=== PATIENT | male | born 1965 | race Caucasian/White ===

== ENCOUNTER 2019-03-13 16:53 | Inpatient (IN) | payer BC ==
[2019-03-13] MEDS ORDERED: SODIUM CHLORIDE 0.9% 1,000 ML IV STA (17:25)
[2019-03-13] MEDS ORDERED: ONDANSETRON 4 MG/2 ML VIAL IVP STA (17:25)
[2019-03-13] MEDS ORDERED: HYDROmorphone 1 MG/ML 1 ML SYRINGE IVP STA (17:25)
--- NOTE | 2019-03-13 17:39 | ED ---
General Adult HPI - General Chief complaint: Abdominal Pain Stated complaint: Abd pain Time Seen by Provider: 03/13/19 17:05 Source: patient, RN notes reviewed, old records reviewed Mode of arrival: ambulatory Limitations: no limitations - History of Present Illness Initial comments: This is a 53-year-old male presents emergency Department complaining of epigastric and left upper quadrant abdominal pain for the last 3 days. Patient states she's vomited 3 or 4 times to get the pain gets so bad. 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 Patient denies any diarrhea. Patient denies any fever chills. Patient does any chest pain palpitations difficulty breathing or shortness of breath per patient states palpating that area causes significant abdominal pain. Patient states that pain radiates to his back. Patient denies any history of high blood pressure. Patient denies any headache patient denies numbness weakness patient denies lightheadedness or dizziness. Patient denies any leg swelling or calf tenderness - Related Data Home Medications Medication Instructions Recorded Confirmed Cholecalciferol [Vitamin D3] 5,000 unit PO DAILY@1200 11/13/14 11/16/14 Ibuprofen 600 mg PO DAILY PRN 11/13/14 11/16/14 Allergies Allergy/AdvReac Type Severity Reaction Status Date / Time No Known Allergies Allergy Verified 03/13/19 17:06 Review of Systems ROS Statement: Those systems with pertinent positive or pertinent negative responses have been documented in the HPI. ROS Other: All systems not noted in ROS Statement are negative. Past Medical History Past Medical History: No Reported History History of Any Multi-Drug Resistant Organisms: None Reported Past Surgical History: No Surgical Hx Reported Additional Past Surgical History / Comment(s): Rheumatic fever Past Psychological History: No Psychological Hx Reported Smoking Status: Current every day smoker Past Alcohol Use History: None Reported Past Drug Use History: None Reported General Exam - General Exam Comments Initial Comments: GENERAL: Patient is well-developed and well-nourished. Patient is nontoxic and well- hydrated and is in mild distress. ENT: Neck is soft and supple. No significant lymphadenopathy is noted. Oropharynx is clear. Moist mucous membranes. Neck has full range of motion without eliciting any pain. EYES: The sclera were anicteric and conjunctiva were pink and moist. Extraocular movements were intact and pupils were equal round and reactive to light. Eyelids were unremarkable. PULMONARY: Unlabored respirations. Good breath sounds bilaterally. No audible rales rhonchi or wheezing was noted. CARDIOVASCULAR: There is a regular rate and rhythm without any murmurs gallops or rubs. ABDOMEN: She has significant epigastric and left upper quadrant pain. Patient has rebound tenderness SKIN: Skin is clear with no lesions or rashes and otherwise unremarkable. NEUROLOGIC: Patient is alert and oriented x3. Cranial nerves II through XII are grossly intact. Motor and sensory are also intact. Normal speech, volume and content. Symmetrical smile. MUSCULOSKELETAL: Normal extremities with adequate strength and full range of motion. No lower extremity swelling or edema. No calf tenderness. LYMPHATICS: No significant lymphadenopathy is noted PSYCHIATRIC: Normal psychiatric evaluation. Limitations: no limitations Course Vital Signs 03/13/19 03/13/19 17:04 19:05 Temperature 98.1 F 97.9 F Pulse Rate 55 L 73 Respiratory 20 15 Rate Blood Pressure 154/81 110/73 O2 Sat by Pulse 99 96 Oximetry Medical Decision Making - Medical Decision Making CT of the abdomen pelvis shows no acute abnormality. Patient got 1 mg of Dilaudid for the pain but patient was still complaining of severe pain. Patient received another 0.5 mg Dilaudid did seem to help the patient quite a bit. Patient continued to have epigastric abdominal pain but not to agree that he did earlier. I felt uncomfortable sending the patient home so I talked with Dr. Henson he agreed to admit the patient admitted the patient and I consult the GI. - Lab Data Result diagrams: 03/13/19 17:32 03/13/19 17:32 Lab Results 03/13/19 03/13/19 03/13/19 Range/Units 17:32 17:32 17:32 WBC 12.9 H (3.8-10.6) k/uL RBC 4.76 (4.30-5.90) m/uL Hgb 16.2 (13.0-17.5) gm/dL Hct 44.9 (39.0-53.0) % MCV 94.2 (80.0-100.0) fL MCH 34.0 (25.0-35.0) pg MCHC 36.1 (31.0-37.0) g/dL RDW 11.7 (11.5-15.5) % Plt Count 177 (150-450) k/uL Neutrophils % 67 % Lymphocytes % 19 % Monocytes % 9 % Eosinophils % 1 % Basophils % 2 % Neutrophils # 8.6 H (1.3-7.7) k/uL Lymphocytes # 2.4 (1.0-4.8) k/uL Monocytes # 1.2 H (0-1.0) k/uL Eosinophils # 0.2 (0-0.7) k/uL Basophils # 0.2 (0-0.2) k/uL Sodium 138 (137-145) mmol/L Potassium 4.1 (3.5-5.1) mmol/L Chloride 104 (98-107) mmol/L Carbon Dioxide 22 (22-30) mmol/L Anion Gap 12 mmol/L BUN 24 H (9-20) mg/dL Creatinine 0.85 (0.66-1.25) mg/dL Est GFR (CKD-EPI)AfAm >90 (>60 ml/min/1.73 sqM) Est GFR (CKD-EPI)NonAf >90 (>60 ml/min/1.73 sqM) Glucose 99 (74-99) mg/dL Plasma Lactic Acid Tyler 1.4 (0.7-2.0) mmol/L Calcium 10.1 (8.4-10.2) mg/dL Total Bilirubin 1.2 (0.2-1.3) mg/dL AST 30 (17-59) U/L ALT 29 (21-72) U/L Alkaline Phosphatase 51 (38-126) U/L Total Protein 7.4 (6.3-8.2) g/dL Albumin 4.6 (3.5-5.0) g/dL Amylase <30 L (30-110) U/L Lipase 46 (23-300) U/L Urine Color Urine Appearance (Clear) Urine pH (5.0-8.0) Ur Specific Tilton (1.001-1.035) Urine Protein (Negative) Urine Glucose (UA) (Negative) Urine Blood (Negative) Urine Nitrite (Negative) Urine Bilirubin (Negative) Urine Urobilinogen (<2.0) mg/dL Ur Leukocyte Esterase (Negative) 03/13/19 Range/Units 18:56 WBC (3.8-10.6) k/uL RBC (4.30-5.90) m/uL Hgb (13.0-17.5) gm/dL Hct (39.0-53.0) % MCV (80.0-100.0) fL MCH (25.0-35.0) pg MCHC (31.0-37.0) g/dL RDW (11.5-15.5) % Plt Count (150-450) k/uL Neutrophils % % Lymphocytes % % Monocytes % % Eosinophils % % Basophils % % Neutrophils # (1.3-7.7) k/uL Lymphocytes # (1.0-4.8) k/uL Monocytes # (0-1.0) k/uL Eosinophils # (0-0.7) k/uL Basophils # (0-0.2) k/uL Sodium (137-145) mmol/L Potassium (3.5-5.1) mmol/L Chloride (98-107) mmol/L Carbon Dioxide (22-30) mmol/L Anion Gap mmol/L BUN (9-20) mg/dL Creatinine (0.66-1.25) mg/dL Est GFR (CKD-EPI)AfAm (>60 ml/min/1.73 sqM) Est GFR (CKD-EPI)NonAf (>60 ml/min/1.73 sqM) Glucose (74-99) mg/dL Plasma Lactic Acid Tyler (0.7-2.0) mmol/L Calcium (8.4-10.2) mg/dL Total Bilirubin (0.2-1.3) mg/dL AST (17-59) U/L ALT (21-72) U/L Alkaline Phosphatase (38-126) U/L Total Protein (6.3-8.2) g/dL Albumin (3.5-5.0) g/dL Amylase (30-110) U/L Lipase (23-300) U/L Urine Color Yellow Urine Appearance Clear (Clear) Urine pH 6.0 (5.0-8.0) Ur Specific [place] 1.027 (1.001-1.035) Urine Protein Negative (Negative) Urine Glucose (UA) Negative (Negative) Urine Blood Negative (Negative) Urine Nitrite Negative (Negative) Urine Bilirubin Negative (Negative) Urine Urobilinogen <2.0 (<2.0) mg/dL Ur Leukocyte Esterase Negative (Negative) Disposition Clinical Impression: Abdominal pain Disposition: ADMITTED IP TO THIS HOSP Referrals: None,Stated [Primary Care Provider] - 1-2 days Time of Disposition: 19:55
[2019-03-13 17:41] LABS: Basophils # (A) 0.2 k/uL (0-0.2); Basophils % (A) 2 %; Eosinophils # (A) 0.2 k/uL (0-0.7); Eosinophils % (A) 1 %; HCT 44.9 % (39.0-53.0); HGB 16.2 gm/dL (13.0-17.5); Lymphocytes # (A) 2.4 k/uL (1.0-4.8); Lymphocytes % (A) 19 %; MCHC 36.1 g/dL (31.0-37.0); MCV 94.2 fL (80.0-100.0); Mean Platelet Volume 7.3; Monocytes # (A) 1.2 k/uL (0-1.0); Monocytes % (A) 9 %; Neutrophils # (A) 8.6 k/uL (1.3-7.7); Neutrophils % (A) 67 %; Platelet Count 177 k/uL (150-450); RBC 4.76 m/uL (4.30-5.90); RDW 11.7 % (11.5-15.5); WBC 12.9 k/uL (3.8-10.6)
[2019-03-13 17:51] LABS: ALT 29 U/L (21-72); AST 30 U/L (17-59); African American GFR (CKD) >90 (>60 ml/min/1.73 sqM); Albumin 4.6 g/dL (3.5-5.0); Alkaline Phosphatase 51 U/L (38-126); Amylase <30 U/L (30-110); Anion Gap 12 mmol/L; Blood Urea Nitrogen 24 mg/dL (9-20); Calcium 10.1 mg/dL (8.4-10.2); Carbon Dioxide 22 mmol/L (22-30); Chloride 104 mmol/L (98-107); Glucose 99 mg/dL (74-99); Potassium 4.1 mmol/L (3.5-5.1); Sodium 138 mmol/L (137-145); Total Bilirubin 1.2 mg/dL (0.2-1.3); Total Protein 7.4 g/dL (6.3-8.2)
[2019-03-13] MEDS ORDERED: HYDROmorphone 0.5 MG/0.5 ML SYRINGE IVP STA (18:13)
--- NOTE | 2019-03-13 18:51 | CT ---
EXAMINATION TYPE: CT abdomen pelvis w con DATE OF EXAM: 03/13/2019 COMPARISON: November 05, 2014 HISTORY: Generalized abdominal pain. CT DLP: 638 mGycm Automated exposure control for dose reduction was used. TECHNIQUE: Helical acquisition of images was performed from the lung bases through the pelvis. CONTRAST: Performed without Oral Contrast and with IV Contrast, patient injected with 100 mL of Isovue 300. FINDINGS: Lung bases are clear. There is no pleural effusion. Heart size is normal. There is no pericardial eff usion. Liver spleen stomach pancreas gallbladder appear normal. Bile ducts are not dilated. There is no adrenal mass. Kidneys show satisfactory contrast opacification. There is no hydronephrosi s. Ureters are not dilated. There is no retroperitoneal adenopathy. There are few fluid-filled mildly distended small bowel loops in the mid abdomen. Bladder distends smoothly. There is no inguinal mary ia. There is no evidence of a pelvic mass. There is no free fluid in the pelvis. There are a few sigm oid diverticula. There is no sign of diverticulitis. The appendix appears normal. Lumbar vertebra have fairly normal spacing and alignment. Posterior elements are intact. Bony pelvis appears intact. IMPRESSION: THERE IS POSSIBLE MILD SMALL BOWEL ILEUS. NORMAL APPENDIX. THERE IS OVERALL NO ADVERSE CHANGE COMPARE D TO OLD EXAM..
[2019-03-13 19:04] LABS: Appearance,Urine Clear (Clear); Bilirubin,Urine Negative (Negative); Blood,Urine Negative (Negative); Color,Urine Yellow; Glucose,Urine (UA) Negative (Negative); Ketones,Urine 2+ (Negative); Leukocyte Esterase,Urine Negative (Negative); Nitrite,Urine Negative (Negative); Protein,Urine Negative (Negative); Specific Gravity,Urine 1.027 (1.001-1.035); Urobilinogen,Urine <2.0 mg/dL (<2.0)
[2019-03-13] MEDS ORDERED: PANTOPRAZOLE 40 MG/10 ML VIAL IVP STA (19:22)
[2019-03-13] MEDS ORDERED: SODIUM CHLORIDE 0.9% 1,000 ML IV ONE (20:09)
[2019-03-13 22:00] VITALS: BMI 23.2
[2019-03-13] MEDS ORDERED: HYDROmorphone 0.5 MG/0.5 ML SYRINGE IVP PRN (23:35)
--- NOTE | 2019-03-13 23:42 | P.HPIM ---
History of Present Illness H&P Date: 03/13/19 Chief Complaint: abdominal pain 53-year-old male with no significant past medical history Patient comes in to the hospital with 3 day history of epigastric abdominal pain radiating to the left upper quadrant. This has been going off and on over the past 3 days worsening in nature. Described as sharp pain and alternating with dull achy pain 10 out of 10 in severity goes down to 7 out of 10 in severity. Associated with feeling nauseous and vomiting every morning for the past 3 days nonbloody no coffee-ground vomiting patient reports thick greenish in color even after long hours of fasting overnight while sleeping. Usually after vomiting he'll feel some relief. Patient also reports history of GERD and history of similar episodes of abdominal pain 3 years ago no diagnosis was given at that time he improved on his own to think of getting less intense attacks of abdominal pain occasionally that resolves on its own. Patient denies any alcohol intake or using any painkillers but he does admit to smoking. Patient denies any weight loss or GI bleeding or melena.he denies any recent traveling trauma to the abdomen. When patient came to the hospital he was concerned about kidney stones which she had many many years ago. He denies any urinary symptoms. Denies any fevers or chills chest pain or trouble breathing. In the ED CT of the abdomen was unremarkable labs was unremarkable except for elevated white count patient admitted for GI evaluation and possible EGD as concerns were for stomach ulcer Review of Systems Pertinent positives as noted in HPI. All other systems were reviewed and are negative Past Medical History Past Medical History: No Reported History History of Any Multi-Drug Resistant Organisms: None Reported Past Surgical History: No Surgical Hx Reported Additional Past Surgical History / Comment(s): Rheumatic fever Past Psychological History: No Psychological Hx Reported Smoking Status: Current every day smoker Past Alcohol Use History: None Reported Additional Past Alcohol Use History / Comment(s): states he smokes 1/2 pack per day. Past Drug Use History: None Reported - Past Family History family Additional Family Medical History / Comment(s): Mother with kidney stones Medications and Allergies Home Medications Medication Instructions Recorded Confirmed Type Multivitamins, Thera [Multivitamin 1 tab PO DAILY 03/13/19 03/13/19 History (formulary)] Allergies Allergy/AdvReac Type Severity Reaction Status Date / Time No Known Allergies Allergy Verified 03/13/19 20:07 Physical Exam Vitals: Vital Signs Temp Pulse Resp BP Pulse Ox 03/13/19 20:52 66 12 112/70 95 03/13/19 19:05 97.9 F 73 15 110/73 96 03/13/19 17:04 98.1 F 55 L 20 154/81 99 Intake and Output 03/13/19 03/13/19 03/14/19 14:59 22:59 06:59 Intake Total 1000 Balance 1000 Intake: Amount of Fluid Infused ( 1000 ml) Other: Weight 65.317 kg Constitutional: No acute distress, conversant, pleasant Eyes: Anicteric sclerae, moist conjunctiva, no lid-lag Pupils equal round reactive to light ENMT: NC/AT Oropharynx clear, no erythema, exudates Neck: Supple, FROM, no masses, or JVD No carotid bruits No thyromegaly Lungs: Clear to auscultation Clear to percussion Normal respiratory effort, no accessory muscle use Cardiovascular: Heart regular in rate and rhythm, systolic murmurs,no gallops, or rubs No peripheral edema Abdominal: Soft, tenderness to palpation of the epigastric region with phone to regarding, no rebound or rigidity Abdomen moving with respiration Normoactive bowel sounds No hepatomegaly, No splenomegaly No palpable mass inguinal hernia was palpated reducible Skin: Normal temperature, tone, texture, turgor No induration No subcutaneous nodules No rash, lesions No ulcers Extremities: No digital cyanosis No clubbing Pedal pulses intact and symmetrical Radial pulses intact and symmetrical No calf tenderness Psychiatric: Alert and oriented to person, place and time Appropriate affect fair judgement Neuro Muscles Strength 5/5 in all 4 extremities Sensation to light touch grossly present throughout Cranial nerves II-XII grossly intact No focal sensory deficits Lymphatics: no palpable cervical or supraclavicular , or inguinal lymph nodes Results CBC & Chem 7: 03/13/19 17:32 03/13/19 17:32 Labs: Abnormal Lab Results - Last 24 Hours (Table) 03/13/19 03/13/19 03/13/19 Range/Units 17:32 17:32 18:56 WBC 12.9 H (3.8-10.6) k/uL Neutrophils # 8.6 H (1.3-7.7) k/uL Monocytes # 1.2 H (0-1.0) k/uL BUN 24 H (9-20) mg/dL Amylase <30 L (30-110) U/L Urine Ketones 2+ H (Negative) Thrombosis Risk Factor Assmnt - Choose All That Apply Any of the Below Risk Factors Present?: Yes Each Factor Represents 1 point: Age 41-60 years Other Risk Factors: No Other congenital or acquired thrombophilia - If yes, enter type in comment: No Thrombosis Risk Factor Assessment Total Risk Factor Score: 1 Thrombosis Risk Factor Assessment Level: Low Risk Assessment and Plan Assessment: 53-year-old malewith past medical history comes in with 3 day history of severe epigastric abdominal pain associated with bilious vomiting. CT of the abdomen in the ER showed no bowel obstruction or free air under the diaphragm. No kidney stones. Patient admitted under observation with anticipated length of stay less than 2 midnight for evaluation by GI and possible EGD Plan: epigastric abdominal pain concerning for peptic ulcer disease Nothing by mouth IV fluid hydration Pain control PPI twice a day GI consult CT of the abdomen showed no evidence of air under the diaphragm or bowel obstruction history of valvular heart disease with systolic murmur radiating to the left carotid Consider outpatient follow-up with cardiology currently asymptomatic DVT prophylaxis mechanical CODE STATUS full code Discussed with: Patient, ER, *RN Anticipated length of stay less than [address]: home A total of 60 minutes was spent on the care of this complex patient more than 50% of the time was spent in counseling and care coordination.
[2019-03-14 07:41] LABS: Basophils # (A) 0.1 k/uL (0-0.2); Basophils % (A) 1 %; Eosinophils # (A) 0.2 k/uL (0-0.7); Eosinophils % (A) 2 %; HGB 14.9 gm/dL (13.0-17.5); Lymphocytes # (A) 3.1 k/uL (1.0-4.8); Lymphocytes % (A) 28 %; MCH 32.6 pg (25.0-35.0); MCHC 33.8 g/dL (31.0-37.0); MCV 96.6 fL (80.0-100.0); Mean Platelet Volume 7.3; Monocytes % (A) 9 %; Neutrophils # (A) 6.3 k/uL (1.3-7.7); Neutrophils % (A) 57 %; Platelet Count 150 k/uL (150-450); RBC 4.55 m/uL (4.30-5.90); WBC 11.1 k/uL (3.8-10.6)
[2019-03-14 07:57] LABS: African American GFR (CKD) >90 (>60 ml/min/1.73 sqM); Anion Gap 7 mmol/L; Blood Urea Nitrogen 21 mg/dL (9-20); Calcium 8.8 mg/dL (8.4-10.2); Carbon Dioxide 24 mmol/L (22-30); Chloride 108 mmol/L (98-107); Glucose 78 mg/dL (74-99); Potassium 3.8 mmol/L (3.5-5.1); Sodium 139 mmol/L (137-145)
[2019-03-14] MEDS: PANTOPRAZOLE 40 MG/10 ML VIAL IVP SCH ×2 (10:03→20:43)
[2019-03-14 12:48] VITALS: RESP 16
--- NOTE | 2019-03-14 17:01 | XR ---
EXAMINATION TYPE: XR abdomen 1V DATE OF EXAM: 03/14/2019 Comparison: Correlation CT 03/13/2019 Clinical History: 53-year-old male follow-up ileus Findings: A few residual borderline distended small bowel loops remain in the left side of the abdomen. Scatter ed colonic air is present with mild stool in the right side of the abdomen. Supine imaging limited for assessment of free air. Impression: A few residual borderline distended small bowel loops in the left side of the abdomen measuring up to 2.8 cm. Consider stable versus slightly improving ileus.
--- NOTE | 2019-03-14 17:36 | P.PN ---
Subjective Progress Note Date: 03/14/19 Patient is doing fairly well today. He denies any nausea or vomiting. Abdominal pain has improved. Objective - Vital Signs Vital signs: Vital Signs Temp 97.4 F L 03/14/19 12:22 Pulse 51 L 03/14/19 12:22 Resp 16 03/14/19 12:22 BP 110/64 03/14/19 12:22 Pulse Ox 94 L 03/14/19 12:22 Intake & Output 03/13/19 03/14/19 03/14/19 18:59 06:59 18:59 Intake Total 1000 Balance 1000 Weight 65.317 kg 65.317 kg Intake: Amount of Fluid Infused ( 1000 ml) Oral 0 Other: Voiding Method Toilet # Voids 1 2 # Bowel Movements 0 - Exam 1. Ileus, with no obvious small bowel obstruction on CT. Repeat x-ray today showed some improvement. Currently patient on IV fluid hydration. He is nothing by mouth awaiting GI evaluation. May start clear liquid is if okay with GI. 2. Epigastric pain: On presentation with concern about possible gastric ulcers by admitting physician. Awaiting GI evaluation. Continue IV Protonix. - Labs CBC & Chem 7: 03/14/19 07:12 03/14/19 07:12 Labs: Abnormal Lab Results - Last 24 Hours (Table) 03/13/19 03/13/19 03/13/19 Range/Units 17:32 17:32 18:56 WBC 12.9 H (3.8-10.6) k/uL Neutrophils # 8.6 H (1.3-7.7) k/uL Monocytes # 1.2 H (0-1.0) k/uL Chloride (98-107) mmol/L BUN 24 H (9-20) mg/dL Amylase <30 L (30-110) U/L Urine Ketones 2+ H (Negative) 03/14/19 03/14/19 Range/Units 07:12 07:12 WBC 11.1 H (3.8-10.6) k/uL Neutrophils # (1.3-7.7) k/uL Monocytes # (0-1.0) k/uL Chloride 108 H (98-107) mmol/L BUN 21 H (9-20) mg/dL Amylase (30-110) U/L Urine Ketones (Negative)
[2019-03-14] MEDS ORDERED: DICYCLOMINE 20 MG TAB PO PRN (18:41)
--- NOTE | 2019-03-14 22:45 | P.CONS ---
History of Present Illness - Reason for Consult Consult date: 03/14/19 Abdominal pain Requesting physician: Katherine Henson - Chief Complaint Abdominal pain - History of Present Illness 53-year-old male with no prior medical history who presents to the hospital with complaints of abdominal pain. The patient reports 3 days of pain in the epi gastric region. Extremities sharp and burning in nature. He reports associated nausea and vomiting with the pain. The patient states that nausea and vomiting was worse after eating. The pain was above the bilirubin in the epigastric region without radiation. He thought initially that the pain has been secondary to back pain and kidney stones, for which the patient has a prior history but that the pain continued to intensify prompting him to come to the hospital. He denies any sick contacts, or unusual foods, travel or other triggers. He denies any change in bowel habits with last bowel movement yesterday, normal in color, and consistency with no blood per rectum or melena reported. He denies any history of frequent reflux, dysphagia or odynophagia. No prior peptic ulcer disease reported. The patient takes Motrin regularly. He did have a computed tomography scan on presentation which did show evidence of possible ileus. Review of Systems REVIEW OF SYSTEMS: CONSTITUTIONAL: Denies any fevers, chills, weight change or fatigue. CARDIOVASCULAR: Denies any chest pain, palpitations high or low blood pressures RESPIRATORY: Denies any shortness of breath, hemoptysis or cough. GENITOURINARY: No dysuria or hematuria. MUSCULOSKELETAL: No weakness reported. SKIN: Denies any new rashes or lesions, jaundice or pallor. PSYCHIATRIC: Denies any depression or anxiety. NEUROLOGY: Denies headache, denies any new focal deficits. EARS/NOSE/THROAT: No recent hearing change, congestion, nasal discharge or sore throat. EYES: No pain in eyes, discharge or change in vision. GASTROINTESTINAL: As per HPI. Past Medical History Past Medical History: No Reported History History of Any Multi-Drug Resistant Organisms: None Reported Past Surgical History: No Surgical Hx Reported Additional Past Surgical History / Comment(s): Rheumatic fever Past Psychological History: No Psychological Hx Reported Smoking Status: Current every day smoker Past Alcohol Use History: None Reported Additional Past Alcohol Use History / Comment(s): states he smokes 1/2 pack per day. Past Drug Use History: None Reported - Past Family History family Additional Family Medical History / Comment(s): Mother with kidney stones Medications and Allergies Home Medications Medication Instructions Recorded Confirmed Type Multivitamins, Thera [Multivitamin 1 tab PO DAILY 03/13/19 03/13/19 History (formulary)] Allergies Allergy/AdvReac Type Severity Reaction Status Date / Time No Known Allergies Allergy Verified 03/13/19 20:07 Physical Exam Vitals: Vital Signs Temp Pulse Pulse Resp BP BP Pulse Ox 03/14/19 20:20 98.1 F 57 L 16 118/70 96 03/14/19 12:22 97.4 F L 51 L 16 110/64 94 L 03/14/19 05:00 97.9 F 58 L 18 106/59 96 Intake and Output 03/14/19 03/14/19 03/14/19 06:59 14:59 22:59 Intake Total 0 408 Balance 0 408 Intake: Oral 0 408 Other: Voiding Method Toilet # Voids 1 2 1 Weight 65.317 kg On physical examination, patient appears comfortable in no apparent distress. HEAD: Normocephalic, atraumatic. EYES: No scleral icterus. No conjunctival injection. MOUTH: No lesions, tongue midline. NECK: Trachea midline, no gross abnormalities. CHEST: Clear to auscultation with no wheezing or rhonchi appreciated. HEART: Regular rate and rhythm. ABDOMEN: Soft, mildly tender to palpation. Bowel sounds are positive. No organomegaly. No guarding or rigidity. EXTREMITIES: No pedal edema. SKIN: No rashes, no jaundice. NEUROLOGIC: Alert and oriented x3. No focal deficits. Results CBC & Chem 7: 03/14/19 07:12 03/14/19 07:12 Labs: Abnormal Lab Results - Last 24 Hours (Table) 03/14/19 03/14/19 Range/Units 07:12 07:12 WBC 11.1 H (3.8-10.6) k/uL Chloride 108 H (98-107) mmol/L BUN 21 H (9-20) mg/dL CT scan - abdomen: report reviewed (Computed tomography scan of the abdomen with evidence of possible ileus) Assessment and Plan (1) Epigastric pain Narrative/Plan: 53-year-old male presents to the hospital for evaluation of abdominal pain. He reports 3 days of increasing abdominal pain described as sharp and burning in the epigastric region of his abdomen. He has had prior episodes of similar pain treated with [id number] antacids with improvement in his symptoms however chronic pain persisted and prompted him to come to the hospital for further evaluation. Computed tomography scan on presentation was suggestive of possible ileus. The patient denies any prior history of peptic ulcer disease, denies any excessive use of NSAID medications, and has no signs or symptoms of GI bleeding denying any hematochezia, melena or other signs or symptoms of bleed. Hemoglobin has been stable since admission. Unclear etiology, differential includes uncontrolled reflux, functional bowel disorder, peptic ulcer disease or other etiology. Current Visit: No Status: Acute Code(s): R10.13 - EPIGASTRIC PAIN SNOMED Code(s): 18830103 Plan: Supportive care Clear liquid diet initiated, subsequently advanced to full liquids If patient's symptoms remain controlled okay to advance to regular diet tomorrow Continue Protonix therapy Bentyl as needed for abdominal pain added Continue to monitor his and labs including CBC and CMP No plans for endoscopic evaluation at this time, if patient remains stable okay for discharge from gastroenterology standpoint Thank you for allowing us to participate in care of the patient we will continue to follow
[2019-03-15 05:28] VITALS: BP 129/68; PULSE 53; TEMP 98
[2019-03-15] MEDS: PANTOPRAZOLE 40 MG/10 ML VIAL IVP SCH (08:44)
--- NOTE | 2019-03-15 10:40 | P.DS ---
Providers Date of admission: 03/14/19 11:06 Expected date of discharge: 03/15/19 Attending physician: Katherine Henson MD Consults: 03/13/19 20:09 Consult Physician Urgent Consulting Provider: Janel Garcia Consult Reason/Comments: Epigastric abdominal pain Do you want consulting provider notified?: Yes Primary care physician: Stated None Hospital Course: This is a 53-year-old male with no significant past medical history who presented to the emergency room with worsening nausea, vomiting, and abdominal pain. Patient was evaluated in the emergency room and was admitted to the hospital for further management. Computed tomography scan of the abdomen and pelvis in the ER showed findings concerning for possible ileus. Patient was managed conservatively. He remained nothing by mouth since admission and was given IV fluid hydration, antiemetic, and pain control as needed. His overall condition significantly. He was seen and evaluated by GI. Gastric ulcer was thought to be less likely given his clinical presentation. His overall condition improved significantly. His diet was advanced gradually. On the day of discharge patient was able to tolerate regular food with no difficulty. He was passing gas. He will be discharged home in a stable condition. He will be given Protonix 40 mg daily. He was advised to return to the emergency room if his symptoms recur or if his condition worsens. For further details about this hospitalization please refer to the electronic chart. Plan - Discharge Summary Discharge Rx Participant: No New Discharge Prescriptions: New Dicyclomine [Bentyl] 20 mg PO QID PRN #30 tab PRN Reason: Dyspepsia Pantoprazole Sodium [Protonix] 40 mg PO DAILY #30 tablet. Continue Multivitamins, Thera [Multivitamin (formulary)] 1 tab PO DAILY Discharge Medication List Multivitamins, Thera [Multivitamin (formulary)] 1 tab PO DAILY 03/13/19 [History] Dicyclomine [Bentyl] 20 mg PO QID PRN #30 tab 03/15/19 [Rx] Pantoprazole Sodium [Protonix] 40 mg PO DAILY #30 tablet. 03/15/19 [Rx] Follow up Appointment(s)/Referral(s): None,Stated [Primary Care Provider] - 1-2 days Discharge Disposition: HOME SELF-CARE
== END 2019-03-15 11:04 | disposition home or self-care (01) | DRG 390 ==
LOC: EC 16:53 → 4MS4W 20:09 → OBSVTOIN 03-14 11:06
PROVIDERS: ADMIT Internal Medicine; ATTEND Internal Medicine
DX: K56.7 Ileus, unspecified (principal); I09.1 Rheumatic diseases of endocardium, valve unspecified; K21.9 Gastro-esophageal reflux disease without esophagitis; F17.210 Nicotine dependence, cigarettes, uncomplicated; Z79.899 Other long term (current) drug therapy; Z87.442 Personal history of urinary calculi
CPT/HCPCS: 36415; 74018; 74177; 80048; 80053; 81003; 82150; 83605; 83690; 85025; 96361; 96374; 96375; 99285

== ENCOUNTER 2020-01-05 20:41 | Emergency (ER) | payer BC ==
[2020-01-05 20:52] VITALS: TEMP 99.4
--- NOTE | 2020-01-05 21:07 | ED ---
Abdominal Pain HPI - General Chief Complaint: Abdominal Pain Stated Complaint: abd pain Time Seen by Provider: 01/05/20 21:02 Source: patient, family Mode of arrival: ambulatory Limitations: no limitations - History of Present Illness Initial Comments: Patient is a 54-year-old male presenting to the emergency department with a chief complaint of abdominal pain. Patient reports the pain is located in the left lower quadrant and started about 3 days ago. Patient reports the pain occasionally does radiate to his flank region. States this feels like somewhat like a kidney stone which he has had many years ago. Patient also reports she has been to the hospital previously for similar abdominal pain. Patient does report nausea with 5 episodes of nonbilious and nonbloody vomiting over the last 2 days. He denies any night sweats fevers or chills. Denies any hematuria, hematochezia or melena. Denies any back pain, chest pain or shortness of br eath. Denies penile discharge, testicular pain or swelling. - Related Data Home Medications Medication Instructions Recorded Confirmed Multivitamins, Thera [Multivitamin 1 tab PO DAILY 03/13/19 03/13/19 (formulary)] Previous Rx's Medication Instructions Recorded Dicyclomine [Bentyl] 20 mg PO QID PRN #30 tab 03/15/19 Pantoprazole Sodium [Protonix] 40 mg PO DAILY #30 tablet. 03/15/19 Ondansetron Odt [Zofran Odt] 4 mg PO Q8HR PRN #20 tab 01/05/20 Allergies Allergy/AdvReac Type Severity Reaction Status Date / Time No Known Allergies Allergy Verified 01/05/20 20:52 Review of Systems ROS Statement: Those systems with pertinent positive or pertinent negative responses have been documented in the HPI. ROS Other: All systems not noted in ROS Statement are negative. Past Medical History Past Medical History: No Reported History Additional Past Medical History / Comment(s): kidney stones History of Any Multi-Drug Resistant Organisms: None Reported Past Surgical History: No Surgical Hx Reported Additional Past Surgical History / Comment(s): Rheumatic fever Past Psychological History: No Psychological Hx Reported Smoking Status: Current every day smoker Past Alcohol Use History: None Reported Past Drug Use History: None Reported - Past Family History family Additional Family Medical History / Comment(s): Mother with kidney stones General Exam Limitations: no limitations General appearance: alert, in no apparent distress Head exam: Present: atraumatic, normocephalic, normal inspection Eye exam: Present: normal appearance, PERRL, EOMI Pupils: Present: normal accommodation ENT exam: Present: normal exam, normal oropharynx, mucous membranes moist Neck exam: Present: normal inspection, full ROM. Absent: tenderness Respiratory exam: Present: normal lung sounds bilaterally. Absent: respiratory distress, wheezes Cardiovascular Exam: Present: regular rate, normal rhythm, normal heart sounds GI/Abdominal exam: Present: soft, tenderness (Left lower quadrant tenderness), normal bowel sounds. Absent: distended, guarding, rebound, rigid Extremities exam: Present: normal inspection, full ROM, normal capillary refill. Absent: tenderness Back exam: Present: normal inspection, full ROM. Absent: tenderness, CVA tenderness (R), CVA tenderness (L) Neurological exam: Present: alert, oriented X3 Psychiatric exam: Present: normal affect, normal mood Skin exam: Present: warm, dry, intact, normal color Course Vital Signs 01/05/20 20:49 Temperature 99.4 F Pulse Rate 66 Respiratory 18 Rate Blood Pressure 118/81 O2 Sat by Pulse 98 Oximetry Medical Decision Making - Medical Decision Making Patient is 54-year-old male presenting to the emergency department with chief complaint of abdominal pain. Exam patient has left lower quadrant abdominal pain with no CVA tenderness. CBC CMP is unremarkable. UA shows no signs of hematuria but does reveal ketones suggestive of dehydration. Patient was given IV fluids, antiemetics and analgesia. A reevaluation patient reports improvement of symptoms. CT abdomen and pelvis reveals no signs of diverticulitis but does reveal possible colitis in the sigmoid colon. Patient was advised to follow with the primary care physician and GI specialist. He will be discharged with Zofran. Return parameters were thoroughly discussed the patient was standing ago. Case discussed with physician. - Lab Data Result diagrams: 01/05/20 21:34 01/05/20 21:34 Lab Results 01/05/20 01/05/20 01/05/20 Range/Units 21:34 21:34 21:34 WBC 10.5 (3.8-10.6) k/uL RBC 5.09 (4.30-5.90) m/uL Hgb 16.3 (13.0-17.5) gm/dL Hct 48.0 (39.0-53.0) % MCV 94.4 (80.0-100.0) fL MCH 32.1 (25.0-35.0) pg MCHC 34.0 (31.0-37.0) g/dL RDW 12.1 (11.5-15.5) % Plt Count 160 (150-450) k/uL Neutrophils % 71 % Lymphocytes % 17 % Monocytes % 8 % Eosinophils % 1 % Basophils % 1 % Neutrophils # 7.4 (1.3-7.7) k/uL Lymphocytes # 1.8 (1.0-4.8) k/uL Monocytes # 0.9 (0-1.0) k/uL Eosinophils # 0.1 (0-0.7) k/uL Basophils # 0.1 (0-0.2) k/uL Sodium 136 L (137-145) mmol/L Potassium 3.7 (3.5-5.1) mmol/L Chloride 104 (98-107) mmol/L Carbon Dioxide 23 (22-30) mmol/L Anion Gap 9 mmol/L BUN 21 H (9-20) mg/dL Creatinine 0.79 (0.66-1.25) mg/dL Est GFR (CKD-EPI)AfAm >90 (>60 ml/min/1.73 sqM) Est GFR (CKD-EPI)NonAf >90 (>60 ml/min/1.73 sqM) Glucose 102 H (74-99) mg/dL Calcium 10.1 (8.4-10.2) mg/dL Total Bilirubin 1.2 (0.2-1.3) mg/dL AST 29 (17-59) U/L ALT 21 (4-49) U/L Alkaline Phosphatase 55 (38-126) U/L Total Protein 7.2 (6.3-8.2) g/dL Albumin 4.5 (3.5-5.0) g/dL Lipase 37 (23-300) U/L Urine Color Yellow Urine Appearance Cloudy (Clear) Urine pH 5.5 (5.0-8.0) Ur Specific [place] 1.032 (1.001-1.035) Urine Protein 1+ H (Negative) Urine Glucose (UA) Negative (Negative) Urine Ketones 3+ H (Negative) Urine Blood Negative (Negative) Urine Nitrite Negative (Negative) Urine Bilirubin Negative (Negative) Urine Urobilinogen 3.0 (<2.0) mg/dL Ur Leukocyte Esterase Negative (Negative) Urine RBC 1 (0-5) /hpf Urine WBC 3 (0-5) /hpf Urine Mucus Many H (None) /hpf Disposition Clinical Impression: Abdominal pain, Colitis Disposition: HOME SELF-CARE Condition: Stable Instructions (If sedation given, give patient instructions): Abdominal Pain (ED), Colitis (ED) Additional Instructions: Follow-up with a GI specialist and primary care physician. Return to emergency department if symptoms worsen. Prescriptions: Ondansetron Odt [Zofran Odt] 4 mg PO Q8HR PRN #20 tab PRN Reason: Nausea Is patient prescribed a controlled substance at d/c from ED?: No Referrals: None,Stated [Primary Care Provider] - 1-2 days Time of Disposition: 23:21
[2020-01-05] MEDS ORDERED: SODIUM CHLORIDE 0.9% 1,000 ML IV STA (21:17)
[2020-01-05] MEDS ORDERED: KETOROLAC 15 MG/ML 1 ML VIAL IVP STA (21:17)
[2020-01-05] MEDS ORDERED: ONDANSETRON 4 MG/2 ML VIAL IVP STA (21:17)
[2020-01-05 21:50] LABS: Basophils # (A) 0.1 k/uL (0-0.2); Basophils % (A) 1 %; Eosinophils # (A) 0.1 k/uL (0-0.7); Eosinophils % (A) 1 %; HGB 16.3 gm/dL (13.0-17.5); Lymphocytes # (A) 1.8 k/uL (1.0-4.8); Lymphocytes % (A) 17 %; MCH 32.1 pg (25.0-35.0); MCV 94.4 fL (80.0-100.0); Mean Platelet Volume 7.9; Monocytes # (A) 0.9 k/uL (0-1.0); Monocytes % (A) 8 %; Neutrophils # (A) 7.4 k/uL (1.3-7.7); Neutrophils % (A) 71 %; Platelet Count 160 k/uL (150-450); RBC 5.09 m/uL (4.30-5.90); RDW 12.1 % (11.5-15.5); WBC 10.5 k/uL (3.8-10.6)
[2020-01-05 21:52] LABS: ALT 21 U/L (4-49); AST 29 U/L (17-59); African American GFR (CKD) >90 (>60 ml/min/1.73 sqM); Albumin 4.5 g/dL (3.5-5.0); Alkaline Phosphatase 55 U/L (38-126); Anion Gap 9 mmol/L; Blood Urea Nitrogen 21 mg/dL (9-20); Calcium 10.1 mg/dL (8.4-10.2); Carbon Dioxide 23 mmol/L (22-30); Chloride 104 mmol/L (98-107); Glucose 102 mg/dL (74-99); Non-African American GFR(CKD) >90 (>60 ml/min/1.73 sqM); Potassium 3.7 mmol/L (3.5-5.1); Sodium 136 mmol/L (137-145); Total Bilirubin 1.2 mg/dL (0.2-1.3); Total Protein 7.2 g/dL (6.3-8.2)
[2020-01-05 22:30] LABS: Appearance,Urine Cloudy (Clear); Bilirubin,Urine Negative (Negative); Blood,Urine Negative (Negative); Color,Urine Yellow; Glucose,Urine (UA) Negative (Negative); Ketones,Urine 3+ (Negative); Leukocyte Esterase,Urine Negative (Negative); Mucus,Urine Many /hpf; Nitrite,Urine Negative (Negative); PH, Urine 5.5 (5.0-8.0); Protein,Urine 1+ (Negative); RBC,Urine 1 /hpf (0-5); Specific Gravity,Urine 1.032 (1.001-1.035); WBC,Urine 3 /hpf (0-5)
--- NOTE | 2020-01-05 23:18 | CT ---
EXAMINATION TYPE: CT abdomen pelvis w con DATE OF EXAM: 01/05/2020 COMPARISON: 03/13/2019 HISTORY: Left upper quadrant abdominal/flank pain. CT DLP: 738 mGycm Automated exposure control for dose reduction was used. CONTRAST: Performed with IV Contrast, patient injected with 100ml mL of Isovue 300. Lung bases are clear. There is no pleural effusion. Heart size is normal. There is no pericardial eff usion. There is apparent surgery at the aortic valve. Liver spleen stomach pancreas appear normal. Bile ducts are not dilated. Gallbladder appears normal. There is no adrenal mass. Kidneys show satisfactory contrast opacification. There is no hydronephrosi s. Ureters are not dilated. Bladder distends smoothly. There is small left inguinal hernia containing fat. There is no free fluid in the pelvis. There is no sign of a pelvic mass. There is some mild fat stranding around the mid sigmoid colon. I do not see any significant diverticular disease. Prostate measures 4.5 cm. Appendix is inferior and appears normal. Appendix best seen on the coronal images. There is no mesenteric edema. There is no ascites or free air. There is no bowel obstruction. Lumbar vertebra have normal alignment. Disc spaces are fairly normal. Posterior elements are intact. Bony pelvis is intact. The hip joints appear normal. IMPRESSION: There is minimal fluid density around the mid sigmoid colon without sigmoid colon wall thickening or any significant diverticular disease. Clinical significance is not clear. This could relate to some m ild focal colitis. There is clearing of the changes of small bowel ileus compared to old exam. Append ix is normal.
[2020-01-05 23:55] VITALS: BP 154/94; PULSE 70; RESP 16
== END 2020-01-05 23:55 | disposition home or self-care (01) ==
LOC: EC 20:41
DX: K52.9 Noninfective gastroenteritis and colitis, unspecified (principal); F17.200 Nicotine dependence, unspecified, uncomplicated; Z87.442 Personal history of urinary calculi
CPT/HCPCS: 36415; 80053; 83690; 85025; 81001; 74177; 99284; 96374; 96375; 96361 ×2; J2405; J1885; Q9967

== ENCOUNTER 2020-02-17 08:57 | Day surgery (SDC) | payer BC ==
[2020-02-16 11:20] VITALS: BMI 25.0
[~2020-02-17 08:57] MED LIST: LACTATED RINGERS 1,000 ML IV SCH; LIDOCAINE 1% (10MG/ML) FOR IV START INTRADERMA PRN; MIDAZOLAM 2 MG/2 ML VIAL IV PRN
[2020-02-17 09:45] VITALS: TEMP 98
[2020-02-17] MEDS ORDERED: LIDOCAINE 1% INJ 10MG/ML (20 ML MDV) ONE (11:02)
[2020-02-17] MEDS ORDERED: PROPOFOL 10 MG/ML 20 ML VIAL IV ONE (11:02)
--- NOTE | 2020-02-17 11:44 | P.PCN ---
Date of Procedure: 02/17/20 Description of Procedure: Brief history: Patient is a pleasant 54-year-old male presenting for outpatient evaluation with EGD and colonoscopy for epigastric abdominal pain and left lower quadrant abdominal pain. Patient reports symptoms of abdominal pain in his epigastric region, left lower quadrant as well as associated nausea and vomiting. He does report some improvement in symptoms with dicyclomine. Procedure performed: Esophagogastroduodenoscopy with biopsy Colonoscopy with polypectomy Estimated blood loss: Minimal. Preoperative diagnosis: Epigastric pain and tenderness, left lower quadrant abdominal pain, nausea, unintentional weight loss Anesthesia: MAC Procedure: After informed consent was obtained from the patient was brought into the endoscopy unit and IV sedation was administered by anesthesia under continuous monitoring. Initially upper endoscopy was done. The Olympus GF 190 video endoscope was inserted into the mouth and esophagus intubated without any difficulty and was gradually advanced into the stomach and duodenum and carefully examined. The bulb and second part of the duodenum appeared normal, except for some mild scattered erythema suggestive of mild duodenitis with biopsies taken. Biopsies were also taken of the antrum and body with some mild scattered erythema suggestive of mild gastritis and biopsies of the antrum and body taken. The scope was then withdrawn into the stomach adequately insufflated with air and upon careful examination the antrum and body, cardia and fundus appeared normal. The scope was then withdrawn into the esophagus. The GE junction was located at 40 cm to the incisors, and biopsied. It appeared regular with no erythema erosions or ulcerations. Rest of the esophagus appeared normal. Patient tolerated the procedure well. At this time the patient continued to remain sedation. Initial digital rectal examination was normal. Olympus CF 190 video colonoscope was then inserted into the rectum and gradually advanced to the cecum without any difficulty. Careful examination was performed as the scope was gradually being withdrawn. The prep was excellent. The cecum, ascending colon, transverse colon, descending colon, sigmoid colon and rectum appeared normal. 3 diminutive polyps measuring 2-3 mm in size removed from the 2 from ascending colon, transverse colon and rectum. Retroflexion was performed in the rectum and no lesions were noted, mild internal hemorrhoids. Patient tolerated the procedure well. Impression: 1. Mild gastritis and mild duodenitis. Biopsies of the antrum and body, GE junction and duodenum. 2. 4 diminutive polyps removed with cold forcep polypectomy from the ascending colon x 2, transverse colon and rectum. Otherwise normal-appearing colon from rectum to cecum. Internal hemorrhoids. Recommendations: Findings of this examination were discussed with the patient as well ashis family. Okay to resume diet. Okay to resume medications. Await pathology from biopsies and polypectomy. Follow up in GI clinic as scheduled. Would recommend repeat colonoscopy in 5 years for colon polyps.
[2020-02-17 11:48] VITALS: RESP 20
[2020-02-17 12:13] VITALS: BP 120/76; PULSE 80
== END 2020-02-17 12:17 | disposition home or self-care (01) ==
LOC: ORWHC2ENDO 08:57
PROVIDERS: ATTEND Internal Medicine
DX: D12.2 Benign neoplasm of ascending colon (principal); D12.3 Benign neoplasm of transverse colon; K62.1 Rectal polyp; K64.8 Other hemorrhoids; K29.50 Unspecified chronic gastritis without bleeding; K21.00 Gastro-esophageal reflux disease with esophagitis, without bleeding; F17.210 Nicotine dependence, cigarettes, uncomplicated; Z87.442 Personal history of urinary calculi; Z79.899 Other long term (current) drug therapy
CPT/HCPCS: 88305; 88342; 45380; 43239; J2001; J2704

== ENCOUNTER 2023-06-21 10:25 | Emergency (ER) | payer BC ==
--- NOTE | 2023-06-21 11:12 | ED ---
General Adult HPI - General Chief complaint: Shortness of Breath Stated complaint: sent by dr boston Time Seen by Provider: 06/21/23 10:25 Source: patient, RN notes reviewed, old records reviewed Mode of arrival: ambulatory Limitations: no limitations - History of Present Illness Initial comments: This is a 58-year-old male who presents to the emergency department the past medical history significant for aortic stenosis. Dr. Boston sent the patient over to be evaluated for shortness of breath. Patient complains that his shortness of breath seems to be getting progressively worse over the last couple of weeks. Patient is already scheduled for cardiac catheterization. Patient is not having any chest discomfort or heaviness. Patient denies any fever chills or cough or patient has any back pain. Patient has any abdominal pain. Patient [place] any diaphoretic episodes. Patient has any nausea vomiting diarrhea. - Related Data Home Medications Medication Instructions Recorded Confirmed No Known Home Medications 06/21/23 06/21/23 Allergies Allergy/AdvReac Type Severity Reaction Status Date / Time No Known Allergies Allergy Verified 06/21/23 11:55 Review of Systems ROS Statement: Those systems with pertinent positive or pertinent negative responses have been documented in the HPI. ROS Other: All systems not noted in ROS Statement are negative. Past Medical History Past Medical History: No Reported History Additional Past Medical History / Comment(s): kidney stones History of Any Multi-Drug Resistant Organisms: None Reported Past Surgical History: No Surgical Hx Reported Additional Past Surgical History / Comment(s): Rheumatic fever Past Anesthesia/Blood Transfusion Reactions: No Reported Reaction Past Psychological History: No Psychological Hx Reported Smoking Status: Former smoker Past Alcohol Use History: None Reported Past Drug Use History: None Reported - Past Family History family Family Medical History: No Reported History Additional Family Medical History / Comment(s): Mother with kidney stones General Exam - General Exam Comments Initial Comments: GENERAL: Patient is well-developed and well-nourished. Patient is nontoxic and well- hydrated and is in mild distress. ENT: Neck is soft and supple. No significant lymphadenopathy is noted. Oropharynx is clear. Moist mucous membranes. Neck has full range of motion without eliciting any pain. EYES: The sclera were anicteric and conjunctiva were pink and moist. Extraocular movements were intact and pupils were equal round and reactive to light. Eyelids were unremarkable. PULMONARY: Unlabored respirations. Good breath sounds bilaterally. No audible rales rhonchi or wheezing was noted. CARDIOVASCULAR: There is a regular rate and rhythm without any murmurs gallops or rubs. ABDOMEN: Soft and nontender with normal bowel sounds. SKIN: Skin is clear with no lesions or rashes and otherwise unremarkable. NEUROLOGIC: Patient is alert and oriented x3. Cranial nerves II through XII are grossly intact. Motor and sensory are also intact. Normal speech, volume and content. Symmetrical smile. MUSCULOSKELETAL: Normal extremities with adequate strength and full range of motion. LYMPHATICS: No significant lymphadenopathy is noted PSYCHIATRIC: Normal psychiatric evaluation. Limitations: no limitations Course Vital Signs 06/21/23 10:28 Temperature 98 F Pulse Rate 69 Respiratory 18 Rate Blood Pressure 152/93 O2 Sat by Pulse 98 Oximetry Medical Decision Making - Medical Decision Making EKG is interpreted by myself read EKG shows a sinus rhythm at 66 bpm MN of 157 QRS 92 QT interval 3 5 QTc is 399. Patient EKG shows no ST segment elevation however there is some T wave inversions in V5 V6 1 and aVL. Was pt. sent in by a medical professional or institution (, PA, PLATING TANK OPERATOR APPRENTICE, urgent care, hospital, or assisted...) When possible be specific @ -Patient was sent in by Dr. Boston Did you speak to anyone other than the patient for history (EMS, parent, family, police, friend...)? What history was obtained from this source @ -I spoke with Dr. Boston about the patient Did you review nursing and triage notes (agree or disagree)? Why? @ -I reviewed and agree with nursing and triage notes Were old charts reviewed (outside hosp., previous admission, EMS record, old EKG, old radiological studies, urgent care reports/EKG's, assisted records)? Report findings @ -I reviewed prior charts and lab work and EKGs that were sent with the [facility]. Differential Diagnosis (chest pain, altered mental status, abdominal pain women, abdominal pain men, vaginal bleeding, weakness, fever, dyspnea, syncope, headache, dizziness, GI bleed, back pain, seizure, CVA, palpatations, mental health, musculoskeletal)? @ -Differential Dyspnea: Coronary syndrome, arrhythmia, tamponade, asthma, COPD, pulmonary embolism, pneumonia, pneumothorax, pulmonary effusion, anaphylaxis, diabetic ketoacidosis, flailed chest, pulmonary contusion, diaphragmatic rupture, anemia, neuromuscular, this is not meant to be an all-inclusive list. EKG interpreted by me (3pts min.). @ -See above X-rays interpreted by me (1pt min.). @ -Chest x-ray shows no acute abnormality CT interpreted by me (1pt min.). @ -None done U/S interpreted by me (1pt. min.). @ -None done What testing was considered but not performed or refused? (CT, X-rays, U/S, labs)? Why? @ -None What meds were considered but not given or refused? Why? @ -None Did you discuss the management of the patient with other professionals (professionals i.e. DrDilan, PA, PLATING TANK OPERATOR APPRENTICE, lab, RT, psych nurse, administrator social welfare, learning solutions specialist, teacher, asset protection officer, case packer and sealer)? Give summary @ -I got the results back I spoke with Dr. Boston he was in agreement that the patient could be sent home and followed up as previously scheduled. Was smoking cessation discussed for >3mins.? @ -No Was critical care preformed (if so, how long)? @ -No Were there social determinants of health that impacted care today? How? (Homelessness, low income, unemployed, alcoholism, drug addiction, transportation, low edu. Level, literacy, decrease access to med. care, [facility], rehab)? @ -No Was there de-escalation of care discussed even if they declined (Discuss DNR or withdrawal of care, Hospice)? DNR status @ -No What co-morbidities impacted this encounter? (DM, HTN, Smoking, COPD, CAD, Cancer, CVA, ARF, Chemo, Hep., AIDS, mental health diagnosis, sleep apnea, morbid obesity)? @ -None Was patient admitted / discharged? Hospital course, mention meds given and route, prescriptions, significant lab abnormalities, going to OR and other pertinent info. @ -Patient had no chest pain while in the emergency department. Patient still was a little short of breath but stated he felt comfortable going home and he will follow-up with his previous already scheduled appointments Undiagnosed new problem with uncertain prognosis? @ -No Drug Therapy requiring intensive monitoring for toxicity (Heparin, Nitro, Insulin, Cardizem)? @ -No Were any procedures done? @ -No Diagnosis/symptom? @ -Dyspnea Acute, or Chronic, or Acute on Chronic? @ -Acute Uncomplicated (without systemic symptoms) or Complicated (systemic symptoms)? @ -Complicated Side effects of treatment? @ -No Exacerbation, Progression, or Severe Exacerbation? @ -No Poses a threat to life or bodily function? How? (Chest pain, USA, NM, pneumonia, PE, COPD, DKA, ARF, appy, cholecystitis, CVA, Diverticulitis, Homicidal, Suicidal, threat to staff... and all critical care pts) @ -No - Lab Data Result diagrams: 06/21/23 10:39 06/21/23 10:39 Lab Results 06/21/23 06/21/23 06/21/23 Range/Units 10:39 10:39 10:39 WBC 9.0 (3.8-10.6) k/uL RBC 4.79 (4.30-5.90) m/uL Hgb 16.1 (13.0-17.5) gm/dL Hct 46.5 (39.0-53.0) % MCV 96.9 (80.0-100.0) fL MCH 33.6 (25.0-35.0) pg MCHC 34.7 (31.0-37.0) g/dL RDW 12.0 (11.5-15.5) % Plt Count 140 L (150-450) k/uL MPV 8.9 Neutrophils % 54 % Lymphocytes % 30 % Monocytes % 9 % Eosinophils % 4 % Basophils % 1 % Neutrophils # 4.8 (1.3-7.7) k/uL Lymphocytes # 2.7 (1.0-4.8) k/uL Monocytes # 0.8 (0-1.0) k/uL Eosinophils # 0.4 (0-0.7) k/uL Basophils # 0.1 (0-0.2) k/uL PT 11.0 (10.0-12.5) sec INR 1.0 (<1.2) APTT 25.7 (22.0-30.0) sec Sodium 142 (137-145) mmol/L Potassium 4.0 (3.5-5.1) mmol/L Chloride 112 H (98-107) mmol/L Carbon Dioxide 21 L (22-30) mmol/L Anion Gap 9 mmol/L BUN 15 (9-20) mg/dL Creatinine 0.93 (0.66-1.25) mg/dL Est GFR (CKD-EPI)AfAm >90 (>60 ml/min/1.73 sqM) Est GFR (CKD-EPI)NonAf 90 (>60 ml/min/1.73 sqM) Glucose 107 H (74-99) mg/dL Calcium 9.3 (8.4-10.2) mg/dL Total Bilirubin 0.8 (0.2-1.3) mg/dL AST 30 (17-59) U/L ALT 28 (4-49) U/L Alkaline Phosphatase 56 (38-126) U/L Troponin I (0.000-0.034) ng/mL NT-Pro-B Natriuret Pep 1480 pg/mL Total Protein 7.2 (6.3-8.2) g/dL Albumin 4.4 (3.5-5.0) g/dL 06/21/23 Range/Units 10:39 WBC (3.8-10.6) k/uL RBC (4.30-5.90) m/uL Hgb (13.0-17.5) gm/dL Hct (39.0-53.0) % MCV (80.0-100.0) fL MCH (25.0-35.0) pg MCHC (31.0-37.0) g/dL RDW (11.5-15.5) % Plt Count (150-450) k/uL MPV Neutrophils % % Lymphocytes % % Monocytes % % Eosinophils % % Basophils % % Neutrophils # (1.3-7.7) k/uL Lymphocytes # (1.0-4.8) k/uL Monocytes # (0-1.0) k/uL Eosinophils # (0-0.7) k/uL Basophils # (0-0.2) k/uL PT (10.0-12.5) sec INR (<1.2) APTT (22.0-30.0) sec Sodium (137-145) mmol/L Potassium (3.5-5.1) mmol/L Chloride (98-107) mmol/L Carbon Dioxide (22-30) mmol/L Anion Gap mmol/L BUN (9-20) mg/dL Creatinine (0.66-1.25) mg/dL Est GFR (CKD-EPI)AfAm (>60 ml/min/1.73 sqM) Est GFR (CKD-EPI)NonAf (>60 ml/min/1.73 sqM) Glucose (74-99) mg/dL Calcium (8.4-10.2) mg/dL Total Bilirubin (0.2-1.3) mg/dL AST (17-59) U/L ALT (4-49) U/L Alkaline Phosphatase (38-126) U/L Troponin I 0.020 (0.000-0.034) ng/mL NT-Pro-B Natriuret Pep pg/mL Total Protein (6.3-8.2) g/dL Albumin (3.5-5.0) g/dL Disposition Clinical Impression: Dyspnea, History of aortic stenosis Disposition: HOME SELF-CARE Instructions (If sedation given, give patient instructions): Dyspnea (ED) Is patient prescribed a controlled substance at d/c from ED?: No Referrals: Michael Grullon DO [Primary Care Provider] - 1-2 days Time of Disposition: 12:19
[2023-06-21 11:13] LABS: Basophils # (A) 0.1 k/uL (0-0.2); Basophils % (A) 1 %; Eosinophils # (A) 0.4 k/uL (0-0.7); Eosinophils % (A) 4 %; HCT 46.5 % (39.0-53.0); HGB 16.1 gm/dL (13.0-17.5); Lymphocytes # (A) 2.7 k/uL (1.0-4.8); Lymphocytes % (A) 30 %; MCH 33.6 pg (25.0-35.0); MCHC 34.7 g/dL (31.0-37.0); MCV 96.9 fL (80.0-100.0); Mean Platelet Volume 8.9; Monocytes # (A) 0.8 k/uL (0-1.0); Monocytes % (A) 9 %; Neutrophils # (A) 4.8 k/uL (1.3-7.7); Neutrophils % (A) 54 %; Platelet Count 140 k/uL (150-450); RBC 4.79 m/uL (4.30-5.90)
--- NOTE | 2023-06-21 11:21 | XR ---
EXAMINATION TYPE: XR chest 2V DATE OF EXAM: 06/21/2023 10:53 AM CLINICAL INDICATION:Male, 58 years old with history of difficulty breathing; [facility] COMPARISON: Chest radiographs from 10/08/2014 TECHNIQUE: XR chest 2V Frontal and lateral views of the chest. FINDINGS: Lungs/Pleura: There is flattening of the diaphragm with increased lucency of the lungs. No evidence o f pneumothorax, pleural effusion or focal consolidation. Pulmonary vascularity: Unremarkable. Heart/mediastinum: Cardiomediastinal silhouette is unremarkable. Musculoskeletal: No acute osseous pathology. Other findings: None IMPRESSION: 1. No acute cardiopulmonary disease process. 2. COPD changes.
[2023-06-21 11:28] LABS: Partial Thromboplastin Time 25.7 sec (22.0-30.0)
[2023-06-21 11:36] LABS: ALT 28 U/L (4-49); AST 30 U/L (17-59); African American GFR (CKD) >90 (>60 ml/min/1.73 sqM); Albumin 4.4 g/dL (3.5-5.0); Alkaline Phosphatase 56 U/L (38-126); Anion Gap 9 mmol/L; Blood Urea Nitrogen 15 mg/dL (9-20); Calcium 9.3 mg/dL (8.4-10.2); Carbon Dioxide 21 mmol/L (22-30); Chloride 112 mmol/L (98-107); Glucose 107 mg/dL (74-99); Non-African American GFR(CKD) 90 (>60 ml/min/1.73 sqM); Sodium 142 mmol/L (137-145); Total Bilirubin 0.8 mg/dL (0.2-1.3); Total Protein 7.2 g/dL (6.3-8.2)
[2023-06-21 11:44] LABS: NT-Pro-B-Type Natriuretic Pept 1480 pg/mL
[2023-06-21 12:57] VITALS: BP 133/85; PULSE 65; RESP 20; TEMP 97.9
== END 2023-06-21 12:32 | disposition home or self-care (01) ==
LOC: EC 10:25
DX: R06.00 Dyspnea, unspecified (principal); J44.9 Chronic obstructive pulmonary disease, unspecified; Z86.79 Personal history of other diseases of the circulatory system; Z87.891 Personal history of nicotine dependence
CPT/HCPCS: 36415; 71046; 80053; 83880; 84484; 85025; 85610; 85730; 93005; 99285

== ENCOUNTER 2023-07-16 07:50 | Day surgery (SDC) | payer BC ==
[~2023-07-16 07:50] MED LIST changes: +ALPRAZolam 0.25 MG TAB PO PRN; +ALPRAZolam 0.5 MG TAB PO PRN; +HEPARIN SODIUM,PORCINE (1 ML) 2,500 UNIT in SODIUM CHLORIDE 0.9% 250 ML IRRIGATION PRN; +HEPARIN SODIUM,PORCINE 10,000 UNIT in SODIUM CHLORIDE 0.9% 1,000 ML IRRIGATION PRN; -LACTATED RINGERS 1,000 ML IV SCH; -LIDOCAINE 1% (10MG/ML) FOR IV START INTRADERMA PRN; -MIDAZOLAM 2 MG/2 ML VIAL IV PRN; +NITROGLYCERIN SL TABS 0.4 MG TAB SUBLINGUAL PRN
[2023-07-16] MEDS: SODIUM CHLORIDE 0.9% 1,000 ML in EMPTY BAG 1 BAG IV SCH (08:17)
[2023-07-16 08:33] LABS: Mean Platelet Volume 8.8; Platelet Count 140 k/uL (150-450)
[2023-07-16 08:49] VITALS: RESP 16
[2023-07-16] MEDS: IV FLUID CONTINUATION 1,000 ML IV ONE (11:59)
[2023-07-16] MEDS: BENZOCAINE SPRAY 1 CAN TOPICAL ONE (12:10)
[2023-07-16] MEDS: fentaNYL (PF) 50 MCG/1 ML VIAL IVP ONE (12:12)
[2023-07-16] MEDS: MIDAZOLAM 2 MG/2 ML VIAL IVP ONE ×3 (12:12→12:15)
--- NOTE | 2023-07-16 12:24 | P.PCN ---
Date of Procedure: 07/16/23 Operative Findings: TRANSESOPHAGEAL ECHOCARDIOGRAM HAND TILE MAKER: ARIN PISANO MD, RPVI INDICATION: Aortic stenosis SEDATION: Conscious sedation COMPLICATION: None LEVEL OF SEDATION 16 minutes PROCEDURE DESCRIPTION: After obtaining an informed consent, the patient was brought to transesophageal echocardiogram room. Pulse oximetry and heart monitors were attached to the patient. The patient throat was sprayed using lidocaine. The patient was turned into left lateral position. After that a bite guard was placed. After an appropriate conscious sedation was initiated, the transesophageal echocardiogram was advanced through a bite guard into the mid esophagus. A 2-D echocardiogram images, color Doppler images, continuous wave images, pulse-wave images, of various cardiac structure were performed. After that the transesophageal echocardiogram probe was advanced into the stomach and fixed to obtain transgastric view was. The probe was brought into the mid esophagus. Inter-atrial septum was interrogated using 2D images, color Doppler images, and then contrast study. After that transesophageal echocardiogram was withdrawn out and upon withdrawing the descending thoracic aorta all the way up to the arch was evaluated. CONCLUSION: 1. Normal biventricular dimension and systolic function 2. Bicuspid aortic valve with fusion of the right and left coronary cusps and evidence of severe aortic stenosis with a mean gradient of 55 mmHg 3. [id number] mitral regurgitation 4. Hyperdynamic interatrial septum was no evidence of shunt 5. No pericardial effusion
[2023-07-16] MEDS: LIDOCAINE 1% INJ 10MG/ML (20 ML MDV) SQ ONE (12:34)
[2023-07-16] MEDS: VERAPAMIL SYRINGE (5 MG/10 ML) INTRAARTER ONE (12:35)
[2023-07-16] MEDS: HEPARIN SODIUM 1,000 UN/ML (10ML VL) IV ONE (12:39)
[2023-07-16] MEDS: HYDROmorphone 0.5 MG/0.5 ML SYRINGE IVP ONE (12:42)
[2023-07-16] MEDS: NALOXONE 0.4 MG/ML 1 ML VIAL IVP ONE (12:57)
[2023-07-16] MEDS ORDERED: RX INFO: IV CONTRAST WAS GIVEN 1 EACH MISC MISCELLANE PRN (13:05)
[2023-07-16] MEDS: IOPAMIDOL-370 100ML BTL INJ ONE (13:06)
--- NOTE | 2023-07-16 13:09 | P.PCN ---
Date of Procedure: 07/16/23 Operative Findings: CARDIAC CATHETERIZATION PERFORMING PHYSICIAN: Brock Boston MD, RPVI PROCEDURE PERFORMED: 1. Selective right and left coronary angiogram 2. Left heart catheterization 3. Ultrasound-guided access of the right radial artery INDICATION: Aortic stenosis COMPLICATION: None APPROACH: Right common femoral artery LEVEL OF SEDATION: Moderate with sedation in length of 12 minutes PROCEDURE DESCRIPTION: After obtaining an informed consent, the patient was brought to cardiac label designer. Local anesthesia was performed using lidocaine subcutaneously. Initially attempting accessing the right radial artery was successful but we could not advance any catheter because of severe vasospasm and for that reason the right radial approach was aborted. The right common femoral artery was cannulated using micropuncture technique under ultrasound guidance, the micropuncture wire passed easily then the micropuncture sheath was advanced over the wire then the micropuncture sheath was exchanged over 035 wire into a 6-Togolese sheath.Selective right and left coronary angiogram using a 6-Togolese JR4 and JL catheters. The aortic valve was not crossed The procedure was completed there was no complication. SELECTIVE CORONARY ANGIOGRAM: The right coronary artery: Medium caliber vessel nondominant vessel appears to be angiographically normal Left main: Is angiographically normal The left circumflex: Large caliber vessel and a dominant vessel and appears to be angiographically normal and distally bifurcates into PDA and PLV branches The left anterior descending artery: Large-caliber vessel and is angiographically normal and gives rises into multiple diagonal branches the old appeared to be normal CONCLUSION: 1. Normal coronary angiogram 2. Dominant left system POSTPROCEDURE MANAGEMENT: The patient to be evaluated for aVR
--- NOTE | 2023-07-16 15:14 | P.GSCN ---
History of Present Illness Consult date: 07/16/23 Reason for Consult: Aortic valve replacement Requesting physician: Brock Boston History of present illness: This is a 58-year-old gentleman who follows outpatient with Dr. Grullon for primary care and Dr. Boston for cardiology. He has no real significant history other than aortic stenosis with rheumatic fever as a child as well as recent cessation from tobacco dependence. He reports that over the last couple of months he has had progressive shortness of breath, in fact he states its gotten worse since he quit smoking a month ago. He also endorses periodic dizziness, denies any chest pain, does admit to occasional palpitations. Denies any lower extremity edema or any other symptomatology. Last echocardiogram completed in the cardiology office from April 2023 reported reduced left ventricular systolic function with EF 45%, grade 3 diastolic dysfunction, severe aortic stenosis with aortic valve area 0.57 cm, peak/mean gradient 70/39 mmHg, max velocity 4.18 m/s, moderate aortic regurgitation, moderate mitral and mild tricuspid regurgitation. The gentleman was recommended to undergo heart catheterization and transesophageal echocardiogram which were completed today by Dr. Boston. Heart catheterization revealed no significant coronary artery disease, aortic valve was not crossed. Transesophageal echocardiogram revealed normal biventricular systolic function, bicuspid aortic valve with fusion of the right and left coronary cusps, severe aortic valve stenosis with mean gradient 55 mmHg, along with mild to moderate mitral regurgitation. Due to these findings consultation was placed to Dr. Velazquez from cardiothoracic surgery for aortic valve replacement. Of note, the patient did have carotid dopplers completed in the cardiology office in June of this year reporting bilateral internal carotid artery stenosis 16-49%, and antegrade vertebral flow bilaterally. Review of Systems Review of systems was completed and was negative except as noted - Cardiovascular Reports as per HPI, Reports dyspnea on exertion, Reports lightheadedness, Re ports palpitations, Reports shortness of breath Past Medical History Past Medical History: COPD Additional Past Medical History / Comment(s): hx kidney stones, recently tired and SOB when laying down or activity. See Dr Boston H&P. pain left arm x1 seen by PCP w/ekg, with referral to Dr Boston. Rheumatic fever as a child. Severe aortic stenosis History of Any Multi-Drug Resistant Organisms: None Reported Past Surgical History: No Surgical Hx Reported Additional Past Surgical History / Comment(s): colonscopy Past Anesthesia/Blood Transfusion Reactions: No Reported Reaction Smoking Status: Former smoker Past Alcohol Use History: None Reported Past Drug Use History: None Reported - Past Family History Father Family Medical History: Hypertension family Family Medical History: No Reported History Additional Family Medical History / Comment(s): Mother with kidney stones Medications and Allergies Home Medications Medication Instructions Recorded Confirmed Type Ibuprofen [Motrin Ib] 400 mg PO DIRECTED PRN 07/13/23 07/13/23 History Allergies Allergy/AdvReac Type Severity Reaction Status Date / Time No Known Allergies Allergy Verified 07/13/23 11:12 Surgical - Exam Vital Signs Temp Pulse Resp BP Pulse Ox 98.5 F 70 16 136/90 97 07/16/23 08:09 07/16/23 08:09 07/16/23 08:09 07/16/23 08:09 07/16/23 08:09 CONSTITUTIONAL: Awake and alert, appears comfortable, cooperative, well-develope d, well-nourished, no pain, no acute distress EYES: Pupils equal, round, reactive to light, normal ocular movement ENT: Moist mucous membranes without oral lesions present NECK: No masses, no bruits, trachea midline RESPIRATORY: Lungs sounds clear to auscultation bilaterally. Respirations even , nonlabored. Currently on room air with oxygen saturation 96%. Strong cough. No chest wall deformities. No clubbing or cyanosis present CARDIOVASCULAR: S1 present, barely audible S2 present, loud systolic murmur present. Regular rate and rhythm, sinus rhythm on telemetry. Palpable peripheral pulses bilaterally. No edema present. No calf pain or tenderness noted GASTROINTESTINAL: Abdomen soft, nontender, nondistended without masses or organomegaly noted. There is no rebound or guarding present. Active bowel sounds present 4 quadrants. GENITOURINARY: Deferred INTEGUMENTARY: Skin is warm and dry with evidence of good perfusion. Right radial heart catheterization site without redness or drainage, T band present NEUROLOGIC: Cranial nerves II through XII intact, normal coordination, no obvious motor or sensory deficits, speech is normal MUSKULOSKELETAL: Able to move all extremities, strength equal bilaterally, normal posture PSYCHIATRIC: Alert and oriented to person place and time, appropriate affect, intact judgment and insight Results - Labs 07/16/23 08:28 Abnormal Lab Results - Last 24 Hours (Table) 07/16/23 Range/Units 08:28 Plt Count 140 L (150-450) k/uL - Imaging Additional studies: Heart catheterization and JAGDEEP results reviewed Assessment and Plan Assessment: Severe bicuspid aortic stenosis, aortic valve area 0.57 cm, peak/mean gradient 70/39 mmHg, max velocity 4.18 m/s Rheumatic fever as a child Moderate aortic regurgitation, moderate mitral and mild tricuspid regurgitatio Recent cessation from tobacco dependence Shortness of breath, secondary to above Plan: The patient was seen and examined while laying in bed in the Extended Stay unit with his daughter present. Chart/diagnostics were reviewed. The case will be discussed in detail with Dr. Velazquez. The usual perioperative course of open heart surgery for aortic valve replacement was discussed in detail with the patient and his daughter, risks and benefits were reviewed, all questions were answered. We did order a CAT scan of the chest to evaluate the ascending aorta as well as outstanding lab work and bedside spirometry. We did receive the carotid Dopplers report from the cardiology office. The need for dental clearance prior to any aortic valve surgery was discussed in detail with the patient, he was encouraged to get a dental appointment as quickly as possible. Once testing completed patient may be discharged to home to follow-up in the outpatient setting with Dr. Velazquez this July 19 at 11:30 AM. He was given our contact information. More recommendations to follow. Thank you Dr. Boston for this consult, we look forward to working with you in the care of your patient. I have personally seen and examined the patient, performed the documentation and the assessment and plan as written. Number of minutes spent on the visit: 30. CECILIA Solomon
[2023-07-16] MEDS: SODIUM CHLORIDE 0.9% 500 ML 500 ML IV ONE (16:30)
--- NOTE | 2023-07-16 16:56 | CT ---
EXAMINATION TYPE: CT chest wo con CT DLP: 332.1 mGycm, Automated exposure control for dose reduction was used. DATE OF EXAM: 07/16/2023 4:29 PM COMPARISON: 01/05/2020 CLINICAL INDICATION:Male, 58 years old with history of eval aorta for clampability; PH, pre-op aorti c stent TECHNIQUE: Multiple axial images were obtained through the chest. Sagittal and coronal reformats were created for review. Contrast used: mL of (None if empty) Oral contrast used: (None if empty) FINDINGS: LUNGS/ PLEURA: The lung parenchyma appears unremarkable. AIRWAY: Patent and unremarkable. HEART: Heart is mildly enlarged for size.Severe atherosclerosis of the aortic valve. MEDIASTINUM: No gross evidence of adenopathy. VASCULATURE: No aortic aneurysm. There is a common trunk of the left common carotid artery and brach ycephalic trunk. Ascending thoracic aorta measures 4.2 cm which is ectatic. Descending thoracic aorta measures 2.7 cm which is within normal limits. MUSCULOSKELETAL: Mild disc degeneration changes are present throughout the thoracolumbar spine. SOFT TISSUES/LYMPH NODES: Unremarkable. LOWER NECK: No significant findings. UPPER ABDOMEN: No significant findings. IMPRESSION: 1. Two-vessel aortic trunk with mild ectasia of ascending thoracic aorta. 2. Mild cardiomegaly. 3. Severe aortic valve calcifications
[2023-07-16] MEDS: ASPIRIN 325 MG TAB PO STA (17:08)
[2023-07-16] MEDS: SODIUM CHLORIDE 0.9% 1,000 ML IV SCH (17:08)
[2023-07-16 18:25] VITALS: TEMP 98
[2023-07-16 19:12] LABS: Hepatitis A Antibody IgM Nonreactive; Hepatitis B Core IgM Nonreactive; Hepatitis B Surface Antigen Nonreactive; Hepatitis C IgG Antibody Nonreactive
[2023-07-16 20:28] VITALS: BP 106/66; PULSE 87
[2023-07-17 03:42] LABS: Chol/HDL Ratio 3.24 Ratio; LDL Cholesterol,Calculated 68.6 mg/dL (0.0-131.0); VLDL Calculation 15.78 mg/dL (5.00-40.00)
== END 2023-07-16 23:25 | disposition home or self-care (01) ==
LOC: CATHCVL 07:50 → 6NMEDSUR 15:49 → CATHCVL 23:25
PROVIDERS: ATTEND Internal Medicine Interventional Cardiology
DX: I08.0 Rheumatic disorders of both mitral and aortic valves (principal); F17.210 Nicotine dependence, cigarettes, uncomplicated; Z79.899 Other long term (current) drug therapy
CPT/HCPCS: 94150; 93312; 93320; 93325; 93454; 76937; 80061; 80074; 84443; 85049; 87070; 83036; 71250; 99152; C1769 ×3; C1894 ×2; J2250; J2310; J2001; J1644; J1170; Q9967; J3010

== ENCOUNTER → 2023-08-03 | Outpatient (CLI) | payer BC ==
--- NOTE | 2023-08-03 11:34 | XR ---
EXAMINATION TYPE: XR chest 2V DATE OF EXAM: 08/03/2023 COMPARISON: 06/21/2023 TECHNIQUE: PA and lateral views submitted. HISTORY: Preop FINDINGS: The lungs are clear and there is no pneumothorax, pleural effusion, or focal pneumonia. Mild cardiom egaly but no overt failure. Osseous structures intact. Ectasia of the aorta. IMPRESSION: 1. No acute process.
--- NOTE | 2023-08-03 11:53 | US ---
EXAMINATION TYPE: US vein mapping BILAT DATE OF EXAM: 08/03/2023 10:59 AM COMPARISON: NONE CLINICAL INDICATION: Male, 58 years old with history of I35.0 AORTIC VELVE STENOSIS; open heart SIDE PERFORMED: Bilateral TECHNIQUE: Lower extremity saphenous vein is examined and measured utilizing real time linear array sonography. Patient History: Smoker: stopped in May Heart Disease: valvular disease Previous DVT: N Vascular Surgery: N Discoloration: N Hypertension: N Diabetes: N Paralysis: N Varicosities: N Edema: N DUPLEX FINDINGS: Greater Saphenous: Color flow seen Measurements in mm: Right Greater Saphenous: Groin: 5.3x4.4 mm High Thigh: 2.2x2..6 mm Mid Thigh: 1.6x2.4 mm Above Knee: 1.9x2.6 mm Knee: 2.0x2.9 mm Below Knee: 1.4x1.7 mm Mid Calf: 1.9x2.0 mm At Ankle: not visualized due to small caliber of varicosities Left Greater Saphenous: Groin: 3.7x3.5 mm High Thigh: 1.9x2.5 mm Mid Thigh: 3.2x3.8 mm Above Knee: 1.6x2.5 mm Knee: 1.6x1.9 mm Below Knee: 3.0x3.1 mm Mid Calf: 2.2x2.8 mm At Ankle: 2.4x3.1 mm Bilateral GSVs bifurcated several times throughout the leg, varicosities followed exam limited by varicosities and small vessel caliber IMPRESSION: 1. Bilateral GSV measurements listed above. 2. Performing surgeon to determine viability as conduit.
--- NOTE | 2023-08-03 12:34 | US ---
EXAMINATION TYPE: US carotid duplex BILAT DATE OF EXAM: 08/03/2023 COMPARISON: NONE CLINICAL INDICATION: Male, 58 years old with history of I35.0 AORTIC VELVE STENOSIS; open heart TECHNIQUE: Carotid duplex ultrasound examination. Indirect Doppler criteria was utilized. FINDINGS: EXAM MEASUREMENTS: RIGHT: Peak Systolic Velocity (PSV) cm/sec ----- Right CCA: 61.2 ----- Right ICA: 61.2 ----- Right ECA: 89.9 ICA/CCA ratio: 1.0 RIGHT: End Diastole cm/sec ----- Right CCA: 19.4 ----- Right ICA: 20.7 ----- Right ECA: 15.5 LEFT: Peak Systolic Velocity (PSV) cm/sec ----- Left CCA: 77.4 ----- Left ICA: 74.6 ----- Left ECA: 77.5 ICA/CCA ratio: 1.0 LEFT: End Diastole cm/sec ----- Left CCA: 25.7 ----- Left ICA: 26.3 ----- Left ECA: 19.3 VERTEBRALS (direction of flow): Right Vertebral: Antegrade Left Vertebral: Antegrade Rhythm: Normal PARTITION ASSEMBLER NOTES: Mild atherosclerotic plaque bilateral carotid bulbs, no elevated velocities, ratio s, or stenosis noted IMPRESSION: 1. Atheromatous plaquing and intimal thickening without significant flow-limiting stenosis Criteria for Assigning % of Stenosis / Diameter reduction (Estimation based on the indirect measurements of the internal carotid artery velocities (ICA PSV). 1. Normal (no stenosis)=ICA PSV < 125 cm/s: ratio < 2.0: ICA EDV<40 cm/s. 2. Less than 50% stenosis=ICA PSV < 125 cm/s: ratio < 2.0: ICA EDV<40 cm/s. 3. 50 to 69% stenosis=ICA PSV of 125 to 230 cm/s: ration 2.0 ? 4.0: ICA EDV 40-100 cm/s. 4. Greater than 70% stenosis to near occlusion= ICA PSV > 230 cm/s: ratio > 4.0: ICA EDV > 100 cm/s. 5. Near occlusion= ICA PSV velocities may be low or undetectable: variable ratio and ICA EDV. 6. Total occlusion=unable to detect flow.
[2023-08-03 12:38] LABS: Partial Thromboplastin Time 26.3 sec (22.0-30.0); Prothrombin Time 10.6 sec (10.0-12.5)
[2023-08-03 16:09] LABS: HCT 43.1 % (39.6-50.0); HGB 14.8 g/dL (13.0-17.0); MCH 33.2 pg (27.0-32.0); MCHC 34.3 g/dL (32.0-37.0); MCV 96.6 FL (80.0-97.0); Mean Platelet Volume 11.6 FL (9.5-12.2); NRBC Per 100 WBC 0 X 10*3/uL (0.00-0.01); Platelet Count 166 X 10*3/uL (140-440); RBC 4.46 X 10*6/uL (4.40-5.60); RDW 12.1 % (11.5-14.5); WBC 6.98 X 10*3/uL (4.50-10.00)
[2023-08-03 16:38] LABS: Magnesium 2.1 mg/dL (1.5-2.4)
[2023-08-03 16:48] LABS: ALT 50 U/L (10-49); AST 30 U/L (14-35); Albumin 4.4 g/dL (3.8-4.9); Albumin/Globulin Ratio 1.76 Ratio (1.60-3.17); Alkaline Phosphatase 51 U/L (41-126); BUN/Creat Ratio 15.36 Ratio (12.00-20.00); Blood Urea Nitrogen 16.9 mg/dL (9.0-27.0); Calcium 9.8 mg/dL (8.7-10.3); Carbon Dioxide 27.4 mmol/L (21.6-31.8); Chloride 107 mmol/L (96-109); Globulin 2.5 g/dL (1.6-3.3); Glucose 111 mg/dL (70-110); Potassium 4.4 mmol/L (3.5-5.5); Sodium 144 mmol/L (135-145); Total Bilirubin 0.5 mg/dL (0.3-1.2); Total Protein 6.9 g/dL (6.2-8.2)
[2023-08-03 18:16] LABS: Appearance,Urine Clear (Clear); Bilirubin,Urine Negative (Negative); Blood,Urine Negative (Negative); Color,Urine Yellow (Yellow); Ketones,Urine Negative (Negative); Nitrite,Urine Negative (Negative); Specific Gravity,Urine 1.007 (1.001-1.030); Urobilinogen,Urine 0.2 E.U./DL
== END | disposition home or self-care (01) ==
LOC: RADUSWWP 09:48
PROVIDERS: ATTEND Surgery
DX: I35.0 Nonrheumatic aortic (valve) stenosis (principal)
CPT/HCPCS: 71046; 80053; 81003; 83735; 85027; 85610; 85730; 86850; 86900; 86901; 86920; 87086; 93005; 93880; 93970

== ENCOUNTER 2023-08-08 05:33 | Inpatient (IN) | payer BC ==
[2023-08-08] MEDS: LACTATED RINGERS 1,000 ML IV ONE (05:54)
[2023-08-08 06:21] LABS: Glucose,Whole Blood 113 mg/dL (70-110)
--- NOTE | 2023-08-08 06:35 | P.PN ---
Progress Note - Text Progress Note Date: 08/08/23 5 meter walk test completed without difficulty: #1 3.15 sec #2 3.27 sec #3 3.0 sec STS risk score calculated and discussed with the patient
[2023-08-08] MEDS: ATORVASTATIN 10 MG TAB PO ONE (06:46)
[2023-08-08] MEDS: ASPIRIN 325 MG TAB PO ONE (06:46)
[2023-08-08] MEDS: METOPROLOL TARTRATE 12.5 MG TAB PO ONE (06:47)
[2023-08-08] MEDS ORDERED: CALCIUM CHLORIDE 100 MG/ML 10 ML SYRINGE ONE (07:45)
[2023-08-08] MEDS ORDERED: PHENYLEPHRINE 10 MG/ML VIAL ONE (07:45)
[2023-08-08] MEDS ORDERED: ALBUMIN HUMAN 5% (25gm) 500 ML VIAL IVPB ONE (07:45)
[2023-08-08] MEDS ORDERED: TRANEXAMIC 1,000 MG/100ML-NACL PREMIX BAG ONE (07:45)
[2023-08-08] MEDS ORDERED: PROPOFOL 10 MG/ML 20 ML VIAL IV ONE (07:45)
[2023-08-08] MEDS ORDERED: VECURONIUM 10 MG VIAL IV ONE (07:45)
[2023-08-08] MEDS ORDERED: HEPARIN SODIUM,PORCINE 10,000 UNIT/ML 1 ML VIAL ONE (07:45)
[2023-08-08] MEDS ORDERED: LIDOCAINE 2% SYG (PF) 100 MG/5 ML ONE (07:45)
[2023-08-08] MEDS ORDERED: fentaNYL (PF) 50 MCG/ML 50 ML VIAL ONE (07:45)
[2023-08-08] MEDS ORDERED: PROTAMINE SULFATE 10 MG/ML 25 ML VIAL IV ONE (07:45)
[2023-08-08] MEDS ORDERED: MIDAZOLAM HCL 10 MG/10 ML VIAL ONE (07:45)
[2023-08-08 08:27] LABS: ABG Base Excess -1.9 mmol/L; ABG Glucose Whole Blood 117 mg/dL (75-99); ABG HCO3 23 mmol/L (21-25); ABG Hematocrit 40 % (34.0-46.0); ABG Ionized Calcium 4.9 mg/dL (4.5-5.3); ABG Oxygen Saturation 99.3 % (94-97); ABG PCO2 41 mmHg (35-45); ABG PH 7.36 (7.35-7.45); ABG PO2 223 mmHg (83-108); ABG Potassium Whole Blood 4.4 mmol/L (3.4-4.5); ABG Sodium Whole Blood 144 mmol/L (135-146); Allen Test Performed? Yes
[2023-08-08 09:24] LABS: ABG Base Excess -2.8 mmol/L; ABG Glucose Whole Blood 119 mg/dL (75-99); ABG HCO3 22 mmol/L (21-25); ABG Hematocrit 36 % (34.0-46.0); ABG Ionized Calcium 4.5 mg/dL (4.5-5.3); ABG Lactic Acid Whole Blood 1.1 mmol/L (0.5-1.6); ABG Oxygen Saturation >99.4 % (94-97); ABG PCO2 37 mmHg (35-45); ABG PH 7.38 (7.35-7.45); ABG PO2 225 mmHg (83-108); ABG Potassium Whole Blood 4.5 mmol/L (3.4-4.5); ABG Sodium Whole Blood 144 mmol/L (135-146); Allen Test Performed? Yes
[2023-08-08] MEDS: SODIUM CHLORIDE 0.9% 500 ML 500 ML with HEPARIN SODIUM,PORCINE (1 ML) 5,000 UNIT IV ONE (09:47)
[2023-08-08] MEDS: ceFAZolin 1,000 MG in SODIUM CHLORIDE 0.9% 1,000 ML IRRIGATION ONE (09:48)
[2023-08-08 10:12] LABS: ABG Base Excess 0.7 mmol/L; ABG Glucose Whole Blood 164 mg/dL (75-99); ABG HCO3 25 mmol/L (21-25); ABG Hematocrit 25 % (34.0-46.0); ABG Ionized Calcium 3.9 mg/dL (4.5-5.3); ABG Lactic Acid Whole Blood 1.6 mmol/L (0.5-1.6); ABG Oxygen Saturation >99.4 % (94-97); ABG PCO2 39 mmHg (35-45); ABG PH 7.42 (7.35-7.45); ABG Sodium Whole Blood 142 mmol/L (135-146); Allen Test Performed? Yes
[2023-08-08 10:46] LABS: ABG Base Excess -0.8 mmol/L; ABG Glucose Whole Blood 147 mg/dL (75-99); ABG HCO3 23 mmol/L (21-25); ABG Hematocrit 25 % (34.0-46.0); ABG Lactic Acid Whole Blood 1.9 mmol/L (0.5-1.6); ABG Oxygen Saturation >99.4 % (94-97); ABG PCO2 36 mmHg (35-45); ABG PH 7.42 (7.35-7.45); ABG PO2 413 mmHg (83-108); ABG Potassium Whole Blood 5.4 mmol/L (3.4-4.5); ABG Sodium Whole Blood 143 mmol/L (135-146); Allen Test Performed? Yes
[2023-08-08 11:28] LABS: ABG Base Excess -3.4 mmol/L; ABG Glucose Whole Blood 118 mg/dL (75-99); ABG HCO3 22 mmol/L (21-25); ABG Ionized Calcium 4.2 mg/dL (4.5-5.3); ABG Oxygen Saturation >99.4 % (94-97); ABG PCO2 38 mmHg (35-45); ABG PH 7.36 (7.35-7.45); ABG Potassium Whole Blood 5.1 mmol/L (3.4-4.5); ABG Sodium Whole Blood 147 mmol/L (135-146); Allen Test Performed? Yes
[2023-08-08 12:19] LABS: ABG PO2 >420 mmHg (83-108)
[2023-08-08 12:21] LABS: ABG Hematocrit 24 % (34.0-46.0); ABG Lactic Acid Whole Blood 3.6 mmol/L (0.5-1.6); ABG PO2 >420 mmHg (83-108)
[2023-08-08 12:37] LABS: ABG Base Excess -1.6 mmol/L; ABG Glucose Whole Blood 184 mg/dL (75-99); ABG HCO3 23 mmol/L (21-25); ABG Hematocrit 30 % (34.0-46.0); ABG Ionized Calcium 4.6 mg/dL (4.5-5.3); ABG Oxygen Saturation 99.4 % (94-97); ABG PCO2 38 mmHg (35-45); ABG PH 7.39 (7.35-7.45); ABG PO2 330 mmHg (83-108); Allen Test Performed? Yes
[2023-08-08 12:50] LABS: ABG Sodium Whole Blood 145 mmol/L (135-146)
[2023-08-08 12:51] LABS: ABG Lactic Acid Whole Blood 2.7 mmol/L (0.5-1.6); ABG Potassium Whole Blood 4.2 mmol/L (3.4-4.5)
[2023-08-08] MEDS ORDERED: hydrALAZINE HCL 20 MG/ML 1 ML VIAL IVP PRN (13:12)
[2023-08-08] MEDS ORDERED: MORPHINE SULFATE 2 MG/ML SYRINGE IVP PRN (13:12)
[2023-08-08] MEDS ORDERED: Potassium Replacement Protocol 1 EACH MISC MISCELLANE PRN (13:12)
[2023-08-08] MEDS ORDERED: BENZOCAINE/MENTHOL LOZENG 1 EACH LOZENGE MUCOUS MEM PRN (13:12)
[2023-08-08] MEDS ORDERED: AMIODARONE 360 MG in DEXTROSE 5% IN WATER 200 ML IV PRN (13:12)
[2023-08-08] MEDS ORDERED: AMIODARONE 450 MG in DEXTROSE 5% IN WATER 250 ML IV PRN (13:12)
[2023-08-08] MEDS ORDERED: DEXTROSE 5% IN WATER 100 ML with AMIODARONE 150 MG IV PRN (13:12)
[2023-08-08] MEDS ORDERED: Magnesium Replacement Protocol 1 EACH MISC MISCELLANE PRN (13:12)
[2023-08-08] MEDS ORDERED: DEXTROSE 50% SYRINGE 50 ML IVP PRN ×2 (13:12)
[2023-08-08] MEDS: MILRINONE-D5W PMX 20 MG in DEXTROSE/WATER 1 100ML.BAG IV SCH (13:20)
--- NOTE | 2023-08-08 13:30 | P.OP ---
Date of Procedure: 08/08/23 Preoperative Diagnosis: Severely calcified bicuspid aortic valve Postoperative Diagnosis: Unicuspid severely calcified aortic valve with fusion of the right /left and the right/ none cusps Procedure(s) Performed: 1Aortic valve replacement using a 25 mm pericardial bioprosthesis INSPIRIS 2 Exclusion of the left atrial appendage using a 40 mm AtriClip 3 Transesophageal echocardiogram and epiaortic scanning Implants: 25 mm Inspiris pericardial bioprosthesis 40 mm AtriClip Anesthesia: GETA Surgeon: Juno Velazquez Electron Beam Welder #1: Florentin Gloria Electron Beam Welder #2: Franklin Hamilton Pathology: other (Aortic valve) Condition: stable Disposition: ICU Indications for Procedure: Severe symptomatic bicuspid aortic valve stenosis Operative Findings: Unicuspid severely calcified aortic valve Description of Procedure: Patient in supine position in the preoperative holding area, right internal jugular [place] catheter in the right radial arterial line were placed. Cardiac index was 1.6 and PA pressure was 40/20. Subsequently was brought to the operating room where general endotracheal anesthesia was induced uneventfully. Gupta catheter was inserted. The chest abdomen and both lower extremities were prepped and draped using ChloraPrep. Ioban was used to cover the skin. Patient received 2 g of cefazolin intravenously. Transesophageal echocardiogram confirmed the preoperative finding of severely calcified bicuspid aortic valve and severe left ventricular hypertrophy. There was mild mitral valve regurgitation. Midline sternotomy was performed and the bone was mildly osteoporotic and profusely bleeding. No bone wax was used but ostene. Both pleura remained intact. Ankeney retractor was used. Mediastinal fat was transected between 2 ties and epiaortic scanning revealed no protruding atheroma in the ascending aorta. Aorta was mildly dilated. Pericardium was opened in an inverted T fashion and pericardial cradle was created. Find included hypertrophied heart, moderately dilated aorta that was thin-walled. The preoperative chest CAT scan showed a 4 cm ascending aorta. After systemic heparinization after placement of prospective pledgeted pursestring aortic cannulation with a 21 Russian slow flow cannula, venous cannulation with via the right atrial appendage with a 3 stage 29 Russian cannula was performed. Antegrade as well as retrograde cardioplegia catheters were placed. Cardiopulmonary bypass was initiated and patient temperature was allowed to drift down to 34 C. Subsequently aorta was clamped and during aortic clamping Myocardial Protection was achieved and initial dose of 800 cc of antegrade cold blood cardioplegia with adequate arrest at 200 cc, followed by 500 cc of retrograde cold blood cardioplegia. All subsequent doses were given retrograde at 15 minutes interval. The last dose was 1 blood via the retrograde route at around 1 L as we were closing the aorta. A transverse aortotomy 1 cm above the sinotubular junction was performed over around one third of the aortic circumference. Exploration revealed the presence of a severely calcified unicuspid aortic valve with major fusion of the right/left cusps and minor fusion of the right/noncoronary cusps. Both coronary ostia were in normal position I proceeded at this point at excising the aortic valve by using a 15 blade and shaving basically the valve of the annulus all around. Spot decalcification of the annulus followed. Thorough irrigation was around 700 cc of cold saline followed. Subsequently I placed a total of 17 sutures of Tycron 2 oh pledgeted on the ventricular side in a horizontal mattress fashion. The aortic valve annulus was measured to a 25 mm Inspiris pericardial bioprosthesis which was selected and brought into the field. All the needles were passed in the cuff of the aortic valve symmetrically. The valve seated nicely in a supra annular position. All the needle cuts and the suture tied using the core knot device. For irrigation performed 1 more time. Rewarming started as we close the aortotomy using 4-0 Prolene pledgeted on each corner in 2 layers ,the first layer in a horizontal mattress and the second layer in an over and over technique. CoSeal was applied over the aortotomy as aortic vent was temporarily stopped. The CO2 that was flowing over the field. At this point also. De-airing maneuvers were were performed and the aorta was subsequently unclamped. We had given lidocaine and magnesium and it required several defibrillation up to 30 J with reestablishment of a slow sinus rhythm after administration of 300 mg of amiodarone. Initial JAGDEEP showed no paravalvular leak. After around 15 minutes of reperfusion we were able to wean off cardiac bypass. JAGDEEP showed sluggish left ventricular function and for that reason we have loaded the patient with Primacor and started a drip at 0.2 mics per kilogram per minute. There was requirement for low-dose Levophed. Eventually the heart improved and the cardiac index was up to 2.4 with a PA pressure of 35/18. The aortic valve was functioning well and de-airing was satisfactory. With that all pump suckers were stopped as we gave test dose followed by full dose protamine. 2 monopolar atrial pacing wires were affixed to the respective pursestring on the right atrium and 1 bipolar ventricular pacing wire was driven via the inferior aspect of the right ventricle. 219 Russian Dustin drain was left substernally. The pericardium was partially closed over the aorta and the right ventricle. After ensuring adequate hemostasis hemodynamic and after correct sponge instrument and needle count the sternum was closed using 5 [id number] [place] cable after interposing fibrillar between the sternal edges. Thorough irrigation with cefazolin followed. The rest of the closure proceeded in layers. Skin glue was applied. Patient did not receive any blood in product but received 900 cc of Cell Saver blood. He is transferred to the ICU atrial paced at 84 sinus bradycardia around 60 with a PA pressure of 30/17 with a cardiac index of 2 and a mean arterial pressure of 72 on low-dose Primacor and Levophed
[2023-08-08 13:33] LABS: Glucose,Whole Blood 133 mg/dL (70-110)
[2023-08-08 13:48] LABS: ABG Base Excess -1.5 mmol/L; ABG HCO3 24 mmol/L (21-25); ABG PCO2 44 mmHg (35-45); ABG PH 7.35 (7.35-7.45); ABG PO2 226 mmHg (83-108); ABG TCO2 26 mmol/L (19-24); Allen Test Performed? Yes
[2023-08-08] MEDS: INSULIN REGULAR 100 UNIT in SODIUM CHLORIDE 0.9% 100 ML IV SCH (13:50)
[2023-08-08] MEDS: NITROGLYCERIN-D5W PMX 50 MG in DEXTROSE/WATER 1 250ML.BAG IV SCH (14:17)
[2023-08-08 14:19] LABS: Ionized Calcium 4.6 mg/dL (4.5-5.3)
--- NOTE | 2023-08-08 14:20 | P.ANPRN ---
Procedure Note - Anesthesia - JAGDEEP Intraop Pre Bypass JAGDEEP Intraop - Anesthesia Indication: avr Date of Procedure: 08/08/23 Pre-operative Diagnosis: aortic stenosis Post-operative Diagnosis: Same s/p avr Surgeon: Juno Velazquez Left Ventricle: mod lvh ef 55-60 Ejection Fraction: Normal Regional Wall Motion Abnormalities: None Left Ventricle Hypertrophy: Yes (mod) Right Ventricle: wnl R. Ventricle Function: Normal Anatomy: Other (functionally unicuspid) Aortic Stenosis: Severe (peak 90 mmhg) Aortic Regurgitation: Trace Mitral Stenosis: None Mitral Regurgitation: Trace Tricuspid Stenosis: None Tricuspid Regurgitation: None Pulmonic Stenosis: None Pulmonic Regurgitation: None R. Atrial Dilation: No R. Atrial PFO: No L. Atrial Dilation: No Aortic Dissection: No Aortic Calcification: None Plural Effusion: None
--- NOTE | 2023-08-08 14:22 | P.ANPRN ---
Procedure Note - Anesthesia - JAGDEEP Intraop Post Bypass JAGDEEP Intraop Post Bypass Procedure Performed: Aortic Valve Replacement Ejection Fraction: Other (initially sluggish. Recovered quickly. Normal after 1/2 primacor bolus) Regional Wall Motion Abnormalities: None Right Ventricle: wnl R. Ventricle Function: Normal Aortic Valve: prosthetic valve in place. residual gradient peak 6, mean 4. Opens well. No perivalvular leak. No AI Mitral Valve: Unchanged Tricuspid: Unchanged Pulmonic: Unchanged Aortic Dissection: No
[2023-08-08 14:25] LABS: Glucose,Whole Blood 127 mg/dL (70-110)
[2023-08-08 14:29] LABS: Basophils # (A) 0.1 k/uL (0-0.2); Basophils % (A) 0 %; Eosinophils # (A) 0.1 k/uL (0-0.7); Eosinophils % (A) 1 %; HCT 27.9 % (39.0-53.0); Lymphocytes # (A) 1.5 k/uL (1.0-4.8); Lymphocytes % (A) 12 %; MCHC 34.9 g/dL (31.0-37.0); MCV 97.4 fL (80.0-100.0); Mean Platelet Volume 8.8; Monocytes # (A) 0.8 k/uL (0-1.0); Monocytes % (A) 6 %; Neutrophils # (A) 9.8 k/uL (1.3-7.7); Neutrophils % (A) 80 %; RBC 2.86 m/uL (4.30-5.90); RDW 12.9 % (11.5-15.5); WBC 12.2 k/uL (3.8-10.6)
[2023-08-08] MEDS: CLEVIDIPINE BUTYRATE 25 MG in EMPTY BAG 1 BAG IV SCH (14:30)
--- NOTE | 2023-08-08 14:30 | XR ---
EXAMINATION TYPE: XR chest 1V portable DATE OF EXAM: 08/08/2023 2:03 PM CLINICAL INDICATION:Male, 58 years old with history of Post Operative Cardiac Surgery; [facility] COMPARISON: Chest radiographs from 08/08/2023 TECHNIQUE: XR chest 1V portable Frontal view of the chest. FINDINGS: Lungs/Pleura: There is no evidence of pleural effusion, focal consolidation, or pneumothorax. Pulmonary vascularity: Pulmonary vascular congestion. Heart/mediastinum: Cardiomediastinal silhouette is unremarkable. Atherosclerotic calcifications are seen in the aorta. Left atrial appendage occlusion device is present. Musculoskeletal: No acute osseous pathology. Midline sternotomy wires are noted. Other findings: None Lines/Tubes: Endotracheal tube with distal tip 2.0 cm above the becca. Nasogastric tube with its distal tip and side-port projecting under the diaphragm. There is a [place]-Cassandra catheter with tip projecting over the spine. Drainage tubes with tips projecting over the mediastinum. IMPRESSION: Postsurgical changes of mild pulmonary edema. Support tubes in place.
[2023-08-08 14:35] LABS: HGB 9.7 gm/dL (13.0-17.5)
[2023-08-08 14:40] LABS: ABG Base Excess -0.7 mmol/L; ABG HCO3 26 mmol/L (21-25); ABG PCO2 51 mmHg (35-45); ABG PH 7.31 (7.35-7.45); ABG TCO2 27 mmol/L (19-24); Allen Test Performed? Yes
[2023-08-08 14:40] LABS: INR 1.4 (<1.2); Partial Thromboplastin Time 35.8 sec (22.0-30.0); Prothrombin Time 14.4 sec (10.0-12.5)
--- NOTE | 2023-08-08 14:45 | P.CNPUL ---
History of Present Illness Consult date: 08/08/23 Requesting physician: Juno Velazquez Reason for consult: other (Ventilator/critical care management) Chief complaint: Symptomatic bicuspid aortic valve stenosis History of present illness: This is a 58-year-old male patient with a history of former smoking, rheumatoid fever as a child and was found to have severe aortic stenosis. He presented today for an elective aortic valve replacement. He was found to have a unicuspid severely calcified aortic valve with fusion of the right left and the right 9 cusp as cusps. He did undergo aortic valve replacement with a 25 mm pericardial bioprosthetic Inspiris valve and exclusion of left atrial appendage utilizing the atriaclip. He is seen in the immediate postoperative period in the intensive care unit. He is on the mechanical ventilator on assist-control mode at a rate of 16, tidal volume 450, FiO2 100% and a PEEP of 5. Initial blood gases revealed a PaO2 of 226, pCO2's at 44 and a pH of 7.35. He is currently on a nitroglycerin drip at 5 mcg/min. Propofol at 20 mcg/kg/min. Primacor at 0.2 mcg/kg/min. Normal saline at 50 MLS per hour and an insulin drip at 1 unit/h. Chest x-ray reveals good placement of the endotracheal tube, nasogastric tube, [place]-Cassandra catheter and mediastinal chest tubes. Mild pulmonary edema. No pneumothorax. White count 12.2. Hemoglobin 9.7. He has been initiated on bronchodilators and cefazolin. Review of Systems ROS unobtainable: due to endotracheal tube Past Medical History Past Medical History: COPD Additional Past Medical History / Comment(s): Fatigue for the last year. Right arm pain recently, SOB when laying down or activity 2 months. Occasional lightheaded feeling. Rheumatic fever as a child. Severe aortic stenosis. Hx kidney stones. History of Any Multi-Drug Resistant Organisms: None Reported Past Surgical History: Heart Catheterization Additional Past Surgical History / Comment(s): Colonscopy X2. Past Anesthesia/Blood Transfusion Reactions: No Reported Reaction Past Psychological History: No Psychological Hx Reported Smoking Status: Former smoker Past Alcohol Use History: None Reported Additional Past Alcohol Use History / Comment(s): Smoked 1/2 pack per day for 30 yrs, quit May 2023. Past Drug Use History: None Reported - Past Family History Father Family Medical History: Hypertension family Family Medical History: No Reported History Additional Family Medical History / Comment(s): Mother with kidney stones. Medications and Allergies Home Medications Medication Instructions Recorded Confirmed Type No Known Home Medications 08/03/23 08/08/23 History Allergies Allergy/AdvReac Type Severity Reaction Status Date / Time No Known Allergies Allergy Verified 08/08/23 06:38 Physical Exam Vitals: Vital Signs Temp Pulse Resp BP BP Pulse Ox FiO2 08/08/23 13:52 60 08/08/23 13:33 100 08/08/23 13:20 100 08/08/23 06:05 97.8 F 69 16 122/80 133/75 97 Intake and Output 08/07/23 08/08/23 08/08/23 22:59 06:59 14:59 Intake Total 100 2 Output Total 1015 Balance 100 -1013 Intake: IV 100 2 Output: Urine 265 Estimated Blood Loss 750 Other: Weight 76.4 kg GENERAL EXAM: Intubated, sedated 58-year-old male patient, comfortable in no apparent distress. HEAD: Normocephalic. EYES: Sluggish reaction of pupils, equal size. NOSE: Clear with pink turbinates. THROAT: Oral endotracheal and gastric tube secured in place. No erythema or exudates. NECK: No masses, no JVD. Right IJ [place]-Cassandra catheter in place. CHEST: Sternal dressing dry and intact. Heart hugger in place. Mediastinal chest tubes in place to Pleur-evac LUNGS: Equal air entry with no crackles, wheeze, rhonchi or dullness. CVS: S1 and S2 normal with no audible murmur, regular rhythm. ABDOMEN: No hepatosplenomegaly, hypoactive bowel sounds, no guarding or rigidity. SPINE: No scoliosis or deformity SKIN: No rashes CENTRAL NERVOUS SYSTEM: No focal deficits, tone is normal in all 4 extremities. EXTREMITIES: SCDs to the lower extremities. There is no peripheral edema. No clubbing, no cyanosis. Peripheral pulses are intact. Results - Laboratory Findings ABG ABG pH 7.35 (7.35-7.45) 08/08/23 13:45 ABG pCO2 44 mmHg (35-45) 08/08/23 13:45 ABG pO2 226 mmHg (83-108) H 08/08/23 13:45 ABG O2 Saturation 99.0 % (94-97) H 08/08/23 13:45 Abnormal lab findings: Abnormal Labs 08/03/23 08/08/23 08/08/23 11:08 06:17 13:32 ABG pO2 ABG Total CO2 ABG O2 Saturation POC Glucose (mg/dL) 113 H 133 H Crossmatch See Detail 08/08/23 08/08/23 13:45 14:24 ABG pO2 226 H ABG Total CO2 26 H ABG O2 Saturation 99.0 H POC Glucose (mg/dL) 127 H Crossmatch - Diagnostic Findings Chest x-ray: image reviewed Assessment and Plan Assessment: Severe aortic stenosis status post aortic valve replacement using a 25 mm pericardial bioprosthesis Inspiris valve with exclusion of left atrial appendage with an Atriclip postoperative day #0 Former smoker History of childhood rheumatoid arthritis Plan: The patient was seen and evaluated Chest x-ray, ABGs, labs and medications reviewed Decrease FiO2 to 60% Plan for early extubation protocol as tolerated We will continue to follow and make further recommendations based on his clinical status I have personally seen and examined the patient, performed the documentation and the assessment and plan as written. Number of minutes spent on the visit: 20.
[2023-08-08 14:55] LABS: ABG PO2 32 mmHg (83-108)
[2023-08-08 15:06] LABS: Glucose,Whole Blood 164 mg/dL (70-110)
[2023-08-08 15:18] LABS: Platelet Count 64 k/uL (150-450); RBC Morphology Normal
[2023-08-08 15:23] LABS: ALT 26 U/L (4-49); AST 38 U/L (17-59); African American GFR (CKD) >90 (>60 ml/min/1.73 sqM); Albumin 3.3 g/dL (3.5-5.0); Alkaline Phosphatase 25 U/L (38-126); Anion Gap 7 mmol/L; Blood Urea Nitrogen 19 mg/dL (9-20); Calcium 7.9 mg/dL (8.4-10.2); Carbon Dioxide 22 mmol/L (22-30); Chloride 115 mmol/L (98-107); Glucose 125 mg/dL (74-99); Magnesium 2.8 mg/dL (1.6-2.3); Non-African American GFR(CKD) >90 (>60 ml/min/1.73 sqM); Sodium 144 mmol/L (137-145); Total Bilirubin 0.8 mg/dL (0.2-1.3); Total Protein 4.9 g/dL (6.3-8.2)
[2023-08-08] MEDS: IPRATROPIUM-ALBUTEROL 3 ML NEB INHALATION SCH ×2 (15:39→19:55)
[2023-08-08] MEDS: HEPARIN SODIUM,PORCINE 5,000 UNIT/ML 1 ML VIAL SQ SCH (16:00)
[2023-08-08] MEDS: DEXMEDETOMIDINE/0.9% NACL(PMX) 400 MCG in EMPTY BAG 1 BAG IV SCH (16:01)
[2023-08-08] MEDS ORDERED: MUPIROCIN 2% OINT 22 GM TUBE NASAL ONE (16:15)
[2023-08-08 16:16] LABS: Glucose,Whole Blood 165 mg/dL (70-110)
[2023-08-08] MEDS: ACETAMINOPHEN IV (For NPO) 1,000 MG in EMPTY BAG 1 BAG IVPB SCH (16:49)
--- NOTE | 2023-08-08 16:51 | XR ---
EXAMINATION TYPE: XR chest 1V portable DATE OF EXAM: 08/08/2023 2:03 PM CLINICAL INDICATION:Male, 58 years old with history of POST OPERATIVE CARDIAC SURGERY; COMPARISON: Chest radiographs from 08/08/2023 TECHNIQUE: XR chest 1V portable Frontal view of the chest. FINDINGS: Lungs/Pleura: There is no evidence of pleural effusion, focal consolidation, or pneumothorax. Pulmonary vascularity: Unremarkable. Heart/mediastinum: Cardiomediastinal silhouette is unremarkable. Post aortic valve repair changes. L eft atrial appendage occlusion device is present. Musculoskeletal: No acute osseous pathology. Midline sternotomy wires are noted. Other findings: None Lines/Tubes: Endotracheal tube with distal tip 2.0 cm above the becca. Nasogastric tube with its distal tip and side-port projecting under the diaphragm. There is a [place]-Cassandra catheter with tip projecting over the spine. Drainage tubes with tips projecting over the mediastinum. IMPRESSION: Post surgical changes with lines and tubes as described above. No evidence for immediate postop compe tition.
[2023-08-08 16:55] LABS: Basophils # (A) 0.1 k/uL (0-0.2); Basophils % (A) 0 %; Eosinophils % (A) 0 %; HCT 29.4 % (39.0-53.0); HGB 10.5 gm/dL (13.0-17.5); Lymphocytes # (A) 1.2 k/uL (1.0-4.8); Lymphocytes % (A) 7 %; MCH 34.8 pg (25.0-35.0); MCHC 35.7 g/dL (31.0-37.0); MCV 97.4 fL (80.0-100.0); Mean Platelet Volume 9.6; Monocytes # (A) 1.3 k/uL (0-1.0); Monocytes % (A) 7 %; Neutrophils # (A) 14.8 k/uL (1.3-7.7); Neutrophils % (A) 84 %; RBC 3.01 m/uL (4.30-5.90); RDW 13.1 % (11.5-15.5); WBC 17.5 k/uL (3.8-10.6)
[2023-08-08 17:03] LABS: Platelet Count 90 k/uL (150-450)
[2023-08-08 17:21] LABS: Glucose,Whole Blood 147 mg/dL (70-110)
[2023-08-08 18:12] LABS: Glucose,Whole Blood 123 mg/dL (70-110)
[2023-08-08 18:56] LABS: Glucose,Whole Blood 119 mg/dL (70-110)
[2023-08-08 19:06] LABS: Basophils % (A) 0 %; Eosinophils % (A) 0 %; HCT 27.8 % (39.0-53.0); HGB 9.4 gm/dL (13.0-17.5); Lymphocytes # (A) 0.5 k/uL (1.0-4.8); Lymphocytes % (A) 4 %; MCH 33.2 pg (25.0-35.0); MCHC 33.8 g/dL (31.0-37.0); MCV 98.3 fL (80.0-100.0); Mean Platelet Volume 10.8; Monocytes # (A) 0.8 k/uL (0-1.0); Monocytes % (A) 6 %; Neutrophils # (A) 11.3 k/uL (1.3-7.7); Neutrophils % (A) 89 %; RBC 2.83 m/uL (4.30-5.90); RDW 12.6 % (11.5-15.5); WBC 12.7 k/uL (3.8-10.6)
[2023-08-08 19:09] LABS: Platelet Count 76 k/uL (150-450)
[2023-08-08] MEDS: ONDANSETRON 4 MG/2 ML VIAL IVP PRN (19:36)
[2023-08-08 20:02] LABS: Glucose,Whole Blood 121 mg/dL (70-110)
[2023-08-08 20:56] LABS: Glucose,Whole Blood 112 mg/dL (70-110)
[2023-08-08 21:50] LABS: Glucose,Whole Blood 149 mg/dL (70-110)
[2023-08-08 22:56] LABS: Glucose,Whole Blood 163 mg/dL (70-110)
[2023-08-08 23:55] LABS: Glucose,Whole Blood 140 mg/dL (70-110)
[2023-08-09 00:56] LABS: Glucose,Whole Blood 130 mg/dL (70-110)
[2023-08-09 02:53] LABS: Glucose,Whole Blood 144 mg/dL (70-110)
[2023-08-09] MEDS: IPRATROPIUM-ALBUTEROL 3 ML NEB INHALATION PRN (03:22)
[2023-08-09 04:10] LABS: Glucose,Whole Blood 163 mg/dL (70-110)
[2023-08-09] MEDS: METOCLOPRAMIDE 5 MG/ML 2 ML VIAL IVP PRN (04:18)
[2023-08-09 04:26] LABS: Basophils % (A) 0 %; Eosinophils % (A) 0 %; HCT 27.7 % (39.0-53.0); HGB 9.3 gm/dL (13.0-17.5); Lymphocytes % (A) 7 %; MCH 33.1 pg (25.0-35.0); MCHC 33.5 g/dL (31.0-37.0); MCV 98.8 fL (80.0-100.0); Mean Platelet Volume 9.3; Monocytes # (A) 1.2 k/uL (0-1.0); Monocytes % (A) 8 %; Neutrophils # (A) 12.9 k/uL (1.3-7.7); Neutrophils % (A) 84 %; RBC 2.81 m/uL (4.30-5.90); RDW 12.8 % (11.5-15.5); WBC 15.3 k/uL (3.8-10.6)
[2023-08-09 04:37] LABS: Ionized Calcium 4.7 mg/dL (4.5-5.3)
[2023-08-09] MEDS: fentaNYL (PF) 50 MCG/ML 2 ML AMP IVP PRN (04:37)
[2023-08-09 04:47] LABS: ALT 31 U/L (4-49); AST 61 U/L (17-59); African American GFR (CKD) >90 (>60 ml/min/1.73 sqM); Albumin 3.6 g/dL (3.5-5.0); Alkaline Phosphatase 31 U/L (38-126); Anion Gap 8 mmol/L; Blood Urea Nitrogen 24 mg/dL (9-20); Calcium 8.1 mg/dL (8.4-10.2); Carbon Dioxide 22 mmol/L (22-30); Chloride 112 mmol/L (98-107); Glucose 154 mg/dL (74-99); Magnesium 2.2 mg/dL (1.6-2.3); Non-African American GFR(CKD) >90 (>60 ml/min/1.73 sqM); Potassium 4.1 mmol/L (3.5-5.1); Sodium 142 mmol/L (137-145); Total Bilirubin 0.7 mg/dL (0.2-1.3); Total Protein 5.4 g/dL (6.3-8.2)
[2023-08-09 05:08] LABS: Platelet Count 85 k/uL (150-450)
[2023-08-09 05:15] LABS: Glucose,Whole Blood 154 mg/dL (70-110)
[2023-08-09 06:17] LABS: Glucose,Whole Blood 125 mg/dL (70-110)
[2023-08-09] MEDS: ALBUMIN HUMAN 5% 250 ML in EMPTY BAG 1 BAG IVPB PRN (06:29)
--- NOTE | 2023-08-09 06:35 | XR ---
EXAM: XR Chest, 1 View CLINICAL HISTORY: ITS.REASON XR Reason: Post Operative Cardiac Surgery TECHNIQUE: Frontal view of the chest. COMPARISON: 08/08/23 FINDINGS: Lungs: Slight increased streaky density in the lung bases, which may reflect atelectasis or developing infiltrate. Pleural space: Blunting of the costophrenic angle bilaterally, likely developing small effusions. No pneumothorax. Heart: Prominent cardiomediastinal silhouette, again seen, likely accentuated by low lung volume. Mediastinum: Unremarkable. Normal mediastinal contour. Bones/joints: Status post median sternotomy. No acute fracture. Vasculature: Prominent central vasculature. Tubes, lines and devices: Right sided [place]-Cassandra catheter, tip near the proximal right pulmonary artery. Tubing projecting over the mediastinum, again noted. Overlying chest leads obscure portion of the chest. Upper abdomen: Moderate gaseous distention of the visualized stomach noted. IMPRESSION: 1. Suspect small developing pleural effusions. 2. Slight worsening bibasilar atelectasis or developing infiltrate. 3. Support apparatus, again noted. 4. Mild edema.
[2023-08-09 07:01] LABS: Glucose,Whole Blood 115 mg/dL (70-110)
[2023-08-09 08:07] LABS: Glucose,Whole Blood 194 mg/dL (70-110)
[2023-08-09] MEDS: KETOROLAC 15 MG/ML 1 ML VIAL IVP SCH (08:33)
[2023-08-09] MEDS: PANTOPRAZOLE 40 MG/10 ML VIAL IVP SCH (08:33)
[2023-08-09] MEDS: AMIODARONE 200 MG TAB PO SCH (08:33)
[2023-08-09] MEDS: ASPIRIN 325 MG TAB PO SCH (08:33)
[2023-08-09] MEDS: METOPROLOL TARTRATE 12.5 MG TAB PO SCH (08:33)
[2023-08-09] MEDS: ATORVASTATIN 40 MG TAB PO SCH (08:33)
[2023-08-09] MEDS: CLOPIDOGREL 75 MG TAB PO SCH (08:33)
[2023-08-09] MEDS ORDERED: MAGNESIUM HYDROXIDE 2,400 MG/30 ML CUP PO PRN (09:00)
[2023-08-09] MEDS ORDERED: bisacodyL 10 MG SUPP RECTAL PRN (09:00)
[2023-08-09 09:14] LABS: Glucose,Whole Blood 202 mg/dL (70-110)
--- NOTE | 2023-08-09 09:19 | P.PN ---
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 Past medical history significant for aortic valve stenosis with rheumatic fever as a child, COPD with a preoperative FEV1 61% of predicted value and recent cessation from tobacco dependence. POD #1 aortic valve replacement using a 25 mm pericardial bioprosthesis Inspiris, exclusion of the left atrial appendage using a 40 mm atrial clip, intraoperative transesophageal echocardiogram and epiaortic scanning. Postoperative acute blood loss anemia and thrombocytopenia, expected given cardiopulmonary bypass and hemodilution. The patient was seen and examined at his bedside in the intensive care unit today August 09, 2023. The patient was successfully extubated at 5:10 PM last evening, is currently sitting up to the bedside chair, is awake, alert, oriented x 3 and is in no acute apparent distress. Denies any complaints of shortness of breath at this time, although is complaining of pain to his chest tube insertion sites, currently rating his pain 5 out of 10 on the pain scale. Oxygen saturations are 97% on 5 L nasal cannula and he is achieving 1000 mL on his incentive spirometry with encouragement. Bedside telemetry showing normal sinus rhythm heart rate 97 bpm. Right IJ cordis and [place] catheter remains in place with current hemodynamic showing a PA pressure of 30/12, CVP 13 mmHg, cardiac output 6.7, and cardiac index 3.6. Mediastinal chest tubes remain in place to low continuous wall suction -20 cm H2O. Draining thin serosanguineous drainage, with 230 mL output in the last 8 hours and 500 mL output since surgery. Chest x-ray and laboratory results were reviewed. Objective - Vital Signs Vital signs: Vital Signs Temp 99.7 F H 08/09/23 08:00 Pulse 97 08/09/23 08:03 Resp 24 08/09/23 08:00 BP 133/75 08/08/23 06:05 Pulse Ox 93 L 08/09/23 08:03 FiO2 45 08/08/23 16:30 Intake & Output 08/08/23 08/09/23 08/09/23 18:59 06:59 18:59 Intake Total 320.477 5827.660 710.597 Output Total 1615 1310 75 Balance -902.314 392.660 635.597 Weight 77.7 kg Intake: IV 626 978 197 0.9 @ 50 290 600 100 ACETAMINOPHEN IV (For NPO 100 100 ) 1,000 mg In Empty Bag 1 bag @ 400 mls/hr IVPB Q6HR [facility] Rx#:[id number] CO/CI 130 120 30 ceFAZolin 2 gm In Sodium 50 50 50 Chloride 0.9% 50 ml @ 100 mls/hr IVPB Q8HR [facility] Rx# :[id number] pressure bags 54 108 17 Intake, IV Titration 86.686 124.660 13.597 Amount Clevidipine Butyrate 25 28.800 18.434 mg In Empty Bag 1 bag @ 1 MG/HR 2 mls/hr IV .Q24H [facility] Rx#:[id number] Dexmedetomidine/0.9% NaCl 11.810 (Pmx) 400 mcg In Empty Bag 1 bag @ Titrate IV . Q0M [facility] Rx#:[id number] Insulin Regular 100 unit 10.133 18.779 4.200 In Sodium Chloride 0.9% 100 ml @ Per Protocol IV .Q0M [facility] Rx#:[id number] Milrinone-D5w Pmx 20 mg 77.622 9.397 In Dextrose/Water 1 100ml .bag @ 0.2 MCG/KG/MIN 4. 584 mls/hr IV .[id number] [facility] Rx#:[id number] Nitroglycerin-D5w Pmx 50 9.05 9.825 mg In Dextrose/Water 1 250ml.bag @ 5 MCG/MIN 1.5 mls/hr IV .Q24H [facility] Rx#: [id number] propofoL 1,000 mg In 26.893 Empty Bag 1 bag @ Titrate IV .Q0M [facility] Rx#: [id number] Oral 600 500 Output: Chest Tube Drainage 240 290 20 Bilateral Mediastinal 240 290 20 Urine 625 530 55 Emesis 490 Estimated Blood Loss 750 Other: Voiding Method Indwelling Catheter Indwelling Catheter ABP, PAP, CO, CI - Last Documented Arterial Blood Pressure 117/64 Pulmonary Artery Pressure 30/13 Cardiac Output 6.7 Cardiac Index 3.6 - Exam CONSTITUTIONAL: Sitting up to the bedside chair in the intensive care unit, appears comfortable, cooperative, no apparent acute distress. HEENT: Neck is supple, no JVD, no lymphadenopathy. Right IJ Cordis and [place]- [place] catheter in place and functioning. RESPIRATORY: Lungs sounds essentially clear throughout, diminished to his bilateral bases. Respirations are symmetrical and nonlabored. Currently on 5 L nasal cannula with oxygen saturations 97%. Able to achieve 1000 mL on his incentive spirometry. Strong cough. CARDIOVASCULAR: Regular rhythm and rate. S1 and S2 present, negative for S3, gallop or murmur. Sternum is stable. Palpable peripheral pulses bilaterally. No calf pain or tenderness noted. Heart hugger in place with patient demonstrating appropriate use. Knee-high SERJIO hose and sequential compression devices in place to his bilateral lower extremities. GASTROINTESTINAL: Abdomen soft, nontender, nondistended. Hypoactive bowel sounds present 4 quadrants. Tolerating clear liquid diet. Denies passing flatus. No guarding or rigidity. GENITOURINARY: Gupta present draining clear, yellow urine. Urine output 395 mL in the last 8 hours. INTEGUMENTARY: Skin is warm and dry with no evidence of clubbing or cyanosis. Midline sternal incision clean dry and well approximated, covered with dry intact dressing. NEUROLOGIC: Cranial nerves II through XII intact. No focal deficits. MUSKULOSKELETAL: Able to move all extremities, strength equal bilaterally, generalized weakness. PSYCHIATRIC: Alert and oriented to person place and time, appropriate affect, intact judgment and insight. INVASIVE LINES AND TUBES: Mediastinal chest tube present and connected to low continuous wall suction, no air leaks present. Mediastinal tube with 230 mL of thin serosanguineous drainage overnight, 500 mL output in the last 24 hours. Atrial and ventricular epicardial pacemaker wires present, connected to genera tor, VVI backup rate 50 bpm. Right internal jugular [place]/Cordis, left radial arterial line present. Last CO 6.7, CI 3.6, PA 30/12 and CVP 13 mmHg. - Allied health notes Allied health notes reviewed: nursing - Labs CBC & Chem 7: 08/09/23 04:04 08/09/23 04:04 Labs: Abnormal Lab Results - Last 24 Hours (Table) 08/03/23 08/08/23 08/08/23 Range/Units 11:08 08:27 09:23 WBC (3.8-10.6) k/uL RBC (4.30-5.90) m/uL Hgb (13.0-17.5) gm/dL Hct (39.0-53.0) % Plt Count (150-450) k/uL Neutrophils # (1.3-7.7) k/uL Lymphocytes # (1.0-4.8) k/uL Monocytes # (0-1.0) k/uL PT (10.0-12.5) sec INR (<1.2) APTT (22.0-30.0) sec ABG pH (7.35-7.45) ABG pCO2 (35-45) mmHg ABG pO2 223 H 225 H (83-108) mmHg ABG HCO3 (21-25) mmol/L ABG Total CO2 (19-24) mmol/L ABG O2 Saturation 99.3 H >99.4 H (94-97) % ABG Hematocrit (34.0-46.0) % ABG Sodium (135-146) mmol/L ABG Potassium (3.4-4.5) mmol/L ABG Ionized Calcium (4.5-5.3) mg/dL ABG Glucose 117 H 119 H (75-99) mg/dL ABG Lactic Acid (0.5-1.6) mmol/L Hemoglobin 11.7 L (13.0-17.5) gm/dL Chloride (98-107) mmol/L BUN (9-20) mg/dL Glucose (74-99) mg/dL POC Glucose (mg/dL) (70-110) mg/dL Calcium (8.4-10.2) mg/dL Magnesium (1.6-2.3) mg/dL AST (17-59) U/L Alkaline Phosphatase (38-126) U/L Total Protein (6.3-8.2) g/dL Albumin (3.5-5.0) g/dL Arterial Blood Potassium (3.4-4.5) mmol/L Arterial Blood Glucose 117 H 119 H (75-99) mg/dL Crossmatch See Detail 08/08/23 08/08/23 08/08/23 Range/Units 10:11 10:46 11:28 WBC (3.8-10.6) k/uL RBC (4.30-5.90) m/uL Hgb (13.0-17.5) gm/dL Hct (39.0-53.0) % Plt Count (150-450) k/uL Neutrophils # (1.3-7.7) k/uL Lymphocytes # (1.0-4.8) k/uL Monocytes # (0-1.0) k/uL PT (10.0-12.5) sec INR (<1.2) APTT (22.0-30.0) sec ABG pH (7.35-7.45) ABG pCO2 (35-45) mmHg ABG pO2 >420 H 413 H >420 H (83-108) mmHg ABG HCO3 (21-25) mmol/L ABG Total CO2 (19-24) mmol/L ABG O2 Saturation >99.4 H >99.4 H >99.4 H (94-97) % ABG Hematocrit 25 L 25 L 24 L (34.0-46.0) % ABG Sodium 147 H (135-146) mmol/L ABG Potassium 6.0 H 5.4 H 5.1 H (3.4-4.5) mmol/L ABG Ionized Calcium 3.9 L 4.0 L 4.2 L (4.5-5.3) mg/dL ABG Glucose 164 H 147 H 118 H (75-99) mg/dL ABG Lactic Acid 1.9 H 3.6 H* (0.5-1.6) mmol/L Hemoglobin 8.1 L 8.3 L 7.8 L (13.0-17.5) gm/dL Chloride (98-107) mmol/L BUN (9-20) mg/dL Glucose (74-99) mg/dL POC Glucose (mg/dL) (70-110) mg/dL Calcium (8.4-10.2) mg/dL Magnesium (1.6-2.3) mg/dL AST (17-59) U/L Alkaline Phosphatase (38-126) U/L Total Protein (6.3-8.2) g/dL Albumin (3.5-5.0) g/dL Arterial Blood Potassium 6.0 H 5.4 H 5.1 H (3.4-4.5) mmol/L Arterial Blood Glucose 164 H 147 H 118 H (75-99) mg/dL Crossmatch 08/08/23 08/08/23 08/08/23 Range/Units 12:35 13:32 13:45 WBC (3.8-10.6) k/uL RBC (4.30-5.90) m/uL Hgb (13.0-17.5) gm/dL Hct (39.0-53.0) % Plt Count (150-450) k/uL Neutrophils # (1.3-7.7) k/uL Lymphocytes # (1.0-4.8) k/uL Monocytes # (0-1.0) k/uL PT (10.0-12.5) sec INR (<1.2) APTT (22.0-30.0) sec ABG pH (7.35-7.45) ABG pCO2 (35-45) mmHg ABG pO2 330 H 226 H (83-108) mmHg ABG HCO3 (21-25) mmol/L ABG Total CO2 26 H (19-24) mmol/L ABG O2 Saturation 99.4 H 99.0 H (94-97) % ABG Hematocrit 30 L (34.0-46.0) % ABG Sodium (135-146) mmol/L ABG Potassium (3.4-4.5) mmol/L ABG Ionized Calcium (4.5-5.3) mg/dL ABG Glucose 184 H (75-99) mg/dL ABG Lactic Acid 2.7 H* (0.5-1.6) mmol/L Hemoglobin 9.9 L (13.0-17.5) gm/dL Chloride (98-107) mmol/L BUN (9-20) mg/dL Glucose (74-99) mg/dL POC Glucose (mg/dL) 133 H (70-110) mg/dL Calcium (8.4-10.2) mg/dL Magnesium (1.6-2.3) mg/dL AST (17-59) U/L Alkaline Phosphatase (38-126) U/L Total Protein (6.3-8.2) g/dL Albumin (3.5-5.0) g/dL Arterial Blood Potassium (3.4-4.5) mmol/L Arterial Blood Glucose 184 H (75-99) mg/dL Crossmatch 08/08/23 08/08/23 08/08/23 Range/Units 14:00 14:00 14:00 WBC 12.2 H (3.8-10.6) k/uL RBC 2.86 L (4.30-5.90) m/uL Hgb 9.7 L D (13.0-17.5) gm/dL Hct 27.9 L (39.0-53.0) % Plt Count 64 L D (150-450) k/uL Neutrophils # 9.8 H (1.3-7.7) k/uL Lymphocytes # (1.0-4.8) k/uL Monocytes # (0-1.0) k/uL PT 14.4 H (10.0-12.5) sec INR 1.4 H (<1.2) APTT 35.8 H (22.0-30.0) sec ABG pH (7.35-7.45) ABG pCO2 (35-45) mmHg ABG pO2 (83-108) mmHg ABG HCO3 (21-25) mmol/L ABG Total CO2 (19-24) mmol/L ABG O2 Saturation (94-97) % ABG Hematocrit (34.0-46.0) % ABG Sodium (135-146) mmol/L ABG Potassium (3.4-4.5) mmol/L ABG Ionized Calcium (4.5-5.3) mg/dL ABG Glucose (75-99) mg/dL ABG Lactic Acid (0.5-1.6) mmol/L Hemoglobin (13.0-17.5) gm/dL Chloride 115 H (98-107) mmol/L BUN (9-20) mg/dL Glucose 125 H (74-99) mg/dL POC Glucose (mg/dL) (70-110) mg/dL Calcium 7.9 L (8.4-10.2) mg/dL Magnesium 2.8 H (1.6-2.3) mg/dL AST (17-59) U/L Alkaline Phosphatase 25 L (38-126) U/L Total Protein 4.9 L (6.3-8.2) g/dL Albumin 3.3 L (3.5-5.0) g/dL Arterial Blood Potassium (3.4-4.5) mmol/L Arterial Blood Glucose (75-99) mg/dL Crossmatch 08/08/23 08/08/23 08/08/23 Range/Units 14:24 14:38 15:04 WBC (3.8-10.6) k/uL RBC (4.30-5.90) m/uL Hgb (13.0-17.5) gm/dL Hct (39.0-53.0) % Plt Count (150-450) k/uL Neutrophils # (1.3-7.7) k/uL Lymphocytes # (1.0-4.8) k/uL Monocytes # (0-1.0) k/uL PT (10.0-12.5) sec INR (<1.2) APTT (22.0-30.0) sec ABG pH 7.31 L (7.35-7.45) ABG pCO2 51 H (35-45) mmHg ABG pO2 32 L* (83-108) mmHg ABG HCO3 26 H (21-25) mmol/L ABG Total CO2 27 H (19-24) mmol/L ABG O2 Saturation 53.0 L (94-97) % ABG Hematocrit (34.0-46.0) % ABG Sodium (135-146) mmol/L ABG Potassium (3.4-4.5) mmol/L ABG Ionized Calcium (4.5-5.3) mg/dL ABG Glucose (75-99) mg/dL ABG Lactic Acid (0.5-1.6) mmol/L Hemoglobin (13.0-17.5) gm/dL Chloride (98-107) mmol/L BUN (9-20) mg/dL Glucose (74-99) mg/dL POC Glucose (mg/dL) 127 H 164 H (70-110) mg/dL Calcium (8.4-10.2) mg/dL Magnesium (1.6-2.3) mg/dL AST (17-59) U/L Alkaline Phosphatase (38-126) U/L Total Protein (6.3-8.2) g/dL Albumin (3.5-5.0) g/dL Arterial Blood Potassium (3.4-4.5) mmol/L Arterial Blood Glucose (75-99) mg/dL Crossmatch 08/08/23 08/08/23 08/08/23 Range/Units 16:10 16:14 17:20 WBC 17.5 H (3.8-10.6) k/uL RBC 3.01 L (4.30-5.90) m/uL Hgb 10.5 L (13.0-17.5) gm/dL Hct 29.4 L (39.0-53.0) % Plt Count 90 L (150-450) k/uL Neutrophils # 14.8 H (1.3-7.7) k/uL Lymphocytes # (1.0-4.8) k/uL Monocytes # 1.3 H (0-1.0) k/uL PT (10.0-12.5) sec INR (<1.2) APTT (22.0-30.0) sec ABG pH (7.35-7.45) ABG pCO2 (35-45) mmHg ABG pO2 (83-108) mmHg ABG HCO3 (21-25) mmol/L ABG Total CO2 (19-24) mmol/L ABG O2 Saturation (94-97) % ABG Hematocrit (34.0-46.0) % ABG Sodium (135-146) mmol/L ABG Potassium (3.4-4.5) mmol/L ABG Ionized Calcium (4.5-5.3) mg/dL ABG Glucose (75-99) mg/dL ABG Lactic Acid (0.5-1.6) mmol/L Hemoglobin (13.0-17.5) gm/dL Chloride (98-107) mmol/L BUN (9-20) mg/dL Glucose (74-99) mg/dL POC Glucose (mg/dL) 165 H 147 H (70-110) mg/dL Calcium (8.4-10.2) mg/dL Magnesium (1.6-2.3) mg/dL AST (17-59) U/L Alkaline Phosphatase (38-126) U/L Total Protein (6.3-8.2) g/dL Albumin (3.5-5.0) g/dL Arterial Blood Potassium (3.4-4.5) mmol/L Arterial Blood Glucose (75-99) mg/dL Crossmatch 08/08/23 08/08/23 08/08/23 Range/Units 18:11 18:50 18:55 WBC 12.7 H (3.8-10.6) k/uL RBC 2.83 L (4.30-5.90) m/uL Hgb 9.4 L (13.0-17.5) gm/dL Hct 27.8 L (39.0-53.0) % Plt Count 76 L (150-450) k/uL Neutrophils # 11.3 H (1.3-7.7) k/uL Lymphocytes # 0.5 L (1.0-4.8) k/uL Monocytes # (0-1.0) k/uL PT (10.0-12.5) sec INR (<1.2) APTT (22.0-30.0) sec ABG pH (7.35-7.45) ABG pCO2 (35-45) mmHg ABG pO2 (83-108) mmHg ABG HCO3 (21-25) mmol/L ABG Total CO2 (19-24) mmol/L ABG O2 Saturation (94-97) % ABG Hematocrit (34.0-46.0) % ABG Sodium (135-146) mmol/L ABG Potassium (3.4-4.5) mmol/L ABG Ionized Calcium (4.5-5.3) mg/dL ABG Glucose (75-99) mg/dL ABG Lactic Acid (0.5-1.6) mmol/L Hemoglobin (13.0-17.5) gm/dL Chloride (98-107) mmol/L BUN (9-20) mg/dL Glucose (74-99) mg/dL POC Glucose (mg/dL) 123 H 119 H (70-110) mg/dL Calcium (8.4-10.2) mg/dL Magnesium (1.6-2.3) mg/dL AST (17-59) U/L Alkaline Phosphatase (38-126) U/L Total Protein (6.3-8.2) g/dL Albumin (3.5-5.0) g/dL Arterial Blood Potassium (3.4-4.5) mmol/L Arterial Blood Glucose (75-99) mg/dL Crossmatch 08/08/23 08/08/23 08/08/23 Range/Units 20:01 20:55 21:50 WBC (3.8-10.6) k/uL RBC (4.30-5.90) m/uL Hgb (13.0-17.5) gm/dL Hct (39.0-53.0) % Plt Count (150-450) k/uL Neutrophils # (1.3-7.7) k/uL Lymphocytes # (1.0-4.8) k/uL Monocytes # (0-1.0) k/uL PT (10.0-12.5) sec INR (<1.2) APTT (22.0-30.0) sec ABG pH (7.35-7.45) ABG pCO2 (35-45) mmHg ABG pO2 (83-108) mmHg ABG HCO3 (21-25) mmol/L ABG Total CO2 (19-24) mmol/L ABG O2 Saturation (94-97) % ABG Hematocrit (34.0-46.0) % ABG Sodium (135-146) mmol/L ABG Potassium (3.4-4.5) mmol/L ABG Ionized Calcium (4.5-5.3) mg/dL ABG Glucose (75-99) mg/dL ABG Lactic Acid (0.5-1.6) mmol/L Hemoglobin (13.0-17.5) gm/dL Chloride (98-107) mmol/L BUN (9-20) mg/dL Glucose (74-99) mg/dL POC Glucose (mg/dL) 121 H 112 H 149 H (70-110) mg/dL Calcium (8.4-10.2) mg/dL Magnesium (1.6-2.3) mg/dL AST (17-59) U/L Alkaline Phosphatase (38-126) U/L Total Protein (6.3-8.2) g/dL Albumin (3.5-5.0) g/dL Arterial Blood Potassium (3.4-4.5) mmol/L Arterial Blood Glucose (75-99) mg/dL Crossmatch 08/08/23 08/08/23 08/09/23 Range/Units 22:54 23:53 00:54 WBC (3.8-10.6) k/uL RBC (4.30-5.90) m/uL Hgb (13.0-17.5) gm/dL Hct (39.0-53.0) % Plt Count (150-450) k/uL Neutrophils # (1.3-7.7) k/uL Lymphocytes # (1.0-4.8) k/uL Monocytes # (0-1.0) k/uL PT (10.0-12.5) sec INR (<1.2) APTT (22.0-30.0) sec ABG pH (7.35-7.45) ABG pCO2 (35-45) mmHg ABG pO2 (83-108) mmHg ABG HCO3 (21-25) mmol/L ABG Total CO2 (19-24) mmol/L ABG O2 Saturation (94-97) % ABG Hematocrit (34.0-46.0) % ABG Sodium (135-146) mmol/L ABG Potassium (3.4-4.5) mmol/L ABG Ionized Calcium (4.5-5.3) mg/dL ABG Glucose (75-99) mg/dL ABG Lactic Acid (0.5-1.6) mmol/L Hemoglobin (13.0-17.5) gm/dL Chloride (98-107) mmol/L BUN (9-20) mg/dL Glucose (74-99) mg/dL POC Glucose (mg/dL) 163 H 140 H 130 H (70-110) mg/dL Calcium (8.4-10.2) mg/dL Magnesium (1.6-2.3) mg/dL AST (17-59) U/L Alkaline Phosphatase (38-126) U/L Total Protein (6.3-8.2) g/dL Albumin (3.5-5.0) g/dL Arterial Blood Potassium (3.4-4.5) mmol/L Arterial Blood Glucose (75-99) mg/dL Crossmatch 08/09/23 08/09/23 08/09/23 Range/Units 02:52 04:04 04:04 WBC 15.3 H (3.8-10.6) k/uL RBC 2.81 L (4.30-5.90) m/uL Hgb 9.3 L (13.0-17.5) gm/dL Hct 27.7 L (39.0-53.0) % Plt Count 85 L (150-450) k/uL Neutrophils # 12.9 H (1.3-7.7) k/uL Lymphocytes # (1.0-4.8) k/uL Monocytes # 1.2 H (0-1.0) k/uL PT (10.0-12.5) sec INR (<1.2) APTT (22.0-30.0) sec ABG pH (7.35-7.45) ABG pCO2 (35-45) mmHg ABG pO2 (83-108) mmHg ABG HCO3 (21-25) mmol/L ABG Total CO2 (19-24) mmol/L ABG O2 Saturation (94-97) % ABG Hematocrit (34.0-46.0) % ABG Sodium (135-146) mmol/L ABG Potassium (3.4-4.5) mmol/L ABG Ionized Calcium (4.5-5.3) mg/dL ABG Glucose (75-99) mg/dL ABG Lactic Acid (0.5-1.6) mmol/L Hemoglobin (13.0-17.5) gm/dL Chloride 112 H (98-107) mmol/L BUN 24 H (9-20) mg/dL Glucose 154 H (74-99) mg/dL POC Glucose (mg/dL) 144 H (70-110) mg/dL Calcium 8.1 L (8.4-10.2) mg/dL Magnesium (1.6-2.3) mg/dL AST 61 H (17-59) U/L Alkaline Phosphatase 31 L (38-126) U/L Total Protein 5.4 L (6.3-8.2) g/dL Albumin (3.5-5.0) g/dL Arterial Blood Potassium (3.4-4.5) mmol/L Arterial Blood Glucose (75-99) mg/dL Crossmatch 08/09/23 08/09/23 08/09/23 Range/Units 04:07 05:12 06:15 WBC (3.8-10.6) k/uL RBC (4.30-5.90) m/uL Hgb (13.0-17.5) gm/dL Hct (39.0-53.0) % Plt Count (150-450) k/uL Neutrophils # (1.3-7.7) k/uL Lymphocytes # (1.0-4.8) k/uL Monocytes # (0-1.0) k/uL PT (10.0-12.5) sec INR (<1.2) APTT (22.0-30.0) sec ABG pH (7.35-7.45) ABG pCO2 (35-45) mmHg ABG pO2 (83-108) mmHg ABG HCO3 (21-25) mmol/L ABG Total CO2 (19-24) mmol/L ABG O2 Saturation (94-97) % ABG Hematocrit (34.0-46.0) % ABG Sodium (135-146) mmol/L ABG Potassium (3.4-4.5) mmol/L ABG Ionized Calcium (4.5-5.3) mg/dL ABG Glucose (75-99) mg/dL ABG Lactic Acid (0.5-1.6) mmol/L Hemoglobin (13.0-17.5) gm/dL Chloride (98-107) mmol/L BUN (9-20) mg/dL Glucose (74-99) mg/dL POC Glucose (mg/dL) 163 H 154 H 125 H (70-110) mg/dL Calcium (8.4-10.2) mg/dL Magnesium (1.6-2.3) mg/dL AST (17-59) U/L Alkaline Phosphatase (38-126) U/L Total Protein (6.3-8.2) g/dL Albumin (3.5-5.0) g/dL Arterial Blood Potassium (3.4-4.5) mmol/L Arterial Blood Glucose (75-99) mg/dL Crossmatch 08/09/23 08/09/23 Range/Units 07:00 08:05 WBC (3.8-10.6) k/uL RBC (4.30-5.90) m/uL Hgb (13.0-17.5) gm/dL Hct (39.0-53.0) % Plt Count (150-450) k/uL Neutrophils # (1.3-7.7) k/uL Lymphocytes # (1.0-4.8) k/uL Monocytes # (0-1.0) k/uL PT (10.0-12.5) sec INR (<1.2) APTT (22.0-30.0) sec ABG pH (7.35-7.45) ABG pCO2 (35-45) mmHg ABG pO2 (83-108) mmHg ABG HCO3 (21-25) mmol/L ABG Total CO2 (19-24) mmol/L ABG O2 Saturation (94-97) % ABG Hematocrit (34.0-46.0) % ABG Sodium (135-146) mmol/L ABG Potassium (3.4-4.5) mmol/L ABG Ionized Calcium (4.5-5.3) mg/dL ABG Glucose (75-99) mg/dL ABG Lactic Acid (0.5-1.6) mmol/L Hemoglobin (13.0-17.5) gm/dL Chloride (98-107) mmol/L BUN (9-20) mg/dL Glucose (74-99) mg/dL POC Glucose (mg/dL) 115 H 194 H (70-110) mg/dL Calcium (8.4-10.2) mg/dL Magnesium (1.6-2.3) mg/dL AST (17-59) U/L Alkaline Phosphatase (38-126) U/L Total Protein (6.3-8.2) g/dL Albumin (3.5-5.0) g/dL Arterial Blood Potassium (3.4-4.5) mmol/L Arterial Blood Glucose (75-99) mg/dL Crossmatch - Imaging and Cardiology Chest x-ray: report reviewed, image reviewed Assessment and Plan Assessment: 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 Will increase beta-suraj therapy as tolerated. Discontinue IV nitroglycerin drip. Will start Cozaar 25 mg p.o. daily for afterload reduction with hold parameters. Start amiodarone 400 mg p.o. twice daily for atrial fibrillation prophylaxis. Patient has been in normal sinus rhythm with no atrial fibrillation reported. Wean O2 as tolerated. Encourage incentive spirometry use 10 times every hour while awake. Bronchodilators per pulmonology. Start Symbicort 160-4.5 mcg i nhalation twice daily. Increase activity, ambulate as tolerated. PT/OT/cardiac rehab consulted. Will monitor daily labs and chest x-rays. Electrolyte replacement per protocol. Insulin management per internal medicine. Please continue IV insulin for 48 hours postsurgery, then may transition to subcutaneous per protocol. Preoperative hemoglobin A1c 5.8%. Pain control with current medication regimen. Will add Toradol 15 mg IV every 6 hours for additional pain control. GI/DVT prophylaxis. Discontinue [place]. Connect Cordis to continuous CVP monitoring. Decrease Primacor to 0.1 mcg/kg/min. Continue chest tubes for another 24 hours, monitor output. Continue Gupta catheter for another 24 hours for strict accurate intake and output. Daily weights. More recommendations to follow based on patient's clinical course. Time with Patient: Greater than 30
[2023-08-09 10:11] LABS: Glucose,Whole Blood 141 mg/dL (70-110)
--- NOTE | 2023-08-09 10:17 | P.PN ---
Subjective Progress Note Date: 08/09/23 This is a 58-year-old male patient with a history of former smoking, rheumatoid fever as a child and was found to have severe aortic stenosis. He presented today for an elective aortic valve replacement. He was found to have a unicuspid severely calcified aortic valve with fusion of the right left and the right 9 cusp as cusps. He did undergo aortic valve replacement with a 25 mm pericardial bioprosthetic Inspiris valve and exclusion of left atrial appendage utilizing the atriaclip. He is seen in the immediate postoperative period in the intensive care unit. He is on the mechanical ventilator on assist-control mode at a rate of 16, tidal volume 450, FiO2 100% and a PEEP of 5. Initial blood gases revealed a PaO2 of 226, pCO2's at 44 and a pH of 7.35. He is currently on a nitroglycerin drip at 5 mcg/min. Propofol at 20 mcg/kg/min. Primacor at 0.2 mcg/kg/min. Normal saline at 50 MLS per hour and an insulin drip at 1 unit/h. Chest x-ray reveals good placement of the endotracheal tube, nasogastric tube, [place] catheter and mediastinal chest tubes. Mild pulmonary edema. No pneumothorax. White count 12.2. Hemoglobin 9.7. He has been initiated on bronchodilators and cefazolin. The patient is seen today August 09, 2023 in follow-up in the intensive care unit. He is currently sitting up in a chair at the bedside. Awake and alert in no acute distress. He is maintaining good O2 saturations in the 90s on 5 L/min per nasal cannula. He did have issues last night with nausea and vomiting and required 15 L high flow nasal cannula. This was felt to be possibly related to the Cleviprex which has since been discontinued. He did receive albumin this morning. He remains on insulin at 4 units/h. Milrinone is at 0.1 mcg/kg/min. Nitroglycerin at 10 mcg/min. Cardiac output 6.7. Cardiac index 3.6. PA pressures 35/15. CVP of 10. He has a right internal jugular [place] catheter in place. Left radial arterial line in place. Chest tubes remain in place. Chest x-ray reveals small pleural effusions. Some basilar atelectasis. No evidence of pneumothorax. White count 15.3. Hemoglobin 9.3. Platelets 85,000. Sodium 142. Potassium 4.1. Bicarb 22. BUN 24. Creatinine 0.90. Glucose 154. He remains on bronchodilators. He is working well with the anchor.travel irometer. Heparin for DVT prophylaxis. Objective - Vital Signs Vital signs: Vital Signs Temp 99.7 F H 08/09/23 08:00 Pulse 96 08/09/23 09:00 Resp 13 08/09/23 09:00 BP 133/75 08/08/23 06:05 Pulse Ox 93 L 08/09/23 09:00 FiO2 45 08/08/23 16:30 Intake & Output 08/08/23 08/09/23 08/09/23 18:59 06:59 18:59 Intake Total 259.795 6493.660 774.176 Output Total 1615 1310 120 Balance -902.314 392.660 654.176 Weight 77.7 kg Intake: IV 626 978 256 0.9 @ 50 290 600 150 ACETAMINOPHEN IV (For NPO 100 100 ) 1,000 mg In Empty Bag 1 bag @ 400 mls/hr IVPB Q6HR [facility] Rx#:[id number] CO/CI 130 120 30 ceFAZolin 2 gm In Sodium 50 50 50 Chloride 0.9% 50 ml @ 100 mls/hr IVPB Q8HR [facility] Rx# :[id number] pressure bags 54 108 26 Intake, IV Titration 86.686 124.660 18.176 Amount Clevidipine Butyrate 25 28.800 18.434 mg In Empty Bag 1 bag @ 1 MG/HR 2 mls/hr IV .Q24H [facility] Rx#:[id number] Dexmedetomidine/0.9% NaCl 11.810 (Pmx) 400 mcg In Empty Bag 1 bag @ Titrate IV . Q0M [facility] Rx#:[id number] Insulin Regular 100 unit 10.133 18.779 8.779 In Sodium Chloride 0.9% 100 ml @ Per Protocol IV .Q0M [facility] Rx#:[id number] Milrinone-D5w Pmx 20 mg 77.622 9.397 In Dextrose/Water 1 100ml .bag @ 0.2 MCG/KG/MIN 4. 584 mls/hr IV .[id number] [facility] Rx#:[id number] Nitroglycerin-D5w Pmx 50 9.05 9.825 mg In Dextrose/Water 1 250ml.bag @ 5 MCG/MIN 1.5 mls/hr IV .Q24H [facility] Rx#: [id number] propofoL 1,000 mg In 26.893 Empty Bag 1 bag @ Titrate IV .Q0M [facility] Rx#: [id number] Oral 600 500 Output: Chest Tube Drainage 240 290 40 Bilateral Mediastinal 240 290 40 Urine 625 530 80 Emesis 490 Estimated Blood Loss 750 Other: Voiding Method Indwelling Catheter Indwelling Catheter ABP, PAP, CO, CI - Last Documented Arterial Blood Pressure 125/58 Pulmonary Artery Pressure 32/15 Cardiac Output 6.4 Cardiac Index 3.4 - Exam GENERAL EXAM: Alert, pleasant 58-year-old male, on 5 L nasal cannula, fairly comfortable in no apparent distress. HEAD: Normocephalic. EYES: Normal reaction of pupils, equal size. NOSE: Clear with pink turbinates. THROAT: No erythema or exudates. NECK: No masses, no JVD. Right IJ [place]Cassandra catheter in place CHEST: Sternal dressing dry and intact. Heart hugger in place. Mediastinal chest tubes in place. LUNGS: Equal air entry with faint crackles in the posterior bases. CVS: S1 and S2 normal with no audible murmur, regular rhythm. ABDOMEN: No hepatosplenomegaly, normal bowel sounds, no guarding or rigidity. SPINE: No scoliosis or deformity SKIN: No rashes CENTRAL NERVOUS SYSTEM: No focal deficits, tone is normal in all 4 extremities. EXTREMITIES: Radial arterial line in place. SCDs in place. There is no peripheral edema. No clubbing, no cyanosis. Peripheral pulses are intact. - Labs CBC & Chem 7: 08/09/23 04:04 08/09/23 04:04 Labs: Abnormal Lab Results - Last 24 Hours (Table) 08/03/23 08/08/23 08/08/23 Range/Units 11:08 08:27 09:23 WBC (3.8-10.6) k/uL RBC (4.30-5.90) m/uL Hgb (13.0-17.5) gm/dL Hct (39.0-53.0) % Plt Count (150-450) k/uL Neutrophils # (1.3-7.7) k/uL Lymphocytes # (1.0-4.8) k/uL Monocytes # (0-1.0) k/uL PT (10.0-12.5) sec INR (<1.2) APTT (22.0-30.0) sec ABG pH (7.35-7.45) ABG pCO2 (35-45) mmHg ABG pO2 223 H 225 H (83-108) mmHg ABG HCO3 (21-25) mmol/L ABG Total CO2 (19-24) mmol/L ABG O2 Saturation 99.3 H >99.4 H (94-97) % ABG Hematocrit (34.0-46.0) % ABG Sodium (135-146) mmol/L ABG Potassium (3.4-4.5) mmol/L ABG Ionized Calcium (4.5-5.3) mg/dL ABG Glucose 117 H 119 H (75-99) mg/dL ABG Lactic Acid (0.5-1.6) mmol/L Hemoglobin 11.7 L (13.0-17.5) gm/dL Chloride (98-107) mmol/L BUN (9-20) mg/dL Glucose (74-99) mg/dL POC Glucose (mg/dL) (70-110) mg/dL Calcium (8.4-10.2) mg/dL Magnesium (1.6-2.3) mg/dL AST (17-59) U/L Alkaline Phosphatase (38-126) U/L Total Protein (6.3-8.2) g/dL Albumin (3.5-5.0) g/dL Arterial Blood Potassium (3.4-4.5) mmol/L Arterial Blood Glucose 117 H 119 H (75-99) mg/dL Crossmatch See Detail 08/08/23 08/08/23 08/08/23 Range/Units 10:11 10:46 11:28 WBC (3.8-10.6) k/uL RBC (4.30-5.90) m/uL Hgb (13.0-17.5) gm/dL Hct (39.0-53.0) % Plt Count (150-450) k/uL Neutrophils # (1.3-7.7) k/uL Lymphocytes # (1.0-4.8) k/uL Monocytes # (0-1.0) k/uL PT (10.0-12.5) sec INR (<1.2) APTT (22.0-30.0) sec ABG pH (7.35-7.45) ABG pCO2 (35-45) mmHg ABG pO2 >420 H 413 H >420 H (83-108) mmHg ABG HCO3 (21-25) mmol/L ABG Total CO2 (19-24) mmol/L ABG O2 Saturation >99.4 H >99.4 H >99.4 H (94-97) % ABG Hematocrit 25 L 25 L 24 L (34.0-46.0) % ABG Sodium 147 H (135-146) mmol/L ABG Potassium 6.0 H 5.4 H 5.1 H (3.4-4.5) mmol/L ABG Ionized Calcium 3.9 L 4.0 L 4.2 L (4.5-5.3) mg/dL ABG Glucose 164 H 147 H 118 H (75-99) mg/dL ABG Lactic Acid 1.9 H 3.6 H* (0.5-1.6) mmol/L Hemoglobin 8.1 L 8.3 L 7.8 L (13.0-17.5) gm/dL Chloride (98-107) mmol/L BUN (9-20) mg/dL Glucose (74-99) mg/dL POC Glucose (mg/dL) (70-110) mg/dL Calcium (8.4-10.2) mg/dL Magnesium (1.6-2.3) mg/dL AST (17-59) U/L Alkaline Phosphatase (38-126) U/L Total Protein (6.3-8.2) g/dL Albumin (3.5-5.0) g/dL Arterial Blood Potassium 6.0 H 5.4 H 5.1 H (3.4-4.5) mmol/L Arterial Blood Glucose 164 H 147 H 118 H (75-99) mg/dL Crossmatch 08/08/23 08/08/23 08/08/23 Range/Units 12:35 13:32 13:45 WBC (3.8-10.6) k/uL RBC (4.30-5.90) m/uL Hgb (13.0-17.5) gm/dL Hct (39.0-53.0) % Plt Count (150-450) k/uL Neutrophils # (1.3-7.7) k/uL Lymphocytes # (1.0-4.8) k/uL Monocytes # (0-1.0) k/uL PT (10.0-12.5) sec INR (<1.2) APTT (22.0-30.0) sec ABG pH (7.35-7.45) ABG pCO2 (35-45) mmHg ABG pO2 330 H 226 H (83-108) mmHg ABG HCO3 (21-25) mmol/L ABG Total CO2 26 H (19-24) mmol/L ABG O2 Saturation 99.4 H 99.0 H (94-97) % ABG Hematocrit 30 L (34.0-46.0) % ABG Sodium (135-146) mmol/L ABG Potassium (3.4-4.5) mmol/L ABG Ionized Calcium (4.5-5.3) mg/dL ABG Glucose 184 H (75-99) mg/dL ABG Lactic Acid 2.7 H* (0.5-1.6) mmol/L Hemoglobin 9.9 L (13.0-17.5) gm/dL Chloride (98-107) mmol/L BUN (9-20) mg/dL Glucose (74-99) mg/dL POC Glucose (mg/dL) 133 H (70-110) mg/dL Calcium (8.4-10.2) mg/dL Magnesium (1.6-2.3) mg/dL AST (17-59) U/L Alkaline Phosphatase (38-126) U/L Total Protein (6.3-8.2) g/dL Albumin (3.5-5.0) g/dL Arterial Blood Potassium (3.4-4.5) mmol/L Arterial Blood Glucose 184 H (75-99) mg/dL Crossmatch 08/08/23 08/08/23 08/08/23 Range/Units 14:00 14:00 14:00 WBC 12.2 H (3.8-10.6) k/uL RBC 2.86 L (4.30-5.90) m/uL Hgb 9.7 L D (13.0-17.5) gm/dL Hct 27.9 L (39.0-53.0) % Plt Count 64 L D (150-450) k/uL Neutrophils # 9.8 H (1.3-7.7) k/uL Lymphocytes # (1.0-4.8) k/uL Monocytes # (0-1.0) k/uL PT 14.4 H (10.0-12.5) sec INR 1.4 H (<1.2) APTT 35.8 H (22.0-30.0) sec ABG pH (7.35-7.45) ABG pCO2 (35-45) mmHg ABG pO2 (83-108) mmHg ABG HCO3 (21-25) mmol/L ABG Total CO2 (19-24) mmol/L ABG O2 Saturation (94-97) % ABG Hematocrit (34.0-46.0) % ABG Sodium (135-146) mmol/L ABG Potassium (3.4-4.5) mmol/L ABG Ionized Calcium (4.5-5.3) mg/dL ABG Glucose (75-99) mg/dL ABG Lactic Acid (0.5-1.6) mmol/L Hemoglobin (13.0-17.5) gm/dL Chloride 115 H (98-107) mmol/L BUN (9-20) mg/dL Glucose 125 H (74-99) mg/dL POC Glucose (mg/dL) (70-110) mg/dL Calcium 7.9 L (8.4-10.2) mg/dL Magnesium 2.8 H (1.6-2.3) mg/dL AST (17-59) U/L Alkaline Phosphatase 25 L (38-126) U/L Total Protein 4.9 L (6.3-8.2) g/dL Albumin 3.3 L (3.5-5.0) g/dL Arterial Blood Potassium (3.4-4.5) mmol/L Arterial Blood Glucose (75-99) mg/dL Crossmatch 08/08/23 08/08/23 08/08/23 Range/Units 14:24 14:38 15:04 WBC (3.8-10.6) k/uL RBC (4.30-5.90) m/uL Hgb (13.0-17.5) gm/dL Hct (39.0-53.0) % Plt Count (150-450) k/uL Neutrophils # (1.3-7.7) k/uL Lymphocytes # (1.0-4.8) k/uL Monocytes # (0-1.0) k/uL PT (10.0-12.5) sec INR (<1.2) APTT (22.0-30.0) sec ABG pH 7.31 L (7.35-7.45) ABG pCO2 51 H (35-45) mmHg ABG pO2 32 L* (83-108) mmHg ABG HCO3 26 H (21-25) mmol/L ABG Total CO2 27 H (19-24) mmol/L ABG O2 Saturation 53.0 L (94-97) % ABG Hematocrit (34.0-46.0) % ABG Sodium (135-146) mmol/L ABG Potassium (3.4-4.5) mmol/L ABG Ionized Calcium (4.5-5.3) mg/dL ABG Glucose (75-99) mg/dL ABG Lactic Acid (0.5-1.6) mmol/L Hemoglobin (13.0-17.5) gm/dL Chloride (98-107) mmol/L BUN (9-20) mg/dL Glucose (74-99) mg/dL POC Glucose (mg/dL) 127 H 164 H (70-110) mg/dL Calcium (8.4-10.2) mg/dL Magnesium (1.6-2.3) mg/dL AST (17-59) U/L Alkaline Phosphatase (38-126) U/L Total Protein (6.3-8.2) g/dL Albumin (3.5-5.0) g/dL Arterial Blood Potassium (3.4-4.5) mmol/L Arterial Blood Glucose (75-99) mg/dL Crossmatch 08/08/23 08/08/23 08/08/23 Range/Units 16:10 16:14 17:20 WBC 17.5 H (3.8-10.6) k/uL RBC 3.01 L (4.30-5.90) m/uL Hgb 10.5 L (13.0-17.5) gm/dL Hct 29.4 L (39.0-53.0) % Plt Count 90 L (150-450) k/uL Neutrophils # 14.8 H (1.3-7.7) k/uL Lymphocytes # (1.0-4.8) k/uL Monocytes # 1.3 H (0-1.0) k/uL PT (10.0-12.5) sec INR (<1.2) APTT (22.0-30.0) sec ABG pH (7.35-7.45) ABG pCO2 (35-45) mmHg ABG pO2 (83-108) mmHg ABG HCO3 (21-25) mmol/L ABG Total CO2 (19-24) mmol/L ABG O2 Saturation (94-97) % ABG Hematocrit (34.0-46.0) % ABG Sodium (135-146) mmol/L ABG Potassium (3.4-4.5) mmol/L ABG Ionized Calcium (4.5-5.3) mg/dL ABG Glucose (75-99) mg/dL ABG Lactic Acid (0.5-1.6) mmol/L Hemoglobin (13.0-17.5) gm/dL Chloride (98-107) mmol/L BUN (9-20) mg/dL Glucose (74-99) mg/dL POC Glucose (mg/dL) 165 H 147 H (70-110) mg/dL Calcium (8.4-10.2) mg/dL Magnesium (1.6-2.3) mg/dL AST (17-59) U/L Alkaline Phosphatase (38-126) U/L Total Protein (6.3-8.2) g/dL Albumin (3.5-5.0) g/dL Arterial Blood Potassium (3.4-4.5) mmol/L Arterial Blood Glucose (75-99) mg/dL Crossmatch 08/08/23 08/08/23 08/08/23 Range/Units 18:11 18:50 18:55 WBC 12.7 H (3.8-10.6) k/uL RBC 2.83 L (4.30-5.90) m/uL Hgb 9.4 L (13.0-17.5) gm/dL Hct 27.8 L (39.0-53.0) % Plt Count 76 L (150-450) k/uL Neutrophils # 11.3 H (1.3-7.7) k/uL Lymphocytes # 0.5 L (1.0-4.8) k/uL Monocytes # (0-1.0) k/uL PT (10.0-12.5) sec INR (<1.2) APTT (22.0-30.0) sec ABG pH (7.35-7.45) ABG pCO2 (35-45) mmHg ABG pO2 (83-108) mmHg ABG HCO3 (21-25) mmol/L ABG Total CO2 (19-24) mmol/L ABG O2 Saturation (94-97) % ABG Hematocrit (34.0-46.0) % ABG Sodium (135-146) mmol/L ABG Potassium (3.4-4.5) mmol/L ABG Ionized Calcium (4.5-5.3) mg/dL ABG Glucose (75-99) mg/dL ABG Lactic Acid (0.5-1.6) mmol/L Hemoglobin (13.0-17.5) gm/dL Chloride (98-107) mmol/L BUN (9-20) mg/dL Glucose (74-99) mg/dL POC Glucose (mg/dL) 123 H 119 H (70-110) mg/dL Calcium (8.4-10.2) mg/dL Magnesium (1.6-2.3) mg/dL AST (17-59) U/L Alkaline Phosphatase (38-126) U/L Total Protein (6.3-8.2) g/dL Albumin (3.5-5.0) g/dL Arterial Blood Potassium (3.4-4.5) mmol/L Arterial Blood Glucose (75-99) mg/dL Crossmatch 08/08/23 08/08/23 08/08/23 Range/Units 20:01 20:55 21:50 WBC (3.8-10.6) k/uL RBC (4.30-5.90) m/uL Hgb (13.0-17.5) gm/dL Hct (39.0-53.0) % Plt Count (150-450) k/uL Neutrophils # (1.3-7.7) k/uL Lymphocytes # (1.0-4.8) k/uL Monocytes # (0-1.0) k/uL PT (10.0-12.5) sec INR (<1.2) APTT (22.0-30.0) sec ABG pH (7.35-7.45) ABG pCO2 (35-45) mmHg ABG pO2 (83-108) mmHg ABG HCO3 (21-25) mmol/L ABG Total CO2 (19-24) mmol/L ABG O2 Saturation (94-97) % ABG Hematocrit (34.0-46.0) % ABG Sodium (135-146) mmol/L ABG Potassium (3.4-4.5) mmol/L ABG Ionized Calcium (4.5-5.3) mg/dL ABG Glucose (75-99) mg/dL ABG Lactic Acid (0.5-1.6) mmol/L Hemoglobin (13.0-17.5) gm/dL Chloride (98-107) mmol/L BUN (9-20) mg/dL Glucose (74-99) mg/dL POC Glucose (mg/dL) 121 H 112 H 149 H (70-110) mg/dL Calcium (8.4-10.2) mg/dL Magnesium (1.6-2.3) mg/dL AST (17-59) U/L Alkaline Phosphatase (38-126) U/L Total Protein (6.3-8.2) g/dL Albumin (3.5-5.0) g/dL Arterial Blood Potassium (3.4-4.5) mmol/L Arterial Blood Glucose (75-99) mg/dL Crossmatch 08/08/23 08/08/23 08/09/23 Range/Units 22:54 23:53 00:54 WBC (3.8-10.6) k/uL RBC (4.30-5.90) m/uL Hgb (13.0-17.5) gm/dL Hct (39.0-53.0) % Plt Count (150-450) k/uL Neutrophils # (1.3-7.7) k/uL Lymphocytes # (1.0-4.8) k/uL Monocytes # (0-1.0) k/uL PT (10.0-12.5) sec INR (<1.2) APTT (22.0-30.0) sec ABG pH (7.35-7.45) ABG pCO2 (35-45) mmHg ABG pO2 (83-108) mmHg ABG HCO3 (21-25) mmol/L ABG Total CO2 (19-24) mmol/L ABG O2 Saturation (94-97) % ABG Hematocrit (34.0-46.0) % ABG Sodium (135-146) mmol/L ABG Potassium (3.4-4.5) mmol/L ABG Ionized Calcium (4.5-5.3) mg/dL ABG Glucose (75-99) mg/dL ABG Lactic Acid (0.5-1.6) mmol/L Hemoglobin (13.0-17.5) gm/dL Chloride (98-107) mmol/L BUN (9-20) mg/dL Glucose (74-99) mg/dL POC Glucose (mg/dL) 163 H 140 H 130 H (70-110) mg/dL Calcium (8.4-10.2) mg/dL Magnesium (1.6-2.3) mg/dL AST (17-59) U/L Alkaline Phosphatase (38-126) U/L Total Protein (6.3-8.2) g/dL Albumin (3.5-5.0) g/dL Arterial Blood Potassium (3.4-4.5) mmol/L Arterial Blood Glucose (75-99) mg/dL Crossmatch 08/09/23 08/09/23 08/09/23 Range/Units 02:52 04:04 04:04 WBC 15.3 H (3.8-10.6) k/uL RBC 2.81 L (4.30-5.90) m/uL Hgb 9.3 L (13.0-17.5) gm/dL Hct 27.7 L (39.0-53.0) % Plt Count 85 L (150-450) k/uL Neutrophils # 12.9 H (1.3-7.7) k/uL Lymphocytes # (1.0-4.8) k/uL Monocytes # 1.2 H (0-1.0) k/uL PT (10.0-12.5) sec INR (<1.2) APTT (22.0-30.0) sec ABG pH (7.35-7.45) ABG pCO2 (35-45) mmHg ABG pO2 (83-108) mmHg ABG HCO3 (21-25) mmol/L ABG Total CO2 (19-24) mmol/L ABG O2 Saturation (94-97) % ABG Hematocrit (34.0-46.0) % ABG Sodium (135-146) mmol/L ABG Potassium (3.4-4.5) mmol/L ABG Ionized Calcium (4.5-5.3) mg/dL ABG Glucose (75-99) mg/dL ABG Lactic Acid (0.5-1.6) mmol/L Hemoglobin (13.0-17.5) gm/dL Chloride 112 H (98-107) mmol/L BUN 24 H (9-20) mg/dL Glucose 154 H (74-99) mg/dL POC Glucose (mg/dL) 144 H (70-110) mg/dL Calcium 8.1 L (8.4-10.2) mg/dL Magnesium (1.6-2.3) mg/dL AST 61 H (17-59) U/L Alkaline Phosphatase 31 L (38-126) U/L Total Protein 5.4 L (6.3-8.2) g/dL Albumin (3.5-5.0) g/dL Arterial Blood Potassium (3.4-4.5) mmol/L Arterial Blood Glucose (75-99) mg/dL Crossmatch 08/09/23 08/09/23 08/09/23 Range/Units 04:07 05:12 06:15 WBC (3.8-10.6) k/uL RBC (4.30-5.90) m/uL Hgb (13.0-17.5) gm/dL Hct (39.0-53.0) % Plt Count (150-450) k/uL Neutrophils # (1.3-7.7) k/uL Lymphocytes # (1.0-4.8) k/uL Monocytes # (0-1.0) k/uL PT (10.0-12.5) sec INR (<1.2) APTT (22.0-30.0) sec ABG pH (7.35-7.45) ABG pCO2 (35-45) mmHg ABG pO2 (83-108) mmHg ABG HCO3 (21-25) mmol/L ABG Total CO2 (19-24) mmol/L ABG O2 Saturation (94-97) % ABG Hematocrit (34.0-46.0) % ABG Sodium (135-146) mmol/L ABG Potassium (3.4-4.5) mmol/L ABG Ionized Calcium (4.5-5.3) mg/dL ABG Glucose (75-99) mg/dL ABG Lactic Acid (0.5-1.6) mmol/L Hemoglobin (13.0-17.5) gm/dL Chloride (98-107) mmol/L BUN (9-20) mg/dL Glucose (74-99) mg/dL POC Glucose (mg/dL) 163 H 154 H 125 H (70-110) mg/dL Calcium (8.4-10.2) mg/dL Magnesium (1.6-2.3) mg/dL AST (17-59) U/L Alkaline Phosphatase (38-126) U/L Total Protein (6.3-8.2) g/dL Albumin (3.5-5.0) g/dL Arterial Blood Potassium (3.4-4.5) mmol/L Arterial Blood Glucose (75-99) mg/dL Crossmatch 08/09/23 08/09/23 08/09/23 Range/Units 07:00 08:05 09:13 WBC (3.8-10.6) k/uL RBC (4.30-5.90) m/uL Hgb (13.0-17.5) gm/dL Hct (39.0-53.0) % Plt Count (150-450) k/uL Neutrophils # (1.3-7.7) k/uL Lymphocytes # (1.0-4.8) k/uL Monocytes # (0-1.0) k/uL PT (10.0-12.5) sec INR (<1.2) APTT (22.0-30.0) sec ABG pH (7.35-7.45) ABG pCO2 (35-45) mmHg ABG pO2 (83-108) mmHg ABG HCO3 (21-25) mmol/L ABG Total CO2 (19-24) mmol/L ABG O2 Saturation (94-97) % ABG Hematocrit (34.0-46.0) % ABG Sodium (135-146) mmol/L ABG Potassium (3.4-4.5) mmol/L ABG Ionized Calcium (4.5-5.3) mg/dL ABG Glucose (75-99) mg/dL ABG Lactic Acid (0.5-1.6) mmol/L Hemoglobin (13.0-17.5) gm/dL Chloride (98-107) mmol/L BUN (9-20) mg/dL Glucose (74-99) mg/dL POC Glucose (mg/dL) 115 H 194 H 202 H (70-110) mg/dL Calcium (8.4-10.2) mg/dL Magnesium (1.6-2.3) mg/dL AST (17-59) U/L Alkaline Phosphatase (38-126) U/L Total Protein (6.3-8.2) g/dL Albumin (3.5-5.0) g/dL Arterial Blood Potassium (3.4-4.5) mmol/L Arterial Blood Glucose (75-99) mg/dL Crossmatch Assessment and Plan Assessment: Severe aortic stenosis status post aortic valve replacement using a 25 mm pericardial bioprosthesis Inspiris valve with exclusion of left atrial appendage with an Atriclip postoperative day #1 Acute hypoxic respiratory failure secondary to nausea and vomiting episodes, suspect secondary to Cleviprex, discontinued. Basilar atelectasis, small ef fusions Former smoker History of childhood rheumatoid arthritis Plan: The patient was seen and evaluated Chest x-ray, labs and medications reviewed Currently on 5 L high flow nasal cannula Titrate down the FiO2 as tolerated Encourage increased use of the incentive spirometer Increase his activity as tolerated We will continue to follow I have personally seen and examined the patient, performed the documentation and the assessment and plan as written. Number of minutes spent on the visit: 10.
[2023-08-09 10:56] LABS: Glucose,Whole Blood 139 mg/dL (70-110)
[2023-08-09 11:18] LABS: Glucose,Whole Blood 101 mg/dL (70-110)
[2023-08-09] MEDS: SYMBICORT 160-4.5 MCG INHALER INHALATION SCH (11:53)
[2023-08-09 12:35] LABS: Glucose,Whole Blood 135 mg/dL (70-110)
[2023-08-09] MEDS: LOSARTAN 25 MG TAB PO SCH (12:37)
[2023-08-09 14:13] LABS: Glucose,Whole Blood 156 mg/dL (70-110)
--- NOTE | 2023-08-09 14:18 | CONS ---
CONSULTATION CHIEF COMPLAINT: Aortic stenosis. HISTORY OF PRESENT ILLNESS: This is a 58-year-old gentleman with history of aortic stenosis, was brought in electively for aortic valve replacement. The patient underwent aortic valve replacement with 25-mm pericardial bioprosthetic valve and also had left atrial appendage occlusion with an AtriClip. The valve was heavily calcified with fusion of the right and left coronary cusps. This was actually a unicuspid valve. This morning the patient is doing well. He has been extubated, remains in sinus rhythm and hemodynamically stable. Has some discomfort at the incision site. PAST MEDICAL HISTORY: Significant for aortic stenosis. MEDICATIONS: Medications at home include none. ALLERGIES: As charted. FAMILY HISTORY: Negative for premature coronary artery disease. SOCIAL HISTORY: Negative for smoking, EtOH abuse, or drug abuse. REVIEW OF SYSTEMS: A review of systems has been performed, pertinences are as documented. PHYSICAL EXAMINATION: GENERAL: Comfortable at rest. VITAL SIGNS: Stable. NECK: There is no jugular venous distention. CHEST: Reveals good air entry bilaterally. HEART: Reveals first and second heart sounds. No gallop, no murmur. ABDOMEN: Soft. EXTREMITIES: Did not reveal any edema. Peripheral pulses are palpable. ASSESSMENT: 1. Unicuspid aortic valve, status post aortic valve replacement with a bioprosthetic valve. 2. Status post left atrial appendage occlusion. PLAN: The patient is doing well. Advised him on incentive spirometry. Continue current supportive measures. JEFFERSON / GEETAN: [id number] /
[2023-08-09 14:22] VITALS: BMI 27.6
[2023-08-09 15:33] LABS: Glucose,Whole Blood 167 mg/dL (70-110)
--- NOTE | 2023-08-09 16:01 | P.CONS ---
History of Present Illness - Reason for Consult Consult date: 08/09/23 Medical management Requesting physician: Juno Velazquez - Chief Complaint Severe aortic stenosis - History of Present Illness This is a 58-year-old gentleman status post aortic valve replacement , postop day #1, secondary to severe aortic stenosis, acute hypoxic respiratory failure, former nicotine dependence and multiple other medical issues. Significant clinical improvement. During the night patient developed nausea and vomiting, required 15 L high flow nasal cannula -suspected related to Cleviprex-which has been discontinued. Nitroglycerin, Primacor drips weaned off, currently on insulin drip. Blood sugars controlled. Chest x-ray reporting suspect small developing pleural effusions, slight worsening bibasilar atelectasis or developing infiltrate.Maintaining O2 sats in the 90s on 5 L nasal cannula. Incentive spirometer up to 700 .ambulated in the hallway, tolerating exertion well. Tmax 99.7, WBC 15.3, hemoglobin 9.3, platelets 85, sodium 142, potassium 4.1 BUN 24, creatinine 0.9, magnesium 2.2. Cardiac output 6.7. Cardiac index 3.6. PA pressures 35/15. CVP 10. No flatus. Review of Systems ROS Statement: Those systems with pertinent positive or pertinent negative responses have been documented in the HPI. ROS Other: All systems not noted in ROS Statement are negative. Past Medical History Past Medical History: COPD Additional Past Medical History / Comment(s): Fatigue for the last year. Right arm pain recently, SOB when laying down or activity 2 months. Occasional lightheaded feeling. Rheumatic fever as a child. Severe aortic stenosis. Hx kidney stones. History of Any Multi-Drug Resistant Organisms: None Reported Past Surgical History: Heart Catheterization Additional Past Surgical History / Comment(s): Colonscopy X2. Past Anesthesia/Blood Transfusion Reactions: No Reported Reaction Past Psychological History: No Psychological Hx Reported Smoking Status: Former smoker Past Alcohol Use History: None Reported Additional Past Alcohol Use History / Comment(s): Smoked 1/2 pack per day for 30 yrs, quit May 2023. Past Drug Use History: None Reported - Past Family History Father Family Medical History: Hypertension family Family Medical History: No Reported History Additional Family Medical History / Comment(s): Mother with kidney stones. Medications and Allergies Home Medications Medication Instructions Recorded Confirmed Type No Known Home Medications 08/03/23 08/08/23 History Allergies Allergy/AdvReac Type Severity Reaction Status Date / Time No Known Allergies Allergy Verified 08/08/23 06:38 Physical Exam Vitals: Vital Signs Temp Pulse Resp Pulse Ox FiO2 08/09/23 15:36 76 08/09/23 14:30 76 17 99 08/09/23 14:00 82 13 95 08/09/23 13:30 86 14 96 08/09/23 13:00 87 13 97 08/09/23 12:30 88 22 98 08/09/23 12:13 87 08/09/23 12:00 98.5 F 82 20 100 08/09/23 11:54 82 08/09/23 11:30 95 18 97 08/09/23 11:00 89 21 97 08/09/23 10:30 84 12 95 08/09/23 10:00 85 11 L 95 08/09/23 09:30 93 14 93 L 08/09/23 09:00 96 13 93 L 08/09/23 08:39 101 H 08/09/23 08:30 99 17 92 L 08/09/23 08:03 97 93 L 08/09/23 08:00 99.7 F H 97 24 93 L 08/09/23 07:30 99 24 92 L 08/09/23 07:00 95 21 97 08/09/23 06:30 91 14 95 08/09/23 06:00 98 20 94 L 08/09/23 05:30 102 H 18 92 L 08/09/23 05:00 99 13 95 08/09/23 04:30 98 21 91 L 08/09/23 04:00 96 17 92 L 08/09/23 03:34 103 H 08/09/23 03:30 96 17 90 L 08/09/23 03:22 98 08/09/23 03:00 92 15 86 L 08/09/23 02:30 88 15 89 L 08/09/23 02:02 86 17 93 L 08/09/23 01:30 87 14 91 L 08/09/23 01:00 87 14 92 L 08/09/23 00:30 88 11 L 92 L 08/09/23 00:03 85 15 91 L 08/09/23 00:00 86 16 93 L 08/08/23 23:45 90 19 92 L 08/08/23 23:30 93 20 93 L 08/08/23 23:15 88 17 92 L 08/08/23 23:00 92 15 93 L 08/08/23 22:45 87 17 91 L 08/08/23 22:30 90 17 93 L 08/08/23 22:15 89 22 94 L 08/08/23 22:00 85 18 95 08/08/23 21:45 89 20 98 08/08/23 21:30 86 18 96 08/08/23 21:15 84 14 96 08/08/23 21:00 86 19 94 L 08/08/23 20:45 86 16 95 08/08/23 20:30 84 16 96 08/08/23 20:15 83 14 96 08/08/23 20:05 85 08/08/23 20:00 79 15 98 08/08/23 19:55 75 08/08/23 19:45 81 20 92 L 08/08/23 19:30 87 20 96 08/08/23 19:15 76 20 96 08/08/23 19:00 75 14 95 08/08/23 18:45 73 9 L 96 08/08/23 18:30 73 18 96 08/08/23 18:15 71 17 96 08/08/23 18:00 73 14 95 08/08/23 17:45 72 12 95 08/08/23 17:30 75 14 93 L 08/08/23 17:15 77 13 92 L 08/08/23 17:10 94 L 08/08/23 17:00 72 14 94 L 08/08/23 16:45 78 19 93 L 08/08/23 16:30 80 28 H 93 L 45 08/08/23 16:28 45 08/08/23 16:15 86 16 92 L 08/08/23 16:00 99.7 F H 81 16 92 L 45 08/08/23 15:55 81 Intake and Output 08/09/23 08/09/23 08/09/23 06:59 14:59 22:59 Intake Total 308.380 1872.370 Output Total 625 380 Balance 654.964 1681.370 Intake: IV 662 436 0.9 @ 50 400 300 ACETAMINOPHEN IV (For NPO 100 ) 1,000 mg In Empty Bag 1 bag @ 400 mls/hr IVPB Q6HR [facility] Rx#:[id number] CO/CI 40 30 ceFAZolin 2 gm In Sodium 50 50 Chloride 0.9% 50 ml @ 100 mls/hr IVPB Q8HR [facility] Rx# :[id number] pressure bags 72 56 Intake, IV Titration 119.508 143.370 Amount Clevidipine Butyrate 25 18.434 mg In Empty Bag 1 bag @ 1 MG/HR 2 mls/hr IV .Q24H [facility] Rx#:[id number] Insulin Regular 100 unit 13.627 23.812 In Sodium Chloride 0.9% 100 ml @ Per Protocol IV .Q0M [facility] Rx#:[id number] Milrinone-D5w Pmx 20 mg 77.622 19.558 In Dextrose/Water 1 100ml .bag @ 0.1 MCG/KG/MIN 2. 292 mls/hr IV .Q24H [facility] Rx#:[id number] Nitroglycerin-D5w Pmx 50 9.825 mg In Dextrose/Water 1 250ml.bag @ 5 MCG/MIN 1.5 mls/hr IV .Q24H [facility] Rx#: [id number] ceFAZolin 2 gm In Sodium 100 Chloride 0.9% 50 ml @ Per Protocol IVPB ONCE ONE Rx#:[id number] Oral 1230 Output: Chest Tube Drainage 230 150 Bilateral Mediastinal 230 150 Urine 395 230 Other: Voiding Method Indwelling Catheter Indwelling Catheter Weight 77.7 kg 77.7 kg ABP, PAP, CO, CI - Last 8 Hours Arterial Blood Pressure 129/62 Arterial Blood Pressure 115/56 Arterial Blood Pressure 108/50 Arterial Blood Pressure 112/55 Arterial Blood Pressure 113/52 Arterial Blood Pressure 104/55 Arterial Blood Pressure 98/56 Arterial Blood Pressure 94/49 Arterial Blood Pressure 108/57 Arterial Blood Pressure 107/52 Arterial Blood Pressure 110/52 Arterial Blood Pressure 125/58 Arterial Blood Pressure 133/59 Arterial Blood Pressure 117/64 Pulmonary Artery Pressure 32/15 Pulmonary Artery Pressure 31/12 Pulmonary Artery Pressure 30/13 Cardiac Output 6.4 Cardiac Index 3.4 PHYSICAL EXAM: VITAL SIGNS: [As above] GENERAL: Alert and oriented x 3, sitting up in chair, no acute distress HEENT: Normocephalic ,conjunctivae normal. eyes normal. NECK: Supple, no JVD. CARDIOVASCULAR: S1, S2 regular. No murmur RESPIRATION: Unlabored, equal air entry, fine bibasilar crackles. ABDOMEN: Soft, nontender . No guarding. no masses palpable. LEGS: No edema. no swelling NERVOUS SYSTEM: Cranial N 2-12 grossly normal.No focal deficits. Strength and sensation grossly intact.. Skin: Warm and dry, no rash Results CBC & Chem 7: 08/09/23 04:04 08/09/23 04:04 Labs: Abnormal Lab Results - Last 24 Hours (Table) 08/03/23 08/08/23 08/08/23 Range/Units 11:08 08:27 09:23 WBC (3.8-10.6) k/uL RBC (4.30-5.90) m/uL Hgb (13.0-17.5) gm/dL Hct (39.0-53.0) % Plt Count (150-450) k/uL Neutrophils # (1.3-7.7) k/uL Lymphocytes # (1.0-4.8) k/uL Monocytes # (0-1.0) k/uL ABG pO2 223 H 225 H (83-108) mmHg ABG O2 Saturation 99.3 H >99.4 H (94-97) % ABG Hematocrit (34.0-46.0) % ABG Sodium (135-146) mmol/L ABG Potassium (3.4-4.5) mmol/L ABG Ionized Calcium (4.5-5.3) mg/dL ABG Glucose 117 H 119 H (75-99) mg/dL ABG Lactic Acid (0.5-1.6) mmol/L Hemoglobin 11.7 L (13.0-17.5) gm/dL Chloride (98-107) mmol/L BUN (9-20) mg/dL Glucose (74-99) mg/dL POC Glucose (mg/dL) (70-110) mg/dL Calcium (8.4-10.2) mg/dL AST (17-59) U/L Alkaline Phosphatase (38-126) U/L Total Protein (6.3-8.2) g/dL Arterial Blood Potassium (3.4-4.5) mmol/L Arterial Blood Glucose 117 H 119 H (75-99) mg/dL Crossmatch See Detail 08/08/23 08/08/23 08/08/23 Range/Units 10:11 10:46 11:28 WBC (3.8-10.6) k/uL RBC (4.30-5.90) m/uL Hgb (13.0-17.5) gm/dL Hct (39.0-53.0) % Plt Count (150-450) k/uL Neutrophils # (1.3-7.7) k/uL Lymphocytes # (1.0-4.8) k/uL Monocytes # (0-1.0) k/uL ABG pO2 >420 H 413 H >420 H (83-108) mmHg ABG O2 Saturation >99.4 H >99.4 H >99.4 H (94-97) % ABG Hematocrit 25 L 25 L 24 L (34.0-46.0) % ABG Sodium 147 H (135-146) mmol/L ABG Potassium 6.0 H 5.4 H 5.1 H (3.4-4.5) mmol/L ABG Ionized Calcium 3.9 L 4.0 L 4.2 L (4.5-5.3) mg/dL ABG Glucose 164 H 147 H 118 H (75-99) mg/dL ABG Lactic Acid 1.9 H 3.6 H* (0.5-1.6) mmol/L Hemoglobin 8.1 L 8.3 L 7.8 L (13.0-17.5) gm/dL Chloride (98-107) mmol/L BUN (9-20) mg/dL Glucose (74-99) mg/dL POC Glucose (mg/dL) (70-110) mg/dL Calcium (8.4-10.2) mg/dL AST (17-59) U/L Alkaline Phosphatase (38-126) U/L Total Protein (6.3-8.2) g/dL Arterial Blood Potassium 6.0 H 5.4 H 5.1 H (3.4-4.5) mmol/L Arterial Blood Glucose 164 H 147 H 118 H (75-99) mg/dL Crossmatch 08/08/23 08/08/23 08/08/23 Range/Units 12:35 16:10 16:14 WBC 17.5 H (3.8-10.6) k/uL RBC 3.01 L (4.30-5.90) m/uL Hgb 10.5 L (13.0-17.5) gm/dL Hct 29.4 L (39.0-53.0) % Plt Count 90 L (150-450) k/uL Neutrophils # 14.8 H (1.3-7.7) k/uL Lymphocytes # (1.0-4.8) k/uL Monocytes # 1.3 H (0-1.0) k/uL ABG pO2 330 H (83-108) mmHg ABG O2 Saturation 99.4 H (94-97) % ABG Hematocrit 30 L (34.0-46.0) % ABG Sodium (135-146) mmol/L ABG Potassium (3.4-4.5) mmol/L ABG Ionized Calcium (4.5-5.3) mg/dL ABG Glucose 184 H (75-99) mg/dL ABG Lactic Acid 2.7 H* (0.5-1.6) mmol/L Hemoglobin 9.9 L (13.0-17.5) gm/dL Chloride (98-107) mmol/L BUN (9-20) mg/dL Glucose (74-99) mg/dL POC Glucose (mg/dL) 165 H (70-110) mg/dL Calcium (8.4-10.2) mg/dL AST (17-59) U/L Alkaline Phosphatase (38-126) U/L Total Protein (6.3-8.2) g/dL Arterial Blood Potassium (3.4-4.5) mmol/L Arterial Blood Glucose 184 H (75-99) mg/dL Crossmatch 08/08/23 08/08/23 08/08/23 Range/Units 17:20 18:11 18:50 WBC 12.7 H (3.8-10.6) k/uL RBC 2.83 L (4.30-5.90) m/uL Hgb 9.4 L (13.0-17.5) gm/dL Hct 27.8 L (39.0-53.0) % Plt Count 76 L (150-450) k/uL Neutrophils # 11.3 H (1.3-7.7) k/uL Lymphocytes # 0.5 L (1.0-4.8) k/uL Monocytes # (0-1.0) k/uL ABG pO2 (83-108) mmHg ABG O2 Saturation (94-97) % ABG Hematocrit (34.0-46.0) % ABG Sodium (135-146) mmol/L ABG Potassium (3.4-4.5) mmol/L ABG Ionized Calcium (4.5-5.3) mg/dL ABG Glucose (75-99) mg/dL ABG Lactic Acid (0.5-1.6) mmol/L Hemoglobin (13.0-17.5) gm/dL Chloride (98-107) mmol/L BUN (9-20) mg/dL Glucose (74-99) mg/dL POC Glucose (mg/dL) 147 H 123 H (70-110) mg/dL Calcium (8.4-10.2) mg/dL AST (17-59) U/L Alkaline Phosphatase (38-126) U/L Total Protein (6.3-8.2) g/dL Arterial Blood Potassium (3.4-4.5) mmol/L Arterial Blood Glucose (75-99) mg/dL Crossmatch 08/08/23 08/08/23 08/08/23 Range/Units 18:55 20:01 20:55 WBC (3.8-10.6) k/uL RBC (4.30-5.90) m/uL Hgb (13.0-17.5) gm/dL Hct (39.0-53.0) % Plt Count (150-450) k/uL Neutrophils # (1.3-7.7) k/uL Lymphocytes # (1.0-4.8) k/uL Monocytes # (0-1.0) k/uL ABG pO2 (83-108) mmHg ABG O2 Saturation (94-97) % ABG Hematocrit (34.0-46.0) % ABG Sodium (135-146) mmol/L ABG Potassium (3.4-4.5) mmol/L ABG Ionized Calcium (4.5-5.3) mg/dL ABG Glucose (75-99) mg/dL ABG Lactic Acid (0.5-1.6) mmol/L Hemoglobin (13.0-17.5) gm/dL Chloride (98-107) mmol/L BUN (9-20) mg/dL Glucose (74-99) mg/dL POC Glucose (mg/dL) 119 H 121 H 112 H (70-110) mg/dL Calcium (8.4-10.2) mg/dL AST (17-59) U/L Alkaline Phosphatase (38-126) U/L Total Protein (6.3-8.2) g/dL Arterial Blood Potassium (3.4-4.5) mmol/L Arterial Blood Glucose (75-99) mg/dL Crossmatch 08/08/23 08/08/23 08/08/23 Range/Units 21:50 22:54 23:53 WBC (3.8-10.6) k/uL RBC (4.30-5.90) m/uL Hgb (13.0-17.5) gm/dL Hct (39.0-53.0) % Plt Count (150-450) k/uL Neutrophils # (1.3-7.7) k/uL Lymphocytes # (1.0-4.8) k/uL Monocytes # (0-1.0) k/uL ABG pO2 (83-108) mmHg ABG O2 Saturation (94-97) % ABG Hematocrit (34.0-46.0) % ABG Sodium (135-146) mmol/L ABG Potassium (3.4-4.5) mmol/L ABG Ionized Calcium (4.5-5.3) mg/dL ABG Glucose (75-99) mg/dL ABG Lactic Acid (0.5-1.6) mmol/L Hemoglobin (13.0-17.5) gm/dL Chloride (98-107) mmol/L BUN (9-20) mg/dL Glucose (74-99) mg/dL POC Glucose (mg/dL) 149 H 163 H 140 H (70-110) mg/dL Calcium (8.4-10.2) mg/dL AST (17-59) U/L Alkaline Phosphatase (38-126) U/L Total Protein (6.3-8.2) g/dL Arterial Blood Potassium (3.4-4.5) mmol/L Arterial Blood Glucose (75-99) mg/dL Crossmatch 08/09/23 08/09/23 08/09/23 Range/Units 00:54 01:56 02:52 WBC (3.8-10.6) k/uL RBC (4.30-5.90) m/uL Hgb (13.0-17.5) gm/dL Hct (39.0-53.0) % Plt Count (150-450) k/uL Neutrophils # (1.3-7.7) k/uL Lymphocytes # (1.0-4.8) k/uL Monocytes # (0-1.0) k/uL ABG pO2 (83-108) mmHg ABG O2 Saturation (94-97) % ABG Hematocrit (34.0-46.0) % ABG Sodium (135-146) mmol/L ABG Potassium (3.4-4.5) mmol/L ABG Ionized Calcium (4.5-5.3) mg/dL ABG Glucose (75-99) mg/dL ABG Lactic Acid (0.5-1.6) mmol/L Hemoglobin (13.0-17.5) gm/dL Chloride (98-107) mmol/L BUN (9-20) mg/dL Glucose (74-99) mg/dL POC Glucose (mg/dL) 130 H 139 H 144 H (70-110) mg/dL Calcium (8.4-10.2) mg/dL AST (17-59) U/L Alkaline Phosphatase (38-126) U/L Total Protein (6.3-8.2) g/dL Arterial Blood Potassium (3.4-4.5) mmol/L Arterial Blood Glucose (75-99) mg/dL Crossmatch 08/09/23 08/09/23 08/09/23 Range/Units 04:04 04:04 04:07 WBC 15.3 H (3.8-10.6) k/uL RBC 2.81 L (4.30-5.90) m/uL Hgb 9.3 L (13.0-17.5) gm/dL Hct 27.7 L (39.0-53.0) % Plt Count 85 L (150-450) k/uL Neutrophils # 12.9 H (1.3-7.7) k/uL Lymphocytes # (1.0-4.8) k/uL Monocytes # 1.2 H (0-1.0) k/uL ABG pO2 (83-108) mmHg ABG O2 Saturation (94-97) % ABG Hematocrit (34.0-46.0) % ABG Sodium (135-146) mmol/L ABG Potassium (3.4-4.5) mmol/L ABG Ionized Calcium (4.5-5.3) mg/dL ABG Glucose (75-99) mg/dL ABG Lactic Acid (0.5-1.6) mmol/L Hemoglobin (13.0-17.5) gm/dL Chloride 112 H (98-107) mmol/L BUN 24 H (9-20) mg/dL Glucose 154 H (74-99) mg/dL POC Glucose (mg/dL) 163 H (70-110) mg/dL Calcium 8.1 L (8.4-10.2) mg/dL AST 61 H (17-59) U/L Alkaline Phosphatase 31 L (38-126) U/L Total Protein 5.4 L (6.3-8.2) g/dL Arterial Blood Potassium (3.4-4.5) mmol/L Arterial Blood Glucose (75-99) mg/dL Crossmatch 08/09/23 08/09/23 08/09/23 Range/Units 05:12 06:15 07:00 WBC (3.8-10.6) k/uL RBC (4.30-5.90) m/uL Hgb (13.0-17.5) gm/dL Hct (39.0-53.0) % Plt Count (150-450) k/uL Neutrophils # (1.3-7.7) k/uL Lymphocytes # (1.0-4.8) k/uL Monocytes # (0-1.0) k/uL ABG pO2 (83-108) mmHg ABG O2 Saturation (94-97) % ABG Hematocrit (34.0-46.0) % ABG Sodium (135-146) mmol/L ABG Potassium (3.4-4.5) mmol/L ABG Ionized Calcium (4.5-5.3) mg/dL ABG Glucose (75-99) mg/dL ABG Lactic Acid (0.5-1.6) mmol/L Hemoglobin (13.0-17.5) gm/dL Chloride (98-107) mmol/L BUN (9-20) mg/dL Glucose (74-99) mg/dL POC Glucose (mg/dL) 154 H 125 H 115 H (70-110) mg/dL Calcium (8.4-10.2) mg/dL AST (17-59) U/L Alkaline Phosphatase (38-126) U/L Total Protein (6.3-8.2) g/dL Arterial Blood Potassium (3.4-4.5) mmol/L Arterial Blood Glucose (75-99) mg/dL Crossmatch 08/09/23 08/09/23 08/09/23 Range/Units 08:05 09:13 10:10 WBC (3.8-10.6) k/uL RBC (4.30-5.90) m/uL Hgb (13.0-17.5) gm/dL Hct (39.0-53.0) % Plt Count (150-450) k/uL Neutrophils # (1.3-7.7) k/uL Lymphocytes # (1.0-4.8) k/uL Monocytes # (0-1.0) k/uL ABG pO2 (83-108) mmHg ABG O2 Saturation (94-97) % ABG Hematocrit (34.0-46.0) % ABG Sodium (135-146) mmol/L ABG Potassium (3.4-4.5) mmol/L ABG Ionized Calcium (4.5-5.3) mg/dL ABG Glucose (75-99) mg/dL ABG Lactic Acid (0.5-1.6) mmol/L Hemoglobin (13.0-17.5) gm/dL Chloride (98-107) mmol/L BUN (9-20) mg/dL Glucose (74-99) mg/dL POC Glucose (mg/dL) 194 H 202 H 141 H (70-110) mg/dL Calcium (8.4-10.2) mg/dL AST (17-59) U/L Alkaline Phosphatase (38-126) U/L Total Protein (6.3-8.2) g/dL Arterial Blood Potassium (3.4-4.5) mmol/L Arterial Blood Glucose (75-99) mg/dL Crossmatch 08/09/23 08/09/23 08/09/23 Range/Units 12:34 14:11 15:31 WBC (3.8-10.6) k/uL RBC (4.30-5.90) m/uL Hgb (13.0-17.5) gm/dL Hct (39.0-53.0) % Plt Count (150-450) k/uL Neutrophils # (1.3-7.7) k/uL Lymphocytes # (1.0-4.8) k/uL Monocytes # (0-1.0) k/uL ABG pO2 (83-108) mmHg ABG O2 Saturation (94-97) % ABG Hematocrit (34.0-46.0) % ABG Sodium (135-146) mmol/L ABG Potassium (3.4-4.5) mmol/L ABG Ionized Calcium (4.5-5.3) mg/dL ABG Glucose (75-99) mg/dL ABG Lactic Acid (0.5-1.6) mmol/L Hemoglobin (13.0-17.5) gm/dL Chloride (98-107) mmol/L BUN (9-20) mg/dL Glucose (74-99) mg/dL POC Glucose (mg/dL) 135 H 156 H 167 H (70-110) mg/dL Calcium (8.4-10.2) mg/dL AST (17-59) U/L Alkaline Phosphatase (38-126) U/L Total Protein (6.3-8.2) g/dL Arterial Blood Potassium (3.4-4.5) mmol/L Arterial Blood Glucose (75-99) mg/dL Crossmatch Assessment and Plan Assessment: Severe aortic stenosis status post aortic valve replacement using a 25 mm pericardial bioprosthesis Inspiris valve with exclusion of left atrial appendage with an Atriclip postoperative day #1 Acute hypoxic respiratory failure secondary to nausea and vomiting, suspect related to Cleviprex-discontinued; chest x-ray reported atelectasis, small effusions. COPD Former nicotine dependence, recently quit Childhood rheumatoid arthritis Plan: Continue on current medication regimen ,monitoring and symptomatic treatment. Aggressive pulmonary toileting with incentive spirometer reinforced. Increase activity as tolerated. ICU management as per cardiothoracic surgery and rn enterostomal. The impression and plan of care has been dictated as directed. : I performed a history and examination of this patient, discussed the same with the dictator. I agree with the dictator's note ,documented as a scribe. Any additional findings or plans will be noted.
[2023-08-09 17:18] LABS: Glucose,Whole Blood 137 mg/dL (70-110)
[2023-08-09 19:02] LABS: Glucose,Whole Blood 99 mg/dL (70-110)
[2023-08-09 20:00] LABS: Glucose,Whole Blood 118 mg/dL (70-110)
[2023-08-09] MEDS: SENNOSIDES-DOCUSATE SODIUM 1 EACH TAB PO SCH (20:08)
[2023-08-09 21:10] LABS: Glucose,Whole Blood 111 mg/dL (70-110)
[2023-08-09 21:59] LABS: Glucose,Whole Blood 127 mg/dL (70-110)
[2023-08-09 23:51] LABS: Glucose,Whole Blood 111 mg/dL (70-110)
[2023-08-10 01:56] LABS: Glucose,Whole Blood 125 mg/dL (70-110)
[2023-08-10 04:09] LABS: Glucose,Whole Blood 112 mg/dL (70-110)
[2023-08-10 04:30] LABS: Basophils % (A) 0 %; Eosinophils # (A) 0.1 k/uL (0-0.7); Eosinophils % (A) 0 %; HGB 8.6 gm/dL (13.0-17.5); Lymphocytes # (A) 1.5 k/uL (1.0-4.8); Lymphocytes % (A) 11 %; MCHC 34.3 g/dL (31.0-37.0); MCV 99.1 fL (80.0-100.0); Mean Platelet Volume 9.8; Monocytes # (A) 1.2 k/uL (0-1.0); Monocytes % (A) 8 %; Neutrophils # (A) 11.1 k/uL (1.3-7.7); Neutrophils % (A) 79 %; RBC 2.52 m/uL (4.30-5.90); RDW 13.2 % (11.5-15.5); WBC 14.1 k/uL (3.8-10.6)
[2023-08-10 04:31] LABS: Platelet Count 64 k/uL (150-450)
[2023-08-10 04:32] LABS: Ionized Calcium 4.9 mg/dL (4.5-5.3)
[2023-08-10 04:41] LABS: ALT 27 U/L (4-49); AST 46 U/L (17-59); African American GFR (CKD) >90 (>60 ml/min/1.73 sqM); Albumin 3.3 g/dL (3.5-5.0); Alkaline Phosphatase 27 U/L (38-126); Anion Gap 6 mmol/L; Blood Urea Nitrogen 31 mg/dL (9-20); Calcium 8.6 mg/dL (8.4-10.2); Carbon Dioxide 24 mmol/L (22-30); Chloride 109 mmol/L (98-107); Glucose 109 mg/dL (74-99); Non-African American GFR(CKD) >90 (>60 ml/min/1.73 sqM); Potassium 4.3 mmol/L (3.5-5.1); Sodium 139 mmol/L (137-145); Total Bilirubin 0.6 mg/dL (0.2-1.3); Total Protein 5.4 g/dL (6.3-8.2)
[2023-08-10 06:07] LABS: Glucose,Whole Blood 154 mg/dL (70-110)
[2023-08-10] MEDS: PANTOPRAZOLE 40 MG TABLET PO SCH (06:12)
[2023-08-10] MEDS: ASPIRIN 81 MG PO SCH (07:59)
[2023-08-10] MEDS: METOPROLOL TARTRATE 25 MG TAB PO SCH (07:59)
[2023-08-10] MEDS: FONDAPARINUX 2.5 MG/0.5 ML SYRINGE SQ SCH (08:00)
[2023-08-10] MEDS: CLOPIDOGREL 75 MG TAB PO SCH (08:00)
--- NOTE | 2023-08-10 08:22 | XR ---
EXAMINATION TYPE: XR chest 1V portable DATE OF EXAM: 08/10/2023 5:03 AM CLINICAL INDICATION:Male, 58 years old with history of Post Operative Cardiac Surgery; [facility] COMPARISON: Chest radiographs from 08/09/2023. TECHNIQUE: XR chest 1V portable Frontal view of the chest. FINDINGS: Lungs/Pleura: No evidence of focal consolidation or pneumothorax. Blunting of the costophrenic angles is present. Pulmonary vascularity: Unremarkable. Heart/mediastinum: Cardiomediastinal silhouette is unremarkable. Post aortic valve repair changes. L eft atrial appendage occlusion device is present. Musculoskeletal: No acute osseous pathology. Midline sternotomy wires are noted. Other findings: None Lines/Tubes: There is a [place] catheter sheath remains in place. Drainage tubes with tips projecting over the mediastinum. IMPRESSION: Post surgical changes. There remains small bilateral pleural effusions.
--- NOTE | 2023-08-10 08:32 | P.PN ---
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 Delgado sitting up in recliner in the intensive care unit in no acute distress. Currently in sinus rhythm, hemodynamically stable. Does complain of expected post surgical pain with deep inspiration and coughing, denies shortness of breath. He has been up to ambulate in the hallway and is tolerating well. Chest x-ray, labs reviewed. Atelectasis present which is somewhat expected postoperative. Right internal jugular Cordis, left radial arterial line, mediastinal chest tubes all present. No other new concerns. Objective - Vital Signs Vital signs: Vital Signs Temp 98.0 F 08/10/23 04:00 Pulse 93 08/10/23 07:53 Resp 20 08/10/23 07:00 BP 133/75 08/08/23 06:05 Pulse Ox 95 08/10/23 07:42 FiO2 45 08/08/23 16:30 Intake & Output 08/09/23 08/10/23 08/10/23 18:59 06:59 18:59 Intake Total 2065.952 991.409 36 Output Total 570 455 25 Balance 1495.952 536.409 11 Weight 77.7 kg 78.9 kg Intake: IV 580 432 36 0.9 @ 50 420 360 30 CO/CI 30 ceFAZolin 2 gm In Sodium 50 Chloride 0.9% 50 ml @ 100 mls/hr IVPB Q8HR [facility] Rx# :[id number] pressure bags 80 72 6 Intake, IV Titration 155.952 19.409 Amount Insulin Regular 100 unit 36.394 19.409 In Sodium Chloride 0.9% 100 ml @ Per Protocol IV .Q0M [facility] Rx#:[id number] Milrinone-D5w Pmx 20 mg 19.558 In Dextrose/Water 1 100ml .bag @ 0.1 MCG/KG/MIN 2. 292 mls/hr IV .Q24H [facility] Rx#:[id number] ceFAZolin 2 gm In Sodium 100 Chloride 0.9% 50 ml @ Per Protocol IVPB ONCE ONE Rx#:[id number] Oral 1330 540 Output: Chest Tube Drainage 210 80 Bilateral Mediastinal 210 80 Urine 360 375 25 Other: Voiding Method Indwelling Catheter Indwelling Catheter ABP, PAP, CO, CI - Last Documented Arterial Blood Pressure 123/61 Pulmonary Artery Pressure 32/15 Cardiac Output 6.4 Cardiac Index 3.4 - Exam CONSTITUTIONAL: Appears comfortable, cooperative, no acute distress RESPIRATORY: Lungs sounds diminished bilaterally. Respirations even, nonlabored. Currently on 2 L nasal cannula with oxygen saturation 94%. Able to achieve 1250 mL on incentive spirometry. Strong cough. CARDIOVASCULAR: S1, S2 present. Regular rate and rhythm, sinus rhythm to sinus tach on telemetry. Sternum stable. Palpable peripheral pulses bilaterally. No edema present. No calf pain or tenderness noted. Heart hugger in place with patient demonstrating appropriate use. Antiembolism stockings, SCDs present. GASTROINTESTINAL: Abdomen soft, nontender, nondistended. Active bowel sounds present 4 quadrants. Tolerating diet. Positive flatus GENITOURINARY: Gupta present draining clear, yellow urine. Output overnight 25-45 mL per hour, 735 mL in the last 24 hours INTEGUMENTARY: Skin is warm and dry with evidence of good perfusion. Anterior chest incision well approximated and covered with dry intact dressing NEUROLOGIC: Cranial nerves II through XII intact MUSKULOSKELETAL: Able to move all extremities, strength equal bilaterally, gait normal PSYCHIATRIC: Alert and oriented to person place and time, appropriate affect, intact judgment and insight INVASIVE LINES AND TUBES: Mediastinal chest tubes present and connected to wall suction, no air leaks present, 60 mL serosanguineous drainage overnight, 150 mL in the last 24 hours. A/V epicardial pacemaker wires present, grounded. Right internal jugular cordis, left radial arterial line present. Last CVP 12. - Allied health notes Allied health notes reviewed: nursing - Labs CBC & Chem 7: 08/10/23 04:05 08/10/23 04:05 Labs: Abnormal Lab Results - Last 24 Hours (Table) 08/09/23 08/09/23 08/09/23 Range/Units 01:56 09:13 10:10 WBC (3.8-10.6) k/uL RBC (4.30-5.90) m/uL Hgb (13.0-17.5) gm/dL Hct (39.0-53.0) % Plt Count (150-450) k/uL Neutrophils # (1.3-7.7) k/uL Monocytes # (0-1.0) k/uL Chloride (98-107) mmol/L BUN (9-20) mg/dL Glucose (74-99) mg/dL POC Glucose (mg/dL) 139 H 202 H 141 H (70-110) mg/dL Alkaline Phosphatase (38-126) U/L Total Protein (6.3-8.2) g/dL Albumin (3.5-5.0) g/dL 08/09/23 08/09/23 08/09/23 Range/Units 12:34 14:11 15:31 WBC (3.8-10.6) k/uL RBC (4.30-5.90) m/uL Hgb (13.0-17.5) gm/dL Hct (39.0-53.0) % Plt Count (150-450) k/uL Neutrophils # (1.3-7.7) k/uL Monocytes # (0-1.0) k/uL Chloride (98-107) mmol/L BUN (9-20) mg/dL Glucose (74-99) mg/dL POC Glucose (mg/dL) 135 H 156 H 167 H (70-110) mg/dL Alkaline Phosphatase (38-126) U/L Total Protein (6.3-8.2) g/dL Albumin (3.5-5.0) g/dL 08/09/23 08/09/23 08/09/23 Range/Units 17:17 19:58 21:08 WBC (3.8-10.6) k/uL RBC (4.30-5.90) m/uL Hgb (13.0-17.5) gm/dL Hct (39.0-53.0) % Plt Count (150-450) k/uL Neutrophils # (1.3-7.7) k/uL Monocytes # (0-1.0) k/uL Chloride (98-107) mmol/L BUN (9-20) mg/dL Glucose (74-99) mg/dL POC Glucose (mg/dL) 137 H 118 H 111 H (70-110) mg/dL Alkaline Phosphatase (38-126) U/L Total Protein (6.3-8.2) g/dL Albumin (3.5-5.0) g/dL 08/09/23 08/09/23 08/10/23 Range/Units 21:58 23:48 01:54 WBC (3.8-10.6) k/uL RBC (4.30-5.90) m/uL Hgb (13.0-17.5) gm/dL Hct (39.0-53.0) % Plt Count (150-450) k/uL Neutrophils # (1.3-7.7) k/uL Monocytes # (0-1.0) k/uL Chloride (98-107) mmol/L BUN (9-20) mg/dL Glucose (74-99) mg/dL POC Glucose (mg/dL) 127 H 111 H 125 H (70-110) mg/dL Alkaline Phosphatase (38-126) U/L Total Protein (6.3-8.2) g/dL Albumin (3.5-5.0) g/dL 08/10/23 08/10/23 08/10/23 Range/Units 04:05 04:05 04:07 WBC 14.1 H (3.8-10.6) k/uL RBC 2.52 L (4.30-5.90) m/uL Hgb 8.6 L (13.0-17.5) gm/dL Hct 25.0 L (39.0-53.0) % Plt Count 64 L (150-450) k/uL Neutrophils # 11.1 H (1.3-7.7) k/uL Monocytes # 1.2 H (0-1.0) k/uL Chloride 109 H (98-107) mmol/L BUN 31 H (9-20) mg/dL Glucose 109 H (74-99) mg/dL POC Glucose (mg/dL) 112 H (70-110) mg/dL Alkaline Phosphatase 27 L (38-126) U/L Total Protein 5.4 L (6.3-8.2) g/dL Albumin 3.3 L (3.5-5.0) g/dL 08/10/23 Range/Units 06:06 WBC (3.8-10.6) k/uL RBC (4.30-5.90) m/uL Hgb (13.0-17.5) gm/dL Hct (39.0-53.0) % Plt Count (150-450) k/uL Neutrophils # (1.3-7.7) k/uL Monocytes # (0-1.0) k/uL Chloride (98-107) mmol/L BUN (9-20) mg/dL Glucose (74-99) mg/dL POC Glucose (mg/dL) 154 H (70-110) mg/dL Alkaline Phosphatase (38-126) U/L Total Protein (6.3-8.2) g/dL Albumin (3.5-5.0) g/dL - Imaging and Cardiology Chest x-ray: report reviewed, image reviewed Assessment and Plan Assessment: 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 Will increase beta-suraj therapy as tolerated, increased to 25 mg twice daily today Will start low-dose Cozaar for afterload reduction with hold parameters. Continue oral amiodarone for atrial fibrillation prophylaxis. Patient has been in normal sinus rhythm with no atrial fibrillation reported. Wean O2 as tolerated. Encourage incentive spirometry use 10 times every hour while awake. Bronchodilators per pulmonology Increase activity, ambulate as tolerated. PT/OT/cardiac rehab consulted. Will monitor daily labs and chest x-rays. Electrolyte replacement per protocol. Insulin management per internal medicine. Preoperative hemoglobin A1c 5.8%. Pain control with current medication regimen. Toradol discontinued due to thrombocytopenia GI/DVT prophylaxis. Discontinue Cordis, arterial line Will discontinue chest tubes Discontinue Gupta, may bladder scan and straight cath for greater than 300 mL residual Continue to monitor and record strict accurate intake and output Daily weights Ground epicardial pacemaker wires Will place transfer orders for 3 S. cardiac stepdown unit, may transfer when bed available More recommendations to follow based on patient's clinical course.
--- NOTE | 2023-08-10 10:11 | P.PN ---
Subjective Progress Note Date: 08/10/23 This is a 58-year-old male patient with a history of former smoking, rheumatoid fever as a child and was found to have severe aortic stenosis. He presented today for an elective aortic valve replacement. He was found to have a unicuspid severely calcified aortic valve with fusion of the right left and the right 9 cusp as cusps. He did undergo aortic valve replacement with a 25 mm pericardial bioprosthetic Inspiris valve and exclusion of left atrial appendage utilizing the atriaclip. He is seen in the immediate postoperative period in the intensive care unit. He is on the mechanical ventilator on assist-control mode at a rate of 16, tidal volume 450, FiO2 100% and a PEEP of 5. Initial blood gases revealed a PaO2 of 226, pCO2's at 44 and a pH of 7.35. He is currently on a nitroglycerin drip at 5 mcg/min. Propofol at 20 mcg/kg/min. Primacor at 0.2 mcg/kg/min. Normal saline at 50 MLS per hour and an insulin drip at 1 unit/h. Chest x-ray reveals good placement of the endotracheal tube, nasogastric tube, [place] catheter and mediastinal chest tubes. Mild pulmonary edema. No pneumothorax. White count 12.2. Hemoglobin 9.7. He has been initiated on bronchodilators and cefazolin. The patient is seen today August 09, 2023 in follow-up in the intensive care unit. He is currently sitting up in a chair at the bedside. Awake and alert in no acute distress. He is maintaining good O2 saturations in the 90s on 5 L/min per nasal cannula. He did have issues last night with nausea and vomiting and required 15 L high flow nasal cannula. This was felt to be possibly related to the Cleviprex which has since been discontinued. He did receive albumin this morning. He remains on insulin at 4 units/h. Milrinone is at 0.1 mcg/kg/min. Nitroglycerin at 10 mcg/min. Cardiac output 6.7. Cardiac index 3.6. PA pressures 35/15. CVP of 10. He has a right internal jugular [place] catheter in place. Left radial arterial line in place. Chest tubes remain in place. Chest x-ray reveals small pleural effusions. Some basilar atelectasis. No evidence of pneumothorax. White count 15.3. Hemoglobin 9.3. Platelets 85,000. Sodium 142. Potassium 4.1. Bicarb 22. BUN 24. Creatinine 0.90. Glucose 154. He remains on bronchodilators. He is working well with the [facility] irometer. Heparin for DVT prophylaxis. The patient is seen today August 10, 2023 in follow-up in the intensive care unit. He is currently sitting up in a chair at the bedside. Awake and alert in no acute distress. Postoperative day #2 of his aortic valve replacement. He is maintaining good O2 saturation in the 90s on 2 L/min per nasal cannula. He has normal saline at 30 MLS per hour. He is continued on bronchodilators, Arixtra for DVT prophylaxis. X-ray reveals small bilateral effusions. No pneumothorax. White count 14.1. Hemoglobin 8.6. Platelets 64,000. Sodium 139. Potassium 4.3. Bicarb 24. BUN 31. Creatinine 0.87. Glucose 109. Objective - Vital Signs Vital signs: Vital Signs Temp 98.1 F 08/10/23 08:00 Pulse 86 08/10/23 09:00 Resp 17 08/10/23 09:00 BP 133/75 08/08/23 06:05 Pulse Ox 95 08/10/23 09:00 FiO2 45 08/08/23 16:30 Intake & Output 08/09/23 08/10/23 08/10/23 18:59 06:59 18:59 Intake Total 2065.952 991.409 108 Output Total 570 455 80 Balance 1495.952 536.409 28 Weight 77.7 kg 78.9 kg Intake: IV 580 432 108 0.9 @ 50 420 360 90 CO/CI 30 ceFAZolin 2 gm In Sodium 50 Chloride 0.9% 50 ml @ 100 mls/hr IVPB Q8HR [facility] Rx# :[id number] pressure bags 80 72 18 Intake, IV Titration 155.952 19.409 Amount Insulin Regular 100 unit 36.394 19.409 In Sodium Chloride 0.9% 100 ml @ Per Protocol IV .Q0M [facility] Rx#:[id number] Milrinone-D5w Pmx 20 mg 19.558 In Dextrose/Water 1 100ml .bag @ 0.1 MCG/KG/MIN 2. 292 mls/hr IV .Q24H [facility] Rx#:[id number] ceFAZolin 2 gm In Sodium 100 Chloride 0.9% 50 ml @ Per Protocol IVPB ONCE ONE Rx#:[id number] Oral 1330 540 Output: Chest Tube Drainage 210 80 0 Bilateral Mediastinal 210 80 0 Urine 360 375 80 Other: Voiding Method Indwelling Catheter Indwelling Catheter Indwelling Catheter ABP, PAP, CO, CI - Last Documented Arterial Blood Pressure 116/59 Pulmonary Artery Pressure 32/15 Cardiac Output 6.4 Cardiac Index 3.4 - Exam GENERAL EXAM: Alert, 58-year-old male, sitting up in a chair, on 2 L nasal cannula, comfortable in no apparent distress. HEAD: Normocephalic. EYES: Normal reaction of pupils, equal size. NOSE: Clear with pink turbinates. THROAT: No erythema or exudates. NECK: No masses, no JVD. CHEST: Sternal dressing dry and intact. Heart hugger in place. LUNGS: Equal air entry with faint crackles in the posterior bases. CVS: S1 and S2 normal with no audible murmur, regular rhythm. ABDOMEN: No hepatosplenomegaly, normal bowel sounds, no guarding or rigidity. SPINE: No scoliosis or deformity SKIN: No rashes CENTRAL NERVOUS SYSTEM: No focal deficits, tone is normal in all 4 extremities. EXTREMITIES: SCDs in place. There is no peripheral edema. No clubbing, no cyanosis. Peripheral pulses are intact. - Labs CBC & Chem 7: 08/10/23 04:05 08/10/23 04:05 Labs: Abnormal Lab Results - Last 24 Hours (Table) 08/09/23 08/09/23 08/09/23 Range/Units 01:56 10:10 12:34 WBC (3.8-10.6) k/uL RBC (4.30-5.90) m/uL Hgb (13.0-17.5) gm/dL Hct (39.0-53.0) % Plt Count (150-450) k/uL Neutrophils # (1.3-7.7) k/uL Monocytes # (0-1.0) k/uL Chloride (98-107) mmol/L BUN (9-20) mg/dL Glucose (74-99) mg/dL POC Glucose (mg/dL) 139 H 141 H 135 H (70-110) mg/dL Alkaline Phosphatase (38-126) U/L Total Protein (6.3-8.2) g/dL Albumin (3.5-5.0) g/dL 08/09/23 08/09/23 08/09/23 Range/Units 14:11 15:31 17:17 WBC (3.8-10.6) k/uL RBC (4.30-5.90) m/uL Hgb (13.0-17.5) gm/dL Hct (39.0-53.0) % Plt Count (150-450) k/uL Neutrophils # (1.3-7.7) k/uL Monocytes # (0-1.0) k/uL Chloride (98-107) mmol/L BUN (9-20) mg/dL Glucose (74-99) mg/dL POC Glucose (mg/dL) 156 H 167 H 137 H (70-110) mg/dL Alkaline Phosphatase (38-126) U/L Total Protein (6.3-8.2) g/dL Albumin (3.5-5.0) g/dL 08/09/23 08/09/23 08/09/23 Range/Units 19:58 21:08 21:58 WBC (3.8-10.6) k/uL RBC (4.30-5.90) m/uL Hgb (13.0-17.5) gm/dL Hct (39.0-53.0) % Plt Count (150-450) k/uL Neutrophils # (1.3-7.7) k/uL Monocytes # (0-1.0) k/uL Chloride (98-107) mmol/L BUN (9-20) mg/dL Glucose (74-99) mg/dL POC Glucose (mg/dL) 118 H 111 H 127 H (70-110) mg/dL Alkaline Phosphatase (38-126) U/L Total Protein (6.3-8.2) g/dL Albumin (3.5-5.0) g/dL 08/09/23 08/10/23 08/10/23 Range/Units 23:48 01:54 04:05 WBC 14.1 H (3.8-10.6) k/uL RBC 2.52 L (4.30-5.90) m/uL Hgb 8.6 L (13.0-17.5) gm/dL Hct 25.0 L (39.0-53.0) % Plt Count 64 L (150-450) k/uL Neutrophils # 11.1 H (1.3-7.7) k/uL Monocytes # 1.2 H (0-1.0) k/uL Chloride (98-107) mmol/L BUN (9-20) mg/dL Glucose (74-99) mg/dL POC Glucose (mg/dL) 111 H 125 H (70-110) mg/dL Alkaline Phosphatase (38-126) U/L Total Protein (6.3-8.2) g/dL Albumin (3.5-5.0) g/dL 08/10/23 08/10/23 08/10/23 Range/Units 04:05 04:07 06:06 WBC (3.8-10.6) k/uL RBC (4.30-5.90) m/uL Hgb (13.0-17.5) gm/dL Hct (39.0-53.0) % Plt Count (150-450) k/uL Neutrophils # (1.3-7.7) k/uL Monocytes # (0-1.0) k/uL Chloride 109 H (98-107) mmol/L BUN 31 H (9-20) mg/dL Glucose 109 H (74-99) mg/dL POC Glucose (mg/dL) 112 H 154 H (70-110) mg/dL Alkaline Phosphatase 27 L (38-126) U/L Total Protein 5.4 L (6.3-8.2) g/dL Albumin 3.3 L (3.5-5.0) g/dL Assessment and Plan Assessment: Severe aortic stenosis status post aortic valve replacement using a 25 mm pericardial bioprosthesis Inspiris valve with exclusion of left atrial appendage with an Atriclip postoperative day #2 Acute hypoxic respiratory failure secondary to nausea and vomiting episodes, suspect secondary to Cleviprex, discontinued. Basilar atelectasis, small effusions Former smoker History of childhood rheumatoid arthritis Plan: The patient was seen and evaluated Chest x-ray, labs and medications reviewed Titrate down the FiO2 Continue the incentive spirometer Increase his activity Plan is to transfer to the cardiac stepdown unit today We will continue to follow I have personally seen and examined the patient, performed the documentation and the assessment and plan as written. Number of minutes spent on the visit: 10.
[2023-08-10 11:32] LABS: Glucose,Whole Blood 151 mg/dL (70-110)
--- NOTE | 2023-08-10 11:52 | P.PN ---
Subjective Progress Note Date: 08/10/23 History of Present Illness 08/09/23 This is a 58-year-old gentleman status post aortic valve replacement , postop day #1, secondary to severe aortic stenosis, acute hypoxic respiratory failure, former nicotine dependence and multiple other medical issues. Significant clinical improvement. During the night patient developed nausea and vomiting, required 15 L high flow nasal cannula -suspected related to Cleviprex-which has been discontinued. Nitroglycerin, Primacor drips weaned off, currently on insulin drip. Blood sugars controlled. Chest x-ray reporting suspect small dev eloping pleural effusions, slight worsening bibasilar atelectasis or developing infiltrate.Maintaining O2 sats in the 90s on 5 L nasal cannula. Incentive spirometer up to 700 .ambulated in the hallway, tolerating exertion well. Tmax 99.7, WBC 15.3, hemoglobin 9.3, platelets 85, sodium 142, potassium 4.1 BUN 24, creatinine 0.9, magnesium 2.2. Cardiac output 6.7. Cardiac index 3.6. PA pressures 35/15. CVP 10. No flatus. 08/10/2023 chest x-ray reports small bilateral effusions , O2 sats in the 90s on 2 L nasal cannula. Incentive spirometer up to 1000. afebrile, WBC 14.1. Hemoglobin 8.6, platelets 64 electrolytes stable. Bicarb 24, BUN 31, creatinine 0.87. blood sugars stable. Pain controlled. Objective - Vital Signs Vital signs: Vital Signs Temp 98.1 F 08/10/23 08:00 Pulse 82 08/10/23 11:18 Resp 17 08/10/23 09:00 BP 133/75 08/08/23 06:05 Pulse Ox 95 08/10/23 09:00 FiO2 45 08/08/23 16:30 Intake & Output 08/09/23 08/10/23 08/10/23 18:59 06:59 18:59 Intake Total 2065.952 991.409 108 Output Total 570 455 80 Balance 1495.952 536.409 28 Weight 77.7 kg 78.9 kg Intake: IV 580 432 108 0.9 @ 50 420 360 90 CO/CI 30 ceFAZolin 2 gm In Sodium 50 Chloride 0.9% 50 ml @ 100 mls/hr IVPB Q8HR [facility] Rx# :[id number] pressure bags 80 72 18 Intake, IV Titration 155.952 19.409 Amount Insulin Regular 100 unit 36.394 19.409 In Sodium Chloride 0.9% 100 ml @ Per Protocol IV .Q0M [facility] Rx#:[id number] Milrinone-D5w Pmx 20 mg 19.558 In Dextrose/Water 1 100ml .bag @ 0.1 MCG/KG/MIN 2. 292 mls/hr IV .Q24H [facility] Rx#:[id number] ceFAZolin 2 gm In Sodium 100 Chloride 0.9% 50 ml @ Per Protocol IVPB ONCE ONE Rx#:[id number] Oral 1330 540 Output: Chest Tube Drainage 210 80 0 Bilateral Mediastinal 210 80 0 Urine 360 375 80 Other: Voiding Method Indwelling Catheter Indwelling Catheter Indwelling Catheter ABP, PAP, CO, CI - Last Documented Arterial Blood Pressure 116/59 Pulmonary Artery Pressure 32/15 Cardiac Output 6.4 Cardiac Index 3.4 - Exam PHYSICAL EXAM: VITAL SIGNS: [As above] GENERAL: Alert and oriented x 3, sitting up in chair, no acute distress HEENT: Normocephalic ,conjunctivae normal. eyes normal. Oral mucosa dry. NECK: Supple, no JVD. CARDIOVASCULAR: S1, S2 regular. No murmur RESPIRATION: Unlabored, equal air entry, fine bibasilar crackles. ABDOMEN: Soft, nontender . No guarding. no masses palpable. LEGS: No edema. no swelling NERVOUS SYSTEM: Cranial N 2-12 grossly normal.No focal deficits. Skin: Warm and dry, no rash - Labs CBC & Chem 7: 08/10/23 04:05 08/10/23 04:05 Labs: Abnormal Lab Results - Last 24 Hours (Table) 08/09/23 08/09/23 08/09/23 Range/Units 12:34 14:11 15:31 WBC (3.8-10.6) k/uL RBC (4.30-5.90) m/uL Hgb (13.0-17.5) gm/dL Hct (39.0-53.0) % Plt Count (150-450) k/uL Neutrophils # (1.3-7.7) k/uL Monocytes # (0-1.0) k/uL Chloride (98-107) mmol/L BUN (9-20) mg/dL Glucose (74-99) mg/dL POC Glucose (mg/dL) 135 H 156 H 167 H (70-110) mg/dL Alkaline Phosphatase (38-126) U/L Total Protein (6.3-8.2) g/dL Albumin (3.5-5.0) g/dL 08/09/23 08/09/23 08/09/23 Range/Units 17:17 19:58 21:08 WBC (3.8-10.6) k/uL RBC (4.30-5.90) m/uL Hgb (13.0-17.5) gm/dL Hct (39.0-53.0) % Plt Count (150-450) k/uL Neutrophils # (1.3-7.7) k/uL Monocytes # (0-1.0) k/uL Chloride (98-107) mmol/L BUN (9-20) mg/dL Glucose (74-99) mg/dL POC Glucose (mg/dL) 137 H 118 H 111 H (70-110) mg/dL Alkaline Phosphatase (38-126) U/L Total Protein (6.3-8.2) g/dL Albumin (3.5-5.0) g/dL 08/09/23 08/09/23 08/10/23 Range/Units 21:58 23:48 01:54 WBC (3.8-10.6) k/uL RBC (4.30-5.90) m/uL Hgb (13.0-17.5) gm/dL Hct (39.0-53.0) % Plt Count (150-450) k/uL Neutrophils # (1.3-7.7) k/uL Monocytes # (0-1.0) k/uL Chloride (98-107) mmol/L BUN (9-20) mg/dL Glucose (74-99) mg/dL POC Glucose (mg/dL) 127 H 111 H 125 H (70-110) mg/dL Alkaline Phosphatase (38-126) U/L Total Protein (6.3-8.2) g/dL Albumin (3.5-5.0) g/dL 08/10/23 08/10/23 08/10/23 Range/Units 04:05 04:05 04:07 WBC 14.1 H (3.8-10.6) k/uL RBC 2.52 L (4.30-5.90) m/uL Hgb 8.6 L (13.0-17.5) gm/dL Hct 25.0 L (39.0-53.0) % Plt Count 64 L (150-450) k/uL Neutrophils # 11.1 H (1.3-7.7) k/uL Monocytes # 1.2 H (0-1.0) k/uL Chloride 109 H (98-107) mmol/L BUN 31 H (9-20) mg/dL Glucose 109 H (74-99) mg/dL POC Glucose (mg/dL) 112 H (70-110) mg/dL Alkaline Phosphatase 27 L (38-126) U/L Total Protein 5.4 L (6.3-8.2) g/dL Albumin 3.3 L (3.5-5.0) g/dL 08/10/23 08/10/23 Range/Units 06:06 11:30 WBC (3.8-10.6) k/uL RBC (4.30-5.90) m/uL Hgb (13.0-17.5) gm/dL Hct (39.0-53.0) % Plt Count (150-450) k/uL Neutrophils # (1.3-7.7) k/uL Monocytes # (0-1.0) k/uL Chloride (98-107) mmol/L BUN (9-20) mg/dL Glucose (74-99) mg/dL POC Glucose (mg/dL) 154 H 151 H (70-110) mg/dL Alkaline Phosphatase (38-126) U/L Total Protein (6.3-8.2) g/dL Albumin (3.5-5.0) g/dL Assessment and Plan Assessment: Severe aortic stenosis status post aortic valve replacement using a 25 mm pericardial bioprosthesis Inspiris valve with exclusion of left atrial appendage with an Atriclip postoperative day #1 Acute hypoxic respiratory failure secondary to nausea and vomiting, suspect related to Cleviprex-discontinued; atelectasis, small bilateral effusions. Postoperative acute blood loss anemia and thrombocytopenia, expected outcome COPD Former nicotine dependence, recently quit Childhood rheumatoid arthritis Plan: Continue on current medication regimen ,monitoring and symptomatic treatment. Patient is scheduled to have chest tubes removed, delined, pacemaker wires grounded/capped and transferred to 3 S. cardiac stepdown unit as per cardiothoracic surgery. Maintain aggressive pulmonary toileting with incentive spirometer reinforced. Increase activity as tolerated. The impression and plan of care has been dictated as directed. : I performed a history and examination of this patient, discussed the same with the dictator. I agree with the dictator's note ,documented as a scribe. Any additional findings or plans will be noted.
[2023-08-10] MEDS: LOSARTAN 25 MG TAB PO SCH (11:59)
[2023-08-10] MEDS: INSULIN ASPART (NovoLOG) 100 UNIT/ML VIAL SQ SCH (12:00)
[2023-08-10] MEDS: ACETAMINOPHEN TAB 500 MG TAB PO PRN (13:16)
[2023-08-10] MEDS: guaiFENesin-DM 600/30MG 1 EACH TAB.ER.12H PO SCH (14:57)
[2023-08-10] MEDS: CALCIUM CHLORIDE 100 MG/ML 10 ML SYRINGE IV ONE (14:58)
[2023-08-10] MEDS: ALBUMIN HUMAN 25% 50 ML IV ONE (14:58)
[2023-08-10] MEDS: ceFAZolin 1,000 MG in SODIUM CHLORIDE 0.9% IRRIGATIO 1,000 ML IRRIGATION ONE (14:58)
[2023-08-10] MEDS: ALBUMIN HUMAN 5% 500 ML IVPB ONE (14:58)
[2023-08-10] MEDS: ELECTROLYTE-A SOLUTION 1,000 ML with POTASSIUM CHLORIDE 40 MEQ, MAGNESIUM SULFATE 16 ME... IV ONE (14:59)
[2023-08-10] MEDS: NITROGLYCERIN-D5W PMX 50 MG in DEXTROSE/WATER 1 250ML.BAG IV ONE (14:59)
[2023-08-10] MEDS: CLEVIDIPINE BUTYRATE 25 MG in EMPTY BAG 1 BAG IV ONE (14:59)
[2023-08-10] MEDS: CHLORHEXIDINE GLUCONATE 15 ML CUP MUCOUS MEM ONE (14:59)
[2023-08-10] MEDS: ELECTROLYTE-A SOLUTION 1,000 ML with POTASSIUM CHLORIDE 100 MEQ, MAGNESIUM SULFATE 16 M... IV ONE (14:59)
[2023-08-10] MEDS: MANNITOL 25% 12.5 GM/50 ML VIAL IV ONE (15:00)
[2023-08-10] MEDS: MAGNESIUM SULFATE 16.24 MEQ in EMPTY SYRINGE 1 SYR IV ONE (15:00)
[2023-08-10] MEDS: NITROGLYCERIN SL TABS 0.4 MG TAB SUBLINGUAL ONE (15:00)
[2023-08-10] MEDS: NITROGLYCERIN-D5W PMX 25 MG/250 ML BTL IV ONE (15:00)
[2023-08-10] MEDS: INSULIN REGULAR 100 UNIT in SODIUM CHLORIDE 0.9% 100 ML IV ONE (15:00)
[2023-08-10] MEDS: PAPAVERINE 360 MG in SODIUM CHLORIDE 0.9% 90 ML IV ONE (15:01)
[2023-08-10] MEDS: propofoL 1,000 MG/100 ML VIAL IV ONE (15:01)
[2023-08-10] MEDS: PHENYLEPHRINE 40 MG in SODIUM CHLORIDE 0.9% 250 ML IV ONE (15:01)
[2023-08-10] MEDS: HEPARIN SODIUM,PORCINE (1 ML) 5,000 UNIT in SODIUM CHLORIDE 0.9% 500 ML 500 ML IV ONE (15:01)
[2023-08-10] MEDS: HEPARIN SODIUM 1,000 UN/ML (10ML VL) IV ONE (15:01)
[2023-08-10] MEDS: NOREPINEPHRINE 4 MG in SODIUM CHLORIDE 0.9% 250 ML IV ONE (15:01)
[2023-08-10] MEDS: PHENYLEPHRINE 10 MG/ML VIAL IV ONE (15:01)
[2023-08-10] MEDS: SODIUM BICARB 8.4% 50 ML SYR (1 MEQ/ML) IV ONE (15:02)
[2023-08-10] MEDS: SODIUM CHLORIDE 0.9% 1,000 ML IV ONE (15:02)
[2023-08-10] MEDS: PROTAMINE SULFATE 10 MG/ML 25 ML VIAL IV ONE (15:02)
[2023-08-10] MEDS: PROTAMINE SULFATE 250 MG in EMPTY BAG 1 BAG IV ONE (15:02)
[2023-08-10] MEDS: TRANEXAMIC ACID 2,000 MG in SODIUM CHLORIDE 0.9% 80 ML IV ONE (15:02)
[2023-08-10 16:39] LABS: Glucose,Whole Blood 186 mg/dL (70-110)
[2023-08-10 20:38] LABS: Glucose,Whole Blood 142 mg/dL (70-110)
--- NOTE | 2023-08-10 21:05 | PN ---
PROGRESS NOTE SUBJECTIVE: Parrish is a 58-year-old gentleman with history of aortic stenosis, who underwent elective aortic valve replacement. Today is postop day #2, doing well and is free of symptoms. OBJECTIVE: VITAL SIGNS: Heart rate is 80 beats per minute, blood pressure is 116/59, respiratory rate is 18. GENERAL: Comfortable at rest. CHEST: Reveals good air entry bilaterally. HEART: Reveals first and second heart sounds. No gallop. Has a systolic murmur at the left lower sternal border. ABDOMEN: Soft. EXTREMITIES: Did not reveal any edema. Peripheral pulses are palpable. MEDICATIONS: He is currently on, 1. Losartan 12.5 mg daily. 2. Lopressor 25 mg b.i.d. 3. Aspirin. 4. Lipitor. LABORATORY DATA: The patient's platelet count is low at 64. Labs show hemoglobin of 8.6, potassium is 4.3, creatinine is 0.87. ASSESSMENT: Unicuspid aortic valve, status post aortic valve replacement. PLAN: Continue with current medications. Incentive spirometry. Increase activity. MMODL / IJN: [id number] /
[2023-08-11 06:10] LABS: Glucose,Whole Blood 159 mg/dL (70-110)
--- NOTE | 2023-08-11 08:03 | XR ---
EXAMINATION TYPE: XR chest 2V DATE OF EXAM: 08/11/2023 COMPARISON: 08/10/2023 HISTORY: Shortness of breath TECHNIQUE: Frontal and lateral views of the chest are obtained. FINDINGS: Postoperative changes of cardiac surgery with sternotomy wires and mediastinal clips in place as well as left atrial clip. All indwelling tubes and catheters have been. Improving basilar atelectasis and small effusions. No evidence for infiltrate. Heart size is stable. Mediastinal structures are stable and grossly unremarkable. No evidence for hilar prominence. Degenerative changes dorsal spine. IMPRESSION: 1. Improving basilar atelectasis and small effusions.
[2023-08-11 09:25] LABS: Basophils % (A) 0 %; Eosinophils % (A) 0 %; HCT 27.2 % (39.0-53.0); Lymphocytes # (A) 1.4 k/uL (1.0-4.8); Lymphocytes % (A) 10 %; MCH 33.3 pg (25.0-35.0); MCHC 33.2 g/dL (31.0-37.0); MCV 100.2 fL (80.0-100.0); Mean Platelet Volume 10.1; Monocytes # (A) 1.1 k/uL (0-1.0); Monocytes % (A) 8 %; Neutrophils # (A) 10.3 k/uL (1.3-7.7); Neutrophils % (A) 79 %; RBC 2.71 m/uL (4.30-5.90); RDW 13.4 % (11.5-15.5)
[2023-08-11 09:32] LABS: Platelet Count 90 k/uL (150-450)
--- NOTE | 2023-08-11 09:57 | P.PN ---
Subjective Progress Note Date: 08/11/23 Principal diagnosis: Severely calcified unicuspid aortic valve with fusion of the right/left and the right/noncusps. Past medical history significant for aortic valve stenosis with rheumatic fever as a child, COPD with a preoperative FEV1 61% of predicted value and recent cessation from tobacco dependence. POD #2 aortic valve replacement using a 25 mm pericardial bioprosthesis Inspiris, exclusion of the left atrial appendage using a 40 mm atrial clip, intraoperative transesophageal echocardiogram and epiaortic scanning. Postoperative acute blood loss anemia and thrombocytopenia, expected given cardiopulmonary bypass and hemodilution. The patient was seen and examined in follow-up today August 11, 2023 at his bedside on the third floor cardiac stepdown unit. He is currently sitting up to the bedside chair, is awake, alert, oriented x 3 and is in no acute apparent di stress. He denies any complaints of pain or shortness of breath at this time, although is complaining of some nausea which he has complained of since surgery. Denies any emesis. He remains hemodynamically stable and is currently on no inotropic or pressor support. Remote telemetry is showing normal sinus rhythm heart rate 83 bpm. Oxygen saturations are 96% on 2 L nasal cannula and he is achieving 1000 mL on his incentive spirometry with encouragement. He reports he continues to ambulate in the hallway with standby assistance from nursing and therapy staff and tolerating well. Atrial and ventricular epicardial pacemaker wires remain in place and are grounded. Chest x-ray and laboratory results were reviewed. Objective - Vital Signs Vital signs: Vital Signs Temp 98.4 F 08/11/23 07:55 Pulse 90 08/11/23 09:34 Resp 18 08/11/23 07:55 BP 111/72 08/11/23 07:55 Pulse Ox 97 08/11/23 09:19 FiO2 45 08/08/23 16:30 Intake & Output 08/10/23 08/11/23 08/11/23 18:59 06:59 18:59 Intake Total 118 20 10 Output Total 80 300 Balance 38 -280 10 Weight 78.7 kg Intake: IV 118 20 10 0.9 @ 50 90 Invasive Line 1 10 20 10 pressure bags 18 Output: Chest Tube Drainage 0 Bilateral Mediastinal 0 Urine 80 300 Other: Voiding Method Urinal Toilet Urinal # Voids 1 1 ABP, PAP, CO, CI - Last Documented Arterial Blood Pressure 116/59 Pulmonary Artery Pressure 32/15 Cardiac Output 6.4 Cardiac Index 3.4 - Exam CONSTITUTIONAL: Sitting up to the bedside chair on the third floor cardiac stepdown unit, appears comfortable, cooperative, no apparent acute distress. HEENT: Neck is supple, no JVD, no lymphadenopathy. RESPIRATORY: Lungs sounds essentially clear throughout, diminished to his bilateral bases. Respirations are symmetrical and nonlabored. Currently on 2 L nasal cannula with oxygen saturations 96%. Able to achieve 1000 mL on his incentive spirometry. Strong cough. CARDIOVASCULAR: Regular rhythm and rate. S1 and S2 present, negative for S3, gallop or murmur. Remote telemetry showing normal sinus rhythm heart rate 83 bpm. Sternum is stable. Palpable peripheral pulses bilaterally. No calf pain or tenderness noted. Heart hugger in place with patient demonstrating appropriate use. Knee-high SERJIO hose and sequential compression devices in place to his bilateral lower extremities. GASTROINTESTINAL: Abdomen soft, nontender, nondistended. Active bowel sounds present 4 quadrants. Tolerating diet. Passing flatus. No guarding or rigidity. Nauseous. GENITOURINARY: Continues to void. 300 mL of urine output in the last 8 hours. INTEGUMENTARY: Skin is warm and dry with no evidence of clubbing or cyanosis. Midline sternal incision clean dry and well approximated, covered with dry intact dressing. NEUROLOGIC: Cranial nerves II through XII intact. No focal deficits. MUSKULOSKELETAL: Able to move all extremities, strength equal bilaterally. PSYCHIATRIC: Alert and oriented to person place and time, appropriate affect, intact judgment and insight. INVASIVE LINES AND TUBES: Atrial and ventricular epicardial pacemaker wires present, grounded. - Allied health notes Allied health notes reviewed: nursing - Labs CBC & Chem 7: 08/11/23 08:07 08/10/23 04:05 Labs: Abnormal Lab Results - Last 24 Hours (Table) 08/10/23 08/10/23 08/10/23 Range/Units 11:30 16:38 20:36 WBC (3.8-10.6) k/uL RBC (4.30-5.90) m/uL Hgb (13.0-17.5) gm/dL Hct (39.0-53.0) % MCV (80.0-100.0) fL Plt Count (150-450) k/uL Neutrophils # (1.3-7.7) k/uL Monocytes # (0-1.0) k/uL POC Glucose (mg/dL) 151 H 186 H 142 H (70-110) mg/dL 08/11/23 08/11/23 Range/Units 06:08 08:07 WBC 13.0 H (3.8-10.6) k/uL RBC 2.71 L (4.30-5.90) m/uL Hgb 9.0 L (13.0-17.5) gm/dL Hct 27.2 L (39.0-53.0) % MCV 100.2 H (80.0-100.0) fL Plt Count 90 L (150-450) k/uL Neutrophils # 10.3 H (1.3-7.7) k/uL Monocytes # 1.1 H (0-1.0) k/uL POC Glucose (mg/dL) 159 H (70-110) mg/dL - Imaging and Cardiology Chest x-ray: report reviewed, image reviewed Assessment and Plan Assessment: Severely calcified unicuspid aortic valve with fusion of the right/left and right/noncusps, status post aortic valve replacement using a 25 mm pericardial bioprosthesis Inspiris COPD with a preoperative FEV1 61% of predicted value Rheumatic fever as a child Recent cessation from tobacco dependence Postoperative acute blood loss anemia and thrombocytopenia expected given c ardiopulmonary bypass and hemodilution Plan: Continue to maximize medical therapy with aspirin, statin, Plavix, and beta- suraj. Will increase beta-suraj therapy as tolerated. Continue Cozaar 12.5 mg p.o. daily for afterload reduction with hold parameters. Discontinue amiodarone due to complaints of nausea. Wean O2 as tolerated. Encourage incentive spirometry use 10 times every hour while awake. Bronchodilators per pulmonology. Increase activity, ambulate as tolerated. PT/OT/cardiac rehab following. Will monitor daily labs and chest x-rays. Electrolyte replacement per protocol. Insulin management per internal medicine. Preoperative hemoglobin A1c 5.8%. Pain control with current medication regimen. Continue to hold Toradol, platelets trending up to 90 today. GI/DVT prophylaxis. Continue to record strict accurate intake and output. May bladder scan and straight cath for greater than 300 mL residual Daily weights. Shower daily. Keep epicardial pacemaker wires in place. Discharge planning is in place. More recommendations to follow based on patient's clinical course. Time with Patient: Greater than 30
[2023-08-11 10:00] LABS: ALT 32 U/L (4-49); AST 43 U/L (17-59); African American GFR (CKD) >90 (>60 ml/min/1.73 sqM); Albumin 3.6 g/dL (3.5-5.0); Alkaline Phosphatase 37 U/L (38-126); Anion Gap 7 mmol/L; Blood Urea Nitrogen 33 mg/dL (9-20); Calcium 8.8 mg/dL (8.4-10.2); Carbon Dioxide 22 mmol/L (22-30); Chloride 107 mmol/L (98-107); Glucose 133 mg/dL (74-99); Non-African American GFR(CKD) >90 (>60 ml/min/1.73 sqM); Potassium 4.3 mmol/L (3.5-5.1); Sodium 136 mmol/L (137-145); Total Bilirubin 0.8 mg/dL (0.2-1.3); Total Protein 5.8 g/dL (6.3-8.2)
[2023-08-11] MEDS: FUROSEMIDE 10 MG/ML 2 ML VIAL IV STA (10:42)
[2023-08-11 11:46] LABS: Glucose,Whole Blood 168 mg/dL (70-110)
--- NOTE | 2023-08-11 11:56 | P.PN ---
Subjective HISTORY OF PRESENT ILLNESS: Patient is status post bioprosthetic aortic valve replacement. Postop day #3. Patient examined this morning. He is sitting up in the chair. Patient denies chest pain or pressure. He denies shortness of breath. Patient has been up ambulating without difficulty. Telemetry reveals sinus mechanism. Vital signs are stable. PHYSICAL EXAM: VITAL SIGNS: Reviewed. GENERAL: Well-developed in no acute distress. NECK: Supple. No JVD or thyromegaly LUNGS: Respirations even and unlabored. Lungs essentially clear to auscultation bilaterally. HEART: Regular rate and rhythm. S1 and S2 heard. Heart hugger noted. EXTREMITIES: Normal range of motion. No clubbing or cyanosis. Peripheral pulses intact. No lower extremity edema ASSESSMENT: Unicuspid aortic valve, status post bioprosthetic aortic valve replacement COPD Former nicotine dependence with recent cessation Rheumatic fever as a child PLAN: Continue postoperative management per CT surgery Continue current cardiac medications Continue telemetry monitoring Increase activity as tolerated Encourage use of incentive spirometer Further recommendations pending patient course Nurse practitioner note has been reviewed by physician. Signing provider agrees with the documented findings, assessment, and plan of care documented by WET END TESTER as a scribe. Objective - Vital Signs Vital signs: Vital Signs Temp 98.4 F 08/11/23 07:55 Pulse 83 08/11/23 11:50 Resp 20 08/11/23 11:50 BP 108/71 08/11/23 11:50 Pulse Ox 95 08/11/23 11:50 FiO2 45 08/08/23 16:30 Intake & Output 08/10/23 08/11/23 08/11/23 18:59 06:59 18:59 Intake Total 118 20 368 Output Total 80 300 Balance 38 -280 368 Weight 78.7 kg Intake: IV 118 20 10 0.9 @ 50 90 Invasive Line 1 10 20 10 pressure bags 18 Oral 358 Output: Chest Tube Drainage 0 Bilateral Mediastinal 0 Urine 80 300 Other: Voiding Method Urinal Toilet Toilet Urinal Urinal # Voids 1 1 ABP, PAP, CO, CI - Last Documented Arterial Blood Pressure 116/59 Pulmonary Artery Pressure 32/15 Cardiac Output 6.4 Cardiac Index 3.4 - Labs CBC & Chem 7: 08/11/23 08:07 08/11/23 08:07 Labs: Abnormal Lab Results - Last 24 Hours (Table) 08/10/23 08/10/23 08/11/23 Range/Units 16:38 20:36 06:08 WBC (3.8-10.6) k/uL RBC (4.30-5.90) m/uL Hgb (13.0-17.5) gm/dL Hct (39.0-53.0) % MCV (80.0-100.0) fL Plt Count (150-450) k/uL Neutrophils # (1.3-7.7) k/uL Monocytes # (0-1.0) k/uL Sodium (137-145) mmol/L BUN (9-20) mg/dL Glucose (74-99) mg/dL POC Glucose (mg/dL) 186 H 142 H 159 H (70-110) mg/dL Alkaline Phosphatase (38-126) U/L Total Protein (6.3-8.2) g/dL 08/11/23 08/11/23 08/11/23 Range/Units 08:07 08:07 11:44 WBC 13.0 H (3.8-10.6) k/uL RBC 2.71 L (4.30-5.90) m/uL Hgb 9.0 L (13.0-17.5) gm/dL Hct 27.2 L (39.0-53.0) % MCV 100.2 H (80.0-100.0) fL Plt Count 90 L (150-450) k/uL Neutrophils # 10.3 H (1.3-7.7) k/uL Monocytes # 1.1 H (0-1.0) k/uL Sodium 136 L (137-145) mmol/L BUN 33 H (9-20) mg/dL Glucose 133 H (74-99) mg/dL POC Glucose (mg/dL) 168 H (70-110) mg/dL Alkaline Phosphatase 37 L (38-126) U/L Total Protein 5.8 L (6.3-8.2) g/dL
--- NOTE | 2023-08-11 12:06 | P.PN ---
Subjective Progress Note Date: 08/11/23 Principal diagnosis: Aortic stenosis. This is a 58-year-old male patient with a history of former smoking, rheumatoid fever as a child and was found to have severe aortic stenosis. He presented today for an elective aortic valve replacement. He was found to have a unicuspid severely calcified aortic valve with fusion of the right left and the right 9 cusp as cusps. He did undergo aortic valve replacement with a 25 mm pericardial bioprosthetic Inspiris valve and exclusion of left atrial appendage utilizing the atriaclip. He is seen in the immediate postoperative period in the intensive care unit. He is on the mechanical ventilator on assist-control mode at a rate of 16, tidal volume 450, FiO2 100% and a PEEP of 5. Initial blood gases revealed a PaO2 of 226, pCO2's at 44 and a pH of 7.35. He is currently on a nitroglycerin drip at 5 mcg/min. Propofol at 20 mcg/kg/min. Primacor at 0.2 mcg/kg/min. Normal saline at 50 MLS per hour and an insulin drip at 1 unit/h. Chest x-ray reveals good placement of the endotracheal tube, nasogastric tube, Hector-Cassandra catheter and mediastinal chest tubes. Mild pulmonary edema. No pneumothorax. White count 12.2. Hemoglobin 9.7. He has been initiated on bronchodilators and cefazolin. The patient is seen today August 09, 2023 in follow-up in the intensive care unit. He is currently sitting up in a chair at the bedside. Awake and alert in no acute distress. He is maintaining good O2 saturations in the 90s on 5 L/min per nasal cannula. He did have issues last night with nausea and vomiting and required 15 L high flow nasal cannula. This was felt to be possibly related to the Cleviprex which has since been discontinued. He did receive albumin this morning. He remains on insulin at 4 units/h. Milrinone is at 0.1 mcg/kg/min. Nitroglycerin at 10 mcg/min. Cardiac output 6.7. Cardiac index 3.6. PA pressu res 35/15. CVP of 10. He has a right internal jugular Hector-Cassandra catheter in place. Left radial arterial line in place. Chest tubes remain in place. Chest x-ray reveals small pleural effusions. Some basilar atelectasis. No evidence of pneumothorax. White count 15.3. Hemoglobin 9.3. Platelets 85,000. Sodium 142. Potassium 4.1. Bicarb 22. BUN 24. Creatinine 0.90. Glucose 154. He remains on bronchodilators. He is working well with the incentive spirometer. Heparin for DVT prophylaxis. The patient is seen today August 10, 2023 in follow-up in the intensive care unit. He is currently sitting up in a chair at the bedside. Awake and alert in no acute distress. Postoperative day #2 of his aortic valve replacement. He is maintaining good O2 saturation in the 90s on 2 L/min per nasal cannula. He has normal saline at 30 MLS per hour. He is continued on bronchodilators, Arixtra for DVT prophylaxis. X-ray reveals small bilateral effusions. No pneumothorax. White count 14.1. Hemoglobin 8.6. Platelets 64,000. Sodium 139. Potassium 4.3. Bicarb 24. BUN 31. Creatinine 0.87. Glucose 109. Progress note dated August 11, 2023. The patient is seen today in room 370. He is on room air. He is not receiving any IV fluids. The patient is postoperative day #3, status post aortic valve replacement. The patient has no specific complaints today. He is doing better. Labs include a white count 13, hemoglobin 9, hematocrit 27.2, and a platelet count of 90,000. Sodium 136, potassium 4.3, chlorides 107, CO2 22, BUN 33, and creatinine 0.82. Glucose is 133. Albumin is 3.6. Chest x-ray shows an improving pattern of basilar atelectasis and small effusions. Objective - Vital Signs Vital signs: Vital Signs Temp 98.4 F 08/11/23 07:55 Pulse 83 08/11/23 11:50 Resp 20 08/11/23 11:50 BP 108/71 08/11/23 11:50 Pulse Ox 95 08/11/23 11:50 FiO2 45 08/08/23 16:30 Intake & Output 08/10/23 08/11/23 08/11/23 18:59 06:59 18:59 Intake Total 118 20 368 Output Total 80 300 Balance 38 -280 368 Weight 78.7 kg Intake: IV 118 20 10 0.9 @ 50 90 Invasive Line 1 10 20 10 pressure bags 18 Oral 358 Output: Chest Tube Drainage 0 Bilateral Mediastinal 0 Urine 80 300 Other: Voiding Method Urinal Toilet Toilet Urinal Urinal # Voids 1 1 ABP, PAP, CO, CI - Last Documented Arterial Blood Pressure 116/59 Pulmonary Artery Pressure 32/15 Cardiac Output 6.4 Cardiac Index 3.4 - Exam No acute distress, oriented 3. Currently on room air. HEENT examination is grossly unremarkable. Mucous membranes are moist. No oral lesions. Neck supple. Full range of motion. No adenopathy thyromegaly or neck vein distention. Cardiovascular examination reveals regular rhythm rate. S1-S2 normal. No S3 or S4. No discernible murmur noted. Heart rate 83 bpm. Lungs reveal mostly clear breath sounds. Minimal scattered rhonchi. No wheezes or crackles. Room air saturation is 95 to 96%. Abdomen soft bowel sounds are heard. No masses or tenderness. Extremities are intact. No cyanosis clubbing or edema. Skin is without rash or lesion. Neurologic examination is brief but nonfocal. - Labs CBC & Chem 7: 08/11/23 08:07 08/11/23 08:07 Labs: Abnormal Lab Results - Last 24 Hours (Table) 08/10/23 08/10/23 08/11/23 Range/Units 16:38 20:36 06:08 WBC (3.8-10.6) k/uL RBC (4.30-5.90) m/uL Hgb (13.0-17.5) gm/dL Hct (39.0-53.0) % MCV (80.0-100.0) fL Plt Count (150-450) k/uL Neutrophils # (1.3-7.7) k/uL Monocytes # (0-1.0) k/uL Sodium (137-145) mmol/L BUN (9-20) mg/dL Glucose (74-99) mg/dL POC Glucose (mg/dL) 186 H 142 H 159 H (70-110) mg/dL Alkaline Phosphatase (38-126) U/L Total Protein (6.3-8.2) g/dL 08/11/23 08/11/23 08/11/23 Range/Units 08:07 08:07 11:44 WBC 13.0 H (3.8-10.6) k/uL RBC 2.71 L (4.30-5.90) m/uL Hgb 9.0 L (13.0-17.5) gm/dL Hct 27.2 L (39.0-53.0) % MCV 100.2 H (80.0-100.0) fL Plt Count 90 L (150-450) k/uL Neutrophils # 10.3 H (1.3-7.7) k/uL Monocytes # 1.1 H (0-1.0) k/uL Sodium 136 L (137-145) mmol/L BUN 33 H (9-20) mg/dL Glucose 133 H (74-99) mg/dL POC Glucose (mg/dL) 168 H (70-110) mg/dL Alkaline Phosphatase 37 L (38-126) U/L Total Protein 5.8 L (6.3-8.2) g/dL Assessment and Plan Assessment: Severe aortic stenosis status post aortic valve replacement using a 25 mm pericardial bioprosthesis Inspiris valve with exclusion of left atrial appendage with an Atriclip postoperative day #3. Acute hypoxic respiratory failure secondary to nausea and vomiting episodes, suspect secondary to Cleviprex, discontinued. Basilar atelectasis, small effusi ons. Former smoker. History of childhood rheumatoid arthritis. Plan: Plan dated August 11, 2023. The patient appears to be doing much better. He is on room air. He is not receiving any IV fluids. His chest x-ray shows some basilar atelectasis with small effusions. We recommend deep breathing, coughing, clearing of secretions. We also recommend ongoing use of the incentive spirometer, every hour. Labs, x-rays, and all medications are reviewed. The patient's prognosis is thought to be generally good. We will continue to follow. Time with Patient: Less than 30
[2023-08-11] MEDS: INSULIN ASPART (NovoLOG) 100 UNIT/ML VIAL SQ SCH (13:10)
--- NOTE | 2023-08-11 14:35 | P.PN ---
Subjective Progress Note Date: 08/11/23 This is a 58-year-old gentleman status post aortic valve replacement , postop day #1, secondary to severe aortic stenosis, acute hypoxic respiratory failure, former nicotine dependence and multiple other medical issues. Significant clinical improvement. During the night patient developed nausea and vomiting, required 15 L high flow nasal cannula -suspected related to Cleviprex-which has been discontinued. Nitroglycerin, Primacor drips weaned off, currently on insulin drip. Blood sugars controlled. Chest x-ray reporting suspect small developing pleural effusions, slight worsening bibasilar atelectasis or developing infiltrate.Maintaining O2 sats in the 90s on 5 L nasal cannula. Incentive spirometer up to 700 .ambulated in the hallway, tolerating exertion well. Tmax 99.7, WBC 15.3, hemoglobin 9.3, platelets 85, sodium 142, potassium 4.1 BUN 24, creatinine 0.9, magnesium 2.2. Cardiac output 6.7. Cardiac index 3.6. PA pressures 35/15. CVP 10. No flatus. 08/10/2023 chest x-ray reports small bilateral effusions , O2 sats in the 90s on 2 L nasal cannula. Incentive spirometer up to 1000. afebrile, WBC 14.1. Hemoglobin 8.6, platelets 64 electrolytes stable. Bicarb 24, BUN 31, creatinine 0.87. blood sugars stable. Pain controlled. 08/11/2023 Picked up care from Dr. Grullon today. Patient has been moved out of the ICU and chest tubes have been moved. Pacer wires remain in place. He is reporting significant incisional discomfort and also reports feeling dizzy/lightheaded when up ambulating. Postoperative day #2 aortic valve replacement. Maintained on Plavix.Chest x-ray reveals improving basilar atelectasis and small effusions. Patient did receive a dose of IV Lasix today. Will be getting up into the shower today he does need encouragement to ambulate and to use his incentive spirometer. Renal function remains within normal limits. White blood cell count improving. Review of Systems Constitutional: Denied any fatigue denied any fever. Cardio vascular: denied any chest pain, palpitations Gastrointestinal: denied any nausea, vomiting, diarrhea Pulmonary: Denied any shortness of breath cough Neurologic denied any new focal deficits All inpatient medications were reviewed and appropriate changes in these medications as dictated in the interval history and assessment and plan. PHYSICAL EXAMINATION: GENERAL: The patient is alert and oriented x3, not in any acute distress. Well developed, well nourished. HEENT: Pupils are round and equally reacting to light. EOMI. No scleral icterus. No conjunctival pallor. Normocephalic, atraumatic. No pharyngeal erythema. No thyromegaly. CARDIOVASCULAR: S1 and S2 present. No murmurs, rubs, or gallops. PULMONARY: Chest is clear to auscultation, no wheezing or crackles. Chest tube site incisions are approximated. ABDOMEN: Soft, nontender, nondistended, normoactive bowel sounds. No palpable organomegaly. MUSCULOSKELETAL: No joint swelling or deformity. EXTREMITIES: No cyanosis, clubbing, or pedal edema. NEUROLOGICAL: Gross neurological examination did not reveal any focal deficits. SKIN: No rashes. Assessment and plan Severe aortic stenosis status post aortic valve replacement postoperative day #2 Acute hypoxic respiratory failure resolved and patient is currently on 2 L of nasal cannula. ;patient had episode of nausea/vomiting likely from the cleviprex which has been discontinued. Bilateral pleural effusions received a dose of IV lasix today. Postoperative acute blood loss anemia and thrombocytopenia, expected outcome hemoglobin stable at 10 and platelet count is improving up to 90 COPD Former nicotine dependence, recently quit Childhood rheumatoid arthritis. DVT prophylaxis patient is on arixtra GI prophylaxis Full Code Patient remains on the cardiac unit. He needs encouragement to ambulate and use the incentive spirometer. Scheduled meal time insulin has been added and will monitor blood glucose closely may require small dose of levemir for improved glycemic control. The impression and plan of care has been dictated by Julianna Montgomery, Nurse Practitioner as directed. Dr. Eriberto MD I have performed a history and physical examination and medical decision making of this patient, discussed the same with the dictator, and agree with the dictators assessment and plan as written, documented as a scribe. Based on total visit time, I have performed more than 50% of this visit. Objective - Vital Signs Vital signs: Vital Signs Temp 98.4 F 08/11/23 07:55 Pulse 86 08/11/23 12:49 Resp 20 08/11/23 11:50 BP 108/71 08/11/23 11:50 Pulse Ox 95 08/11/23 11:50 FiO2 45 08/08/23 16:30 Intake & Output 08/10/23 08/11/23 08/11/23 18:59 06:59 18:59 Intake Total 118 20 378 Output Total 80 300 Balance 38 -280 378 Weight 78.7 kg Intake: IV 118 20 20 0.9 @ 50 90 Invasive Line 1 10 20 20 pressure bags 18 Oral 358 Output: Chest Tube Drainage 0 Bilateral Mediastinal 0 Urine 80 300 Other: Voiding Method Urinal Toilet Toilet Urinal Urinal # Voids 1 1 ABP, PAP, CO, CI - Last Documented Arterial Blood Pressure 116/59 Pulmonary Artery Pressure 32/15 Cardiac Output 6.4 Cardiac Index 3.4 - Labs CBC & Chem 7: 08/11/23 08:07 08/11/23 08:07 Labs: Abnormal Lab Results - Last 24 Hours (Table) 08/10/23 08/10/23 08/11/23 Range/Units 16:38 20:36 06:08 WBC (3.8-10.6) k/uL RBC (4.30-5.90) m/uL Hgb (13.0-17.5) gm/dL Hct (39.0-53.0) % MCV (80.0-100.0) fL Plt Count (150-450) k/uL Neutrophils # (1.3-7.7) k/uL Monocytes # (0-1.0) k/uL Sodium (137-145) mmol/L BUN (9-20) mg/dL Glucose (74-99) mg/dL POC Glucose (mg/dL) 186 H 142 H 159 H (70-110) mg/dL Alkaline Phosphatase (38-126) U/L Total Protein (6.3-8.2) g/dL 08/11/23 08/11/23 08/11/23 Range/Units 08:07 08:07 11:44 WBC 13.0 H (3.8-10.6) k/uL RBC 2.71 L (4.30-5.90) m/uL Hgb 9.0 L (13.0-17.5) gm/dL Hct 27.2 L (39.0-53.0) % MCV 100.2 H (80.0-100.0) fL Plt Count 90 L (150-450) k/uL Neutrophils # 10.3 H (1.3-7.7) k/uL Monocytes # 1.1 H (0-1.0) k/uL Sodium 136 L (137-145) mmol/L BUN 33 H (9-20) mg/dL Glucose 133 H (74-99) mg/dL POC Glucose (mg/dL) 168 H (70-110) mg/dL Alkaline Phosphatase 37 L (38-126) U/L Total Protein 5.8 L (6.3-8.2) g/dL Assessment and Plan Time with Patient: Less than 30
[2023-08-11 16:41] LABS: Glucose,Whole Blood 131 mg/dL (70-110)
[2023-08-11 20:33] LABS: Glucose,Whole Blood 125 mg/dL (70-110)
[2023-08-12 05:03] LABS: HGB 8.9 gm/dL (13.0-17.5); MCH 33.4 pg (25.0-35.0); MCHC 33.2 g/dL (31.0-37.0); MCV 100.7 fL (80.0-100.0); Mean Platelet Volume 9.1; RBC 2.68 m/uL (4.30-5.90); RDW 13.1 % (11.5-15.5); WBC 13.2 k/uL (3.8-10.6)
[2023-08-12 05:16] LABS: Platelet Count 142 k/uL (150-450)
[2023-08-12 05:20] LABS: African American GFR (CKD) >90 (>60 ml/min/1.73 sqM); Anion Gap 10 mmol/L; Blood Urea Nitrogen 31 mg/dL (9-20); Calcium 8.8 mg/dL (8.4-10.2); Carbon Dioxide 24 mmol/L (22-30); Chloride 105 mmol/L (98-107); Glucose 124 mg/dL (74-99); Non-African American GFR(CKD) >90 (>60 ml/min/1.73 sqM); Potassium 3.8 mmol/L (3.5-5.1); Sodium 139 mmol/L (137-145)
[2023-08-12 06:12] LABS: Glucose,Whole Blood 116 mg/dL (70-110)
[2023-08-12] MEDS: FUROSEMIDE 10 MG/ML 2 ML VIAL IV STA (07:52)
[2023-08-12] MEDS: POTASSIUM CHLORIDE ER 20 MEQ TAB.ER PO SCH ×2 (07:53→16:48)
--- NOTE | 2023-08-12 07:57 | XR ---
EXAMINATION TYPE: XR chest 1V portable DATE OF EXAM: 08/12/2023 HISTORY: Shortness of breath. COMPARISON: 08/11/2023 TECHNIQUE: Single view of the chest is submitted. FINDINGS: Demonstrated are scattered senescent parenchymal change. Basilar linear parenchymal atelectasis and small effusions. Improving aeration at the lung bases. Sta tus post TAPVR. The heart is stable. Hilar and mediastinal structures are within normal limits. Degenerative changes are seen of the dorsal spine. IMPRESSION: 1. Basilar linear parenchymal atelectasis and small effusions. Improving aeration at the lung bases. Status post TAPVR.
--- NOTE | 2023-08-12 09:33 | P.PN ---
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 Past medical history significant for aortic valve stenosis with rheumatic fever as a child, COPD with a preoperative FEV1 61% of predicted value and recent cessation from tobacco dependence. POD #3 aortic valve replacement using a 25 mm pericardial bioprosthesis Inspiris, exclusion of the left atrial appendage using a 40 mm atrial clip, intraoperative transesophageal echocardiogram and epiaortic scanning. Postoperative acute blood loss anemia and thrombocytopenia, expected given cardiopulmonary bypass and hemodilution. Patient was seen and examined in follow-up today August 12, 2023 at his bedside on the third floor cardiac stepdown unit. He is currently sitting up to the bedside chair, is awake, alert, oriented x 3 and is in no acute apparent distre ss. Denies any complaints of pain or shortness of breath at this time, he also reports that his nausea is much improved in the last 24 hours. Denies any nausea at this time. Remote telemetry is showing normal sinus rhythm heart rate 70 bpm. Oxygen saturations are 95% on room air and he is achieving 1000 mL on his incentive spirometry with encouragement. He reports he has been up ambulating in the cardiac stepdown unit hallway with standby assistance from nursing and therapy staff and tolerating well. He had his first postoperative shower yesterday and tolerated well. Atrial and ventricular epicardial pacemaker wires are in place and are grounded. Chest x-ray and laboratory results reviewed. Objective - Vital Signs Vital signs: Vital Signs Temp 98.7 F 08/12/23 07:49 Pulse 82 08/12/23 08:14 Resp 16 08/12/23 07:49 BP 126/79 08/12/23 07:49 Pulse Ox 95 08/12/23 07:59 FiO2 45 08/08/23 16:30 Intake & Output 08/11/23 08/12/23 08/12/23 18:59 06:59 18:59 Intake Total 378 10 10 Balance 378 10 10 Weight 77.4 kg Intake: IV 20 10 10 Invasive Line 1 20 10 10 Oral 358 Other: Voiding Method Toilet Toilet Urinal Urinal # Voids 2 ABP, PAP, CO, CI - Last Documented Arterial Blood Pressure 116/59 Pulmonary Artery Pressure 32/15 Cardiac Output 6.4 Cardiac Index 3.4 - Exam CONSTITUTIONAL: Sitting up to the bedside chair on the third floor cardiac stepdown unit, appears comfortable, cooperative, no apparent acute distress. HEENT: Neck is supple, no JVD, no lymphadenopathy. RESPIRATORY: Lungs sounds essentially clear throughout, diminished to his bilateral bases. Respirations are symmetrical and nonlabored. Currently on room air with oxygen saturations 95%. Able to achieve 1000 mL on his incentive spirometry. Strong cough. CARDIOVASCULAR: Regular rhythm and rate. S1 and S2 present, negative for S3, gallop or murmur. Remote telemetry showing normal sinus rhythm heart rate 70 bpm. Sternum is stable. Palpable peripheral pulses bilaterally. No calf pain or tenderness noted. Heart hugger in place with patient demonstrating appropriate use. Knee-high SERJIO hose and sequential compression devices in place to his bilateral lower extremities. GASTROINTESTINAL: Abdomen soft, nontender, nondistended. Active bowel sounds present 4 quadrants. Tolerating diet. Passing flatus. No guarding or rigidity. Nauseous. GENITOURINARY: Continues to void. INTEGUMENTARY: Skin is warm and dry with no evidence of clubbing or cyanosis. Midline sternal incision clean dry and well approximated, covered with dry intact dressing. NEUROLOGIC: Cranial nerves II through XII intact. No focal deficits. MUSKULOSKELETAL: Able to move all extremities, strength equal bilaterally. PSYCHIATRIC: Alert and oriented to person place and time, appropriate affect, intact judgment and insight. INVASIVE LINES AND TUBES: Atrial and ventricular epicardial pacemaker wires present, grounded. - Allied health notes Allied health notes reviewed: nursing - Labs CBC & Chem 7: 08/12/23 04:01 08/12/23 04:01 Labs: Abnormal Lab Results - Last 24 Hours (Table) 08/11/23 08/11/23 08/11/23 Range/Units 08:07 08:07 11:44 WBC 13.0 H (3.8-10.6) k/uL RBC 2.71 L (4.30-5.90) m/uL Hgb 9.0 L (13.0-17.5) gm/dL Hct 27.2 L (39.0-53.0) % MCV 100.2 H (80.0-100.0) fL Plt Count 90 L (150-450) k/uL Neutrophils # 10.3 H (1.3-7.7) k/uL Monocytes # 1.1 H (0-1.0) k/uL Sodium 136 L (137-145) mmol/L BUN 33 H (9-20) mg/dL Glucose 133 H (74-99) mg/dL POC Glucose (mg/dL) 168 H (70-110) mg/dL Alkaline Phosphatase 37 L (38-126) U/L Total Protein 5.8 L (6.3-8.2) g/dL 08/11/23 08/11/23 08/12/23 Range/Units 16:39 20:31 04:01 WBC 13.2 H (3.8-10.6) k/uL RBC 2.68 L (4.30-5.90) m/uL Hgb 8.9 L (13.0-17.5) gm/dL Hct 27.0 L (39.0-53.0) % MCV 100.7 H (80.0-100.0) fL Plt Count 142 L D (150-450) k/uL Neutrophils # (1.3-7.7) k/uL Monocytes # (0-1.0) k/uL Sodium (137-145) mmol/L BUN (9-20) mg/dL Glucose (74-99) mg/dL POC Glucose (mg/dL) 131 H 125 H (70-110) mg/dL Alkaline Phosphatase (38-126) U/L Total Protein (6.3-8.2) g/dL 08/12/23 08/12/23 Range/Units 04:01 06:11 WBC (3.8-10.6) k/uL RBC (4.30-5.90) m/uL Hgb (13.0-17.5) gm/dL Hct (39.0-53.0) % MCV (80.0-100.0) fL Plt Count (150-450) k/uL Neutrophils # (1.3-7.7) k/uL Monocytes # (0-1.0) k/uL Sodium (137-145) mmol/L BUN 31 H (9-20) mg/dL Glucose 124 H (74-99) mg/dL POC Glucose (mg/dL) 116 H (70-110) mg/dL Alkaline Phosphatase (38-126) U/L Total Protein (6.3-8.2) g/dL - Imaging and Cardiology Chest x-ray: report reviewed, image reviewed Assessment and Plan Assessment: Severely calcified unicuspid aortic valve with fusion of the right/left and righ t/noncusps, status post aortic valve replacement using a 25 mm pericardial bioprosthesis Inspiris COPD with a preoperative FEV1 61% of predicted value Rheumatic fever as a child Recent cessation from tobacco dependence Postoperative acute blood loss anemia and thrombocytopenia expected given cardiopulmonary bypass and hemodilution Plan: Continue to maximize medical therapy with aspirin, statin, Plavix, and beta- suraj. Will increase beta-suraj therapy as tolerated. Continue Cozaar 12.5 mg p.o. daily for afterload reduction with hold parameters. Encourage incentive spirometry use 10 times every hour while awake. Bronchodilators per pulmonology. Increase activity, ambulate as tolerated. PT/OT/cardiac rehab following. Will monitor daily labs and chest x-rays. Electrolyte replacement per protocol. Insulin management per internal medicine. Preoperative hemoglobin A1c 5.8%. Pain control with current medication regimen. GI/DVT prophylaxis. Continue to record strict accurate intake and output. May bladder scan and straight cath for greater than 300 mL residual Daily weights. Shower daily. Keep epicardial pacemaker wires in place. We will remove his epicardial pacemaker wires tomorrow August 13, 2023. Discharge planning is in place, anticipate discharge home within the next 24 hours with home health care. More recommendations to follow based on patient's clinical course. Time with Patient: Greater than 30
--- NOTE | 2023-08-12 10:03 | P.PN ---
Subjective HISTORY OF PRESENT ILLNESS: Patient is status post bioprosthetic aortic valve replacement. Postop day #3. Patient examined this morning. He is sitting up in the chair. Patient denies chest pain or pressure. He denies shortness of breath. Patient has been up ambulating without difficulty. Telemetry reveals sinus mechanism. Vital signs are stable. 08/12/2023 Patient examined this morning at bedside. Patient denies chest pain or pressure . He denies shortness of breath. Vital signs are stable. Telemetry reveals sinus mechanism. PHYSICAL EXAM: VITAL SIGNS: Reviewed. GENERAL: Well-developed in no acute distress. NECK: Supple. No JVD or thyromegaly LUNGS: Respirations even and unlabored. Lungs essentially clear to auscultation bilaterally. HEART: Regular rate and rhythm. S1 and S2 heard. Heart hugger noted. EXTREMITIES: Normal range of motion. No clubbing or cyanosis. Peripheral pulses intact. No lower extremity edema ASSESSMENT: Unicuspid aortic valve, status post bioprosthetic aortic valve replacement COPD Former nicotine dependence with recent cessation Rheumatic fever as a child PLAN: Continue postoperative management per CT surgery Continue current cardiac medications Continue telemetry monitoring Increase activity as tolerated Encourage use of incentive spirometer Further recommendations pending patient course Nurse practitioner note has been reviewed by physician. Signing provider agrees with the documented findings, assessment, and plan of care documented by REACTOR KETTLE OPERATOR as a scribe. Objective - Vital Signs Vital signs: Vital Signs Temp 98.7 F 08/12/23 07:49 Pulse 82 08/12/23 08:14 Resp 16 08/12/23 07:49 BP 126/79 08/12/23 07:49 Pulse Ox 95 08/12/23 07:59 FiO2 45 08/08/23 16:30 Intake & Output 08/11/23 08/12/23 08/12/23 18:59 06:59 18:59 Intake Total 378 10 10 Balance 378 10 10 Weight 77.4 kg Intake: IV 20 10 10 Invasive Line 1 20 10 10 Oral 358 Other: Voiding Method Toilet Toilet Urinal Urinal # Voids 2 ABP, PAP, CO, CI - Last Documented Arterial Blood Pressure 116/59 Pulmonary Artery Pressure 32/15 Cardiac Output 6.4 Cardiac Index 3.4 - Labs CBC & Chem 7: 08/12/23 04:01 08/12/23 04:01 Labs: Abnormal Lab Results - Last 24 Hours (Table) 08/11/23 08/11/23 08/11/23 Range/Units 11:44 16:39 20:31 WBC (3.8-10.6) k/uL RBC (4.30-5.90) m/uL Hgb (13.0-17.5) gm/dL Hct (39.0-53.0) % MCV (80.0-100.0) fL Plt Count (150-450) k/uL BUN (9-20) mg/dL Glucose (74-99) mg/dL POC Glucose (mg/dL) 168 H 131 H 125 H (70-110) mg/dL 08/12/23 08/12/23 08/12/23 Range/Units 04:01 04:01 06:11 WBC 13.2 H (3.8-10.6) k/uL RBC 2.68 L (4.30-5.90) m/uL Hgb 8.9 L (13.0-17.5) gm/dL Hct 27.0 L (39.0-53.0) % MCV 100.7 H (80.0-100.0) fL Plt Count 142 L D (150-450) k/uL BUN 31 H (9-20) mg/dL Glucose 124 H (74-99) mg/dL POC Glucose (mg/dL) 116 H (70-110) mg/dL
[2023-08-12 11:29] LABS: Glucose,Whole Blood 145 mg/dL (70-110)
--- NOTE | 2023-08-12 11:45 | P.PN ---
Subjective Progress Note Date: 08/12/23 Principal diagnosis: Aortic stenosis. This is a 58-year-old male patient with a history of former smoking, rheumatoid fever as a child and was found to have severe aortic stenosis. He presented today for an elective aortic valve replacement. He was found to have a unicuspid severely calcified aortic valve with fusion of the right left and the right 9 cusp as cusps. He did undergo aortic valve replacement with a 25 mm pericardial bioprosthetic Inspiris valve and exclusion of left atrial appendage utilizing the atriaclip. He is seen in the immediate postoperative period in the intensive care unit. He is on the mechanical ventilator on assist-control mode at a rate of 16, tidal volume 450, FiO2 100% and a PEEP of 5. Initial blood gases revealed a PaO2 of 226, pCO2's at 44 and a pH of 7.35. He is currently on a nitroglycerin drip at 5 mcg/min. Propofol at 20 mcg/kg/min. Primacor at 0.2 mcg/kg/min. Normal saline at 50 MLS per hour and an insulin drip at 1 unit/h. Chest x-ray reveals good placement of the endotracheal tube, nasogastric tube, Hamlet-Cassandra catheter and mediastinal chest tubes. Mild pulmonary edema. No pneumothorax. White count 12.2. Hemoglobin 9.7. He has been initiated on bronchodilators and cefazolin. The patient is seen today August 09, 2023 in follow-up in the intensive care unit. He is currently sitting up in a chair at the bedside. Awake and alert in no acute distress. He is maintaining good O2 saturations in the 90s on 5 L/min per nasal cannula. He did have issues last night with nausea and vomiting and required 15 L high flow nasal cannula. This was felt to be possibly related to the Cleviprex which has since been discontinued. He did receive albumin this morning. He remains on insulin at 4 units/h. Milrinone is at 0.1 mcg/kg/min. Nitroglycerin at 10 mcg/min. Cardiac output 6.7. Cardiac index 3.6. PA pressu res 35/15. CVP of 10. He has a right internal jugular Hamlet-Cassandra catheter in place. Left radial arterial line in place. Chest tubes remain in place. Chest x-ray reveals small pleural effusions. Some basilar atelectasis. No evidence of pneumothorax. White count 15.3. Hemoglobin 9.3. Platelets 85,000. Sodium 142. Potassium 4.1. Bicarb 22. BUN 24. Creatinine 0.90. Glucose 154. He remains on bronchodilators. He is working well with the incentive spirometer. Heparin for DVT prophylaxis. The patient is seen today August 10, 2023 in follow-up in the intensive care unit. He is currently sitting up in a chair at the bedside. Awake and alert in no acute distress. Postoperative day #2 of his aortic valve replacement. He is maintaining good O2 saturation in the 90s on 2 L/min per nasal cannula. He has normal saline at 30 MLS per hour. He is continued on bronchodilators, Arixtra for DVT prophylaxis. X-ray reveals small bilateral effusions. No pneumothorax. White count 14.1. Hemoglobin 8.6. Platelets 64,000. Sodium 139. Potassium 4.3. Bicarb 24. BUN 31. Creatinine 0.87. Glucose 109. Progress note dated August 11, 2023. The patient is seen today in room 370. He is on room air. He is not receiving any IV fluids. The patient is postoperative day #3, status post aortic valve replacement. The patient has no specific complaints today. He is doing better. Labs include a white count 13, hemoglobin 9, hematocrit 27.2, and a platelet count of 90,000. Sodium 136, potassium 4.3, chlorides 107, CO2 22, BUN 33, and creatinine 0.82. Glucose is 133. Albumin is 3.6. Chest x-ray shows an improving pattern of basilar atelectasis and small effusions. Progress note dated August 12, 2023. The patient is seen today in room 370. Currently, he is on room air. He is not receiving any IV fluids. The patient is status post aortic valve replacement, postoperative day #4. Current labs include a white count 13.2, hemoglobin 8.9, hematocrit 27, platelet count 142,000. Sodium 139, potassium 3.8, chlorides 105, CO2 24, BUN 31, creatinine 0.82. Glucose is 145. Calcium is 8.8. X-ray shows some basilar atelectasis. There are small pleural effusions. Objective - Vital Signs Vital signs: Vital Signs Temp 98.7 F 08/12/23 07:49 Pulse 80 08/12/23 11:30 Resp 16 08/12/23 07:49 BP 126/79 08/12/23 07:49 Pulse Ox 95 08/12/23 07:59 FiO2 45 08/08/23 16:30 Intake & Output 08/11/23 08/12/23 08/12/23 18:59 06:59 18:59 Intake Total 378 10 10 Balance 378 10 10 Weight 77.4 kg Intake: IV 20 10 10 Invasive Line 1 20 10 10 Oral 358 Other: Voiding Method Toilet Toilet Toilet Urinal Urinal Urinal # Voids 2 ABP, PAP, CO, CI - Last Documented Arterial Blood Pressure 116/59 Pulmonary Artery Pressure 32/15 Cardiac Output 6.4 Cardiac Index 3.4 - Exam No acute distress, oriented 3. Currently on room air. HEENT examination is grossly unremarkable. Mucous membranes are moist. No oral lesions. Neck supple. Full range of motion. No adenopathy thyromegaly or neck vein distention. Cardiovascular examination reveals regular rhythm rate. S1-S2 normal. No S3 or S4. No discernible murmur noted. Heart rate 80 bpm. Lungs reveal mostly clear breath sounds. Minimal scattered rhonchi. No wheezes or crackles. Room air saturation is 95 percent. Abdomen soft bowel sounds are heard. No masses or tenderness. Extremities are intact. No cyanosis clubbing or edema. Skin is without rash or lesion. Neurologic examination is brief but nonfocal. - Labs CBC & Chem 7: 08/12/23 04:01 08/12/23 04:01 Labs: Abnormal Lab Results - Last 24 Hours (Table) 08/11/23 08/11/23 08/11/23 Range/Units 11:44 16:39 20:31 WBC (3.8-10.6) k/uL RBC (4.30-5.90) m/uL Hgb (13.0-17.5) gm/dL Hct (39.0-53.0) % MCV (80.0-100.0) fL Plt Count (150-450) k/uL BUN (9-20) mg/dL Glucose (74-99) mg/dL POC Glucose (mg/dL) 168 H 131 H 125 H (70-110) mg/dL 08/12/23 08/12/23 08/12/23 Range/Units 04:01 04:01 06:11 WBC 13.2 H (3.8-10.6) k/uL RBC 2.68 L (4.30-5.90) m/uL Hgb 8.9 L (13.0-17.5) gm/dL Hct 27.0 L (39.0-53.0) % MCV 100.7 H (80.0-100.0) fL Plt Count 142 L D (150-450) k/uL BUN 31 H (9-20) mg/dL Glucose 124 H (74-99) mg/dL POC Glucose (mg/dL) 116 H (70-110) mg/dL 08/12/23 Range/Units 11:27 WBC (3.8-10.6) k/uL RBC (4.30-5.90) m/uL Hgb (13.0-17.5) gm/dL Hct (39.0-53.0) % MCV (80.0-100.0) fL Plt Count (150-450) k/uL BUN (9-20) mg/dL Glucose (74-99) mg/dL POC Glucose (mg/dL) 145 H (70-110) mg/dL Assessment and Plan Assessment: Severe aortic stenosis status post aortic valve replacement using a 25 mm pericardial bioprosthesis Inspiris valve with exclusion of left atrial appendage with an Atriclip postoperative day #4. Acute hypoxic respiratory failure secondary to nausea and vomiting episodes, suspect secondary to Cleviprex, discontinued. Basilar atelectasis, small effusions. Former smoker. History of childhood rheumatoid arthritis. Plan: Plan dated August 11, 2023. The patient appears to be doing much better. He is on room air. He is not receiving any IV fluids. His chest x-ray shows some basilar atelectasis with small effusions. We recommend deep breathing, coughing, clearing of secretions. We also recommend ongoing use of the incentive spirometer, every hour. Labs, x-rays, and all medications are reviewed. The patient's prognosis is thought to be generally good. We will continue to follow. Plan dated August 12, 2023. Patient appears to be doing relatively well. Labs, x-rays, and medications have all been reviewed. The patient is on room air. He is not receiving any IV fluids. He has no specific complaints today. We do recommend continued deep breathing, coughing, clearing of secretions, and hourly use of the incentive spirometer. We will continue to follow make recommendations. Prognosis is thought to be generally good. Time with Patient: Less than 30
--- NOTE | 2023-08-12 14:16 | P.PN ---
Subjective Progress Note Date: 08/12/23 This is a 58-year-old gentleman status post aortic valve replacement , postop day #1, secondary to severe aortic stenosis, acute hypoxic respiratory failure, former nicotine dependence and multiple other medical issues. Significant clinical improvement. During the night patient developed nausea and vomiting, required 15 L high flow nasal cannula -suspected related to Cleviprex-which has been discontinued. Nitroglycerin, Primacor drips weaned off, currently on insulin drip. Blood sugars controlled. Chest x-ray reporting suspect small developing pleural effusions, slight worsening bibasilar atelectasis or developing infiltrate.Maintaining O2 sats in the 90s on 5 L nasal cannula. Incentive spirometer up to 700 .ambulated in the hallway, tolerating exertion well. Tmax 99.7, WBC 15.3, hemoglobin 9.3, platelets 85, sodium 142, potassium 4.1 BUN 24, creatinine 0.9, magnesium 2.2. Cardiac output 6.7. Cardiac index 3.6. PA pressures 35/15. CVP 10. No flatus. 08/10/2023 chest x-ray reports small bilateral effusions , O2 sats in the 90s on 2 L nasal cannula. Incentive spirometer up to 1000. afebrile, WBC 14.1. Hemoglobin 8.6, platelets 64 electrolytes stable. Bicarb 24, BUN 31, creatinine 0.87. blood sugars stable. Pain controlled. 08/11/2023 Picked up care from Dr. Grullon today. Patient has been moved out of the ICU and chest tubes have been moved. Pacer wires remain in place. He is reporting significant incisional discomfort and also reports feeling dizzy/lightheaded when up ambulating. Postoperative day #2 aortic valve replacement. Maintained on Plavix.Chest x-ray reveals improving basilar atelectasis and small effusions. Patient did receive a dose of IV Lasix today. Will be getting up into the shower today he does need encouragement to ambulate and to use his incentive spirometer. Renal function remains within normal limits. White blood cell count improving. 08/12/2023 Patient is evaluated today on the stepdown unit. He is postoperative day #3 aortic valve replacement. Patient did receive his first a shower yesterday and was able to ambulate around the whole unit today he did report feeling dizzy and lightheaded afterwards and has been resting in the chair since. He is encouraged to walk 3 times a day minimum and continue with the incentive spirome ter 10 times an hour while awake. Patient did receive a dose of IV Lasix yesterday. He currently has a BUN of 31, creatinine of 0.82. His platelet counts are improved up to 142 today, white count of 13.2, hemoglobin 8.9. Blood glucose improving in the 120s to 110s. Review of Systems Constitutional: Denied any fatigue denied any fever. Cardio vascular: denied any chest pain, palpitations Gastrointestinal: denied any nausea, vomiting, diarrhea Pulmonary: Denied any shortness of breath cough Neurologic denied any new focal deficits All inpatient medications were reviewed and appropriate changes in these medications as dictated in the interval history and assessment and plan. PHYSICAL EXAMINATION: GENERAL: The patient is alert and oriented x3, not in any acute distress. Well developed, well nourished. HEENT: Pupils are round and equally reacting to light. EOMI. No scleral icterus. No conjunctival pallor. Normocephalic, atraumatic. No pharyngeal erythema. No thyromegaly. CARDIOVASCULAR: S1 and S2 present. No murmurs, rubs, or gallops. PULMONARY: Chest is clear to auscultation, no wheezing or crackles. Chest tube site incisions are approximated. ABDOMEN: Soft, nontender, nondistended, normoactive bowel sounds. No palpable organomegaly. MUSCULOSKELETAL: No joint swelling or deformity. EXTREMITIES: No cyanosis, clubbing, or pedal edema. NEUROLOGICAL: Gross neurological examination did not reveal any focal deficits. SKIN: No rashes. Assessment and plan Severe aortic stenosis status post aortic valve replacement postoperative day #3 Acute hypoxic respiratory failure resolved and patient is currently on 2 L of nasal cannula. ;patient had episode of nausea/vomiting likely from the cleviprex which has been discontinued. He has been weaned to room air. Bilateral pleural effusions received a dose of IV lasix today. Postoperative acute blood loss anemia and thrombocytopenia, expected outcome hemoglobin stable at platelet count is improved at 142 COPD Former nicotine dependence, recently quit Childhood rheumatoid arthritis. DVT prophylaxis patient is on arixtra GI prophylaxis Full Code Patient remains on the cardiac unit. He needs encouragement to ambulate and use the incentive spirometer. Scheduled meal time insulin has been added and will monitor blood glucose closely may require small dose of levemir for improved glycemic control. Repeat labs in the morning. The impression and plan of care has been dictated by Julianna Montgomery, Nurse Pr actitioner as directed. Dr. Eriberto MD I have performed a history and physical examination and medical decision making of this patient, discussed the same with the dictator, and agree with the dicta tors assessment and plan as written, documented as a scribe. Based on total visit time, I have performed more than 50% of this visit. Objective - Vital Signs Vital signs: Vital Signs Temp 98.3 F 08/12/23 12:14 Pulse 81 08/12/23 12:14 Resp 16 08/12/23 12:14 BP 125/77 08/12/23 12:14 Pulse Ox 93 L 08/12/23 12:14 FiO2 45 08/08/23 16:30 Intake & Output 08/11/23 08/12/23 08/12/23 18:59 06:59 18:59 Intake Total 378 10 10 Output Total 300 Balance 378 10 -290 Weight 77.4 kg Intake: IV 20 10 10 Invasive Line 1 20 10 10 Oral 358 Output: Urine 300 Other: Voiding Method Toilet Toilet Toilet Urinal Urinal Urinal # Voids 2 ABP, PAP, CO, CI - Last Documented Arterial Blood Pressure 116/59 Pulmonary Artery Pressure 32/15 Cardiac Output 6.4 Cardiac Index 3.4 - Labs CBC & Chem 7: 08/12/23 04:01 08/12/23 04:01 Labs: Abnormal Lab Results - Last 24 Hours (Table) 08/11/23 08/11/23 08/12/23 Range/Units 16:39 20:31 04:01 WBC 13.2 H (3.8-10.6) k/uL RBC 2.68 L (4.30-5.90) m/uL Hgb 8.9 L (13.0-17.5) gm/dL Hct 27.0 L (39.0-53.0) % MCV 100.7 H (80.0-100.0) fL Plt Count 142 L D (150-450) k/uL BUN (9-20) mg/dL Glucose (74-99) mg/dL POC Glucose (mg/dL) 131 H 125 H (70-110) mg/dL 08/12/23 08/12/23 08/12/23 Range/Units 04:01 06:11 11:27 WBC (3.8-10.6) k/uL RBC (4.30-5.90) m/uL Hgb (13.0-17.5) gm/dL Hct (39.0-53.0) % MCV (80.0-100.0) fL Plt Count (150-450) k/uL BUN 31 H (9-20) mg/dL Glucose 124 H (74-99) mg/dL POC Glucose (mg/dL) 116 H 145 H (70-110) mg/dL Assessment and Plan Time with Patient: Less than 30
[2023-08-12 16:29] LABS: Glucose,Whole Blood 131 mg/dL (70-110)
[2023-08-12] MEDS: INSULIN ASPART (NovoLOG) 100 UNIT/ML VIAL SQ SCH (16:48)
[2023-08-12 20:01] LABS: Glucose,Whole Blood 87 mg/dL (70-110)
[2023-08-13 04:12] VITALS: RESP 16; TEMP 98
[2023-08-13 04:48] LABS: HCT 26.8 % (39.0-53.0); HGB 8.9 gm/dL (13.0-17.5); MCH 33.2 pg (25.0-35.0); MCV 100.6 fL (80.0-100.0); Macrocytosis Slight; Mean Platelet Volume 8.4; Platelet Count 176 k/uL (150-450); RBC 2.67 m/uL (4.30-5.90); RDW 13.4 % (11.5-15.5); WBC 10.6 k/uL (3.8-10.6)
[2023-08-13 05:10] LABS: African American GFR (CKD) >90 (>60 ml/min/1.73 sqM); Anion Gap 9 mmol/L; Blood Urea Nitrogen 34 mg/dL (9-20); Calcium 8.5 mg/dL (8.4-10.2); Carbon Dioxide 21 mmol/L (22-30); Chloride 109 mmol/L (98-107); Glucose 92 mg/dL (74-99); Magnesium 2.3 mg/dL (1.6-2.3); Non-African American GFR(CKD) >90 (>60 ml/min/1.73 sqM); Potassium 3.7 mmol/L (3.5-5.1); Sodium 139 mmol/L (137-145)
[2023-08-13 05:49] LABS: Glucose,Whole Blood 100 mg/dL (70-110)
--- NOTE | 2023-08-13 08:05 | XR ---
EXAMINATION TYPE: XR chest 2V DATE OF EXAM: 08/13/2023 COMPARISON: 08/12/2023 TECHNIQUE: PA and lateral views submitted. HISTORY: Postop CABG FINDINGS: The heart is enlarged. Postmedian sternotomy changes. Atrial appendage. A prosthetic aortic valve dhiraj ateral consolidations. Bilateral upper lobe subsegmental changes. Atherosclerotic change of aorta. No pneumothorax. Osseous structures are stable. IMPRESSION: 1. CHF. Bilateral infiltrate and small pleural effusion.
[2023-08-13] MEDS: METOPROLOL TARTRATE 50 MG TAB PO SCH (08:30)
[2023-08-13] MEDS: POTASSIUM CHLORIDE ER 20 MEQ TAB.ER PO SCH (08:30)
--- NOTE | 2023-08-13 10:14 | P.PN ---
Subjective Progress Note Date: 08/13/23 Principal diagnosis: Severely calcified unicuspid aortic valve with fusion of the right/left and the right/noncusps. Past medical history significant for aortic valve stenosis with rheumatic fever as a child, COPD with a preoperative FEV1 61% of predicted value and recent cessation from tobacco dependence. POD #4 aortic valve replacement using a 25 mm pericardial bioprosthesis Inspiris, exclusion of the left atrial appendage using a 40 mm atrial clip, intraoperative transesophageal echocardiogram and epiaortic scanning. Postoperative acute blood loss anemia and thrombocytopenia, expected given cardiopulmonary bypass and hemodilution. The patient was seen and examined in follow-up today August 13, 2023 at his bedside on the third floor cardiac stepdown unit. He is currently sitting up to the bedside chair, is awake, alert, oriented x 3 and is in no acute apparent di stress. He denies any complaints of pain, shortness care breath or nausea at this time. Oxygen saturations are 95% on room air and he is achieving 1500 mL on his incentive spirometry with encouragement. Remote telemetry is showing normal sinus rhythm heart rate 83 bpm. He has been up ambulating on the third floor cardiac stepdown unit with standby assistance from nursing and therapy staff and tolerating well. Discharge planning is in place. Ventricular and atrial epicardial pacemaker wires remain in place and are grounded. Chest x-ray and laboratory results reviewed. Objective - Vital Signs Vital signs: Vital Signs Temp 98.0 F 08/13/23 04:04 Pulse 88 08/13/23 09:17 Resp 16 08/13/23 08:00 BP 136/80 08/13/23 08:00 Pulse Ox 95 08/13/23 08:00 FiO2 45 08/08/23 16:30 Intake & Output 08/12/23 08/13/23 08/13/23 18:59 06:59 18:59 Intake Total 10 20 Output Total 300 300 Balance -290 -280 Weight 75.3 kg Intake: IV 10 20 Invasive Line 1 10 10 Invasive Line 5 10 Output: Urine 300 300 Other: Voiding Method Toilet Toilet Urinal Urinal # Voids 1 ABP, PAP, CO, CI - Last Documented Arterial Blood Pressure 116/59 Pulmonary Artery Pressure 32/15 Cardiac Output 6.4 Cardiac Index 3.4 - Exam CONSTITUTIONAL: Sitting up to the bedside chair on the third floor cardiac stepdown unit, appears comfortable, cooperative, no apparent acute distress. HEENT: Neck is supple, no JVD, no lymphadenopathy. RESPIRATORY: Lungs sounds essentially clear throughout, diminished to his bilateral bases. Respirations are symmetrical and nonlabored. Currently on room air with oxygen saturations 95%. Able to achieve 1500 mL on his incentive spirometry. Strong cough. CARDIOVASCULAR: Regular rhythm and rate. S1 and S2 present, negative for S3, gallop or murmur. Remote telemetry showing normal sinus rhythm heart rate 83 bpm. Sternum is stable. Palpable peripheral pulses bilaterally. No calf pain or tenderness noted. Heart hugger in place with patient demonstrating appropriate use. Knee-high SERJIO hose and sequential compression devices in place to his bilateral lower extremities. GASTROINTESTINAL: Abdomen soft, nontender, nondistended. Active bowel sounds present 4 quadrants. Tolerating diet. Passing flatus. No guarding or rigidity. Bowel movement yesterday 08/12/2023. GENITOURINARY: Continues to void. Urine output 300 mL in the last 8 hours. INTEGUMENTARY: Skin is warm and dry with no evidence of clubbing or cyanosis. Midline sternal incision clean dry and well approximated, covered with dry intact dressing. NEUROLOGIC: Cranial nerves II through XII intact. No focal deficits. MUSKULOSKELETAL: Able to move all extremities, strength equal bilaterally. PSYCHIATRIC: Alert and oriented to person place and time, appropriate affect, intact judgment and insight. INVASIVE LINES AND TUBES: Atrial and ventricular epicardial pacemaker wires present, grounded. - Allied health notes Allied health notes reviewed: nursing - Labs CBC & Chem 7: 08/13/23 04:21 08/13/23 04:21 Labs: Abnormal Lab Results - Last 24 Hours (Table) 08/12/23 08/12/23 08/13/23 Range/Units 11:27 16:27 04:21 RBC 2.67 L (4.30-5.90) m/uL Hgb 8.9 L (13.0-17.5) gm/dL Hct 26.8 L (39.0-53.0) % MCV 100.6 H (80.0-100.0) fL Chloride (98-107) mmol/L Carbon Dioxide (22-30) mmol/L BUN (9-20) mg/dL POC Glucose (mg/dL) 145 H 131 H (70-110) mg/dL 08/13/23 Range/Units 04:21 RBC (4.30-5.90) m/uL Hgb (13.0-17.5) gm/dL Hct (39.0-53.0) % MCV (80.0-100.0) fL Chloride 109 H (98-107) mmol/L Carbon Dioxide 21 L (22-30) mmol/L BUN 34 H (9-20) mg/dL POC Glucose (mg/dL) (70-110) mg/dL - Imaging and Cardiology Chest x-ray: report reviewed, image reviewed Assessment and Plan Assessment: 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 Will increase metoprolol to tartrate to 50 mg p.o. twice daily. Continue Cozaar 12.5 mg p.o. daily for afterload reduction with hold parameters. Encourage incentive spirometry use 10 times every hour while awake. Bronchodilators per pulmonology. Increase activity, ambulate as tolerated. PT/OT/cardiac rehab following. Will monitor daily labs and chest x-rays. Electrolyte replacement per protocol. Insulin management per internal medicine. Preoperative hemoglobin A1c 5.8%. Pain control with current medication regimen. GI/DVT prophylaxis. Continue to record strict accurate intake and output. May bladder scan and straight cath for greater than 300 mL residual Daily weights. Shower daily. Atrial and ventricular epicardial pacemaker wires were removed without incident. Bedrest for 1 hour post pacemaker wire removal. Discharge planning is in place, anticipate discharge home within the next 24 hours with home health care. More recommendations to follow based on patient's clinical course. Time with Patient: Greater than 30
[2023-08-13 11:42] LABS: Glucose,Whole Blood 111 mg/dL (70-110)
--- NOTE | 2023-08-13 12:07 | P.DS ---
Providers Date of admission: 08/08/23 05:33 Expected date of discharge: 08/13/23 Attending physician: Juno Velazquez Consults: 08/08/23 13:12 Consult Physician Routine Consulting Provider: Parrish French Consult Reason/Comments: Inspector Final Assembly Conveyor Line Consult: post cardiac surgery Do you want consulting provider notified?: Yes Consult Physician Routine Consulting Provider: Michael Grullon Consult Reason/Comments: med mgmt Do you want consulting provider notified?: Yes Consult Physician Routine Consulting Provider: Leonardo Garcia Consult Reason/Comments: Medical Library Assistant Consult: post cardiac surgery Do you want consulting provider notified?: Yes Primary care physician: [facility] Course: FINAL DIAGNOSIS: Severely calcified unicuspid aortic valve with fusion of the right/left and right/noncusps, status post aortic valve replacement using a 25 mm pericardial bioprosthesis Inspiris COPD with a preoperative FEV1 61% of predicted value Rheumatic fever as a child Recent cessation from tobacco dependence Postoperative acute blood loss anemia and thrombocytopenia expected given cardiopulmonary bypass and hemodilution Bilateral internal carotid artery stenosis 16 to 49% on carotid duplex study PRINCIPAL PROCEDURE: 1. Place 2. Exclusion of the left atrial appendage using a 40 mm atrial clip 3. Intraoperative transesophageal echocardiogram 4. Epiaortic scanning HISTORY OF PRESENT ILLNESS: This is a 58-year-old gentleman who follows on an outpatient basis with Dr. Grullon for his primary care and with Dr. Boston for his cardiology care. Recently, the patient has had complaints of progressive shortness of breath, episodes of dizziness and occasional palpitations. Due to the patient's symptoms he underwent a transthoracic 2D echocardiogram in April 2023 which showed reduced left ventricular systolic function with an ejection fraction of 45%, grade 3 diastolic dysfunction, severe aortic valve stenosis with an aortic valve area of 0.57 cm, a peak/mean gradient 70/30 mmHg, a max velocity of 4.18 m/s, moderate aortic valve regurgitation, moderate mitral valve and moderate tricuspid valve regurgitation. Subsequently, due to the patient's findings on his transthoracic 2D echocardiogram the patient underwent a cardiac catheterization and transesophageal echocardiogram which were completed by Dr. Boston. The patient's cardiac catheterization revealed no significant coronary artery disease, and his transesophageal echocardiogram revealed normal biventricular systolic function, a bicuspid aortic valve with fusion of the right and left coronary cusps, severe aortic valve stenosis with a mean gradient of 55 mmHg, along with mild to moderate mitral valve regurgitation. Due to the patient's above-mentioned symptoms and findings on his echocardiograms a consult was placed to Dr. Juno Velazquez from cardiothoracic surgery for further evaluation and treatment recommendations including surgical aortic valve replacement. The patient met with Dr. Velazquez, treatment options were discussed including surgical aortic valve replacement, risks and benefits were discussed including his STS risk or, and knowing and understanding the risks the patient wished to proceed with the surgical option. HOSPITAL COURSE: The patient was brought to the hospital on 08/08/23, taken to the preoperative area, prepared in the usual fashion, and subsequently taken to the operating room where Dr. Velazquez performed an Aortic valve replacement using a 25 mm pericardial bioprosthesis Inspcornel. Upon completion of surgery the patient was transferred to the cardiovascular intensive care unit where he was recovered and monitored hemodynamically. He was extubated, all lines, tubes, and drips were discontinued when appropriate, and he was transferred to 3 S. cardiac stepdown unit for further monitoring and rehabilitation. His oxygen was titrated down, he continued to work with physical and occupational therapy, he was tolerating oral diet, his pain was controlled, and he was ready to be discharged to home with [facility] home health care on postoperative day #5. He received written and verbal instruction regarding his medications, activity restrictions, importance of risk modification including continued smoking cessation, signs and symptoms requiring physician notification, and his follow- up appointments. Plan - Discharge Summary Discharge Rx Participant: Yes New Discharge Prescriptions: New Clopidogrel [Plavix] 75 mg PO DAILY #30 tab Acetaminophen Tab [Tylenol] 1,000 mg PO Q6HR PRN tab PRN Reason: Fever and/ or Mild Pain Aspirin 81 mg PO DAILY #30 tab Losartan [Cozaar] 12.5 mg PO DAILY@1200 #30 tab Atorvastatin [Lipitor] 40 mg PO DAILY #30 tab Metoprolol Tartrate [Lopressor] 50 mg PO BID #60 tab Pantoprazole [Protonix] 40 mg PO AC-BRKFST #30 tab Discharge Medication List Acetaminophen Tab [Tylenol] 1,000 mg PO Q6HR PRN tab 08/13/23 [Rx] Aspirin 81 mg PO DAILY #30 tab 08/13/23 [Rx] Atorvastatin [Lipitor] 40 mg PO DAILY #30 tab 08/13/23 [Rx] Clopidogrel [Plavix] 75 mg PO DAILY #30 tab 08/13/23 [Rx] Losartan [Cozaar] 12.5 mg PO DAILY@1200 #30 tab 08/13/23 [Rx] Metoprolol Tartrate [Lopressor] 50 mg PO BID #60 tab 08/13/23 [Rx] Pantoprazole [Protonix] 40 mg PO AC-BRKFST #30 tab 08/13/23 [Rx] Follow up Appointment(s)/Referral(s): [facility],Cardiac [NON-STAFF] - 4 Weeks Brock Boston MD [STAFF PHYSICIAN] - 08/21/23 3:00 pm Juno Velazquez MD [STAFF PHYSICIAN] - 08/31/23 10:00 am Michael Grullon DO [Primary Care Provider] - 08/17/23 3:00 pm Florentin Gloria NPC [Nurse Practitioner] - 08/22/23 11:00 am Parrish French DO [Doctor of Osteopathic Medicine] - 09/05/23 2:00 pm [facility], [NON-STAFF] - 1 Week Ambulatory/Diagnostic Orders: Complete Blood Count w/diff [LAB.AMB] Time Frame: 08/16/23, Facility: [facility], Location: Laboratory [facility] Comprehensive Metabolic Panel [LAB.AMB] Time Frame: 08/16/23, Facility: [facility], Location: [facility] Activity/Diet/Wound Care/Special Instructions: DISCHARGE INSTRUCTIONS: 1. No driving for 4 weeks, or until physician gives their ok. 2. The patient should sleep in their own bed, no medical bed needed. 3. Stairs are not an issue. If the bedroom is upstairs, it is advised that the patient go up at night and down in the morning for the first week. Go slowly, using handrail and take 1 step at a time. 4. SERJIO hose are to be worn for 30 days post surgery or until physician discontinues. 5. Heart hugger is to be worn 100% of the time until physician discontinues.(except when showering) 6. No lifting, pushing, or pulling more than 10 pounds for 12 weeks. The physician will advise of any restriction changes. 7. The patient is expected to continue the prescribed walking program. 8. Continue pain control per as needed orders. 9. Continue with incentive spirometry and splinting/heart hugger until otherwise directed by the physician. 10. Must shower daily using liquid antibacterial soap 11. Routine sternal incision care. No powders, lotions, ointments on incisions. No dressings are necessary on incisions unless they are draining. Dermabond tape is to remain on sternal incision until surgeon follow-up. 12. Please call surgeon/FIELD REPRESENTATIVE/HEALTH EDUCATION for temp greater than 101 F or purulent drainage from incisions. 13. You should weigh yourself daily, record and bring log with you to follow up appointments. 14. All prescriptions given by surgeon for 30 days. Refills need to be filled through plastics fabrication supervisor/primary care physician. 15. A Red armband has been placed on the patient. It should be worn for 30 days post discharge from surgery and will be removed by the cardiac surgeons. If an ER visit is necessary, please make sure the number on the Red armband is called before going to ER. 16. You have been referred to and are expected to begin Cardiac Rehab in approximately 4-6 weeks. 17. Quitting smoking is the most important step you can take to improve your health. For additional information and assistance to quit smoking, please call the [place] tobacco quit line (9-359-DLTU-NOW/ ) or online: [email or web address]-to-qu it-tobacco HOME HEALTH SERVICES TO PROVIDE: RN SKILLED HOME CARE SERVICES FOR POST-OP SURGICAL PATIENTS WITH THE FOLLOWING: Coronary Artery Bypass Surgery (CABG), Mitral Valve Replacement/Repair ( MVR), Aortic Valve Replacement/Repair (AVR) RN TO CONTINUE EDUCATION FROM ``ROAD TO A HEALTH HEART PATIENT EDUCATION MANUAL (GIVEN TO PATIENT IN THE HOSPITAL) MEDICATION RECONCILIATION WITH EDUCATION NEEDED ON [facility] VISIT EMPHASIZE IMPORTANCE OF WEARING BREAST SUPPORT/HEART HUGGER ENCOURAGE USE OF INCENTIVE SPIROMETER 10 X EVERY HOUR WHILE AWAKE ENCOURAGE UTILIZATION OF LOWER EXTREMITY COMPRESSION STOCKINGS/SERJIO HOSE and ELEVATE LEGS ABOVE LEVEL OF HEART WHILE AT REST. ENCOURAGE AMBULATION 3-5x/day INCREASING TOLERATES, WHILE AVOIDING EXTREMES IN TEMPERATURE FREQUENCY: RN TO OPEN THE PATIENT WITHIN 24 HOURS OF DISCHARGE FROM THE HOSPITAL WITH TELEHEALTH INSTALLED AT [facility], RN TO VISIT 2-3 X A WEEK FOR 4 WEEKS ESTABLISHED BY PATIENT NEEDS. LABORATORY: CBC, CMP TO BE DRAWN ON THE THIRD DAY HOME, (RAN STAT) FAX RESULTS TO [phone]. TELEHEALTH PARAMETERS: WEIGHT: NOTIFY MD OF WEIGHT GAIN OF 2 LBS IN 24 HOURS OR 5 LBS IN ONE WEEK HR: NOTIFY MD OF HR <55 BPM OR HR>100 BPM BP: NOTIFY MD IF BP <90/55 OR BP>140/100 O2 SAT: NOTIFY MD IF PO2<93% ON ROOM AIR SEND TELEHEALTH REPORT TO MACHINE FEED OPERATOR AND CARDIOVASCULAR SURGEON THE FIRST WEEK OF CARE AND THEN BI-WEEKLY. PLEASE ADDITIONALLY COMMUNICATE ANY ABNORMALS AND NEW FINDINGS TO THE SURGEONS OFFICE. Discharge Disposition: HOME WITH HOME HEALTH SERVICES
[2023-08-13 12:20] VITALS: BP 122/75; PULSE 81
--- NOTE | 2023-08-13 14:41 | P.PN ---
Subjective Progress Note Date: 08/13/23 HISTORY OF PRESENT ILLNESS: Patient is status post bioprosthetic aortic valve replacement. Postop day #3. Patient examined this morning. He is sitting up in the chair. Patient denies chest pain or pressure. He denies shortness of breath. Patient has been up ambulating without difficulty. Telemetry reveals sinus mechanism. Vital signs are stable. 08/12/2023 Patient examined this morning at bedside. Patient denies chest pain or pressure. He denies shortness of breath. Vital signs are stable. Telemetry reveals sinus mechanism. 08/12 patient had pacemaker wires removed this morning. Plan is for discharge home later today. Blood pressure 122/75, heart rate 81, pulse ox 96% on room air. R epeat blood work reveals sodium 139, potassium 3.7, BUN 34 creatinine 0.82. Repeat chest x-ray reveals CHF. Bilateral infiltrate and small pleural effusion. PHYSICAL EXAM: VITAL SIGNS: Reviewed. GENERAL: Well-developed in no acute distress. NECK: Supple. No JVD or thyromegaly LUNGS: Respirations even and unlabored. Lungs essentially clear to auscultation bilaterally. HEART: Regular rate and rhythm. S1 and S2 heard. Heart hugger noted. EXTREMITIES: Normal range of motion. No clubbing or cyanosis. Peripheral pulses intact. No lower extremity edema ASSESSMENT: Unicuspid aortic valve, status post bioprosthetic aortic valve replacement COPD Former nicotine dependence with recent cessation Rheumatic fever as a child PLAN: Continue postoperative management per CT surgery Continue current cardiac medications Continue telemetry monitoring Increase activity as tolerated Encourage use of incentive spirometer Patient to follow-up with Dr. Boston post discharge. Nurse practitioner note has been reviewed by physician. Signing provider agrees with the documented findings, assessment, and plan of care documented by RESEARCH EDITOR as a scribe. Objective - Vital Signs Vital signs: Vital Signs Temp 98.0 F 08/13/23 04:04 Pulse 88 08/13/23 09:17 Resp 16 08/13/23 08:00 BP 136/80 08/13/23 08:00 Pulse Ox 95 08/13/23 08:00 FiO2 45 08/08/23 16:30 Intake & Output 08/12/23 08/13/23 08/13/23 18:59 06:59 18:59 Intake Total 10 20 Output Total 300 300 Balance -290 -280 Weight 75.3 kg Intake: IV 10 20 Invasive Line 1 10 10 Invasive Line 5 10 Output: Urine 300 300 Other: Voiding Method Toilet Toilet Urinal Urinal # Voids 1 ABP, PAP, CO, CI - Last Documented Arterial Blood Pressure 116/59 Pulmonary Artery Pressure 32/15 Cardiac Output 6.4 Cardiac Index 3.4 - Labs CBC & Chem 7: 08/13/23 04:21 08/13/23 04:21 Labs: Abnormal Lab Results - Last 24 Hours (Table) 08/12/23 08/12/23 08/13/23 Range/Units 11:27 16:27 04:21 RBC 2.67 L (4.30-5.90) m/uL Hgb 8.9 L (13.0-17.5) gm/dL Hct 26.8 L (39.0-53.0) % MCV 100.6 H (80.0-100.0) fL Chloride (98-107) mmol/L Carbon Dioxide (22-30) mmol/L BUN (9-20) mg/dL POC Glucose (mg/dL) 145 H 131 H (70-110) mg/dL 08/13/23 Range/Units 04:21 RBC (4.30-5.90) m/uL Hgb (13.0-17.5) gm/dL Hct (39.0-53.0) % MCV (80.0-100.0) fL Chloride 109 H (98-107) mmol/L Carbon Dioxide 21 L (22-30) mmol/L BUN 34 H (9-20) mg/dL POC Glucose (mg/dL) (70-110) mg/dL
--- NOTE | 2023-08-13 15:33 | P.PN ---
Subjective Progress Note Date: 08/13/23 History of Present Illness 08/09/23 This is a 58-year-old gentleman status post aortic valve replacement , postop day #1, secondary to severe aortic stenosis, acute hypoxic respiratory failure, former nicotine dependence and multiple other medical issues. Significant clinical improvement. During the night patient developed nausea and vomiting, required 15 L high flow nasal cannula -suspected related to Cleviprex-which has been discontinued. Nitroglycerin, Primacor drips weaned off, currently on insulin drip. Blood sugars controlled. Chest x-ray reporting suspect small dev eloping pleural effusions, slight worsening bibasilar atelectasis or developing infiltrate.Maintaining O2 sats in the 90s on 5 L nasal cannula. Incentive spirometer up to 700 .ambulated in the hallway, tolerating exertion well. Tmax 99.7, WBC 15.3, hemoglobin 9.3, platelets 85, sodium 142, potassium 4.1 BUN 24, creatinine 0.9, magnesium 2.2. Cardiac output 6.7. Cardiac index 3.6. PA pressures 35/15. CVP 10. No flatus. 08/10/2023 chest x-ray reports small bilateral effusions , O2 sats in the 90s on 2 L nasal cannula. Incentive spirometer up to 1000. afebrile, WBC 14.1. Hemoglobin 8.6, platelets 64 electrolytes stable. Bicarb 24, BUN 31, creatinine 0.87. blood sugars stable. Pain controlled. 08/13/2023 significant clinical improvement. Pain controlled. Tmax 99.9, WBC 10.6. Renal function stable. Telemetry sinus rhythm. Ambulating, tolerating exertion well. Chest x-ray pending. Blood sugars controlled. Objective - Vital Signs Vital signs: Vital Signs Temp 98.0 F 08/13/23 04:04 Pulse 81 08/13/23 12:00 Resp 16 08/13/23 12:00 BP 122/75 08/13/23 12:00 Pulse Ox 96 08/13/23 12:00 FiO2 45 08/08/23 16:30 Intake & Output 08/12/23 08/13/23 08/13/23 18:59 06:59 18:59 Intake Total 10 20 10 Output Total 300 300 Balance -290 -280 10 Weight 75.3 kg Intake: IV 10 20 10 Invasive Line 1 10 10 Invasive Line 5 10 10 Output: Urine 300 300 Other: Voiding Method Toilet Toilet Toilet Urinal Urinal Urinal # Voids 1 ABP, PAP, CO, CI - Last Documented Arterial Blood Pressure 116/59 Pulmonary Artery Pressure 32/15 Cardiac Output 6.4 Cardiac Index 3.4 - Exam PHYSICAL EXAM: VITAL SIGNS: [As above] GENERAL: Alert and oriented x 3, sitting up in chair, no acute distress HEENT: Normocephalic ,conjunctivae normal. eyes normal. Oral mucosa moist NECK: Supple, no JVD. CARDIOVASCULAR: S1, S2 regular. No murmur RESPIRATION: Unlabored, equal air entry, essentially clear, bilateral bases diminished ABDOMEN: Soft, nontender . No guarding. no masses palpable. LEGS: No edema. no swelling NERVOUS SYSTEM: Cranial N 2-12 grossly normal.No focal deficits. Skin: Warm and dry, no rash - Labs CBC & Chem 7: 08/13/23 04:21 08/13/23 04:21 Labs: Abnormal Lab Results - Last 24 Hours (Table) 08/12/23 08/13/23 08/13/23 Range/Units 16:27 04:21 04:21 RBC 2.67 L (4.30-5.90) m/uL Hgb 8.9 L (13.0-17.5) gm/dL Hct 26.8 L (39.0-53.0) % MCV 100.6 H (80.0-100.0) fL Chloride 109 H (98-107) mmol/L Carbon Dioxide 21 L (22-30) mmol/L BUN 34 H (9-20) mg/dL POC Glucose (mg/dL) 131 H (70-110) mg/dL 08/13/23 Range/Units 11:41 RBC (4.30-5.90) m/uL Hgb (13.0-17.5) gm/dL Hct (39.0-53.0) % MCV (80.0-100.0) fL Chloride (98-107) mmol/L Carbon Dioxide (22-30) mmol/L BUN (9-20) mg/dL POC Glucose (mg/dL) 111 H (70-110) mg/dL Assessment and Plan Assessment: Severe aortic stenosis status post aortic valve replacement using a 25 mm pericardial bioprosthesis Inspiris valve with exclusion of left atrial appendage with an Atriclip postoperative day #1 Acute hypoxic respiratory failure secondary to nausea and vomiting, suspect related to Cleviprex-discontinued; atelectasis, small bilateral effusions. Postoperative acute blood loss anemia and thrombocytopenia, expected outcome COPD Former nicotine dependence, recently quit Childhood rheumatoid arthritis Plan: Continue on current medication regimen ,monitoring and symptomatic treatment. Discharge planning in progress as per CTS. Maintain aggressive pulmonary toileting with incentive spirometer reinforced. Follow-up with PCP in 1 week. The impression and plan of care has been dictated as directed. : I performed a history and examination of this patient, discussed the same with the dictator. I agree with the dictator's note ,documented as a scribe. Any additional findings or plans will be noted.
--- NOTE | 2023-08-13 16:21 | P.PN ---
Subjective Progress Note Date: 08/13/23 On today's evaluation of 08/13/2023, the patient is being seen for a follow-up. The patient is status post aortic valve replacement and the patient is a tissue valve and the patient is postop day #5. Doing well. Surgical wound site is dry clean and intact. Chest x-ray shows no acute abnormalities. The patient is in normal sinus rhythm. The patient is also ambulating. He denies having any specific complaints otherwise. The epicardial pacemaker wires to be removed today. Using incentive spirometer and pulling approximately 1500 cc. The WBC count at 10.6 with a hemoglobin of 8.9 and a platelet count of 176. BUN is at 34 with a creatinine of 0.8 and sodium levels at 139. Objective - Vital Signs Vital signs: Vital Signs Temp 98.0 F 08/13/23 04:04 Pulse 88 08/13/23 09:17 Resp 16 08/13/23 08:00 BP 136/80 08/13/23 08:00 Pulse Ox 95 08/13/23 08:00 FiO2 45 08/08/23 16:30 Intake & Output 08/12/23 08/13/23 08/13/23 18:59 06:59 18:59 Intake Total 10 20 10 Output Total 300 300 Balance -290 -280 10 Weight 75.3 kg Intake: IV 10 20 10 Invasive Line 1 10 10 Invasive Line 5 10 10 Output: Urine 300 300 Other: Voiding Method Toilet Toilet Toilet Urinal Urinal Urinal # Voids 1 ABP, PAP, CO, CI - Last Documented Arterial Blood Pressure 116/59 Pulmonary Artery Pressure 32/15 Cardiac Output 6.4 Cardiac Index 3.4 - Exam CONSTITUTIONAL: Sitting up to the bedside chair on the third floor cardiac stepdown unit, appears comfortable, cooperative, no apparent acute distress. HEENT: Neck is supple, no JVD, no lymphadenopathy. RESPIRATORY: Lungs sounds essentially clear throughout, diminished to his bilateral bases. Respirations are symmetrical and nonlabored. Currently on room air with oxygen saturations 95%. Able to achieve 1500 mL on his incentive spirometry. Strong cough. CARDIOVASCULAR: Regular rhythm and rate. S1 and S2 present, negative for S3, gallop or murmur. Remote telemetry showing normal sinus rhythm heart rate 83 bpm. Sternum is stable. Palpable peripheral pulses bilaterally. No calf pain or tenderness noted. Heart hugger in place with patient demonstrating appropriate use. Knee-high SERJIO hose and sequential compression devices in place to his bilateral lower extremities. GASTROINTESTINAL: Abdomen soft, nontender, nondistended. Active bowel sounds present 4 quadrants. Tolerating diet. Passing flatus. No guarding or rigidity. Bowel movement yesterday 08/12/2023. GENITOURINARY: Continues to void. Urine output 300 mL in the last 8 hours. INTEGUMENTARY: Skin is warm and dry with no evidence of clubbing or cyanosis. Midline sternal incision clean dry and well approximated, covered with dry intact dressing. NEUROLOGIC: Cranial nerves II through XII intact. No focal deficits. MUSKULOSKELETAL: Able to move all extremities, strength equal bilaterally. PSYCHIATRIC: Alert and oriented to person place and time, appropriate affect, intact judgment and insight. INVASIVE LINES AND TUBES: Atrial and ventricular epicardial pacemaker wires present, grounded. - Labs CBC & Chem 7: 08/13/23 04:21 08/13/23 04:21 Labs: Abnormal Lab Results - Last 24 Hours (Table) 08/12/23 08/13/23 08/13/23 Range/Units 16:27 04:21 04:21 RBC 2.67 L (4.30-5.90) m/uL Hgb 8.9 L (13.0-17.5) gm/dL Hct 26.8 L (39.0-53.0) % MCV 100.6 H (80.0-100.0) fL Chloride 109 H (98-107) mmol/L Carbon Dioxide 21 L (22-30) mmol/L BUN 34 H (9-20) mg/dL POC Glucose (mg/dL) 131 H (70-110) mg/dL 08/13/23 Range/Units 11:41 RBC (4.30-5.90) m/uL Hgb (13.0-17.5) gm/dL Hct (39.0-53.0) % MCV (80.0-100.0) fL Chloride (98-107) mmol/L Carbon Dioxide (22-30) mmol/L BUN (9-20) mg/dL POC Glucose (mg/dL) 111 H (70-110) mg/dL Assessment and Plan Plan: Severe aortic stenosis status post aortic valve replacement using a 25 mm pericardial bioprosthesis Inspiris valve with exclusion of left atrial appendage with an Atriclip postoperative day 5 Postthoracotomy, surgical wound site is dry clean and intact and the patient's chest tube will be removed. Chest x-ray showing no acute abnormalities and the patient is currently on room air oxygen. Hypertension, BP is under adequate control Former smoker. History of childhood rheumatoid arthritis. Plan: The patient is clinically stable. The patient is ambulating. The patient is currently on room air oxygen. Will continue aspirin. Will continue Plavix. Will continue metoprolol and the dose has been modified to 50 mg twice a day. The patient will also continue Cozaar 12.5 mg p.o. daily for blood pressure control and afterload reduction. Will continue pulmonary toileting. Aggressive use of incentive spirometer. Cardiac epicardial pacemaker wires to be removed today. Possible discharge either today or the next 24 hours.
== END 2023-08-13 13:58 | disposition home health service (06) | DRG 219 ==
LOC: 2ORMAIN 05:33 → 2SICU 13:33 → 3SCARD 08-10 12:16
PROVIDERS: ADMIT Surgery; ATTEND Surgery
PROC: B24BZZ4 Ultrasonography of Heart with Aorta, Transesophageal (ICD-10-PCS; principal; 2023-08-08 08:00)
PROC: 02L70CK Occlusion of Left Atrial Appendage with Extraluminal Device, Open Approach (ICD-10-PCS; principal; 2023-08-08 08:00)
PROC: 5A1221Z Performance of Cardiac Output, Continuous (ICD-10-PCS; principal; 2023-08-08 08:00)
PROC: 3E043XZ Introduction of Vasopressor into Central Vein, Percutaneous Approach (ICD-10-PCS; principal; 2023-08-08 08:00)
PROC: 02RF08Z Replacement of Aortic Valve with Zooplastic Tissue, Open Approach (ICD-10-PCS; principal; 2023-08-08 08:00)
PROC: 30243H0 Transfusion of Autologous Whole Blood into Central Vein, Percutaneous Approach (ICD-10-PCS; principal; 2023-08-08 08:00)
DX: I35.0 Nonrheumatic aortic (valve) stenosis (principal); Z00.6 Encounter for examination for normal comparison and control in clinical research program; J96.01 Acute respiratory failure with hypoxia; D62 Acute posthemorrhagic anemia; J98.11 Atelectasis; J44.9 Chronic obstructive pulmonary disease, unspecified; D69.6 Thrombocytopenia, unspecified; I65.23 Occlusion and stenosis of bilateral carotid arteries; M06.9 Rheumatoid arthritis, unspecified; R11.2 Nausea with vomiting, unspecified; T46.1X5A Adverse effect of calcium-channel blockers, initial encounter; Z87.891 Personal history of nicotine dependence; Z71.3 Dietary counseling and surveillance
CPT/HCPCS: 71045; 71046; 80048; 80053; 82330; 82805; 83735; 85025; 85027; 85610; 85730; 86022; 86850; 86891; 86900; 86901; 86920; 88305; 88311; 94002; 94640; 94760

== ENCOUNTER → 2023-12-17 | Outpatient (CLI) | payer BC | END | disposition home or self-care (01) | LOC: LABPRL 11:30 | PROVIDERS: ATTEND Family Medicine | DX: E78.5 Hyperlipidemia, unspecified (principal) | CPT/HCPCS: 80053; 80061 ==

== ENCOUNTER 2024-04-28 15:47 | Inpatient (IN) | payer BC ==
[2024-04-28 16:01] LABS: Glucose,Whole Blood >600 mg/dL (70-110)
[2024-04-28 16:39] LABS: Prothrombin Time 11.4 sec (10.0-12.5)
[2024-04-28 16:41] LABS: ALT 37 U/L (4-49); AST 30 U/L (17-59); African American GFR (CKD) 56 (>60 ml/min/1.73 sqM); Albumin 4.5 g/dL (3.5-5.0); Alkaline Phosphatase 94 U/L (38-126); Anion Gap 22 mmol/L; Blood Urea Nitrogen 26 mg/dL (9-20); Calcium 9.5 mg/dL (8.4-10.2); Carbon Dioxide 11 mmol/L (22-30); Chloride 97 mmol/L (98-107); Magnesium 2.1 mg/dL (1.6-2.3); Non-African American GFR(CKD) 48 (>60 ml/min/1.73 sqM); Potassium 5.1 mmol/L (3.5-5.1); Sodium 130 mmol/L (137-145); Total Bilirubin 1.4 mg/dL (0.2-1.3); Total Protein 6.8 g/dL (6.3-8.2)
[2024-04-28] MEDS: SODIUM CHLORIDE 0.9% 1,000 ML IV STA ×2 (16:41→17:29)
[2024-04-28 16:42] LABS: Basophils # (A) 0.1 k/uL (0-0.2); Basophils % (A) 1 %; Eosinophils % (A) 0 %; HCT 51.8 % (39.0-53.0); HGB 17.3 gm/dL (13.0-17.5); Lymphocytes # (A) 0.8 k/uL (1.0-4.8); Lymphocytes % (A) 8 %; MCH 32.8 pg (25.0-35.0); MCHC 33.5 g/dL (31.0-37.0); MCV 97.9 fL (80.0-100.0); Monocytes # (A) 0.6 k/uL (0-1.0); Monocytes % (A) 5 %; Neutrophils # (A) 9.1 k/uL (1.3-7.7); Neutrophils % (A) 85 %; Platelet Count 184 k/uL (150-450); RBC 5.29 m/uL (4.30-5.90); RDW 12.7 % (11.5-15.5); WBC 10.7 k/uL (3.8-10.6)
--- NOTE | 2024-04-28 16:46 | XR ---
EXAMINATION TYPE: XR chest 2V DATE OF EXAM: 04/28/2024 4:31 PM COMPARISON: 08/13/2023 CLINICAL INDICATION: Male, 59 years old with history of dysrhythmia, , TECHNIQUE: AP and lateral views FINDINGS: Heart borderline to mildly enlarged. Median sternotomy wires with prosthetic aortic valve. Aorta and pulmonary vasculature within normal limits. Mild hyperinflation. No consolidation or pleural effusion . IMPRESSION: Borderline to mild cardiomegaly and previous median sternotomy. There may be background COPD. Otherwi se, no acute process seen. [facility], , 04/28/2024 4:44 PM
[2024-04-28 16:49] LABS: Glucose 657 mg/dL (74-99)
--- NOTE | 2024-04-28 16:55 | ED ---
General Adult HPI - General Chief complaint: Recheck/Abnormal Lab/Rx Stated complaint: Hyperglycemia Time Seen by Provider: 04/28/24 16:14 Source: patient, EMS Mode of arrival: EMS Limitations: no limitations - History of Present Illness Initial comments: Dictation was produced using [employer] dictation software. please excuse any grammatical, word or spelling errors. Chief Complaint: 59-year-old male presents to the emergency department with lightheadedness History of Present Illness: Patient is a 59-year-old male states that he has been dizzy for the last 3 to 4 days. He has history of valve replacement performed by cardiology earlier this year. States that for the last 3 to 4 days he has been having some dizziness especially when he gets up and walks and try to exert himself. Patient also with noticed palpitations. Patient is no known history of atrial fibrillation. Does not take any anticoagulation medications. Patient was evaluated by EMS and he was found to have elevated blood glucose. Patient has no known history of diabetes. The ROS documented in this emergency department record has been reviewed and confirmed by me. Those systems with pertinent positive or negative responses have been documented in the HPI. All other systems are other negative and/or noncontributory. - Related Data Home Medications Medication Instructions Recorded Confirmed Aspirin EC [Ecotrin Low Dose] 81 mg PO DAILY 04/28/24 04/28/24 Atorvastatin [Lipitor] 40 mg PO W/SUPPER 04/28/24 04/28/24 Metoprolol Tartrate [Lopressor] 50 mg PO BID-W/MEALS 04/28/24 04/28/24 Pantoprazole [Protonix] 40 mg PO DAILY 04/28/24 04/28/24 Previous Rx's Medication Instructions Recorded Clopidogrel [Plavix] 75 mg PO DAILY #30 tab 08/13/23 Allergies Allergy/AdvReac Type Severity Reaction Status Date / Time No Known Allergies Allergy Verified 04/28/24 19:50 Review of Systems ROS Statement: Those systems with pertinent positive or pertinent negative responses have been documented in the HPI. ROS Other: All systems not noted in ROS Statement are negative. Past Medical History Past Medical History: COPD Additional Past Medical History / Comment(s): hx kidney stones, recently tired and SOB when laying down or activity. See Dr Boston H&P. pain left arm x1 seen by PCP w/ekg, with referral to Dr Boston. Rheumatic fever as a child. Severe aortic stenosis History of Any Multi-Drug Resistant Organisms: None Reported Past Surgical History: No Surgical Hx Reported Additional Past Surgical History / Comment(s): colonscopy Past Anesthesia/Blood Transfusion Reactions: No Reported Reaction Past Psychological History: No Psychological Hx Reported Smoking Status: Former smoker Past Alcohol Use History: None Reported Past Drug Use History: None Reported - Past Family History Father Family Medical History: Hypertension family Family Medical History: No Reported History Additional Family Medical History / Comment(s): Mother with kidney stones. General Exam - General Exam Comments Initial Comments: PHYSICAL EXAM: General Impression: Alert and oriented x3, not in acute distress HEENT: Normocephalic atraumatic, extra-ocular movements intact, pupils equal and reactive to light bilaterally, dry mucous membranes Cardiovascular: Tachycardic Chest: Able to complete full sentences, no retractions, no tachypnea Abdomen: abdomen soft, non-tender, non-distended, no organomegaly Musculoskeletal: Pulses present and equal in all extremities, no peripheral edema Motor: no focal deficits noted Neurological: CN II-XII grossly intact, no focal motor or sensory deficits noted Skin: Intact with no visualized rashes Psych: Normal affect and mood Limitations: no limitations Course Vital Signs 04/28/24 04/28/24 04/28/24 15:52 16:40 18:31 Temperature 98.6 F Pulse Rate 130 H 134 H 140 H Respiratory 30 H 20 18 Rate Blood Pressure 136/109 139/115 147/109 O2 Sat by Pulse 97 96 98 Oximetry 04/28/24 04/28/24 18:36 19:12 Temperature Pulse Rate 141 H 142 H Respiratory 18 18 Rate Blood Pressure 126/90 109/85 O2 Sat by Pulse 96 96 Oximetry EKG Findings - EKG Comments: EKG Findings:: My EKG interpretation: Ventricular rate 125, a flutter, QRS 86, QTc 364. NoQTC prolongation noted. There does appear to be some ST depressions in inferior and lateral precordial leads likely representing rate dependent strainOverall, this EKG is consistent with new onset A- flutter with ischemic changes Medical Decision Making - Medical Decision Making Was pt. sent in by a medical professional or institution (, PA, DYER HELPER, urgent care, hospital, or snf...) When possible be specific @ -No Did you speak to anyone other than the patient for history (EMS, parent, family, police, friend...)? What history was obtained from this source @ -Case discussed with daughter at the bedside as described above Did you review nursing and triage notes (agree or disagree)? Why? @ -I reviewed and agree with nursing and triage notes Were old charts reviewed (outside hosp., previous admission, EMS record, old EKG, old radiological studies, urgent care reports/EKG's, snf records)? Report findings @ -No old charts were reviewed Differential Diagnosis (chest pain, altered mental status, abdominal pain women, abdominal pain men, vaginal bleeding, musculoskeletal, weakness, fever, dy spnea, syncope, headache, dizziness, GI bleed, back pain, seizure, CVA, palpatations, mental health)? @ -Differential Weakness: Hypoglycemia, shock, sepsis, hyponatremia, anemia, infection, NC, ETOH, adverse medicine reaction, overdose, stroke, this is not meant to be an all-inclusive list. EKG interpreted by me (3pts min.). @ -See above X-rays interpreted by me (1pt min.). @ -Chest x-ray shows cardiomegaly CT interpreted by me (1pt min.). @ -None done U/S interpreted by me (1pt. min.). @ -None done What testing was considered but not performed or refused? (CT, X-rays, U/S, labs)? Why? @ -None What meds were considered but not given or refused? Why? @ -None Was smoking cessation discussed for >3mins.? @ -No Were there social determinants of health that impacted care today? How? ( Homelessness, low income, unemployed, alcoholism, drug addiction, transportation, low edu. Level, literacy, decrease access to med. care, shelter, rehab)? @ -No Was there de-escalation of care discussed even if they declined (Discuss DNR or withdrawal of care, Hospice)? DNR status @ -No What co-morbidities impacted this encounter? (DM, HTN, Smoking, COPD, CAD, Cancer, CVA, ARF, Chemo, Hep., AIDS, mental health diagnosis, sleep apnea, morbid obesity)? @ -Valve replacement Was patient admitted / discharged? Hospital course, mention meds given and route, prescriptions, significant lab abnormalities, going to OR and other pertinent info. @ -59-year-old male presents emergency department with chief complaint of dizziness lightheadedness hyperglycemia. Found to be in A-fib RVR upon arrival. Patient's blood pressure is within acceptable limits. Patient does not appear to be in acute distress. Laboratory evaluation obtained. CBC is unremarkable. Venous blood gas shows metabolic acidosis. Sodium 130 with a glucose of 657 likely pseudohyponatremia. Renal markers elevated. Anion gap 22 with bicarb of 11. Acetone positive. Troponin 0.045. Patient given IV fluids then started on Cardizem, heparin and insulin drip. Case discussed with hospitalist for admission. Case discussed with day camp counselor for ICU admission. Did you discuss the management of the patient with other professionals (professionals i.e. , PA, DYER HELPER, lab, RT, psych nurse, perinatal social worker, counseling services manager, teacher, enforcement safety officer, transplant case manager)? Give summary @ -See above Was critical care preformed (if so, how long)? @ -Yes, 77 minutes Undiagnosed new problem with uncertain prognosis? @ -No Drug Therapy requiring intensive monitoring for toxicity (Heparin, Nitro, Insulin, Cardizem)? @ -No Were any procedures done? @ -No Diagnosis/symptom? Acute, or Chronic, or Acute on Chronic? Uncomplicated (without systemic symptoms) or Complicated (systemic symptoms)? @ -New onset A-fib, A-fib with RVR, new onset diabetes, DKA Side effects of treatment? @ -No Exacerbation, Progression, or Severe Exacerbation? @ -No Poses a threat to life or bodily function? How? (Chest pain, USA, NC, pneumonia, PE, COPD, DKA, ARF, appy, cholecystitis, CVA, Diverticulitis, Homicidal, Suicidal, threat to staff... and all critical care pts) @ -yes - Lab Data Result diagrams: 04/28/24 18:28 04/28/24 16:17 Lab Results 04/28/24 04/28/24 04/28/24 Range/Units 15:54 16:17 16:17 WBC 10.7 H (3.8-10.6) k/uL RBC 5.29 (4.30-5.90) m/uL Hgb 17.3 (13.0-17.5) gm/dL Hct 51.8 (39.0-53.0) % MCV 97.9 (80.0-100.0) fL MCH 32.8 (25.0-35.0) pg MCHC 33.5 (31.0-37.0) g/dL RDW 12.7 (11.5-15.5) % Plt Count 184 (150-450) k/uL MPV 9.0 Neutrophils % 85 % Lymphocytes % 8 % Monocytes % 5 % Eosinophils % 0 % Basophils % 1 % Neutrophils # 9.1 H (1.3-7.7) k/uL Lymphocytes # 0.8 L (1.0-4.8) k/uL Monocytes # 0.6 (0-1.0) k/uL Eosinophils # 0.0 (0-0.7) k/uL Basophils # 0.1 (0-0.2) k/uL PT 11.4 (10.0-12.5) sec INR 1.0 (<1.2) APTT 19.6 L (22.0-30.0) sec VBG pH (7.31-7.41) VBG pCO2 (37-51) mmHg VBG HCO3 (24-28) mmol/L Sodium (137-145) mmol/L Potassium (3.5-5.1) mmol/L Chloride (98-107) mmol/L Carbon Dioxide (22-30) mmol/L Anion Gap mmol/L BUN (9-20) mg/dL Creatinine (0.66-1.25) mg/dL Est GFR (CKD-EPI)AfAm (>60 ml/min/1.73 sqM) Est GFR (CKD-EPI)NonAf (>60 ml/min/1.73 sqM) Glucose (74-99) mg/dL POC Glucose (mg/dL) >600 H* (70-110) mg/dL POC Glu Registered Nurse Nursery ID August Calcium (8.4-10.2) mg/dL Magnesium (1.6-2.3) mg/dL Total Bilirubin (0.2-1.3) mg/dL AST (17-59) U/L ALT (4-49) U/L Alkaline Phosphatase (38-126) U/L Troponin I (0.000-0.034) ng/mL Total Protein (6.3-8.2) g/dL Albumin (3.5-5.0) g/dL Acetone, Qual (Negative) 04/28/24 04/28/24 04/28/24 Range/Units 16:17 16:17 17:29 WBC (3.8-10.6) k/uL RBC (4.30-5.90) m/uL Hgb (13.0-17.5) gm/dL Hct (39.0-53.0) % MCV (80.0-100.0) fL MCH (25.0-35.0) pg MCHC (31.0-37.0) g/dL RDW (11.5-15.5) % Plt Count (150-450) k/uL MPV Neutrophils % % Lymphocytes % % Monocytes % % Eosinophils % % Basophils % % Neutrophils # (1.3-7.7) k/uL Lymphocytes # (1.0-4.8) k/uL Monocytes # (0-1.0) k/uL Eosinophils # (0-0.7) k/uL Basophils # (0-0.2) k/uL PT (10.0-12.5) sec INR (<1.2) APTT (22.0-30.0) sec VBG pH 7.21 L (7.31-7.41) VBG pCO2 39 (37-51) mmHg VBG HCO3 16 L (24-28) mmol/L Sodium 130 L (137-145) mmol/L Potassium 5.1 (3.5-5.1) mmol/L Chloride 97 L (98-107) mmol/L Carbon Dioxide 11 L (22-30) mmol/L Anion Gap 22 mmol/L BUN 26 H (9-20) mg/dL Creatinine 1.54 H (0.66-1.25) mg/dL Est GFR (CKD-EPI)AfAm 56 (>60 ml/min/1.73 sqM) Est GFR (CKD-EPI)NonAf 48 (>60 ml/min/1.73 sqM) Glucose 657 H* (74-99) mg/dL POC Glucose (mg/dL) (70-110) mg/dL POC Glu Registered Nurse Nursery ID Calcium 9.5 (8.4-10.2) mg/dL Magnesium 2.1 (1.6-2.3) mg/dL Total Bilirubin 1.4 H (0.2-1.3) mg/dL AST 30 (17-59) U/L ALT 37 (4-49) U/L Alkaline Phosphatase 94 (38-126) U/L Troponin I 0.045 H* (0.000-0.034) ng/mL Total Protein 6.8 (6.3-8.2) g/dL Albumin 4.5 (3.5-5.0) g/dL Acetone, Qual (Negative) 04/28/24 04/28/24 04/28/24 Range/Units 17:44 18:28 18:28 WBC 10.8 H (3.8-10.6) k/uL RBC 4.78 (4.30-5.90) m/uL Hgb 15.8 (13.0-17.5) gm/dL Hct 45.9 (39.0-53.0) % MCV 96.1 (80.0-100.0) fL MCH 33.0 (25.0-35.0) pg MCHC 34.4 (31.0-37.0) g/dL RDW 12.7 (11.5-15.5) % Plt Count 194 (150-450) k/uL MPV 8.9 Neutrophils % 87 % Lymphocytes % 9 % Monocytes % 3 % Eosinophils % 0 % Basophils % 0 % Neutrophils # 9.4 H (1.3-7.7) k/uL Lymphocytes # 1.0 (1.0-4.8) k/uL Monocytes # 0.4 (0-1.0) k/uL Eosinophils # 0.0 (0-0.7) k/uL Basophils # 0.0 (0-0.2) k/uL PT (10.0-12.5) sec INR (<1.2) APTT (22.0-30.0) sec VBG pH (7.31-7.41) VBG pCO2 (37-51) mmHg VBG HCO3 (24-28) mmol/L Sodium (137-145) mmol/L Potassium (3.5-5.1) mmol/L Chloride (98-107) mmol/L Carbon Dioxide (22-30) mmol/L Anion Gap mmol/L BUN (9-20) mg/dL Creatinine (0.66-1.25) mg/dL Est GFR (CKD-EPI)AfAm (>60 ml/min/1.73 sqM) Est GFR (CKD-EPI)NonAf (>60 ml/min/1.73 sqM) Glucose (74-99) mg/dL POC Glucose (mg/dL) 510 H* (70-110) mg/dL POC Glu Registered Nurse Nursery ID Torin Moreno Calcium (8.4-10.2) mg/dL Magnesium (1.6-2.3) mg/dL Total Bilirubin (0.2-1.3) mg/dL AST (17-59) U/L ALT (4-49) U/L Alkaline Phosphatase (38-126) U/L Troponin I (0.000-0.034) ng/mL Total Protein (6.3-8.2) g/dL Albumin (3.5-5.0) g/dL Acetone, Qual Positive (Negative) 04/28/24 04/28/24 Range/Units 18:44 19:52 WBC (3.8-10.6) k/uL RBC (4.30-5.90) m/uL Hgb (13.0-17.5) gm/dL Hct (39.0-53.0) % MCV (80.0-100.0) fL MCH (25.0-35.0) pg MCHC (31.0-37.0) g/dL RDW (11.5-15.5) % Plt Count (150-450) k/uL MPV Neutrophils % % Lymphocytes % % Monocytes % % Eosinophils % % Basophils % % Neutrophils # (1.3-7.7) k/uL Lymphocytes # (1.0-4.8) k/uL Monocytes # (0-1.0) k/uL Eosinophils # (0-0.7) k/uL Basophils # (0-0.2) k/uL PT (10.0-12.5) sec INR (<1.2) APTT (22.0-30.0) sec VBG pH (7.31-7.41) VBG pCO2 (37-51) mmHg VBG HCO3 (24-28) mmol/L Sodium (137-145) mmol/L Potassium (3.5-5.1) mmol/L Chloride (98-107) mmol/L Carbon Dioxide (22-30) mmol/L Anion Gap mmol/L BUN (9-20) mg/dL Creatinine (0.66-1.25) mg/dL Est GFR (CKD-EPI)AfAm (>60 ml/min/1.73 sqM) Est GFR (CKD-EPI)NonAf (>60 ml/min/1.73 sqM) Glucose (74-99) mg/dL POC Glucose (mg/dL) 413 H 307 H (70-110) mg/dL POC Glu Registered Nurse Nursery ID Torin [place] Chandana Calcium (8.4-10.2) mg/dL Magnesium (1.6-2.3) mg/dL Total Bilirubin (0.2-1.3) mg/dL AST (17-59) U/L ALT (4-49) U/L Alkaline Phosphatase (38-126) U/L Troponin I (0.000-0.034) ng/mL Total Protein (6.3-8.2) g/dL Albumin (3.5-5.0) g/dL Acetone, Qual (Negative) Disposition Clinical Impression: DKA (diabetic ketoacidosis), Atrial fibrillation with RVR Disposition: ADMITTED IP TO THIS HOSP Condition: Critical Referrals: Michael Grullon DO [Primary Care Provider] - 1-2 days Decision Time: 20:47
[2024-04-28 17:02] LABS: Partial Thromboplastin Time 19.6 sec (22.0-30.0)
[2024-04-28] MEDS ORDERED: Magnesium Replacement Protocol 1 EACH MISC MISCELLANE PRN (17:18)
[2024-04-28] MEDS ORDERED: Potassium Replacement Protocol 1 EACH MISC MISCELLANE PRN (17:18)
[2024-04-28] MEDS ORDERED: DEXTROSE 50% SYRINGE 50 ML IVP PRN ×2 (17:18)
[2024-04-28] MEDS: SODIUM CHLORIDE 0.9% 1,000 ML IV SCH (17:30)
[2024-04-28 17:46] LABS: Glucose,Whole Blood 510 mg/dL (70-110)
[2024-04-28] MEDS: INSULIN REGULAR 100 UNIT in SODIUM CHLORIDE 0.9% 100 ML IV SCH (17:53)
[2024-04-28 17:54] LABS: VBG PH 7.21 (7.31-7.41)
[2024-04-28] MEDS: INSULIN REGULAR BOLUS (FROM DRIP BAG) IV ONE (17:54)
[2024-04-28] MEDS ORDERED: HEPARIN SODIUM 1,000 UN/ML (10ML VL) IV PRN (18:10)
[2024-04-28 18:33] LABS: Basophils % (A) 0 %; Eosinophils % (A) 0 %; HCT 45.9 % (39.0-53.0); HGB 15.8 gm/dL (13.0-17.5); Lymphocytes % (A) 9 %; MCHC 34.4 g/dL (31.0-37.0); MCV 96.1 fL (80.0-100.0); Mean Platelet Volume 8.9; Monocytes # (A) 0.4 k/uL (0-1.0); Monocytes % (A) 3 %; Neutrophils # (A) 9.4 k/uL (1.3-7.7); Neutrophils % (A) 87 %; Platelet Count 194 k/uL (150-450); RBC 4.78 m/uL (4.30-5.90); RDW 12.7 % (11.5-15.5); WBC 10.8 k/uL (3.8-10.6)
[2024-04-28] MEDS: DILTIAZEM DRIP BOLUS FROM BAG 1 MG SOLN IV ONE (18:38)
[2024-04-28] MEDS: DILTIAZEM 125 MG in SODIUM CHLORIDE 0.9% 100 ML IV SCH (18:39)
[2024-04-28] MEDS: ASPIRIN 81 MG PO STA (18:40)
[2024-04-28 18:46] LABS: Glucose,Whole Blood 413 mg/dL (70-110)
[2024-04-28] MEDS: HEPARIN SODIUM 1,000 UN/ML (10ML VL) IV ONE (18:52)
[2024-04-28] MEDS: HEPARIN SOD,PORK IN 0.45% NACL 25,000 UNIT in 0.45% NACL 1 250ML.BAG IV SCH (18:53)
[2024-04-28 19:57] LABS: Glucose,Whole Blood 307 mg/dL (70-110)
[2024-04-28] MEDS ORDERED: NALOXONE 0.4 MG/ML 1 ML VIAL IV PRN (20:33)
[2024-04-28 21:03] LABS: Glucose,Whole Blood 183 mg/dL (70-110)
[2024-04-28] MEDS: D5-0.45% NACL WITH KCL 20MEQ/L 1,000 ML IV SCH (21:22)
[2024-04-28 21:57] LABS: African American GFR (CKD) >90 (>60 ml/min/1.73 sqM); Anion Gap 14 mmol/L; Blood Urea Nitrogen 22 mg/dL (9-20); Carbon Dioxide 12 mmol/L (22-30); Chloride 112 mmol/L (98-107); Glucose 253 mg/dL (74-99); Non-African American GFR(CKD) >90 (>60 ml/min/1.73 sqM); Phosphorus 2.9 mg/dL (2.5-4.5); Potassium 3.9 mmol/L (3.5-5.1); Sodium 138 mmol/L (137-145)
[2024-04-28 22:14] LABS: Glucose,Whole Blood 195 mg/dL (70-110)
[2024-04-28 22:57] LABS: Glucose,Whole Blood 186 mg/dL (70-110)
[2024-04-28 23:59] LABS: Glucose,Whole Blood 179 mg/dL (70-110)
[2024-04-29] MEDS: DILTIAZEM 125 MG in SODIUM CHLORIDE 0.9% 100 ML IV SCH (01:06)
[2024-04-29 01:08] LABS: Glucose,Whole Blood 133 mg/dL (70-110)
[2024-04-29 01:17] LABS: African American GFR (CKD) >90 (>60 ml/min/1.73 sqM); Anion Gap 2 mmol/L; Blood Urea Nitrogen 21 mg/dL (9-20); Carbon Dioxide 18 mmol/L (22-30); Chloride 115 mmol/L (98-107); Glucose 157 mg/dL (74-99); Non-African American GFR(CKD) >90 (>60 ml/min/1.73 sqM); Phosphorus 2.1 mg/dL (2.5-4.5); Potassium 3.4 mmol/L (3.5-5.1); Sodium 135 mmol/L (137-145)
[2024-04-29 02:03] LABS: Glucose,Whole Blood 127 mg/dL (70-110)
[2024-04-29] MEDS: POTASSIUM CHLORIDE ER 20 MEQ TAB.ER PO SCH (02:48)
[2024-04-29 02:52] LABS: Glucose,Whole Blood 126 mg/dL (70-110)
[2024-04-29] MEDS: INSULIN NPH 100 UNIT/ML 10 ML VIAL SQ ONE (03:10)
--- NOTE | 2024-04-29 03:16 | P.CNPUL ---
History of Present Illness Consult date: 04/29/24 Requesting physician: Dandre Murray Reason for consult: other (DKA, ICU management) Chief complaint: Polyuria, polydipsia, nausea and vomiting History of present illness: Patient is a 59-year-old male with past medical history significant for severe aortic stenosis, rheumatic fever, and aortic valve replacement performed in August,. Patient presented to emergency department yesterday afternoon complaining of 3 to 4 days of "dehydration". He states that he has been thirsty and having increased urination. Starting yesterday, he developed some nausea and vomiting and lightheadedness when standing. Denies losing consciousness or head trauma. States his heart was racing. Denies any recent sick contacts or illnesses. He was feeling fairly well the day prior, was out [employer] shopping. Presented the emergency department he was thought to be in atrial flutter/atrial fibrillation. Started on heparin and Cardizem in the ED. Patient was also found to be in a state of DKA. Blood glucose 657, serum bicarb 11, anion gap 22, acetone positive. Denies history of diabetes. He was started on the DKA protocol, including insulin infusion. CBC: WBC count 10.8, hemoglobin 15.8, hematocrit 45.9, platelets 194. Most recent BMP includes a sodium 138, potassium 3.9, chloride 112, serum bicarb 12, anion gap 14, BUN 22, creatinine 0.89, glucose is now down to 179. LFTs unremarkable. Troponins were mildly elevated at 0.045. EKG done on arrival showing atrial tachycardia, possible a flutter, rate 125 bpm, old T wave inversions in 1, aVL, V5, V6.. Patient is currently being evaluated in the intensive care unit. Cardizem is currently infusing at 10 mg/h, Currently in a normal sinus rhythm, rate 70 bpm. IV heparin infusing per protocol, as well as, D5W with 0.45% saline with 20 mEq of potassium infusing at 150 ml/h. Current vitals: Temperature 98.4 F, heart rate 79 beats per minutes, blood pressure 104/78 mmHg, respiratory rate nontachypneic, SpO2 99% on room air. Review of Systems Constitutional: Reports fatigue, Denies chills, Denies fever, Denies poor appetite, Denies weight gain, Denies weight loss Ears, nose, mouth and throat: Denies headache, Denies nasal congestion, Denies nasal discharge, Denies post-nasal drip, Denies sinus pain, Denies sinus pressure, Denies sore throat Cardiovascular: Reports lightheadedness, Reports palpitations, Reports rapid heart beat, Denies chest pain, Denies irregular heart beat, Denies leg edema, Denies orthopnea, Denies paroxysmal nocturnal dyspnea, Denies shortness of breath Respiratory: Denies cough, Denies dyspnea, Denies hemoptysis, Denies wheezing Gastrointestinal: Reports nausea, Reports vomiting, Denies abdominal pain, Denies constipation, Denies diarrhea, Denies hematemesis, Denies loss of appetite Genitourinary: Reports polyuria, Denies dysuria, Denies flank pain, Denies hematuria, Denies urinary retention Musculoskeletal: Denies limitation of motion Integumentary: Denies rash Neurological: Denies seizures, Denies syncope Psychiatric: Denies anxiety, Denies depression Endocrine: Reports excessive thirst, Reports fatigue, Reports polydipsia, Reports polyuria, Denies cold intolerance, Denies excessive sweating, Denies polyphagia, Denies weight change Past Medical History Past Medical History: COPD Additional Past Medical History / Comment(s): hx kidney stones, recently tired and SOB when laying down or activity. See Dr Boston H&P. pain left arm x1 seen by PCP w/ekg, with referral to Dr Boston. Rheumatic fever as a child. Severe aortic stenosis History of Any Multi-Drug Resistant Organisms: None Reported Past Surgical History: No Surgical Hx Reported Additional Past Surgical History / Comment(s): colonscopy Past Anesthesia/Blood Transfusion Reactions: No Reported Reaction Past Psychological History: No Psychological Hx Reported Smoking Status: Former smoker Past Alcohol Use History: None Reported Additional Past Alcohol Use History / Comment(s): states he smokes 1/2 pack per day. quit a month ago Past Drug Use History: None Reported - Past Family History Father Family Medical History: Hypertension family Family Medical History: No Reported History Additional Family Medical History / Comment(s): Mother with kidney stones. Medications and Allergies Home Medications Medication Instructions Recorded Confirmed Type Clopidogrel [Plavix] 75 mg PO DAILY #30 tab 08/13/23 04/28/24 Rx Aspirin EC [Ecotrin Low Dose] 81 mg PO DAILY 04/28/24 04/28/24 History Atorvastatin [Lipitor] 40 mg PO W/SUPPER 04/28/24 04/28/24 History Metoprolol Tartrate [Lopressor] 50 mg PO BID-W/MEALS 04/28/24 04/28/24 History Pantoprazole [Protonix] 40 mg PO DAILY 04/28/24 04/28/24 History Allergies Allergy/AdvReac Type Severity Reaction Status Date / Time No Known Allergies Allergy Verified 04/28/24 19:50 Physical Exam Vitals: Vital Signs Temp Pulse Resp BP BP Pulse Ox 04/29/24 01:00 77 13 101/69 99 04/29/24 00:09 76 04/29/24 00:00 98.4 F 79 12 104/78 99 04/28/24 23:00 85 12 88/72 99 04/28/24 22:13 97.6 F 93 23 105/78 04/28/24 22:03 99 F 92 18 106/79 98 04/28/24 21:29 97.4 F L 16 105/78 04/28/24 21:23 99 18 116/82 98 04/28/24 19:12 142 H 18 109/85 96 04/28/24 18:36 141 H 18 126/90 96 04/28/24 18:31 140 H 18 147/109 98 04/28/24 16:40 134 H 20 139/115 96 04/28/24 15:52 98.6 F 130 H 30 H 136/109 97 Intake and Output 04/28/24 04/28/24 04/29/24 14:59 22:59 06:59 Intake Total 8.246 501.705 Output Total 0 Balance 8.246 501.705 Intake: Intake, IV Titration 8.246 501.705 Amount D5-0.45% NaCl with KCl 450 20Meq/l 1,000 ml @ 150 mls/hr IV .[id number] [facility] Rx# :[id number] Diltiazem 125 mg In 0.167 Sodium Chloride 0.9% 100 ml @ 10 MG/HR 10 mls/hr IV .[id number] [facility] Rx#: [id number] Insulin Regular 100 unit 8.246 51.538 In Sodium Chloride 0.9% 100 ml @ 0.1 UNITS/KG/HR 8.246 mls/hr IV .[id number] [facility] Rx#:[id number] Output: Urine 0 Other: Voiding Method Urinal Urinal # Voids 0 Weight 81.647 kg GENERAL EXAM: Alert, well-nourished 5-year-old male, comfortable in no apparent distress. HEAD: Normocephalic and atraumatic EYES: Normal reaction of pupils, equal size. NOSE: Clear with pink turbinates. THROAT: No erythema or exudates. Dry mucous membranes NECK: No masses, no JVD. CHEST: No chest wall deformity. LUNGS: Equal air entry with no crackles, wheeze, rhonchi or dullness. Room air. No conversational dyspnea or accessory muscle use.. CVS: S1 and S2 normal with soft systolic murmur, regular rhythm. No other extra heart sounds ABDOMEN: No hepatosplenomegaly, active bowel sounds, no guarding or rigidity. SPINE: No scoliosis or deformity SKIN: No rashes CENTRAL NERVOUS SYSTEM: No focal deficits, tone is normal in all 4 extremities. EXTREMITIES: There is no peripheral edema, clubbing, or cyanosis. Peripheral pulses are intact. Results - Laboratory Findings CBC and BMP: 04/28/24 18:28 04/29/24 00:39 PT/INR, D-dimer PT 11.4 sec (10.0-12.5) 04/28/24 16:17 INR 1.0 (<1.2) 04/28/24 16:17 Abnormal lab findings: Abnormal Labs 04/28/24 04/28/24 04/28/24 15:54 16:17 16:17 WBC 10.7 H Neutrophils # 9.1 H Lymphocytes # 0.8 L APTT 19.6 L VBG pH VBG HCO3 Sodium Chloride Carbon Dioxide BUN Creatinine Glucose POC Glucose (mg/dL) >600 H* Total Bilirubin Troponin I 04/28/24 04/28/24 04/28/24 16:17 16:17 17:29 WBC Neutrophils # Lymphocytes # APTT VBG pH 7.21 L VBG HCO3 16 L Sodium 130 L Chloride 97 L Carbon Dioxide 11 L BUN 26 H Creatinine 1.54 H Glucose 657 H* POC Glucose (mg/dL) Total Bilirubin 1.4 H Troponin I 0.045 H* 04/28/24 04/28/24 04/28/24 17:44 18:28 18:44 WBC 10.8 H Neutrophils # 9.4 H Lymphocytes # APTT VBG pH VBG HCO3 Sodium Chloride Carbon Dioxide BUN Creatinine Glucose POC Glucose (mg/dL) 510 H* 413 H Total Bilirubin Troponin I 04/28/24 04/28/24 04/28/24 19:52 20:11 21:02 WBC Neutrophils # Lymphocytes # APTT VBG pH VBG HCO3 Sodium Chloride 112 H Carbon Dioxide 12 L BUN 22 H Creatinine Glucose 253 H POC Glucose (mg/dL) 307 H 183 H Total Bilirubin Troponin I 04/28/24 04/28/24 04/28/24 22:12 22:56 23:58 WBC Neutrophils # Lymphocytes # APTT VBG pH VBG HCO3 Sodium Chloride Carbon Dioxide BUN Creatinine Glucose POC Glucose (mg/dL) 195 H 186 H 179 H Total Bilirubin Troponin I 04/29/24 01:06 WBC Neutrophils # Lymphocytes # APTT VBG pH VBG HCO3 Sodium Chloride Carbon Dioxide BUN Creatinine Glucose POC Glucose (mg/dL) 133 H Total Bilirubin Troponin I - Diagnostic Findings Chest x-ray: image reviewed Assessment and Plan Assessment: Acute diabetic ketoacidosis, Blood glucose 657, serum bicarb 11, anion gap 22, acetone positive. Anion gap metabolic acidosis, secondary to above New onset diabetes mellitus Atrial tachycardia, thought to be a flutter in the emergency department, started on a combination of heparin infusion and Cardizem which is infusing at 10 mg/h in the ED, currently normal sinus rhythm Elevated troponins, likely secondary to above, patient did have a heart catheterization 07/16/2023 which was unremarkable for significant or obstructive CAD. Acute kidney injury, secondary to dehydration and DKA, Improved History of aortic stenosis status post aortic valve replacement with bioprosthesis and exclusion of the left atrial appendage History of rheumatic fever History of hyperlipidemia Former tobacco smoker, quit smoking in May, Plan: Patient's medications, labs, chest x-ray reviewed No acute cardiopulmonary process noted on chest x-ray Patient denies any infectious-like symptoms Continue on DKA protocol including insulin and D5W with 0.45% saline with 20 mEq of K Monitor and replace electrolytes including potassium Patient will need education on diabetes including blood glucose monitoring and insulin administration Check HA1C Consult dietitian to discuss diabetic diet Cardiology is going to evaluate this patient In the meantime, wean patient off Cardizem, as the patient is in normal sinus rhythm. Heparin will likely be discontinued by cardiology. Patient will be monitored in the intensive care unit until his DKA resolves I have personally seen and examined the patient, performed the documentation and the assessment and plan as written. Number of minutes spent on the visit:20 Time with Patient: Greater than 30
[2024-04-29 06:41] LABS: Glucose,Whole Blood 141 mg/dL (70-110)
[2024-04-29 06:57] LABS: African American GFR (CKD) >90 (>60 ml/min/1.73 sqM); Anion Gap 10 mmol/L; Blood Urea Nitrogen 19 mg/dL (9-20); Calcium 8.5 mg/dL (8.4-10.2); Carbon Dioxide 15 mmol/L (22-30); Chloride 113 mmol/L (98-107); Glucose 144 mg/dL (74-99); Non-African American GFR(CKD) >90 (>60 ml/min/1.73 sqM); Potassium 3.8 mmol/L (3.5-5.1); Sodium 138 mmol/L (137-145)
[2024-04-29 08:09] LABS: HCT 35.6 % (39.0-53.0); MCH 32.8 pg (25.0-35.0); MCHC 34.1 g/dL (31.0-37.0); MCV 96.1 fL (80.0-100.0); Mean Platelet Volume 8.7; Platelet Count 185 k/uL (150-450); RBC 3.71 m/uL (4.30-5.90); RDW 12.4 % (11.5-15.5); WBC 10.6 k/uL (3.8-10.6)
[2024-04-29 08:13] LABS: HGB 12.1 gm/dL (13.0-17.5)
[2024-04-29 08:46] LABS: Glucose,Whole Blood 213 mg/dL (70-110)
[2024-04-29] MEDS: INSULIN ASPART (NovoLOG) 100 UNIT/ML VIAL SQ SCH ×2 (08:57→13:00)
[2024-04-29] MEDS: INSULIN DETEMIR (LEVEMIR) 100 UNIT/ML SYR SQ SCH (08:57)
--- NOTE | 2024-04-29 09:20 | P.HPIM ---
History of Present Illness This is a pleasant 59 years old male with past medical history of multiple medical problems including aortic valve replacement with Dr. Joshi. He follows up with welfare officer Dr. Mcgregor on aspirin and Plavix at home. Presents because of signs symptoms of hyperglycemia and lightheadedness feeling dizzy especially when he tries to walk feeling tired with leg cramps. Patient is not diabetic before, on admission his sugar was highly elevated more than 5 and 600. Patient was placed on insulin drip and admitted to the intensive care unit for further management. Also he has been tachycardic with heart rate 1 30-1 40 and he started on Cardizem drip and heparin drip and currently controlled in 60s. Also patient received aggressive IV hydration because of his severe dehydration. Patient currently denies chest pain dyspnea or coughing. No specific GI/ symptoms. No headache dizziness weakness or numbness. Gait is back to normal. Patient denies smoking alcohol or illicit drug, he said he quit about 1 year ago. He is afebrile, tachycardia is significantly improved and his vitals are stable WBC within the reference range at 10.6, glucose controlled. Creatinine was elevated on admission 1.5 improved down to 0.7 currently. Rest of CBC, LFTs and INR were unremarkable Acetone was positive Troponin is elevated 0.41 EKG showing sinus rhythm at [address] depression in V5 and V6 and inferior leads II and III Another EKG showing atrial flutter with a rate of 125 Chest x-ray is negative for acute process showing COPD changes This morning his insulin drip was discontinued and he started on Levemir 10 units and NovoLog sliding scale. Patient was taught how to inject himself with aspirin and he tried by himself this morning successfully. Patient currently stable and he is documented to 3 S. from ICU Review of Systems Review of systems CONSTITUTIONAL: No fever, no malaise, no fatigue. HEENT: No recent visual problems or hearing problems. Denied any sore throat. CARDIOVASCULAR: No orthopnea, PND, no palpitations, no syncope. PULMONARY: No shortness of breath, no cough, no hemoptysis. GASTROINTESTINAL: No diarrhea, no nausea, no vomiting, no abdominal pain. Normoactive bowel sounds. NEUROLOGICAL: No headaches, no weakness, no numbness. HEMATOLOGICAL: Denies any bleeding or petechiae. GENITOURINARY: Denies any burning micturition, frequency, or urgency. MUSCULOSKELETAL/RHEUMATOLOGICAL: Denies any joint pain, swelling, or any muscle pain. ENDOCRINE: Denies any polyuria or polydipsia. Past Medical History Past Medical History: COPD Additional Past Medical History / Comment(s): hx kidney stones, recently tired and SOB when laying down or activity. See Dr Boston H&P. pain left arm x1 seen by PCP w/ekg, with referral to Dr Boston. Rheumatic fever as a child. Severe aortic stenosis History of Any Multi-Drug Resistant Organisms: None Reported Past Surgical History: No Surgical Hx Reported Additional Past Surgical History / Comment(s): colonscopy Past Anesthesia/Blood Transfusion Reactions: No Reported Reaction Past Psychological History: No Psychological Hx Reported Smoking Status: Former smoker Past Alcohol Use History: None Reported Additional Past Alcohol Use History / Comment(s): states he smokes 1/2 pack per day. quit a month ago Past Drug Use History: None Reported - Past Family History Father Family Medical History: Hypertension family Family Medical History: No Reported History Additional Family Medical History / Comment(s): Mother with kidney stones. Medications and Allergies Home Medications Medication Instructions Recorded Confirmed Type Clopidogrel [Plavix] 75 mg PO DAILY #30 tab 08/13/23 04/28/24 Rx Aspirin EC [Ecotrin Low Dose] 81 mg PO DAILY 04/28/24 04/28/24 History Atorvastatin [Lipitor] 40 mg PO W/SUPPER 04/28/24 04/28/24 History Metoprolol Tartrate [Lopressor] 50 mg PO BID-W/MEALS 04/28/24 04/28/24 History Pantoprazole [Protonix] 40 mg PO DAILY 04/28/24 04/28/24 History Apixaban [Eliquis] 5 mg PO BID #60 tab 04/29/24 Rx Allergies Allergy/AdvReac Type Severity Reaction Status Date / Time No Known Allergies Allergy Verified 04/28/24 19:50 Physical Exam Vitals: Vital Signs Temp Pulse Resp BP BP Pulse Ox 04/29/24 08:28 98 04/29/24 07:00 63 14 100/68 100 04/29/24 06:00 56 L 13 89/60 98 04/29/24 05:00 60 13 102/71 97 04/29/24 04:00 64 11 L 104/73 99 04/29/24 03:00 70 12 102/80 99 04/29/24 02:00 69 12 106/73 100 04/29/24 01:00 77 13 101/69 99 04/29/24 00:09 76 04/29/24 00:00 98.4 F 79 12 104/78 99 04/28/24 23:00 85 12 88/72 99 04/28/24 22:13 97.6 F 93 23 105/78 04/28/24 22:03 99 F 92 18 106/79 98 04/28/24 21:29 97.4 F L 16 105/78 04/28/24 21:23 99 18 116/82 98 04/28/24 19:12 142 H 18 109/85 96 04/28/24 18:36 141 H 18 126/90 96 04/28/24 18:31 140 H 18 147/109 98 04/28/24 16:40 134 H 20 139/115 96 04/28/24 15:52 98.6 F 130 H 30 H 136/109 97 Intake and Output 04/28/24 04/29/24 04/29/24 22:59 06:59 14:59 Intake Total 8.246 806.567 100 Output Total 0 375 Balance 8.246 806.567 -275 Intake: IV 50 D5-0.45% NaCl with KCl 50 20Meq/l 1,000 ml @ 50 mls /hr IV .Q20H [facility] Rx#: [id number] Intake, IV Titration 8.246 706.567 50 Amount D5-0.45% NaCl with KCl 650 50 20Meq/l 1,000 ml @ 50 mls /hr IV .Q20H [facility] Rx#: [id number] Diltiazem 125 mg In 1.250 Sodium Chloride 0.9% 100 ml @ 10 MG/HR 10 mls/hr IV .[id number] [facility] Rx#: [id number] Insulin Regular 100 unit 8.246 55.317 In Sodium Chloride 0.9% 100 ml @ 0.1 UNITS/KG/HR 8.246 mls/hr IV .[id number] [facility] Rx#:[id number] Oral 100 Output: Urine 0 375 Other: Voiding Method Urinal Urinal # Voids 0 Weight 81.647 kg 83.9 kg GENERAL: The patient is alert and oriented x3, not in any acute distress. Well developed, well nourished. HEENT: Pupils are round and equally reacting to light. EOMI. No scleral icterus. No conjunctival pallor. Normocephalic, atraumatic. No pharyngeal erythema. No thyromegaly. CARDIOVASCULAR: S1 and S2 present. No murmurs, rubs, or gallops. PULMONARY: Chest is clear to auscultation, no wheezing , no crackles. ABDOMEN: Soft, nontender, nondistended, normoactive bowel sounds. No palpable organomegaly. MUSCULOSKELETAL: No joint swelling or deformity. EXTREMITIES: No cyanosis, clubbing, or pedal edema. NEUROLOGICAL: Gross neurological examination did not reveal any focal deficits. SKIN: No rashes. no petechiae. Results CBC & Chem 7: 04/29/24 05:15 04/29/24 05:15 Labs: Abnormal Lab Results - Last 24 Hours (Table) 04/28/24 04/28/24 04/28/24 Range/Units 15:54 16:17 16:17 WBC 10.7 H (3.8-10.6) k/uL RBC (4.30-5.90) m/uL Hgb (13.0-17.5) gm/dL Hct (39.0-53.0) % Neutrophils # 9.1 H (1.3-7.7) k/uL Lymphocytes # 0.8 L (1.0-4.8) k/uL APTT 19.6 L (22.0-30.0) sec VBG pH (7.31-7.41) VBG HCO3 (24-28) mmol/L Sodium (137-145) mmol/L Potassium (3.5-5.1) mmol/L Chloride (98-107) mmol/L Carbon Dioxide (22-30) mmol/L BUN (9-20) mg/dL Creatinine (0.66-1.25) mg/dL Glucose (74-99) mg/dL POC Glucose (mg/dL) >600 H* (70-110) mg/dL Phosphorus (2.5-4.5) mg/dL Total Bilirubin (0.2-1.3) mg/dL Troponin I (0.000-0.034) ng/mL 12/04/28/24 04/28/24 Range/Units 16:17 16:17 17:29 WBC (3.8-10.6) k/uL RBC (4.30-5.90) m/uL Hgb (13.0-17.5) gm/dL Hct (39.0-53.0) % Neutrophils # (1.3-7.7) k/uL Lymphocytes # (1.0-4.8) k/uL APTT (22.0-30.0) sec VBG pH 7.21 L (7.31-7.41) VBG HCO3 16 L (24-28) mmol/L Sodium 130 L (137-145) mmol/L Potassium (3.5-5.1) mmol/L Chloride 97 L (98-107) mmol/L Carbon Dioxide 11 L (22-30) mmol/L BUN 26 H (9-20) mg/dL Creatinine 1.54 H (0.66-1.25) mg/dL Glucose 657 H* (74-99) mg/dL POC Glucose (mg/dL) (70-110) mg/dL Phosphorus (2.5-4.5) mg/dL Total Bilirubin 1.4 H (0.2-1.3) mg/dL Troponin I 0.045 H* (0.000-0.034) ng/mL 04/28/24 04/28/24 04/28/24 Range/Units 17:44 18:28 18:44 WBC 10.8 H (3.8-10.6) k/uL RBC (4.30-5.90) m/uL Hgb (13.0-17.5) gm/dL Hct (39.0-53.0) % Neutrophils # 9.4 H (1.3-7.7) k/uL Lymphocytes # (1.0-4.8) k/uL APTT (22.0-30.0) sec VBG pH (7.31-7.41) VBG HCO3 (24-28) mmol/L Sodium (137-145) mmol/L Potassium (3.5-5.1) mmol/L Chloride (98-107) mmol/L Carbon Dioxide (22-30) mmol/L BUN (9-20) mg/dL Creatinine (0.66-1.25) mg/dL Glucose (74-99) mg/dL POC Glucose (mg/dL) 510 H* 413 H (70-110) mg/dL Phosphorus (2.5-4.5) mg/dL Total Bilirubin (0.2-1.3) mg/dL Troponin I (0.000-0.034) ng/mL 04/28/24 04/28/24 04/28/24 Range/Units 19:52 20:11 21:02 WBC (3.8-10.6) k/uL RBC (4.30-5.90) m/uL Hgb (13.0-17.5) gm/dL Hct (39.0-53.0) % Neutrophils # (1.3-7.7) k/uL Lymphocytes # (1.0-4.8) k/uL APTT (22.0-30.0) sec VBG pH (7.31-7.41) VBG HCO3 (24-28) mmol/L Sodium (137-145) mmol/L Potassium (3.5-5.1) mmol/L Chloride 112 H (98-107) mmol/L Carbon Dioxide 12 L (22-30) mmol/L BUN 22 H (9-20) mg/dL Creatinine (0.66-1.25) mg/dL Glucose 253 H (74-99) mg/dL POC Glucose (mg/dL) 307 H 183 H (70-110) mg/dL Phosphorus (2.5-4.5) mg/dL Total Bilirubin (0.2-1.3) mg/dL Troponin I (0.000-0.034) ng/mL 04/28/24 04/28/24 04/28/24 Range/Units 22:12 22:56 23:58 WBC (3.8-10.6) k/uL RBC (4.30-5.90) m/uL Hgb (13.0-17.5) gm/dL Hct (39.0-53.0) % Neutrophils # (1.3-7.7) k/uL Lymphocytes # (1.0-4.8) k/uL APTT (22.0-30.0) sec VBG pH (7.31-7.41) VBG HCO3 (24-28) mmol/L Sodium (137-145) mmol/L Potassium (3.5-5.1) mmol/L Chloride (98-107) mmol/L Carbon Dioxide (22-30) mmol/L BUN (9-20) mg/dL Creatinine (0.66-1.25) mg/dL Glucose (74-99) mg/dL POC Glucose (mg/dL) 195 H 186 H 179 H (70-110) mg/dL Phosphorus (2.5-4.5) mg/dL Total Bilirubin (0.2-1.3) mg/dL Troponin I (0.000-0.034) ng/mL 04/29/24 04/29/24 04/29/24 Range/Units 00:39 01:06 01:11 WBC (3.8-10.6) k/uL RBC (4.30-5.90) m/uL Hgb (13.0-17.5) gm/dL Hct (39.0-53.0) % Neutrophils # (1.3-7.7) k/uL Lymphocytes # (1.0-4.8) k/uL APTT 41.2 H (22.0-30.0) sec VBG pH (7.31-7.41) VBG HCO3 (24-28) mmol/L Sodium 135 L (137-145) mmol/L Potassium 3.4 L (3.5-5.1) mmol/L Chloride 115 H (98-107) mmol/L Carbon Dioxide 18 L (22-30) mmol/L BUN 21 H (9-20) mg/dL Creatinine (0.66-1.25) mg/dL Glucose 157 H (74-99) mg/dL POC Glucose (mg/dL) 133 H (70-110) mg/dL Phosphorus 2.1 L (2.5-4.5) mg/dL Total Bilirubin (0.2-1.3) mg/dL Troponin I (0.000-0.034) ng/mL 04/29/24 04/29/24 04/29/24 Range/Units 02:02 02:51 05:15 WBC (3.8-10.6) k/uL RBC (4.30-5.90) m/uL Hgb (13.0-17.5) gm/dL Hct (39.0-53.0) % Neutrophils # (1.3-7.7) k/uL Lymphocytes # (1.0-4.8) k/uL APTT (22.0-30.0) sec VBG pH (7.31-7.41) VBG HCO3 (24-28) mmol/L Sodium (137-145) mmol/L Potassium (3.5-5.1) mmol/L Chloride 113 H (98-107) mmol/L Carbon Dioxide 15 L (22-30) mmol/L BUN (9-20) mg/dL Creatinine (0.66-1.25) mg/dL Glucose 144 H (74-99) mg/dL POC Glucose (mg/dL) 127 H 126 H (70-110) mg/dL Phosphorus (2.5-4.5) mg/dL Total Bilirubin (0.2-1.3) mg/dL Troponin I (0.000-0.034) ng/mL 04/29/24 04/29/24 04/29/24 Range/Units 05:15 05:20 06:40 WBC (3.8-10.6) k/uL RBC 3.71 L (4.30-5.90) m/uL Hgb 12.1 L D (13.0-17.5) gm/dL Hct 35.6 L (39.0-53.0) % Neutrophils # (1.3-7.7) k/uL Lymphocytes # (1.0-4.8) k/uL APTT 48.0 H (22.0-30.0) sec VBG pH (7.31-7.41) VBG HCO3 (24-28) mmol/L Sodium (137-145) mmol/L Potassium (3.5-5.1) mmol/L Chloride (98-107) mmol/L Carbon Dioxide (22-30) mmol/L BUN (9-20) mg/dL Creatinine (0.66-1.25) mg/dL Glucose (74-99) mg/dL POC Glucose (mg/dL) 141 H (70-110) mg/dL Phosphorus (2.5-4.5) mg/dL Total Bilirubin (0.2-1.3) mg/dL Troponin I (0.000-0.034) ng/mL Thrombosis Risk Factor Assmnt - Choose All That Apply Each Factor Represents 1 point: Age 41-60 years Each Risk Factor Represents 2 Points: Major surgery Other congenital or acquired thrombophilia - If yes, enter type in comment: No Thrombosis Risk Factor Assessment Total Risk Factor Score: 3 Thrombosis Risk Factor Assessment Level: Moderate Risk Assessment and Plan Assessment: Diabetic ketoacidosis, new onset Diabetes mellitus with hyperglycemia most likely type I. New onset A-fib and RVR, present on admission, new onset and DILLON and severe dehydration secondary to above currently resolved History of aortic valve disease and severe stenosis status post TAVR History of kidney stones History of rheumatic fever as a child Plan: Continue with Levemir 10 units and NovoLog 3 units with meals and sliding scale Cardiology team consult, pulmonary team consult Heparin drip can be switched to oral anticoagulant and Cardizem/beta-suraj for heart rate control Nutrition consult Labs and medication were reviewed.. Continue same treatment. Continue with symptomatic treatment. Resume home medication. Monitor labs and vitals. DVT and GI prophylaxis. Further recommendations as per clinical course of the patient DVT prophylaxis: heparin GI Prophylaxis: Pepcid Prognosis is guarded patient will need to follow-up with knockout machine operator and welfare officer upon discharge and he agrees
--- NOTE | 2024-04-29 10:25 | P.CRDCN ---
History of Present Illness Consult date: 04/29/24 History of present illness: HISTORY OF PRESENTING ILLNESS Patient is a 59-year-old with past medical history of aortic valve replacement in July 2023. He is known to Dr. Mcgregor. Into the hospital because of feeling of generalized weakness, feeling very tired, leg cramps and feeling as if he was very dehydrated. On admission he was noticed to have elevated blood sugars with severe hyperglycemia with glucose measuring 600. He was also positive for having ketones and blood Patient reports that he did not know that he was diabetic before this episode. Admission labs hemoglobin 15.8, BUN 22, creatinine 0.8, troponin 0.045. REVIEW OF SYSTEMS 14 point review of system is negative except what is mentioned above in HPI. PHYSICAL EXAMINATION Vital signs reviewed. Head: Normocephalic. Eyes: Sclerae nonicteric. Neck: Brisk carotid upstroke, no jugular venous distention. Lungs: Clear to auscultation. Heart: Regular rate and rhythm, S1-S2 audible, systolic murmur audible, Abdomen: Soft nontender, positive bowel sounds. Extremities: No edema, intact distal pulses. Neuro: Alert, oritented, no focal deficits. Detailed neuro exam was not performed. ASSESSMENT Elevated troponin, likely type II NSTEMI in setting of severe dehydration and diabetic ketoacidosis Bicuspid aortic valve with severe aortic stenosis, status post TAVR in 08/2023 Mild cardiomyopathy EF 45%, grade 3 diastolic function Mild carotid disease Diabetic ketoacidosis Uncontrolled diabetes HbA1c 13.6 Cardiac testing 07/2023, carotid Doppler, mild bilateral disease 07/2023, cardiac cath, no significant obstructive coronary artery disease. EKG on this admission shows sinus tachycardia. It reads as atrial flutter but it appears more to be sinus tachycardia to me. Repeat ECG shows sinus tachycardia with diffuse T wave inversions in inferolateral leads PLAN Continue aspirin 81 mg, Lipitor 40 mg Continue IV heparin drip for 48 hours, Obtain updated echocardiogram Supportive care for diabetic ketoacidosis management. Amador Nuñez MD, FACC, RPVI Thank you for allowing [facility] to participate in this patient's care. Feel free to reach out in case of any followup questions. Past Medical History Past Medical History: COPD Additional Past Medical History / Comment(s): hx kidney stones, recently tired and SOB when laying down or activity. See Dr Boston H&P. pain left arm x1 seen by PCP w/ekg, with referral to Dr Boston. Rheumatic fever as a child. Severe aortic stenosis History of Any Multi-Drug Resistant Organisms: None Reported Past Surgical History: No Surgical Hx Reported Additional Past Surgical History / Comment(s): colonscopy Past Anesthesia/Blood Transfusion Reactions: No Reported Reaction Past Psychological History: No Psychological Hx Reported Smoking Status: Former smoker Past Alcohol Use History: None Reported Additional Past Alcohol Use History / Comment(s): states he smokes 1/2 pack per day. quit a month ago Past Drug Use History: None Reported - Past Family History Father Family Medical History: Hypertension family Family Medical History: No Reported History Additional Family Medical History / Comment(s): Mother with kidney stones. Medications and Allergies Home Medications Medication Instructions Recorded Confirmed Type Clopidogrel [Plavix] 75 mg PO DAILY #30 tab 08/13/23 04/28/24 Rx Aspirin EC [Ecotrin Low Dose] 81 mg PO DAILY 04/28/24 04/28/24 History Atorvastatin [Lipitor] 40 mg PO W/SUPPER 04/28/24 04/28/24 History Metoprolol Tartrate [Lopressor] 50 mg PO BID-W/MEALS 04/28/24 04/28/24 History Pantoprazole [Protonix] 40 mg PO DAILY 04/28/24 04/28/24 History Apixaban [Eliquis] 5 mg PO BID #60 tab 04/29/24 Rx Allergies Allergy/AdvReac Type Severity Reaction Status Date / Time No Known Allergies Allergy Verified 04/28/24 19:50 Physical Exam Vitals: Vital Signs Temp Pulse Pulse Resp BP BP Pulse Ox 04/29/24 08:28 98 04/29/24 08:00 97.4 F L 72 19 105/71 97 04/29/24 07:00 63 14 100/68 100 04/29/24 06:00 56 L 13 89/60 98 04/29/24 05:00 60 13 102/71 97 04/29/24 04:00 64 11 L 104/73 99 04/29/24 03:00 70 12 102/80 99 04/29/24 02:00 69 12 106/73 100 04/29/24 01:00 77 13 101/69 99 04/29/24 00:09 76 04/29/24 00:00 98.4 F 79 12 104/78 99 04/28/24 23:00 85 12 88/72 99 04/28/24 22:13 97.6 F 93 23 105/78 04/28/24 22:03 99 F 92 18 106/79 98 04/28/24 21:29 97.4 F L 16 105/78 04/28/24 21:23 99 18 116/82 98 04/28/24 19:12 142 H 18 109/85 96 04/28/24 18:36 141 H 18 126/90 96 04/28/24 18:31 140 H 18 147/109 98 04/28/24 16:40 134 H 20 139/115 96 04/28/24 15:52 98.6 F 130 H 30 H 136/109 97 Intake and Output 04/28/24 04/29/24 04/29/24 22:59 06:59 14:59 Intake Total 8.246 806.567 100 Output Total 0 375 Balance 8.246 806.567 -275 Intake: IV 50 D5-0.45% NaCl with KCl 50 20Meq/l 1,000 ml @ 50 mls /hr IV .Q20H [facility] Rx#: [id number] Intake, IV Titration 8.246 706.567 50 Amount D5-0.45% NaCl with KCl 650 50 20Meq/l 1,000 ml @ 50 mls /hr IV .Q20H [facility] Rx#: [id number] Diltiazem 125 mg In 1.250 Sodium Chloride 0.9% 100 ml @ 10 MG/HR 10 mls/hr IV .[id number] [facility] Rx#: [id number] Insulin Regular 100 unit 8.246 55.317 In Sodium Chloride 0.9% 100 ml @ 0.1 UNITS/KG/HR 8.246 mls/hr IV .[id number] [facility] Rx#:[id number] Oral 100 Output: Urine 0 375 Other: Voiding Method Urinal Urinal # Voids 0 Weight 81.647 kg 83.9 kg 83.9 kg Results 04/29/24 05:15 04/29/24 05:15 Cardiac Enzymes 04/28/24 04/28/24 Range/Units 16:17 16:17 AST 30 (17-59) U/L Troponin I 0.045 H* (0.000-0.034) ng/mL Coagulation 04/28/24 04/29/24 04/29/24 Range/Units 16:17 01:11 05:20 PT 11.4 (10.0-12.5) sec APTT 19.6 L 41.2 H 48.0 H (22.0-30.0) sec CBC 04/28/24 04/28/24 04/29/24 Range/Units 16:17 18:28 05:15 WBC 10.7 H 10.8 H 10.6 (3.8-10.6) k/uL RBC 5.29 4.78 3.71 L (4.30-5.90) m/uL Hgb 17.3 15.8 12.1 L D (13.0-17.5) gm/dL Hct 51.8 45.9 35.6 L (39.0-53.0) % Plt Count 184 194 185 (150-450) k/uL Comprehensive Metabolic Panel 04/28/24 04/28/24 04/29/24 Range/Units 16:17 20:11 00:39 Sodium 130 L 138 135 L (137-145) mmol/L Potassium 5.1 3.9 3.4 L (3.5-5.1) mmol/L Chloride 97 L 112 H 115 H (98-107) mmol/L Carbon Dioxide 11 L 12 L 18 L (22-30) mmol/L BUN 26 H 22 H 21 H (9-20) mg/dL Creatinine 1.54 H 0.89 0.76 (0.66-1.25) mg/dL Glucose 657 H* 253 H 157 H (74-99) mg/dL Calcium 9.5 (8.4-10.2) mg/dL AST 30 (17-59) U/L ALT 37 (4-49) U/L Alkaline Phosphatase 94 (38-126) U/L Total Protein 6.8 (6.3-8.2) g/dL Albumin 4.5 (3.5-5.0) g/dL 04/29/24 Range/Units 05:15 Sodium 138 (137-145) mmol/L Potassium 3.8 (3.5-5.1) mmol/L Chloride 113 H (98-107) mmol/L Carbon Dioxide 15 L (22-30) mmol/L BUN 19 (9-20) mg/dL Creatinine 0.78 (0.66-1.25) mg/dL Glucose 144 H (74-99) mg/dL Calcium 8.5 (8.4-10.2) mg/dL AST (17-59) U/L ALT (4-49) U/L Alkaline Phosphatase (38-126) U/L Total Protein (6.3-8.2) g/dL Albumin (3.5-5.0) g/dL Current Medications Generic Name Dose Route Start Last Admin Trade Name Freq PRN Reason Stop Dose Admin Dextrose/Water 25 ml 04/28/24 17:18 Dextrose 50% Syringe 50 Ml IVP PER PROTOCOL PRN Hypoglycemia Protocol Dextrose/Water 50 ml 04/28/24 17:18 Dextrose 50% Syringe 50 Ml IVP PER PROTOCOL PRN Hypoglycemia Protocol Heparin Sodium (Porcine) 0 unit 04/28/24 18:10 Heparin Sodium 1,000 Un/Ml (10ml Vl) IV PER PROTOCOL PRN Low PTT Protocol Heparin Sodium/Sodium Chloride 250 mls @ 9.798 mls/hr 04/28/24 18:15 04/28/24 18:53 25,000 unit/ Sodium Chloride IV 12 units/kg/hr .Q24H [facility] 9.798 mls/hr Administration Protocol 12 UNITS/KG/HR Insulin Aspart 0 unit 04/29/24 07:30 04/29/24 08:57 Insulin Aspart (Novolog) 100 Unit/Ml Vial SQ 4 unit [id number] [facility] Administration Protocol Insulin Aspart 3 unit 04/29/24 12:30 Insulin Aspart (Novolog) 100 Unit/Ml Vial SQ AC-TID [facility] Insulin Detemir 10 unit 04/29/24 07:00 04/29/24 08:57 Insulin Detemir (Levemir) 100 Unit/Ml Syr SQ 10 unit DAILY@0700 [facility] Administration Miscellaneous Information 1 each 04/28/24 17:18 Magnesium Replacement Protocol 1 Each Misc MISCELLANE DAILY PRN Per Protocol Protocol Miscellaneous Information 1 each 04/28/24 17:18 Potassium Replacement Protocol 1 Each Misc MISCELLANE DAILY PRN Per Protocol Naloxone HCl 0.2 mg 04/28/24 20:33 Naloxone 0.4 Mg/Ml 1 Ml Vial IV Q2M PRN Opioid Reversal Intake and Output 04/28/24 04/29/24 04/29/24 22:59 06:59 14:59 Intake Total 8.246 806.567 100 Output Total 0 375 Balance 8.246 806.567 -275 Intake: IV 50 D5-0.45% NaCl with KCl 50 20Meq/l 1,000 ml @ 50 mls /hr IV .Q20H [facility] Rx#: [id number] Intake, IV Titration 8.246 706.567 50 Amount D5-0.45% NaCl with KCl 650 50 20Meq/l 1,000 ml @ 50 mls /hr IV .Q20H [facility] Rx#: [id number] Diltiazem 125 mg In 1.250 Sodium Chloride 0.9% 100 ml @ 10 MG/HR 10 mls/hr IV .[id number] [facility] Rx#: [id number] Insulin Regular 100 unit 8.246 55.317 In Sodium Chloride 0.9% 100 ml @ 0.1 UNITS/KG/HR 8.246 mls/hr IV .[id number] [facility] Rx#:[id number] Oral 100 Output: Urine 0 375 Other: Voiding Method Urinal Urinal # Voids 0 Weight 81.647 kg 83.9 kg 83.9 kg Patient Weight 04/30/24 06:59 Weight 83.9 kg 04/29/24 05:15 04/29/24 05:15
[2024-04-29 11:05] LABS: Glucose,Whole Blood 281 mg/dL (70-110)
[2024-04-29 15:59] LABS: Glucose,Whole Blood 213 mg/dL (70-110)
[2024-04-29 19:47] LABS: Glucose,Whole Blood 234 mg/dL (70-110)
[2024-04-30 02:51] LABS: Glucose,Whole Blood 160 mg/dL (70-110)
[2024-04-30 06:26] LABS: Glucose,Whole Blood 190 mg/dL (70-110)
[2024-04-30 07:51] LABS: HCT 40.2 % (39.0-53.0); HGB 13.6 gm/dL (13.0-17.5); MCH 31.8 pg (25.0-35.0); MCHC 33.7 g/dL (31.0-37.0); MCV 94.3 fL (80.0-100.0); Mean Platelet Volume 8.3; Platelet Count 176 k/uL (150-450); RBC 4.26 m/uL (4.30-5.90); RDW 12.2 % (11.5-15.5); WBC 7.6 k/uL (3.8-10.6)
[2024-04-30 08:14] LABS: ALT 30 U/L (4-49); AST 26 U/L (17-59); African American GFR (CKD) >90 (>60 ml/min/1.73 sqM); Albumin 2.9 g/dL (3.5-5.0); Alkaline Phosphatase 63 U/L (38-126); Anion Gap 8 mmol/L; Blood Urea Nitrogen 17 mg/dL (9-20); Calcium 8.9 mg/dL (8.4-10.2); Carbon Dioxide 19 mmol/L (22-30); Chloride 107 mmol/L (98-107); Glucose 180 mg/dL (74-99); Non-African American GFR(CKD) >90 (>60 ml/min/1.73 sqM); Potassium 3.4 mmol/L (3.5-5.1); Sodium 134 mmol/L (137-145); Total Bilirubin 0.4 mg/dL (0.2-1.3); Total Protein 5.3 g/dL (6.3-8.2)
--- NOTE | 2024-04-30 09:46 | P.PN ---
Subjective This is a pleasant 59 years old male with past medical history of multiple medical problems including aortic valve replacement with Dr. Joshi. He follows up with director shopper marketing Dr. Mcgregor on aspirin and Plavix at home. Presents because of signs symptoms of hyperglycemia and lightheadedness feeling dizzy especially when he tries to walk feeling tired with leg cramps. Patient is not diabetic before, on admission his sugar was highly elevated more than 5 and 600. Patient was placed on insulin drip and admitted to the intensive care unit for further management. Also he has been tachycardic with heart rate 1 30-1 40 and he started on Cardizem drip and heparin drip and currently controlled in 60s. Also patient received aggressive IV hydration because of his severe dehydration. Patient currently denies chest pain dyspnea or coughing. No specific GI/ symptoms. No headache dizziness weakness or numbness. Gait is back to normal. Patient denies smoking alcohol or illicit drug, he said he quit about 1 year ago. He is afebrile, tachycardia is significantly improved and his vitals are stable WBC within the reference range at 10.6, glucose controlled. Creatinine was elevated on admission 1.5 improved down to 0.7 currently. Rest of CBC, LFTs and INR were unremarkable Acetone was positive Troponin is elevated 0.41 EKG showing sinus rhythm at [address] depression in V5 and V6 and inferior leads II and III Another EKG showing atrial flutter with a rate of 125 Chest x-ray is negative for acute process showing COPD changes This morning his insulin drip was discontinued and he started on Levemir 10 units and NovoLog sliding scale. Patient was taught how to inject himself with aspirin and he tried by himself this morning successfully. Patient currently stable and he is documented to 3 S. from ICU 04/30 No chest pain or dyspnea Remains on heparin drip Blood sugar still slightly elevated continue with Levemir 10 units increase No voLog to 5 units Patient off Cardizem drip and heart rate controlled WBC down to 7.6, low potassium 3.4 replaced, creatinine 0.8 Objective - Vital Signs Vital signs: Vital Signs Temp 98.3 F 04/30/24 03:00 Pulse 83 04/30/24 03:00 Resp 16 04/30/24 03:00 BP 113/82 04/30/24 03:00 Pulse Ox 97 04/30/24 08:54 FiO2 Intake & Output 04/29/24 04/30/24 04/30/24 18:59 06:59 18:59 Intake Total 323.721 Output Total 375 Balance -51.279 Weight 83.9 kg 78.3 kg Intake: IV 50 D5-0.45% NaCl with KCl 50 20Meq/l 1,000 ml @ 50 mls /hr IV .Q20H [facility] Rx#: [id number] Intake, IV Titration 273.721 Amount D5-0.45% NaCl with KCl 50 20Meq/l 1,000 ml @ 50 mls /hr IV .Q20H [facility] Rx#: [id number] Heparin Sod,Pork in 0.45% 223.721 NaCl 25,000 unit In 0.45 % NaCl 1 250ml.bag @ 12 UNITS/KG/HR 9.798 mls/hr IV .Q24H [facility] Rx#: [id number] Output: Urine 375 Other: Voiding Method Toilet # Voids 1 2 - Exam GENERAL: The patient is alert and oriented x3, not in any acute distress. Well developed, well nourished. HEENT: Pupils are round and equally reacting to light. EOMI. No scleral icterus. No conjunctival pallor. Normocephalic, atraumatic. No pharyngeal erythema. No thyromegaly. CARDIOVASCULAR: S1 and S2 present. No murmurs, rubs, or gallops. PULMONARY: Chest is clear to auscultation, no wheezing , no crackles. ABDOMEN: Soft, nontender, nondistended, normoactive bowel sounds. No palpable organomegaly. MUSCULOSKELETAL: No joint swelling or deformity. EXTREMITIES: No cyanosis, clubbing, or pedal edema. NEUROLOGICAL: Gross neurological examination did not reveal any focal deficits. SKIN: No rashes. no petechiae. - Labs CBC & Chem 7: 04/30/24 07:06 04/30/24 07:06 Labs: Abnormal Lab Results - Last 24 Hours (Table) 04/29/24 04/29/24 04/29/24 Range/Units 11:03 15:58 19:45 RBC (4.30-5.90) m/uL APTT (22.0-30.0) sec Sodium (137-145) mmol/L Potassium (3.5-5.1) mmol/L Carbon Dioxide (22-30) mmol/L Glucose (74-99) mg/dL POC Glucose (mg/dL) 281 H 213 H 234 H (70-110) mg/dL Total Protein (6.3-8.2) g/dL Albumin (3.5-5.0) g/dL 04/30/24 04/30/24 04/30/24 Range/Units 02:50 06:25 07:06 RBC (4.30-5.90) m/uL APTT 43.1 H (22.0-30.0) sec Sodium (137-145) mmol/L Potassium (3.5-5.1) mmol/L Carbon Dioxide (22-30) mmol/L Glucose (74-99) mg/dL POC Glucose (mg/dL) 160 H 190 H (70-110) mg/dL Total Protein (6.3-8.2) g/dL Albumin (3.5-5.0) g/dL 04/30/24 04/30/24 Range/Units 07:06 07:06 RBC 4.26 L (4.30-5.90) m/uL APTT (22.0-30.0) sec Sodium 134 L (137-145) mmol/L Potassium 3.4 L (3.5-5.1) mmol/L Carbon Dioxide 19 L (22-30) mmol/L Glucose 180 H (74-99) mg/dL POC Glucose (mg/dL) (70-110) mg/dL Total Protein 5.3 L (6.3-8.2) g/dL Albumin 2.9 L (3.5-5.0) g/dL Assessment and Plan Assessment: Diabetic ketoacidosis, new onset Diabetes mellitus with hyperglycemia most likely type I. New onset A-fib and RVR, present on admission, new onset and DILLON and severe dehydration secondary to above currently resolved History of aortic valve disease and severe stenosis status post TAVR History of kidney stones History of rheumatic fever as a child Plan: Continue with Levemir 10 units and NovoLog 5 units with meals and sliding scale Cardiology team consult, pulmonary team consult Heparin drip per cardiology team consult Nutrition consult Labs and medication were reviewed.. Continue same treatment. Continue with symptomatic treatment. Resume home medication. Monitor labs and vitals. DVT and GI prophylaxis. Further recommendations as per clinical course of the patient DVT prophylaxis: heparin GI Prophylaxis: Pepcid Prognosis is guarded patient will need to follow-up with grinder chipper and director shopper marketing upon discharge and he agrees
--- NOTE | 2024-04-30 10:59 | P.PN ---
Subjective Progress Note Date: 04/30/24 Patient is a 59-year-old male with past medical history significant for severe aortic stenosis, rheumatic fever, and aortic valve replacement performed in August,. Patient presented to emergency department yesterday afternoon complaining of 3 to 4 days of "dehydration". He states that he has been thirsty and having increased urination. Starting yesterday, he developed some nausea and vomiting and lightheadedness when standing. Denies losing consciousness or head trauma. States his heart was racing. Denies any recent sick contacts or illnesses. He was feeling fairly well the day prior, was out [employer] shopping. Presented the emergency department he was thought to be in atrial flutter/atri al fibrillation. Started on heparin and Cardizem in the ED. Patient was also found to be in a state of DKA. Blood glucose 657, serum bicarb 11, anion gap 22, acetone positive. Denies history of diabetes. He was started on the DKA protocol, including insulin infusion. CBC: WBC count 10.8, hemoglobin 15.8, hematocrit 45.9, platelets 194. Most recent BMP includes a sodium 138, potassium 3.9, chloride 112, serum bicarb 12, anion gap 14, BUN 22, creatinine 0.89, glucose is now down to 179. LFTs unremarkable. Troponins were mildly elevated at 0.045. EKG done on arrival showing atrial tachycardia, possible a flutter, rate 125 bpm, old T wave inversions in 1, aVL, V5, V6.. Patient is currently being evaluated in the intensive care unit. Cardizem is currently infusing at 10 mg/h, Currently in a normal sinus rhythm, rate 70 bpm. IV heparin infusing per protocol, as well as, D5W with 0.45% saline with 20 mEq of potassium infusing at 150 ml/h. Current vitals: Temperature 98.4 F, heart rate 79 beats per minutes, blood pressure 104/78 mmHg, respiratory rate nontachypneic, SpO2 99% on room air. The patient is seen today April 30, 2024 in follow-up on the selective care unit. He was transferred out of the intensive care unit yesterday. He is currently sitting up at the bedside. Awake and alert in no acute distress. Feeling a bit better today compared to yesterday. Still somewhat weak. White count 7.6. Hemoglobin 13.6. Platelets 176. Sodium 134. Potassium 3.4. Bi carb 19. BUN 17. Creatinine 0.82. Glucose 180. He is continued on a heparin drip. Echocardiogram pending. He is maintaining good O2 saturations in the upper 90s on room air. He has been afebrile. Hemodynamically stable. Currently in sinus rhythm. Objective - Vital Signs Vital signs: Vital Signs Temp 97.6 F 04/30/24 08:25 Pulse 66 04/30/24 08:25 Resp 16 04/30/24 08:25 BP 103/67 04/30/24 08:25 Pulse Ox 97 04/30/24 08:54 FiO2 Intake & Output 04/29/24 04/30/24 04/30/24 18:59 06:59 18:59 Intake Total 323.721 Output Total 375 Balance -51.279 Weight 83.9 kg 78.3 kg Intake: IV 50 D5-0.45% NaCl with KCl 50 20Meq/l 1,000 ml @ 50 mls /hr IV .Q20H [facility] Rx#: [id number] Intake, IV Titration 273.721 Amount D5-0.45% NaCl with KCl 50 20Meq/l 1,000 ml @ 50 mls /hr IV .Q20H [facility] Rx#: [id number] Heparin Sod,Pork in 0.45% 223.721 NaCl 25,000 unit In 0.45 % NaCl 1 250ml.bag @ 12 UNITS/KG/HR 9.798 mls/hr IV .Q24H [facility] Rx#: [id number] Output: Urine 375 Other: Voiding Method Toilet Toilet # Voids 1 2 - Exam GENERAL EXAM: Alert, pleasant 59-year-old male, on room air, fairly comfortable in no apparent distress. HEAD: Normocephalic. EYES: Normal reaction of pupils, equal size. NOSE: Clear with pink turbinates. THROAT: No erythema or exudates. NECK: No masses, no JVD. CHEST: No chest wall deformity. LUNGS: Equal air entry with no crackles, wheeze, rhonchi or dullness. CVS: S1 and S2 normal with no audible murmur, regular rhythm. ABDOMEN: No hepatosplenomegaly, normal bowel sounds, no guarding or rigidity. SPINE: No scoliosis or deformity SKIN: No rashes CENTRAL NERVOUS SYSTEM: No focal deficits, tone is normal in all 4 extremities. EXTREMITIES: There is no peripheral edema. No clubbing, no cyanosis. Peripheral pulses are intact. - Labs CBC & Chem 7: 04/30/24 07:06 04/30/24 07:06 Labs: Abnormal Lab Results - Last 24 Hours (Table) 04/29/24 04/29/24 04/29/24 Range/Units 11:03 15:58 19:45 RBC (4.30-5.90) m/uL APTT (22.0-30.0) sec Sodium (137-145) mmol/L Potassium (3.5-5.1) mmol/L Carbon Dioxide (22-30) mmol/L Glucose (74-99) mg/dL POC Glucose (mg/dL) 281 H 213 H 234 H (70-110) mg/dL Total Protein (6.3-8.2) g/dL Albumin (3.5-5.0) g/dL 04/30/24 04/30/24 04/30/24 Range/Units 02:50 06:25 07:06 RBC (4.30-5.90) m/uL APTT 43.1 H (22.0-30.0) sec Sodium (137-145) mmol/L Potassium (3.5-5.1) mmol/L Carbon Dioxide (22-30) mmol/L Glucose (74-99) mg/dL POC Glucose (mg/dL) 160 H 190 H (70-110) mg/dL Total Protein (6.3-8.2) g/dL Albumin (3.5-5.0) g/dL 04/30/24 04/30/24 Range/Units 07:06 07:06 RBC 4.26 L (4.30-5.90) m/uL APTT (22.0-30.0) sec Sodium 134 L (137-145) mmol/L Potassium 3.4 L (3.5-5.1) mmol/L Carbon Dioxide 19 L (22-30) mmol/L Glucose 180 H (74-99) mg/dL POC Glucose (mg/dL) (70-110) mg/dL Total Protein 5.3 L (6.3-8.2) g/dL Albumin 2.9 L (3.5-5.0) g/dL Assessment and Plan Assessment: Acute diabetic ketoacidosis, Blood glucose 657, serum bicarb 11, anion gap 22, acetone positive. Anion gap metabolic acidosis, secondary to above New onset diabetes mellitus Atrial tachycardia, thought to be a flutter in the emergency department, started on a combination of heparin infusion and Cardizem which is infusing at 10 mg/h in the ED, currently normal sinus rhythm Elevated troponins, likely secondary to above, patient did have a heart cathete rization 07/16/2023 which was unremarkable for significant or obstructive CAD. Acute kidney injury, secondary to dehydration and DKA, Improved History of aortic stenosis status post aortic valve replacement with bioprosthesis and exclusion of the left atrial appendage History of rheumatic fever History of hyperlipidemia Former tobacco smoker, quit smoking in May, Plan: The patient was seen and evaluated Labs and medications reviewed Remains on a heparin drip Cardiology is consulted Echocardiogram pending Remains on Levemir and NovoLog sliding scale Stable and on room air I have personally seen and examined the patient, performed the documentation and the assessment and plan as written. Number of minutes spent on the visit: 10 Dictation was produced using [employer] dictation software. Please excuse any grammatical, word or spelling errors.
[2024-04-30] MEDS ORDERED: APIXABAN 5 MG TAB PO SCH (11:30)
[2024-04-30 11:36] LABS: Glucose,Whole Blood 341 mg/dL (70-110)
[2024-04-30] MEDS: POTASSIUM CHLORIDE ER 20 MEQ TAB.ER PO STA (12:01)
[2024-04-30] MEDS: INSULIN ASPART (NovoLOG) 100 UNIT/ML VIAL SQ SCH (12:02)
[2024-04-30 16:45] LABS: Glucose,Whole Blood 266 mg/dL (70-110)
[2024-04-30 20:26] LABS: Glucose,Whole Blood 153 mg/dL (70-110)
--- NOTE | 2024-04-30 20:28 | PN ---
PROGRESS NOTE Parrish is a 59-year-old gentleman with history of aortic valve replacement, who was admitted to hospital with elevated troponin thought to be secondary to type 2 myocardial infarction, thought to be due to diabetic ketoacidosis. The patient had tachyarrhythmia that was initially thought to be atrial flutter, but Dr. Nuñez, who evaluated the patient felt it represented sinus tachycardia. Subsequent EKG shows sinus rhythm with nonspecific ST-T wave changes. I am going to leave him on heparin until tomorrow morning. PHYSICAL EXAM: GENERAL: He is comfortable at rest. VITAL SIGNS: Stable. NECK: There is no jugular venous distention. CHEST: Reveals good air entry bilaterally. HEART: Reveals first and second heart sounds. No gallop. EXTREMITIES: Did not reveal any edema. Peripheral pulses are felt. ASSESSMENT AND PLAN: 1. Elevated troponin. 2. Tachyarrhythmia thought to be sinus tachycardia. 3. We will discuss with Dr. Nuñez in the morning. We will leave him on heparin. MMODL / IJN: [id number] /
[2024-05-01 00:58] LABS: Glucose,Whole Blood 285 mg/dL (70-110)
[2024-05-01 06:05] LABS: Glucose,Whole Blood 251 mg/dL (70-110)
--- NOTE | 2024-05-01 10:55 | P.PN ---
Subjective Progress Note Date: 05/01/24 Patient is a 59-year-old male with past medical history significant for severe aortic stenosis, rheumatic fever, and aortic valve replacement performed in August,. Patient presented to emergency department yesterday afternoon complaining of 3 to 4 days of "dehydration". He states that he has been thirsty and having increased urination. Starting yesterday, he developed some nausea and vomiting and lightheadedness when standing. Denies losing consciousness or head trauma. States his heart was racing. Denies any recent sick contacts or illnesses. He was feeling fairly well the day prior, was out [employer] shopping. Presented the emergency department he was thought to be in atrial flutter/atri al fibrillation. Started on heparin and Cardizem in the ED. Patient was also found to be in a state of DKA. Blood glucose 657, serum bicarb 11, anion gap 22, acetone positive. Denies history of diabetes. He was started on the DKA protocol, including insulin infusion. CBC: WBC count 10.8, hemoglobin 15.8, hematocrit 45.9, platelets 194. Most recent BMP includes a sodium 138, potassium 3.9, chloride 112, serum bicarb 12, anion gap 14, BUN 22, creatinine 0.89, glucose is now down to 179. LFTs unremarkable. Troponins were mildly elevated at 0.045. EKG done on arrival showing atrial tachycardia, possible a flutter, rate 125 bpm, old T wave inversions in 1, aVL, V5, V6.. Patient is currently being evaluated in the intensive care unit. Cardizem is currently infusing at 10 mg/h, Currently in a normal sinus rhythm, rate 70 bpm. IV heparin infusing per protocol, as well as, D5W with 0.45% saline with 20 mEq of potassium infusing at 150 ml/h. Current vitals: Temperature 98.4 F, heart rate 79 beats per minutes, blood pressure 104/78 mmHg, respiratory rate nontachypneic, SpO2 99% on room air. The patient is seen today April 30, 2024 in follow-up on the selective care unit. He was transferred out of the intensive care unit yesterday. He is currently sitting up at the bedside. Awake and alert in no acute distress. Feeling a bit better today compared to yesterday. Still somewhat weak. White count 7.6. Hemoglobin 13.6. Platelets 176. Sodium 134. Potassium 3.4. Bi carb 19. BUN 17. Creatinine 0.82. Glucose 180. He is continued on a heparin drip. Echocardiogram pending. He is maintaining good O2 saturations in the upper 90s on room air. He has been afebrile. Hemodynamically stable. Currently in sinus rhythm. The patient is seen today May 01, 2024 in follow-up on the selective care unit. He is currently sitting up in bed. Awake and alert in no acute distress. Denies any worsening shortness of breath, cough or congestion. Maintaining good O2 saturations in the 90s on room air. He is afebrile. Hemodynamically stable. He remains on a heparin drip. Glucose 251. Remains in sinus rhythm. He remains on a heparin drip. Remains on Levemir and NovoLog sliding scale along with Farxiga. Objective - Vital Signs Vital signs: Vital Signs Temp 97.9 F 05/01/24 08:00 Pulse 77 05/01/24 08:00 Resp 16 05/01/24 08:00 BP 96/61 05/01/24 04:30 Pulse Ox 98 05/01/24 08:17 FiO2 Intake & Output 04/30/24 05/01/24 05/01/24 18:59 06:59 18:59 Intake Total 709.11 540 240 Balance 709.11 540 240 Weight 78.4 kg Intake: Intake, IV Titration 229.11 Amount Heparin Sod,Pork in 0.45% 229.11 NaCl 25,000 unit In 0.45 % NaCl 1 250ml.bag @ 12 UNITS/KG/HR 9.798 mls/hr IV .Q24H [facility] Rx#: [id number] Oral 480 540 240 Other: Voiding Method Toilet Toilet # Voids 1 - Exam GENERAL EXAM: Alert, pleasant 59-year-old male, sitting up in bed, on room air, comfortable in no apparent distress. HEAD: Normocephalic. EYES: Normal reaction of pupils, equal size. NOSE: Clear with pink turbinates. THROAT: No erythema or exudates. NECK: No masses, no JVD. CHEST: No chest wall deformity. LUNGS: Equal air entry with no crackles, wheeze, rhonchi or dullness. CVS: S1 and S2 normal with no audible murmur, regular rhythm. ABDOMEN: No hepatosplenomegaly, normal bowel sounds, no guarding or rigidity. SPINE: No scoliosis or deformity SKIN: No rashes CENTRAL NERVOUS SYSTEM: No focal deficits, tone is normal in all 4 extremities. EXTREMITIES: There is no peripheral edema. No clubbing, no cyanosis. Peripheral pulses are intact. - Labs CBC & Chem 7: 04/30/24 07:06 04/30/24 07:06 Labs: Abnormal Lab Results - Last 24 Hours (Table) 04/30/24 04/30/24 04/30/24 Range/Units 11:34 16:44 20:23 APTT (22.0-30.0) sec POC Glucose (mg/dL) 341 H 266 H 153 H (70-110) mg/dL 05/01/24 05/01/24 05/01/24 Range/Units 00:56 06:01 06:04 APTT 41.9 H (22.0-30.0) sec POC Glucose (mg/dL) 285 H 251 H (70-110) mg/dL Assessment and Plan Assessment: Acute diabetic ketoacidosis, Blood glucose 657, serum bicarb 11, anion gap 22, acetone positive. Recovered and on Levemir, Farxiga, NovoLog sliding scale Anion gap metabolic acidosis, secondary to above. Corrected New onset diabetes mellitus Atrial tachycardia, thought to be a flutter in the emergency department, started on heparin infusion, currently normal sinus rhythm Elevated troponins, likely secondary to above, patient did have a heart cathet erization 07/16/2023 which was unremarkable for significant or obstructive CAD. Acute kidney injury, secondary to dehydration and DKA, Improved History of aortic stenosis status post aortic valve replacement with bioprosthesis and exclusion of the left atrial appendage History of rheumatic fever History of hyperlipidemia Former tobacco smoker, quit smoking in May, Plan: The patient was seen and evaluated Labs and medications reviewed Stable and on room air Remains on a heparin drip Echocardiogram pending Home once cleared by cardiology This patient was seen independently by the pulmonary nurse practitioner addressing pulmonary/critical care issues I have personally seen and examined the patient, performed the documentation and the assessment and plan as written. Number of minutes spent on the visit: 24 Dictation was produced using [email or web address] dictation software. Please excuse any grammatical, word or spelling errors.
--- NOTE | 2024-05-01 11:26 | P.PN ---
Subjective This is a pleasant 59 years old male with past medical history of multiple medical problems including aortic valve replacement with Dr. Joshi. He follows up with jewelry drill operator Dr. Mcgregor on aspirin and Plavix at home. Presents because of signs symptoms of hyperglycemia and lightheadedness feeling dizzy especially when he tries to walk feeling tired with leg cramps. Patient is not diabetic before, on admission his sugar was highly elevated more than 5 and 600. Patient was placed on insulin drip and admitted to the intensive care unit for further management. Also he has been tachycardic with heart rate 1 30-1 40 and he started on Cardizem drip and heparin drip and currently controlled in 60s. Also patient received aggressive IV hydration because of his severe dehydration. Patient currently denies chest pain dyspnea or coughing. No specific GI/ symptoms. No headache dizziness weakness or numbness. Gait is back to normal. Patient denies smoking alcohol or illicit drug, he said he quit about 1 year ago. He is afebrile, tachycardia is significantly improved and his vitals are stable WBC within the reference range at 10.6, glucose controlled. Creatinine was elevated on admission 1.5 improved down to 0.7 currently. Rest of CBC, LFTs and INR were unremarkable Acetone was positive Troponin is elevated 0.41 EKG showing sinus rhythm at [address] depression in V5 and V6 and inferior leads II and III Another EKG showing atrial flutter with a rate of 125 Chest x-ray is negative for acute process showing COPD changes This morning his insulin drip was discontinued and he started on Levemir 10 units and NovoLog sliding scale. Patient was taught how to inject himself with aspirin and he tried by himself this morning successfully. Patient currently stable and he is documented to 3 S. from ICU 04/30 No chest pain or dyspnea Remains on heparin drip Blood sugar still slightly elevated continue with Levemir 10 units increase No voLog to 5 units Patient off Cardizem drip and heart rate controlled WBC down to 7.6, low potassium 3.4 replaced, creatinine 0.8 patient 05/01 Patient still feels weak but improving as well Other than he denies any other specific symptoms. No chest pain or dyspnea. No abdominal pain vomiting diarrhea or urinary symptoms He remains on heparin drip for his A-fib, probably patient will need to be switched to oral anticoagulant upon discharge, patient informed about risks and benefits and he agrees His sugar was better controlled, slightly elevated so increase his Levemir 10 units up to 12 units and continue with NovoLog 5 units with meals, patient informed and he agrees. Patient told me he has glucometer at bedside. Dietitian consult was placed for his diabetes. Objective - Vital Signs Vital signs: Vital Signs Temp 97.9 F 05/01/24 08:00 Pulse 77 05/01/24 08:00 Resp 16 05/01/24 08:00 BP 96/61 05/01/24 04:30 Pulse Ox 98 05/01/24 08:17 FiO2 Intake & Output 04/30/24 05/01/24 05/01/24 18:59 06:59 18:59 Intake Total 709.11 540 240 Balance 709.11 540 240 Weight 78.4 kg Intake: Intake, IV Titration 229.11 Amount Heparin Sod,Pork in 0.45% 229.11 NaCl 25,000 unit In 0.45 % NaCl 1 250ml.bag @ 12 UNITS/KG/HR 9.798 mls/hr IV .Q24H [facility] Rx#: [id number] Oral 480 540 240 Other: Voiding Method Toilet Toilet # Voids 1 - Exam GENERAL: The patient is alert and oriented x3, not in any acute distress. Well developed, well nourished. HEENT: Pupils are round and equally reacting to light. EOMI. No scleral icterus. No conjunctival pallor. Normocephalic, atraumatic. No pharyngeal erythema. No thyromegaly. CARDIOVASCULAR: S1 and S2 present. No murmurs, rubs, or gallops. PULMONARY: Chest is clear to auscultation, no wheezing , no crackles. ABDOMEN: Soft, nontender, nondistended, normoactive bowel sounds. No palpable organomegaly. MUSCULOSKELETAL: No joint swelling or deformity. EXTREMITIES: No cyanosis, clubbing, or pedal edema. NEUROLOGICAL: Gross neurological examination did not reveal any focal deficits. SKIN: No rashes. no petechiae. - Labs CBC & Chem 7: 04/30/24 07:06 04/30/24 07:06 Labs: Abnormal Lab Results - Last 24 Hours (Table) 04/30/24 04/30/24 04/30/24 Range/Units 11:34 16:44 20:23 APTT (22.0-30.0) sec POC Glucose (mg/dL) 341 H 266 H 153 H (70-110) mg/dL 05/01/24 05/01/24 05/01/24 Range/Units 00:56 06:01 06:04 APTT 41.9 H (22.0-30.0) sec POC Glucose (mg/dL) 285 H 251 H (70-110) mg/dL Assessment and Plan Assessment: Diabetic ketoacidosis, new onset Diabetes mellitus with hyperglycemia most likely type I. New onset A-fib and RVR, present on admission, new onset and DILL[place] and severe dehydration secondary to above currently resolved History of aortic valve disease and severe stenosis status post TAVR History of kidney stones History of rheumatic fever as a child Plan: Continue with Levemir 12 units and NovoLog 5 units with meals and sliding scale Cardiology team consult, pulmonary team consult Heparin drip per cardiology team consult Nutrition consult Labs and medication were reviewed.. Continue same treatment. Continue with s ymptomatic treatment. Resume home medication. Monitor labs and vitals. DVT and GI prophylaxis. Further recommendations as per clinical course of the patient DVT prophylaxis: heparin GI Prophylaxis: Pepcid Prognosis is guarded patient will need to follow-up with wallcovering texturer and jewelry drill operator upon discharge and he agrees
[2024-05-01 11:40] LABS: Glucose,Whole Blood 244 mg/dL (70-110)
[2024-05-01] MEDS: DAPAGLIFLOZIN PROPANEDIOL 10 MG TABLET PO SCH (12:49)
[2024-05-01] MEDS: INSULIN DETEMIR (LEVEMIR) 100 UNIT/ML SYR SQ ONE (12:49)
[2024-05-01] MEDS: ASPIRIN 81 MG PO SCH (12:49)
--- NOTE | 2024-05-01 15:38 | P.PN ---
Subjective Progress Note Date: 05/01/24 HISTORY OF PRESENTING ILLNESS Patient is a 59-year-old with past medical history of aortic valve replacement in July 2023. He is known to Dr. Mcgregor. Into the hospital because of feeling of generalized weakness, feeling very tired, leg cramps and feeling as if he was very dehydrated. On admission he was noticed to have elevated blood sugars with severe hyperglycemia with glucose measuring 600. He was also positive for having ketones and blood Patient reports that he did not know that he was diabetic before this episode. Admission labs hemoglobin 15.8, BUN 22, creatinine 0.8, troponin 0.045. Progress note 05/01/2024 Patient is doing well from cardiovascular standpoint. He is hemodynamically stable. Denies any chest pain chest pressure shortness of breath PHYSICAL EXAMINATION Vital signs reviewed. Head: Normocephalic. Eyes: Sclerae nonicteric. Neck: Brisk carotid upstroke, no jugular venous distention. Lungs: Clear to auscultation. Heart: Regular rate and rhythm, S1-S2 audible, systolic murmur audible, Abdomen: Soft nontender, positive bowel sounds. Extremities: No edema, intact distal pulses. Neuro: Alert, oritented, no focal deficits. Detailed neuro exam was not performed. ASSESSMENT Elevated troponin, likely type II NSTEMI in setting of severe dehydration and diabetic ketoacidosis Bicuspid aortic valve with severe aortic stenosis, status post TAVR in 08/2023 Mild cardiomyopathy EF 45%, grade 3 diastolic function Mild carotid disease Diabetic ketoacidosis Uncontrolled diabetes HbA1c 13.6 Cardiac testing 07/2023, carotid Doppler, mild bilateral disease 07/2023, cardiac cath, no significant obstructive coronary artery disease. EKG on this admission shows sinus tachycardia. It reads as atrial flutter but it appears more to be sinus tachycardia to me. Repeat ECG shows sinus tachycardia with diffuse T wave inversions in inferolateral leads PLAN Continue aspirin 81 mg, Lipitor 40 mg Farxiga 10 mg, losartan 12.5 mg daily. Strict diabetic control Follow-up outpatient with Dr. Mcgregor in next 1 to 2 weeks. On outpatient basis, recommend further uptitrating GDMT and obtaining an updated echocardiogram. Patient is cleared from cardiovascular standpoint. Objective - Vital Signs Vital signs: Vital Signs Temp 97.9 F 05/01/24 08:00 Pulse 56 L 05/01/24 12:00 Resp 16 05/01/24 12:00 BP 118/80 05/01/24 12:00 Pulse Ox 95 05/01/24 12:00 FiO2 Intake & Output 04/30/24 05/01/24 05/01/24 18:59 06:59 18:59 Intake Total 709.11 540 480 Balance 709.11 540 480 Weight 78.4 kg Intake: Intake, IV Titration 229.11 Amount Heparin Sod,Pork in 0.45% 229.11 NaCl 25,000 unit In 0.45 % NaCl 1 250ml.bag @ 12 UNITS/KG/HR 9.798 mls/hr IV .Q24H [facility] Rx#: [id number] Oral 480 540 480 Other: Voiding Method Toilet Toilet Toilet # Voids 1 - Labs CBC & Chem 7: 04/30/24 07:06 04/30/24 07:06 Labs: Abnormal Lab Results - Last 24 Hours (Table) 04/30/24 04/30/24 05/01/24 Range/Units 16:44 20:23 00:56 APTT (22.0-30.0) sec POC Glucose (mg/dL) 266 H 153 H 285 H (70-110) mg/dL 05/01/24 05/01/24 05/01/24 Range/Units 06:01 06:04 11:38 APTT 41.9 H (22.0-30.0) sec POC Glucose (mg/dL) 251 H 244 H (70-110) mg/dL
[2024-05-01] MEDS: LOSARTAN 25 MG TAB PO SCH (16:18)
[2024-05-01 16:41] LABS: Glucose,Whole Blood 175 mg/dL (70-110)
[2024-05-01 20:21] LABS: Glucose,Whole Blood 150 mg/dL (70-110)
[2024-05-01] MEDS: ATORVASTATIN 40 MG TAB PO SCH (20:48)
[2024-05-02 01:01] LABS: Glucose,Whole Blood 247 mg/dL (70-110)
[2024-05-02 06:23] LABS: Glucose,Whole Blood 178 mg/dL (70-110)
[2024-05-02] MEDS: INSULIN DETEMIR (LEVEMIR) 100 UNIT/ML SYR SQ SCH (06:54)
[2024-05-02 09:15] VITALS: TEMP 98
[2024-05-02 10:59] VITALS: BMI 27.8
[2024-05-02 11:33] LABS: Glucose,Whole Blood 237 mg/dL (70-110)
--- NOTE | 2024-05-02 11:42 | P.PN ---
Subjective Progress Note Date: 05/02/24 Patient is a 59-year-old male with past medical history significant for severe aortic stenosis, rheumatic fever, and aortic valve replacement performed in August,. Patient presented to emergency department yesterday afternoon complaining of 3 to 4 days of "dehydration". He states that he has been thirsty and having increased urination. Starting yesterday, he developed some nausea and vomiting and lightheadedness when standing. Denies losing consciousness or head trauma. States his heart was racing. Denies any recent sick contacts or illnesses. He was feeling fairly well the day prior, was out [employer] shopping. Presented the emergency department he was thought to be in atrial flutter/atri al fibrillation. Started on heparin and Cardizem in the ED. Patient was also found to be in a state of DKA. Blood glucose 657, serum bicarb 11, anion gap 22, acetone positive. Denies history of diabetes. He was started on the DKA protocol, including insulin infusion. CBC: WBC count 10.8, hemoglobin 15.8, hematocrit 45.9, platelets 194. Most recent BMP includes a sodium 138, potassium 3.9, chloride 112, serum bicarb 12, anion gap 14, BUN 22, creatinine 0.89, glucose is now down to 179. LFTs unremarkable. Troponins were mildly elevated at 0.045. EKG done on arrival showing atrial tachycardia, possible a flutter, rate 125 bpm, old T wave inversions in 1, aVL, V5, V6.. Patient is currently being evaluated in the intensive care unit. Cardizem is currently infusing at 10 mg/h, Currently in a normal sinus rhythm, rate 70 bpm. IV heparin infusing per protocol, as well as, D5W with 0.45% saline with 20 mEq of potassium infusing at 150 ml/h. Current vitals: Temperature 98.4 F, heart rate 79 beats per minutes, blood pressure 104/78 mmHg, respiratory rate nontachypneic, SpO2 99% on room air. The patient is seen today April 30, 2024 in follow-up on the selective care unit. He was transferred out of the intensive care unit yesterday. He is currently sitting up at the bedside. Awake and alert in no acute distress. Feeling a bit better today compared to yesterday. Still somewhat weak. White count 7.6. Hemoglobin 13.6. Platelets 176. Sodium 134. Potassium 3.4. Bi carb 19. BUN 17. Creatinine 0.82. Glucose 180. He is continued on a heparin drip. Echocardiogram pending. He is maintaining good O2 saturations in the upper 90s on room air. He has been afebrile. Hemodynamically stable. Currently in sinus rhythm. The patient is seen today May 01, 2024 in follow-up on the selective care unit. He is currently sitting up in bed. Awake and alert in no acute distress. Denies any worsening shortness of breath, cough or congestion. Maintaining good O2 saturations in the 90s on room air. He is afebrile. Hemodynamically stable. He remains on a heparin drip. Glucose 251. Remains in sinus rhythm. He remains on a heparin drip. Remains on Levemir and NovoLog sliding scale along with Farxiga. The patient is seen today May 02, 2024 in follow-up on the selective care unit. He is currently sitting up in a chair. Awake and alert in no acute distress. Maintaining good O2 saturations in the upper 90s on room air. He is afebrile. Hemodynamically stable. Denies any worsening shortness of breath, cough or congestion. Denies any chest pain or palpitations. His appetite is good. Glucose 237. He remains on Levemir and NovoLog sliding scale along with Farxiga. He remains in sinus rhythm. Objective - Vital Signs Vital signs: Vital Signs Temp 98 F 05/02/24 08:00 Pulse 85 05/02/24 08:00 Resp 18 05/02/24 08:00 BP 140/89 05/02/24 08:00 Pulse Ox 98 05/02/24 08:00 FiO2 Intake & Output 05/01/24 05/02/24 05/02/24 18:59 06:59 18:59 Intake Total 720 Balance 720 Weight 78.2 kg 78.2 kg Intake: Oral 720 Other: Voiding Method Toilet Toilet Toilet # Voids 1 - Exam GENERAL EXAM: Alert, very pleasant 59-year-old male patient, sitting up in a chair, on room air, comfortable in no apparent distress. HEAD: Normocephalic. EYES: Normal reaction of pupils, equal size. NOSE: Clear with pink turbinates. THROAT: No erythema or exudates. NECK: No masses, no JVD. CHEST: No chest wall deformity. LUNGS: Equal air entry with no crackles, wheeze, rhonchi or dullness. CVS: S1 and S2 normal with no audible murmur, regular rhythm. ABDOMEN: No hepatosplenomegaly, normal bowel sounds, no guarding or rigidity. SPINE: No scoliosis or deformity SKIN: No rashes CENTRAL NERVOUS SYSTEM: No focal deficits, tone is normal in all 4 extremities. EXTREMITIES: There is no peripheral edema. No clubbing, no cyanosis. Peripheral pulses are intact. - Labs CBC & Chem 7: 04/30/24 07:06 04/30/24 07:06 Labs: Abnormal Lab Results - Last 24 Hours (Table) 05/01/24 05/01/24 05/01/24 Range/Units 11:38 16:39 20:19 POC Glucose (mg/dL) 244 H 175 H 150 H (70-110) mg/dL 05/02/24 05/02/24 05/02/24 Range/Units 01:00 06:22 11:32 POC Glucose (mg/dL) 247 H 178 H 237 H (70-110) mg/dL Assessment and Plan Assessment: Acute diabetic ketoacidosis, Blood glucose 657, serum bicarb 11, anion gap 22, acetone positive. Recovered and on Levemir, Farxiga, NovoLog sliding scale Anion gap metabolic acidosis, secondary to above. Corrected New onset diabetes mellitus Atrial tachycardia, thought to be a flutter in the emergency department, started on heparin infusion, currently normal sinus rhythm Elevated troponins, likely secondary to above, patient did have a heart catheterization 07/16/2023 which was unremarkable for significant or obstructive CAD. Acute kidney injury, secondary to dehydration and DKA, Improved History of aortic stenosis status post aortic valve replacement with bioprosthesis and exclusion of the left atrial appendage History of rheumatic fever History of hyperlipidemia Former tobacco smoker, quit smoking in May, Plan: The patient was seen and evaluated Labs and medications reviewed Stable and on room air Cardiology planning outpatient workup Stable for discharge This patient was seen independently by the pulmonary nurse practitioner addressing pulmonary/critical care issues I have personally seen and examined the patient, performed the documentation and the assessment and plan as written. Number of minutes spent on the visit: 22 Dictation was produced using [employer] dictation software. Please excuse any grammatical, word or spelling errors.
[2024-05-02 11:55] VITALS: BP 147/89; PULSE 78; RESP 16
[2024-05-05 07:40] LABS: Glucose,Whole Blood 186 mg/dL (70-110)
== END 2024-05-02 12:28 | disposition home or self-care (01) | DRG 637 ==
LOC: EC 15:47 → 2SICU 20:43 → 3SCARD 04-29 21:51
PROVIDERS: ADMIT Hospitalist; ATTEND Hospitalist
DX: E11.10 Type 2 diabetes mellitus with ketoacidosis without coma (principal); I21.A1 Myocardial infarction type 2; I47.19 Other supraventricular tachycardia; N17.9 Acute kidney failure, unspecified; I42.9 Cardiomyopathy, unspecified; I48.92 Unspecified atrial flutter; I35.0 Nonrheumatic aortic (valve) stenosis; Q23.81 Bicuspid aortic valve; Z95.3 Presence of xenogenic heart valve; R50.9 Fever, unspecified; Z87.891 Personal history of nicotine dependence; E86.0 Dehydration; Z87.442 Personal history of urinary calculi; I48.91 Unspecified atrial fibrillation; Z86.19 Personal history of other infectious and parasitic diseases; E78.5 Hyperlipidemia, unspecified; J44.9 Chronic obstructive pulmonary disease, unspecified; Z79.01 Long term (current) use of anticoagulants; Z79.02 Long term (current) use of antithrombotics/antiplatelets; Z79.4 Long term (current) use of insulin; Z79.82 Long term (current) use of aspirin; Z79.899 Other long term (current) drug therapy; Z82.49 Family history of ischemic heart disease and other diseases of the circulatory system
CPT/HCPCS: 36415; 71046; 80048; 80051; 80053; 82009; 82565; 82803; 82947; 83036; 83735; 84100; 84484; 84520; 85025; 85027; 85610; 85730; 93005; 93270; 94760; 96361; 96365; 96366; 96367; 96368; 99291